=== PATIENT | female | born 1970 | race Caucasian/White ===

== ENCOUNTER 2018-11-08 14:04 | Outpatient (REF) | payer BC, SELFPAY ==
[2018-11-08 21:18] LABS: COMMENT (LAB VIEW ONLY) 199.56 mg/dL; Microalb ug/mg Crea 3.1 ug/mg Cr
== END 2018-11-08 14:24 ==
LOC: NCHCN 14:04
PROVIDERS: Visit Provider Registered Nurse
DX: I10 Essential (primary) hypertension (principal); E11.9 Type 2 diabetes mellitus without complications
CPT/HCPCS: 82043; 82570

== ENCOUNTER 2018-12-26 09:41 | Outpatient (REF) | payer BC, SELFPAY ==
[2018-12-26 20:49] LABS: Anion Gap 7.2 mmol/L (3-11); BUN 13 mg/dL (7-18); CO2 29.8 mmol/L (21.0-32.0); CREATININE 0.85 mg/dL (0.55-1.02); Calcium 9.8 mg/dL (8.5-10.1); Chloride 103 mmol/L (98-107); Glucose 137 mg/dL (70-100); Potassium 4.9 mmol/L (3.5-5.1); Sodium 140 mmol/L (136-145)
== END 2018-12-26 10:01 ==
LOC: NCHCN 09:41
PROVIDERS: PCP Registered Nurse; Visit Provider Registered Nurse
DX: E11.9 Type 2 diabetes mellitus without complications (principal); I10 Essential (primary) hypertension; E66.9 Obesity, unspecified
CPT/HCPCS: 80048

== ENCOUNTER 2019-04-28 16:27 | Outpatient (REF) | payer BC, SELFPAY ==
[2019-04-28 23:07] LABS: ALT 45 U/L (12-78); AST 24 U/L (15-37); Albumin 3.7 g/dL (3.4-5.0); Alkaline Phosphatase 81 U/L (46-116); Anion Gap 13.2 mmol/L (3-11); BUN 14 mg/dL (7-18); Bilirubin, Total 0.2 mg/dL (0.2-1.0); CO2 24.8 mmol/L (21.0-32.0); CREATININE 0.96 mg/dL (0.55-1.02); Calcium 8.8 mg/dL (8.5-10.1); Chloride 104 mmol/L (98-107); Glucose 162 mg/dL (70-100); Potassium 4.1 mmol/L (3.5-5.1); Sodium 142 mmol/L (136-145)
== END 2019-04-28 16:47 ==
LOC: NCHCN 16:27
PROVIDERS: PCP Registered Nurse; Visit Provider Family Medicine
DX: R60.0 Localized edema (principal); E66.9 Obesity, unspecified
CPT/HCPCS: 80053; 84443

== ENCOUNTER 2020-06-21 08:24 | Outpatient (REF) | payer BC, SELFPAY ==
[2020-06-21 21:13] LABS: Anion Gap 9.5 mmol/L (3-11); BUN 16 mg/dL (7-18); CO2 24.5 mmol/L (21.0-32.0); CREATININE 0.81 mg/dL (0.55-1.02); Chloride 106 mmol/L (98-107); Glucose 106 mg/dL (74-106); Potassium 4.3 mmol/L (3.5-5.1); Sodium 140 mmol/L (136-145)
[2020-06-21 21:22] LABS: COMMENT (LAB VIEW ONLY) 135.88 mg/dL
== END 2020-06-21 08:44 ==
LOC: NCHCN 08:24
PROVIDERS: PCP Registered Nurse; Visit Provider Registered Nurse
DX: E11.9 Type 2 diabetes mellitus without complications (principal); Z79.899 Other long term (current) drug therapy
CPT/HCPCS: 80048; 82043; 82570

== ENCOUNTER 2021-10-09 21:20 | Outpatient (REF) | payer BC, SELFPAY ==
[2021-10-09 21:11] LABS: HCT 34.2 % (36.0-46.0); HGB 10.7 g/dL (11.2-15.7); MCHC 31.3 % (32.0-36.0); MCV 95.8 fL (80-95); Platelet Count 421 10^3/uL (130-400); RBC 3.57 10^6/uL (3.93-5.22); RDW 12.6 % (11.7-14.6); RDW-SD 43.9 fL
[2021-10-09 21:32] LABS: TSH 2.05 uIU/mL (0.36-3.74)
== END 2021-10-09 21:21 | disposition home or self-care (01) ==
LOC: NCHCN 21:20
PROVIDERS: PCP Registered Nurse; Visit Provider Family Medicine
DX: N93.9 Abnormal uterine and vaginal bleeding, unspecified (principal)
CPT/HCPCS: 85027; 84443

== ENCOUNTER 2021-10-29 15:32 | Outpatient (REF) | payer BC, SELFPAY ==
[2021-10-29 21:39] LABS: HCT 32.9 % (36.0-46.0); HGB 10.2 g/dL (11.2-15.7)
== END 2021-10-29 15:33 | disposition home or self-care (01) ==
LOC: NCHCN 15:32
PROVIDERS: PCP Registered Nurse; Visit Provider Registered Nurse
DX: D64.9 Anemia, unspecified (principal); N92.1 Excessive and frequent menstruation with irregular cycle
CPT/HCPCS: 85014; 85018

== ENCOUNTER 2021-12-31 09:48 | Outpatient (REF) | payer BC, SELFPAY ==
[2021-12-31 17:10] LABS: COMMENT (LAB VIEW ONLY) 155.62 mg/dL; Microalb ug/mg Crea 5.9 ug/mg Cr
== END 2021-12-31 09:49 | disposition home or self-care (01) ==
LOC: NCHCN 09:48
PROVIDERS: PCP Registered Nurse; Visit Provider Registered Nurse
DX: E11.9 Type 2 diabetes mellitus without complications (principal)
CPT/HCPCS: 82043; 82570

== ENCOUNTER 2022-01-02 22:49 | Outpatient (REF) | payer BC, SELFPAY ==
[2022-01-02 20:59] LABS: HCT 38.1 % (36.0-46.0); HGB 11.5 g/dL (11.2-15.7); MCH 26.4 pg (27.0-33.0); MCHC 30.2 % (32.0-36.0); MCV 87.4 fL (80-95); MPV 10.8 fL (8.0-11.0); Platelet Count 417 10^3/uL (130-400); RBC 4.36 10^6/uL (3.93-5.22); RDW 13.7 % (11.7-14.6); RDW-SD 43.7 fL; WBC 6.33 10^3/uL (4.4-10.8)
[2022-01-05 12:44] LABS: IgA 128 mg/dL (85-499); Interpretation (See Note); Tissue Transglutaminase IgA 1.2 U/mL (<4.0)
== END 2022-01-02 22:50 | disposition home or self-care (01) ==
LOC: NCHCN 22:49
PROVIDERS: PCP Registered Nurse; Visit Provider Registered Nurse
DX: D64.9 Anemia, unspecified (principal); R19.7 Diarrhea, unspecified
CPT/HCPCS: 82784; 83516; 85027

== ENCOUNTER 2022-04-01 16:15 | Outpatient (REF) | payer BC, SELFPAY ==
[2022-04-01 14:35] LABS: Abs Immature Grans 0.01 10^3/uL (0.0-0.06); Absolute Basophil Count 0.06 10^3/uL (0.0-0.2); Absolute Eosinophil Count 0.25 10^3/uL (0.0-0.7); Absolute Lymphocyte Count 1.41 10^3/uL (1.2-3.4); Absolute Monocyte Count 0.58 10^3/uL (0.1-0.8); Absolute Neutrophil Count 3.26 10^3/uL (1.2-6.7); Basophils % 1.1; Eosinophils % 4.5; HGB 12.8 g/dL (11.2-15.7); Immature Grans % 0.2; Lymphocytes % 25.3; MCH 27.8 pg (27.0-33.0); MCV 87 fL (80-95); MPV 10.2 fL (8.0-11.0); Monocytes % 10.4; Neutrophils % 58.5; Platelet Count 360 10^3/uL (130-400); RDW 14.6 % (11.7-14.6); RDW-SD 46.3 fL; WBC 5.57 10^3/uL (4.4-10.8)
[2022-04-01 14:51] LABS: TSH (W/Ref FT4) 2.52 uIU/mL (0.36-3.74)
== END 2022-04-01 16:16 | disposition home or self-care (01) ==
LOC: NCHCN 16:15
PROVIDERS: PCP Registered Nurse; Visit Provider Registered Nurse
DX: R53.83 Other fatigue (principal)
CPT/HCPCS: 84443; 85025

== ENCOUNTER 2022-08-21 13:16 | Outpatient (REF) | payer BC, SELFPAY ==
[2022-08-21 15:37] LABS: HCT 42.1 % (36.0-46.0); HGB 14.2 g/dL (11.2-15.7); MCH 30.7 pg (27.0-33.0); MCHC 33.7 % (32.0-36.0); MCV 91 fL (80-95); MPV 10.5 fL (8.0-11.0); Platelet Count 365 10^3/uL (130-400); RBC 4.63 10^6/uL (3.93-5.22); RDW 12.7 % (11.7-14.6); RDW-SD 41.3 fL
[2022-08-21 16:23] LABS: ALT 25 U/L (14-59); AST 18 U/L (15-37); Albumin 3.4 g/dL (3.4-5.0); Alkaline Phosphatase 125 U/L (46-116); BUN 15 mg/dL (7-18); Bilirubin, Total 0.2 mg/dL (0.2-1.0); CREATININE 0.8 mg/dL (0.55-1.02); Calcium 9.3 mg/dL (8.5-10.1); Chloride 101 mmol/L (98-107); Estimated GFR 89.71 (mL/min/1.73m2); Glucose 100 mg/dL (74-106); Lipase 80 U/L (73-393); Sodium 133 mmol/L (136-145)
== END 2022-08-21 13:17 | disposition home or self-care (01) ==
LOC: NCHCN 13:16
PROVIDERS: PCP Registered Nurse; Visit Provider Family Medicine
DX: R10.13 Epigastric pain (principal)
CPT/HCPCS: 80053; 83690; 85027

== ENCOUNTER 2022-11-20 09:03 | Outpatient (REF) | payer BC, SELFPAY ==
--- NOTE | 2022-11-20 07:55 | PAPFT_PTH ---
PATIENT: Mei Valenzuela LOC: [facility]#:[id number] AGE/SX: 52/F ROOM: RE11/20/[address]: Roro Mallory : 1970 BED: DIS: 11/20/2022 SPEC #: [id number] RECD: 11/20/22 18:43 STATUS: GE REKelton #: [id number] MONAE: 11/20/22 07:[address]: Roro Mallory DEPT: [facility] Cytology RECD BY: Maribell Munoz Tissues: 1 - CX/ENDOCX FOR PAP SMEARS Procedures: PAP THIN PREP/UVM Screening HPV DNA PROBE Comments: [id number]
== END 2022-11-20 09:04 | disposition home or self-care (01) ==
LOC: NCHCN 09:03
PROVIDERS: PCP Registered Nurse; Visit Provider Registered Nurse
DX: Z12.4 Encounter for screening for malignant neoplasm of cervix (principal); Z00.00 Encounter for general adult medical examination without abnormal findings; Z11.51 Encounter for screening for human papillomavirus (HPV)
CPT/HCPCS: 88142; 87624

== ENCOUNTER 2023-05-27 11:32 | Outpatient (REF) | payer BC, SELFPAY ==
[2023-05-27 15:11] LABS: COMMENT (LAB VIEW ONLY) 102.76 mg/dL; Microalb ug/mg Crea 5.7 ug/mg Cr
== END 2023-05-27 11:33 | disposition home or self-care (01) ==
LOC: NCHCN 11:32
PROVIDERS: PCP Registered Nurse; Visit Provider Family Medicine
DX: E11.9 Type 2 diabetes mellitus without complications (principal); I10 Essential (primary) hypertension
CPT/HCPCS: 82043; 82570

== ENCOUNTER 2023-11-23 18:24 | Outpatient (REF) | payer BC, SELFPAY ==
[2023-11-23 14:29] LABS: HGB 12.6 g/dL (11.2-15.7); MCH 28.8 pg (27.0-33.0); MCHC 32.3 % (32.0-36.0); MCV 89 fL (80-95); MPV 9.8 fL (8.0-11.0); Platelet Count 339 10^3/uL (130-400); RBC 4.38 10^6/uL (3.93-5.22); RDW 13.3 % (11.7-14.6); RDW-SD 43.6 fL; WBC 4.83 10^3/uL (4.4-10.8)
[2023-11-23 15:08] LABS: ALT 42 U/L (14-59); AST 33 U/L (15-37); Albumin 3.6 g/dL (3.4-5.0); Alkaline Phosphatase 78 U/L (46-116); Anion Gap 8.3 mmol/L (3-11); BUN 9 mg/dL (7-18); Bilirubin, Total 0.3 mg/dL (0.2-1.0); CO2 27.7 mmol/L (21.0-32.0); CREATININE 0.8 mg/dL (0.55-1.02); Calcium 9.5 mg/dL (8.5-10.1); Chloride 105 mmol/L (98-107); Estimated GFR 89.15 (mL/min/1.73m2); Ferritin 11 ng/mL (8-252); Glucose 113 mg/dL (74-106); Potassium 4.8 mmol/L (3.5-5.1); Sodium 141 mmol/L (136-145); Total Protein 7.4 g/dL (6.4-8.2)
[2023-11-23 15:12] LABS: Iron 50 ug/dL (50-170); Total Iron Binding Capacity 374 ug/dL (250-450); Transferrin Sat 13 % (15-50)
[2023-11-23 15:45] LABS: Hemoglobin A1C 6.6 % (<5.7)
== END 2023-11-23 18:25 | disposition home or self-care (01) ==
LOC: NCHCN 18:24
PROVIDERS: PCP Registered Nurse; Referring Provider Family Medicine; Visit Provider Family Medicine
DX: D64.9 Anemia, unspecified (principal); E11.9 Type 2 diabetes mellitus without complications; I10 Essential (primary) hypertension
CPT/HCPCS: 80053; 85027; 82728; 83036; 83540; 83550

== ENCOUNTER 2024-05-26 18:08 | Outpatient (REF) | payer BC, SELFPAY ==
[2024-05-26 15:21] LABS: COMMENT (LAB VIEW ONLY) 146.18 mg/dL; Microalb ug/mg Crea 7.5 ug/mg Cr
--- OUTSIDE RECORDS SUMMARY | 2024-05-26 18:11 | XMS_ITS ---
Author Organization Unknown Address [address] [place] [address] [phone] Phone Care Team Providers Care Curtain Worker Name Role Phone JOSÉ LUIS Marquez Attending Unavailable CHASE Sal Primary Unavailable Results US PELVIC TRANSVAGINAL* - Co mpleted: 10/21/2021 14:59 LOINC: PELVIC ULTRASOUND:Transabdom inal and transvaginal exams were performed. The uterus measures 8.7 by 4.8 by 5.6 cm. No fibroids are visible. The endometrial stripe measures 3 mm in thickness. There is a 1.8 cm follicle. The left ovary is not well seen. There is no evidence of free fluid or hydronephrosis. IMPRESSION:Suboptimal visualization of the left ovary. Unremarkable uterus and endometrium. Dictated by: CEO YONI AZEVEDO MD Transcribed by: REGINALDO 10/22/2108:20 D Thursday, October 21, 2021 3:41:30 PM [id number] Electronically Reviewed and Signed By: YONI AZEVEDO MD 11/10/21 08:12 Copy for: [facility] HEALTH INFORMATION MGMT Social History Type Status Start Date End Date Code Code Syst em Smoking History Never smoker (Never Smoked) 519002686 SNOMED CT Sex Female Hospital Discharge Instructions Should you have any questions prior to discharge, please contact a member of your healthcare team. If you have left the hospital and have any questions, please contact your primary care physician. Reason For Referral No Data Found Allergies and Adverse Reactions Allergy Substance Reaction Severity Start Date Concern Status Co de Code System RANITIDINE Rash (SNOMED-CT: 761531210) Severe Active 9143 RxNorm PRILOSEC Rash (SNOMED-CT: 631527636) Severe Active 813971 RxNorm Plan of Treatment MM SCREEN BILAT 05/19/2023 US PELVIC / TV 06/16/2023 US PELVIC / TV 03/17/2023 PRE-OP COVID-19 TESTING 01/23/2022 US PELVIC / TV 10/21/2021 US GUIDED NEEDLE BIOPSY 08/27/2021 Encounters Encounter Diagnosis Start Date Code Code Sys tem Abnormal uterine and vaginal bleeding, unspecified 09/2021 SNOMED-CT Personal Care Team Section Performer Name Performer Role Active Date Inactive Da te
--- OUTSIDE RECORDS SUMMARY | 2024-05-26 18:11 | XMS_ITS ---
Author Organization Unknown Address [address] [place] [address] [phone] Phone Care Team Providers Care Property Condition Assessor Name Role Phone LENORA Barraza Attending Unavailable CHASE Sal Primary Unavailable Social History Type Status Start Date End Date Code Code Syst em Smoking History Never smoker (Never Smoked) 870038841 SNOMED CT Sex Female Hospital Discharge Instructions [...] Co de Code System RANITIDINE Rash (SNOMED-CT: 284325125) Severe Active 9143 RxNorm PRILOSEC Rash (SNOMED-CT: 431368287) Severe Active 20321223 RxNorm Plan of Treatment MM SCREEN BILAT 05/19/2023 US PELVIC / TV 06/16/2023 US PELVIC / TV 03/17/2023 PRE-OP COVID-19 TESTING 01/23/2022 US PELVIC / TV 10/21/2021 US GUIDED NEEDLE BIOPSY 08/27/2021 Encounters Encounter Diagnosis Start Date Code Code Sys tem Excessive and frequent menstruation with irregular cyc le 11/10/2021 SNOMED-CT Personal Care Team Section Performer Name Performer Role Active Date Inactive Da te
--- OUTSIDE RECORDS SUMMARY | 2024-05-26 18:11 | XMS_ITS ---
Author Organization Unknown Address [address] [place] [address] [phone] Phone Care Team Providers Care Fountain Supervisor Name Role Phone CONNER Stevenson Attending Unavailable CHASE Sal Primary Unavailable Social History Type Status Start Date End Date Code Code Syst em Smoking History Never smoker (Never Smoked) 081142456 SNOMED CT Sex Female Hospital Discharge Instructions [...] Co de Code System RANITIDINE Rash (SNOMED-CT: 757786272) Severe Active 9143 RxNorm PRILOSEC Rash (SNOMED-CT: 398378908) Severe Active 20321223 RxNorm Plan of Treatment MM SCREEN BILAT 05/19/2023 US PELVIC / TV 06/16/2023 US PELVIC / TV 03/17/2023 PRE-OP COVID-19 TESTING 01/23/2022 US PELVIC / TV 10/21/2021 US GUIDED NEEDLE BIOPSY 08/27/2021 Encounters Encounter Diagnosis Start Date Code Code Sys tem Biceps tendinitis 10/09/2021518112180 SNOMED-CT Personal Care Team Section Performer Name Performer Role Active Date Inactive Da te
--- OUTSIDE RECORDS SUMMARY | 2024-05-26 18:11 | XMS_ITS ---
Author Organization Unknown Address [address] [place] [address] [phone] Phone Care Team Providers Care Director Of Market Analysis Name Role Phone ROLANDO Chew Attending Unavailable CHASE Sal Primary Unavailable Results [facility] - Emily ect Date/Time: 01/23/2022 10:03 [facility] ID: [id number] [address] [place] [address], [phone] LOINC: 55233-2 Test Value Unit Reference Range Code Code System Flag Tier- PRE-OP 10802-8 LOINC SARS COV2 RNA: NEGATIVE REFERENCE RANGE: NEGAT 72130-6 L OINC Social History Type Status Start Date End Date Code Code Syst em Smoking History Never smoker (Never Smoked) 690328441 SNOMED CT Sex Female Hospital Discharge Instructions [...] Co de Code System RANITIDINE Rash (SNOMED-CT: 926919085) Severe Active 9143 RxNorm PRILOSEC Rash (SNOMED-CT: 762146929) Severe Active 244866 RxNorm Plan of Treatment MM SCREEN BILAT 05/19/2023 US PELVIC / TV 06/16/2023 US PELVIC / TV 03/17/2023 PRE-OP COVID-19 TESTING 01/23/2022 US PELVIC / TV 10/21/2021 US GUIDED NEEDLE BIOPSY 08/27/2021 Encounters Encounter Diagnosis Start Date Code Code Sys tem Pre-surgery testing 01/23/2022 855354087 SNOMED-C T Personal Care Team Section Performer Name Performer Role Active Date Inactive Da te
--- OUTSIDE RECORDS SUMMARY | 2024-05-26 18:11 | XMS_ITS ---
Author Organization Unknown Address [address] [place] [address] [phone] Phone Care Team Providers Care Distributor Publications Name Role Phone SELINA LUCAS Attending Unavailable CHASE Sal Primary Unavailable Results US GUIDANCE FOR NEEDLE PLACE MENT - Completed: 08/27/2021 15:52 LOINC: Ultrasound guidance was prov ided for right biceps injection. Radiologist was not present for this procedure. Dictated by: ALMITA GAONA MD Transcribed by: REGINALDO 08/28/2108:23 D Friday, August 27, 2021 12:33:50 PM [id number] Electronically Reviewed and Signed By: DAVID GAONA MD 08/29/21 09:04 Copy for: [facility] HEALTH INFORMATION MGMT Social History Type Status Start Date End Date Code Code Syst em Smoking History Never smoker (Never Smoked) 480217651 SNOMED CT Sex Female Hospital Discharge Instructions Should you have any questions prior to discharge, please contact a member of your healthcare team. If you have left the hospital and have any questions, please contact your primary care physician. Reason For Referral No Data Found Procedures Procedure Name Date Status Code Code Syste m Arthrocentesis Aspir&/Inj Major Jt/Bursa w/US 08/27/2021 c ompleted CPT Allergies and Adverse Reactions Allergy Substance Reaction Severity Start Date Concern Status Co de Code System RANITIDINE Rash (SNOMED-CT: 240653382) Severe Active 43 RxNorm PRILOSEC Rash (SNOMED-CT: 843984316) Severe Active 20321223 RxNorm Plan of Treatment MM SCREEN BILAT 05/19/2023 US PELVIC / TV 06/16/2023 US PELVIC / TV 03/17/2023 PRE-OP COVID-19 TESTING 01/23/2022 US PELVIC / TV 10/21/2021 US GUIDED NEEDLE BIOPSY 08/27/2021 Encounters Encounter Diagnosis Start Date Code Code Sys tem Pain in right shoulder 08/27/2021 SNOME D-CT Personal Care Team Section Performer Name Performer Role Active Date Inactive Da te
--- OUTSIDE RECORDS SUMMARY | 2024-05-26 18:12 | XMS_ITS ---
Author Organization Unknown Address [address] [place] [address] [phone] Phone Care Team Providers Care Retail Merchandising Specialist Name Role Phone PITA Rivers Attending Unavailable CHASE Sal Primary Unavailable Social History Type Status Start Date End Date Code Code Syst em Smoking History Never smoker (Never Smoked) 435852025 SNOMED CT Sex Female Hospital Discharge Instructions [...] Co de Code System RANITIDINE Rash (SNOMED-CT: 556358942) Severe Active 9143 RxNorm PRILOSEC Rash (SNOMED-CT: 827254834) Severe Active 20321223 RxNorm Plan of Treatment MM SCREEN BILAT 05/19/2023 US PELVIC / TV 06/16/2023 US PELVIC / TV 03/17/2023 PRE-OP COVID-19 TESTING 01/23/2022 US PELVIC / TV 10/21/2021 US GUIDED NEEDLE BIOPSY 08/27/2021 Encounters Encounter Diagnosis Start Date Code Code Sys tem Other fatigue 04/09/2022 SNOMED-CT Personal Care Team Section Performer Name Performer Role Active Date Inactive Da te
--- OUTSIDE RECORDS SUMMARY | 2024-05-26 18:12 | XMS_ITS ---
Author Organization Unknown Address [address] [place] [address] [phone] Phone Care Team Providers Care Sorter Upholstery Parts Name Role Phone CHASE Sal Attending Unavailable Social History Type Status Start Date End Date Code Code Syst em Smoking History Never smoker (Never Smoked) 007286688 SNOMED CT Sex Female Hospital Discharge Instructions [...] Co de Code System RANITIDINE Rash (SNOMED-CT: 004370756) Severe Active 9143 RxNorm PRILOSEC Rash (SNOMED-CT: 825991998) Severe Active 584123 RxNorm Plan of Treatment MM SCREEN BILAT 05/19/2023 US PELVIC / TV 06/16/2023 US PELVIC / TV 03/17/2023 PRE-OP COVID-19 TESTING 01/23/2022 US PELVIC / TV 10/21/2021 US GUIDED NEEDLE BIOPSY 08/27/2021 Encounters Encounter Diagnosis Start Date Code Code Sys tem Obstructive sleep apnea (adult) (pediatric) 05/20/2022 SNOMED-CT Personal Care Team Section Performer Name Performer Role Active Date Inactive Da te
--- OUTSIDE RECORDS SUMMARY | 2024-05-26 18:12 | XMS_ITS ---
Author Organization Unknown Address [address] [place] [address] [phone] Phone Care Team Providers Care Functional Director Name Role Phone LUIS WOODS Attending Unavail able CHASE BRITTNEY M Primary Unavailable Social History Type Status Start Date End Date Code Code Syst em Smoking History Never smoker (Never Smoked) 392361564 SNOMED CT Sex Female Hospital Discharge Instructions [...] Co de Code System RANITIDINE Rash (SNOMED-CT: 420244219) Severe Active 9143 RxNorm PRILOSEC Rash (SNOMED-CT: 556721555) Severe Active 20321223 RxNorm Plan of Treatment MM SCREEN BILAT 05/19/2023 US PELVIC / TV 06/16/2023 US PELVIC / TV 03/17/2023 PRE-OP COVID-19 TESTING 01/23/2022 US PELVIC / TV 10/21/2021 US GUIDED NEEDLE BIOPSY 08/27/2021 Encounters Encounter Diagnosis Start Date Code Code Sys tem Obstructive sleep apnea (adult) (pediatric) 04/24/2022 SNOMED-CT Personal Care Team Section Performer Name Performer Role Active Date Inactive Da te
--- OUTSIDE RECORDS SUMMARY | 2024-05-26 18:12 | XMS_ITS ---
Author Organization Unknown Address [address] [place] [address] [phone] Phone Care Team Providers Care Av Specialist Name Role Phone ROLANDO Chew Attending Unavailable CHASE Sal Primary Unavailable Results TEST (URINE) QUALI TATIVE - Collect Date/Time: 01/26/2022 09:05 [facility] ID: [id number] [address] [place] [address], 56 LOINC: 2106-3 Test Value Unit Reference Range Code Code System Flag TEST NEGATIVE 6-3 LOINC Social History Type Status Start Date End Date Code Code Syst em Smoking History Never smoker (Never Smoked) 175590806 SNOMED CT Sex Female Vital Signs Vital Sign Value Unit [place] Value [place] Unit Date/Time Recent/Initial? Code Code System Systolic Blood Pressure 119 mm[Hg] 01/26/2022 10:35 Initial 8480-6 LOINC Diastolic Blood Pressure 77 mm[Hg] 01/26/2022 10:35 Initial 8462-4 LOINC O2 Saturation 100 % 2021 10:35 Initial 52561- 5 LOINC Pulse 80.0 /min 01/26/2022 10:35 Initial 8867-4 LOINC Respiration 16 /min 01/27/20 10:35 Initial 9279-1 LOINC Temperature 36.5 Elen 97.7 F 01/27/20 10:35 Initial 8310-5 LOINC Hospital Discharge Instructions Should you have any questions prior to discharge, please contact a member of your healthcare team. If you have left the hospital and have any questions, please contact your primary care physician. Reason For Referral No Data Found Procedures Procedure Name Date Status Code Code Syste m Colsc Flx w/Rmvl Of Tumor Po lyp Lesion Snare Tq 01/26/2022 completed 08451 CPT Allergies and Adverse Reactions Allergy Substance Reaction Severity Start Date Concern Status Co de Code System RANITIDINE Rash (SNOMED-CT: 594607207) Severe Active 9142 RxNorm PRILOSEC Rash (SNOMED-CT: 170058052) Severe Active 20321223 RxNorm Plan of Treatment MM SCREEN BILAT 05/19/2023 US PELVIC / TV 06/16/2023 US PELVIC / TV 03/17/2023 PRE-OP COVID-19 TESTING 01/23/2022 US PELVIC / TV 10/21/2021 US GUIDED NEEDLE BIOPSY 08/27/2021 Encounters Encounter Diagnosis Start Date Code Code Sys tem Encounter for screening for malignant neoplasm of colo n 01/26/2022 SNOMED-CT Personal Care Team Section Performer Name Performer Role Active Date Inactive Da te
--- OUTSIDE RECORDS SUMMARY | 2024-05-26 18:13 | XMS_ITS ---
Author Organization Unknown Address [address] [place] [address] [phone] Phone Care Team Providers Care Csr Technician Name Role Phone JOSELITO Lafleur Attending Unavailable ROSEMARY Sahu [employer] PSYCHOLOGIST Unavailable CHASE Sal Primary Unavailable Results GLUCOSE FINGER/HEEL CAPILLAR Y - Collect Date/Time: 01/15/2023 09:12 [facility] ID: [id number] [address] [place] [address], [phone] LOINC: 51084-9 Test Value Unit Reference Range Code Code System Flag GLUCOSE CAP 85 mg/dL L=70 H=116 Social History Type Status Start Date End Date Code Code Syst em Smoking History Never smoker (Never Smoked) 422149993 SNOMED CT Sex Female Vital Signs Vital Sign Value Unit [place] Value [place] Unit Date/Time Recent/Initial? Code Code System Body Mass Index 32.89 kg/m2 01/11/2023 11:12 Initial 76282 -5 LOINC Systolic Blood Pressure 117 mm[Hg] 01/15/2023 12:35 Initial 8480- 6 LOINC Diastolic Blood Pressure 70 mm[Hg] 01/15/2023 12:35 Initial 8462- 4 LOINC Body Surface Area 2.12 m2 01/11/2023 11:12 Initial 3140- 1 LOINC Height 170.180 0 cm 67.00 in 01/11/2023 11:12 Initial 8302- 2 LOINC O2 Saturation 100 % 2022 12:35 Initial 19854 -5 LOINC Pulse 65.0 /min 01/15/2023 12:35 Initial 8867- 4 LOINC Respiration 18 /min 01/16/20 12:35 Initial 9279- 1 LOINC Temperature 36.1 Elen 97.0 F 01/16/20 12:35 Initial 8310- 5 [facility] Weight 95.25 kg 210.00 lbs 01/11/2023 11:12 Initial 28426 -7 [facility] Hospital Discharge Instructions Should you have any questions prior to discharge, please contact a member of your healthcare team. If you have left the hospital and have any questions, please contact your primary care physician. Reason For Referral No Data Found Procedures Procedure Name Date Status Code Code Syste m Hemorrhoidectomy, Internal, By Ligation Other Than Rubber Band; 2 Or More Hemorrhoid Columns/Groups 01/15/2023 completed 36063 CPT Anesthesia, Anorectal Proc 01/15/2023 completed 83842 CPT Allergies and Adverse Reactions Allergy Substance Reaction Severity Start Date Concern Status Co de Code System RANITIDINE Rash (SNOMED-CT: 033185352) Severe Active 9143 RxNorm PRILOSEC Rash (SNOMED-CT: 635563553) Severe Active 20321223 RxNorm Plan of Treatment MM SCREEN BILAT 05/19/2023 US PELVIC / TV 06/16/2023 US PELVIC / TV 03/17/2023 PRE-OP COVID-19 TESTING 01/23/2022 US PELVIC / TV 10/21/2021 US GUIDED NEEDLE BIOPSY 08/27/2021 Encounters Encounter Diagnosis Start Date Code Code Sys tem Fourth degree hemorrhoids 01/15/2023 SN OMED-CT Personal Care Team Section Performer Name Performer Role Active Date Inactive Da te
--- OUTSIDE RECORDS SUMMARY | 2024-05-26 18:13 | XMS_ITS ---
Author Organization Unknown Address [address] [place] [address] [phone] Phone Care Team Providers Care Laborer High Density Press Name Role Phone JOSELITO HYUN Lafleur Attending Unavailable CHASE Sal Primary Unavailable Results BASIC METABOLIC PANEL (BMP) - Collect Date/Time: 01/11/2023 09:30 [facility] ID: [id number] [address] [place] [address], [address] LOINC: 04307-7 Test Value Unit Reference Range Code Code System Flag GLUCOSE 99 mg/dL L=70 H=116 2345-7 LOINC BUN 12 mg/dL L=6 H=25 3094-0 LOINC CREATININE 0.76 mg/dL L=0.51 H=0.95 2160-0 LOINC SODIUM SERUM 141 mmol/L L=136 H=145 2951-2 LOINC POTASSIUM SERUM 4.7 mmol/L L=3.4 H=5.2 2823-3 LOINC CHLORIDE SERUM 103 mmol/L L=96 H=110 2075-0 LOINC CARBON DIOXIDE (CO2) 28 mmol/L L=22 H=34 2028-9 LOINC ANION GAP 10.4 mmol/L 81553-8 LOINC CALCIUM SERUM 9.6 mg/dL L=8.2 H=10.2 51236-0 LOINC AGE 52 years eGFR (non-Afr.Amer.) 81 mL/min 00963-1 LOINC eGFR (Afr-Cymro) 97 mL/min 56938-1 [facility] W/ [facility]FFERENTIAL* - Colle ct Date/Time: 01/11/2023 09:30 [facility] ID: [id number] [address] [place], [place], [address] LOINC: 55593-6 Test Value Unit Reference Range Code Code System Flag WBC 6.76 th/cmm L=5.00 H=10.00 6690-2 LOINC NEUT % 68.6 % L=40.0 H=80.0 LYMPH % 20.1 % L=10.0 H=50.0 MONO % 7.8 % L=2.0 H=12.0 46462-3 LOINC EOS % 2.5 % L=0.0 H=8.0 BASO % 0.7 % L=0.0 H=3.0 IG % 0.3 % L=0.0 H=1.1 2514-8 LOINC NRBC % 0.0 % L=0.0 H=0.0 00757-4 LOINC NEUT abs count 4.6 th/cmm L=1.6 H=8.4 751-8 LOINC LYMPH abs count 1.4 th/cmm L=1.5 H=4.0 731-0 LOINC L MONO abs count 0.5 th/cmm L=0.2 H=1.0 742-7 LOINC EOS abs count 0.2 th/cmm L=0.0 H=0.5 711-2 LOINC BASO abs count 0.1 th/cmm L=0.0 H=0.2 704-7 LOINC IG abs count 0.0 th/cmm L=0.0 H=0.1 07831-9 LOINC NRBC abs count 0.0 mil/cmm L=0.0 H=0.0 56976-4 LOINC RBC 4.65 mil/cmm L=3.90 H=5.40 789-8 LOINC HEMOGLOBIN 14.3 gm/dL L=12.0 H=16.0 718-7 LOINC HEMATOCRIT 44 % L=37 H=47 4544-3 LOINC MCV 94 fL L=82 H=92 787-2 LOINC H MCH 30.8 pg L=27.0 H=31.0 785-6 LOINC MCHC 32.9 % L=32.0 H=36.0 786-4 LOINC RDW-SD 41.8 fL L=39.0 H=49.0 788-0 LOINC PLATELET COUNT 331 th/cmm L=150 H=450 777-3 LOINC Social History Type Status Start Date End Date Code Code Syst em Smoking History Never smoker (Never Smoked) 366746425 SNOMED CT Sex Female Hospital Discharge Instructions [...] Co de Code System RANITIDINE Rash (SNOMED-CT: 944589140) Severe Active 43 RxNorm PRILOSEC Rash (SNOMED-CT: 350245788) Severe Active 20321223 RxNorm Plan of Treatment MM SCREEN BILAT 05/19/2023 US PELVIC / TV 06/16/2023 US PELVIC / TV 03/17/2023 PRE-OP COVID-19 TESTING 01/23/2022 US PELVIC / TV 10/21/2021 US GUIDED NEEDLE BIOPSY 08/27/2021 Encounters Encounter Diagnosis Start Date Code Code Sys tem Encounter for other preprocedural examination 01/12/20 23 SNOMED-CT Personal Care Team Section Performer Name Performer Role Active Date Inactive Da te
--- OUTSIDE RECORDS SUMMARY | 2024-05-26 18:13 | XMS_ITS ---
Author Organization Unknown Address [address] [place] [address] [phone] Phone Care Team Providers Care Clean Out Driller Helper Name Role Phone JOSELITO Lafleur Attending Unavailable STONE BRITTNEY Sal Primary Unavailable Social History Type Status Start Date End Date Code Code Syst em Smoking History Never smoker (Never Smoked) 749174624 SNOMED CT Sex Female Hospital Discharge Instructions [...] Co de Code System RANITIDINE Rash (SNOMED-CT: 929702343) Severe Active 9143 RxNorm PRILOSEC Rash (SNOMED-CT: 294732981) Severe Active 20321223 RxNorm Plan of Treatment MM SCREEN BILAT 05/19/2023 US PELVIC / TV 06/16/2023 US PELVIC / TV 03/17/2023 PRE-OP COVID-19 TESTING 01/23/2022 US PELVIC / TV 10/21/2021 US GUIDED NEEDLE BIOPSY 08/27/2021 Encounters Encounter Diagnosis Start Date Code Code Sys tem Residual hemorrhoidal skin tags 12/14/2022 82197816 SNOMED-CT Personal Care Team Section Performer Name Performer Role Active Date Inactive Da te
--- OUTSIDE RECORDS SUMMARY | 2024-05-26 18:13 | XMS_ITS ---
Author Organization Unknown Address [address] [place] [address] [phone] Phone Care Team Providers Care High School Coordinator Name Role Phone PITA Rivers Attending Unavailable CHASE Sal Primary Unavailable Social History Type Status Start Date End Date Code Code Syst em Smoking History Never smoker (Never Smoked) 637215129 SNOMED CT Sex Female Hospital Discharge Instructions [...] Co de Code System RANITIDINE Rash (SNOMED-CT: 784433559) Severe Active 9143 RxNorm PRILOSEC Rash (SNOMED-CT: 351598677) Severe Active 20321223 RxNorm Plan of Treatment MM SCREEN BILAT 05/19/2023 US PELVIC / TV 06/16/2023 US PELVIC / TV 03/17/2023 PRE-OP COVID-19 TESTING 01/23/2022 US PELVIC / TV 10/21/2021 US GUIDED NEEDLE BIOPSY 08/27/2021 Encounters Encounter Diagnosis Start Date Code Code Sys tem Person consulting for explan ation of examination or test findings 05/13/2022 SNOMED-CT Personal Care Team Section Performer Name Performer Role Active Date Inactive Da te
--- OUTSIDE RECORDS SUMMARY | 2024-05-26 18:14 | XMS_ITS ---
Author Organization Unknown Address [address] [place] [address] [phone] Phone Care Team Providers Care Optical Laboratory Mechanic Name Role Phone JOSELITO Lafleur Attending Unavailable CHASE Sal Primary Unavailable Social History Type Status Start Date End Date Code Code Syst em Smoking History Never smoker (Never Smoked) 595689529 SNOMED CT Sex Female Hospital Discharge Instructions [...] Co de Code System RANITIDINE Rash (SNOMED-CT: 753943863) Severe Active 9143 RxNorm PRILOSEC Rash (SNOMED-CT: 348093492) Severe Active 20321223 RxNorm Plan of Treatment MM SCREEN BILAT 05/19/2023 US PELVIC / TV 06/16/2023 US PELVIC / TV 03/17/2023 PRE-OP COVID-19 TESTING 01/23/2022 US PELVIC / TV 10/21/2021 US GUIDED NEEDLE BIOPSY 08/27/2021 Encounters Encounter Diagnosis Start Date Code Code Sys tem Follow-up visit 02/08/2023 067003466 SNOMED-CT Personal Care Team Section Performer Name Performer Role Active Date Inactive Da te
--- OUTSIDE RECORDS SUMMARY | 2024-05-26 18:14 | XMS_ITS ---
Author Organization Unknown Address [address] [place] [address] [phone] Phone Care Team Providers Care Fruit Farmworker Name Role Phone PROVOST LEVINE Attending Unavailable CHASE Sal Primary Unavailable Results US PELVIC TRANSVAGINAL* - Co mpleted: 03/17/2023 14:05 LOINC: [facility] [place], [place] [address] PACS CIVIL PROJECT ENGINEER REPORT Patient Name: MAURICIO CASTRO MRN: Sex: : Age: [id number] F 1970 52 Account: Accession: Admit: StayType: [id number] 03/17/2023 O/P Ordered: Order ID: Submitted: Ordering Provider: 03/17/2023 13:28 [id number] KT JULIANNA XIE Completed: Technologist: Resulted: 03/17/2023 14:05 GVS 03/17/2023 15:09 Study Description: US PELVIC TRANSVAGINAL* Study Reason: Menorrhagia TECNIQUE: Transabdominal and transvaginal exams performed. COMPARISON: 22 October 2021 FINDINGS: UTERUS: Anteverted. 9.6 x 4.5 x 5.5 cm Endometrium: 17 mm. No focal abnormality visible. Myometrium: Unremarkable. Cervix: Small nabothian cyst. OVARIES: Right: Cyst or mass: 4.7 x 3.7 x 5.0 cm simple cyst Left: Not seen DOPPLER: Blood flow demonstrated to right ovary. CUL-DE-SAC: Free fluid: None. IMPRESSION: 1. [Mildly thickened endometrium without focal abnormality. 2. 5 cm simple cyst right ovary. Left ovary not visualized. Report Digitally Signed by Roxann Marie on 03/17/2023 03:09 PM EDT Social History Type Status Start Date End Date Code Code Syst em Smoking History Never smoker (Never Smoked) 215821519 SpotRightOMED CT Sex Female Hospital Discharge Instructions Should you have any questions prior to discharge, please contact a member of your healthcare team. If you have left the hospital and have any questions, please contact your primary care physician. Reason For Referral No Data Found Allergies and Adverse Reactions Allergy Substance Reaction Severity Start Date Concern Status Co de Code System RANITIDINE Rash (SNOMED-CT: 247906076) Severe Active 9143 RxNorm PRILOSEC Rash (SNOMED-CT: 382399174) Severe Active 20321223 RxNorm Plan of Treatment MM SCREEN BILAT 05/19/2023 US PELVIC / TV 06/16/2023 US PELVIC / TV 03/17/2023 PRE-OP COVID-19 TESTING 01/23/2022 US PELVIC / TV 10/21/2021 US GUIDED NEEDLE BIOPSY 08/27/2021 Encounters Encounter Diagnosis Start Date Code Code Sys tem Abnormal findings on diagnos tic imaging of other specified body structures 03/17/2023 [employer] Automation-CT Personal Care Team Section Performer Name Performer Role Active Date Inactive Da te
--- OUTSIDE RECORDS SUMMARY | 2024-05-26 18:14 | XMS_ITS ---
Author Organization Unknown Address [address] [place] [phone] Phone Care Team Providers Care Business Team Leader Name Role Phone JOSELITODESTINY Lafleur Attending Unavailable STONEFIELD MICHELMARLEN Sal Primary Unavailable Social History Type Status Start Date End Date Code Code Syst em Smoking History Never smoker (Never Smoked) 879411083 SNOMED CT Sex Female Hospital Discharge Instructions [...] Co de Code System RANITIDINE Rash (SNOMED-CT: 483594265) Severe Active 9143 RxNorm PRILOSEC Rash (SNOMED-CT: 283287102) Severe Active 20321223 RxNorm Plan of Treatment MM SCREEN BILAT 05/19/2023 US PELVIC / TV 06/16/2023 US PELVIC / TV 03/17/2023 PRE-OP COVID-19 TESTING 01/23/2022 US PELVIC / TV 10/21/2021 US GUIDED NEEDLE BIOPSY 08/27/2021 Encounters Encounter Diagnosis Start Date Code Code Sys tem Internal hemorrhoids grade IV 01/15/2023 385013053 SNOMED-CT Personal Care Team Section Performer Name Performer Role Active Date Inactive Da te
--- OUTSIDE RECORDS SUMMARY | 2024-05-26 18:14 | XMS_ITS ---
Author Organization Unknown Address [address] [place] [address] [phone] Phone Care Team Providers Care Supervisor Inspection Department Name Role Phone JOSELITO Lafleur Attending Unavailable CHASE Sal Primary Unavailable Social History Type Status Start Date End Date Code Code Syst em Smoking History Never smoker (Never Smoked) 535430772 SNOMED CT Sex Female Hospital Discharge Instructions [...] Co de Code System RANITIDINE Rash (SNOMED-CT: 153498413) Severe Active 9143 RxNorm PRILOSEC Rash (SNOMED-CT: 461315240) Severe Active 20321223 RxNorm Plan of Treatment MM SCREEN BILAT 05/19/2023 US PELVIC / TV 06/16/2023 US PELVIC / TV 03/17/2023 PRE-OP COVID-19 TESTING 01/23/2022 US PELVIC / TV 10/21/2021 US GUIDED NEEDLE BIOPSY 08/27/2021 Encounters Encounter Diagnosis Start Date Code Code Sys tem Follow-up visit 03/22/2023 071049907 SNOMED-CT Personal Care Team Section Performer Name Performer Role Active Date Inactive Da te
--- OUTSIDE RECORDS SUMMARY | 2024-05-26 18:15 | XMS_ITS ---
Author Organization Unknown Address [address] [place] [address] [phone] Phone Care Team Providers Care Automotive Electrical Helper Name Role Phone December Attending Unavailable CHASE Sal Primary Unavailable Results VAGINAL SMEAR EVALUATION* - Collect Date/Time: 04/06/2023 13:47 [facility] ID: [id number] [address] [place] [address], [id number] LOINC: 04861-6 Test Value Unit Reference Range Code Code System Flag WBC s few Yeast. Moderate Hyphae Present Clue cells Not present TOTAL AUGUSTINE SCORE 2 CULT URINE CULTURE* - Collec t Date/Time: 04/06/2023 13:45 [facility] ID: [id number] [address] [place] [address], [id number] LOINC: 630-4 Test Value Unit Reference Range Code Code System Flag COLLECTION MODE: NOT STATED 91770-4 LOINC Social History Type Status Start Date End Date Code Code Syst em Smoking History Never smoker (Never Smoked) 014957728 SNOMED CT Sex Female Hospital Discharge Instructions [...] Co de Code System RANITIDINE Rash (SNOMED-CT: 073241008) Severe Active 9143 RxNorm PRILOSEC Rash (SNOMED-CT: 970328440) Severe Active 947396 RxNorm Plan of Treatment MM SCREEN BILAT 05/19/2023 US PELVIC / TV 06/16/2023 US PELVIC / TV 03/17/2023 PRE-OP COVID-19 TESTING 01/23/2022 US PELVIC / TV 10/21/2021 US GUIDED NEEDLE BIOPSY 08/27/2021 Encounters Encounter Diagnosis Start Date Code Code Sys tem Noninflammatory disorder of the vagina 04/06/2023 22 499247 SNOMED-CT Personal Care Team Section Performer Name Performer Role Active Date Inactive Da te
--- OUTSIDE RECORDS SUMMARY | 2024-05-26 18:15 | XMS_ITS ---
Author Organization Unknown Address [address] [place] [address] [phone] Phone Care Team Providers Care Retail Marketing Specialist Name Role Phone KELLY Lafleur Attending Unavailable STONE BRITTNEY Sal Primary Unavailable Social History Type Status Start Date End Date Code Code Syst em Smoking History Never smoker (Never Smoked) 108167543 SNOMED CT Sex Female Hospital Discharge Instructions [...] Co de Code System RANITIDINE Rash (SNOMED-CT: 084147338) Severe Active 9143 RxNorm PRILOSEC Rash (SNOMED-CT: 511158382) Severe Active 20321223 RxNorm Plan of Treatment MM SCREEN BILAT 05/19/2023 US PELVIC / TV 06/16/2023 US PELVIC / TV 03/17/2023 PRE-OP COVID-19 TESTING 01/23/2022 US PELVIC / TV 10/21/2021 US GUIDED NEEDLE BIOPSY 08/27/2021 Encounters Encounter Diagnosis Start Date Code Code Sys tem 04/12/2023 [id number] SNOMED-CT Personal Care Team Section Performer Name Performer Role Active Date Inactive Da te
--- OUTSIDE RECORDS SUMMARY | 2024-05-26 18:16 | XMS_ITS | Encounter Summary ---
Author Organization [facility] Address [address] [place] [address] Care Team Providers Care Compensation Associate Name Role Phone Roro Mallory Jonelle GONZALEZ Primary Care Provider + Reason for Visit * Reason Onset Date Comments Medications Refill 08/17/2022 Encounter Details Date Type Department Care Team (Late st Contact Info) Description 08/17/2022 Refill [facility] Endocrinology [address] [address] Clifford Atkinson MD Medications Refill Social History Tobacco Use Types Packs/Day Years Used Date Smoking Tobacco: Never Smokeless Tobacco: Never Alcohol Use Standard Drinks/Week Comments Yes 0 (1 standard drink = 0.6 oz pur e alcohol) rare Interpersonal Safety Answer Date Record ed Physically Hurt Never 04/21/2020 Verbally Threaten Not on file 04/21/2020 Sex and Gender Information Value Date Recorded Sex Assigned at Not on file Gender Identity Female 11/22/2019 12:18 EST Sexual Orientation Not on file documented as of this encounter Functional Status Functional Status Response Date of Assess ment Because of a physical, menta l, or emotional condition, does this person have difficulty doing errands alone such as visiting a doctor's office or shopping? No 05/28/2017 Cognitive Status Response Date of Assessm ent Because of a physical, menta l, or emotional condition, does this person have serious difficulty concentrating, remembering, or making decisions? No 05/28/2017 documented as of this encounter Ordered Prescriptions Prescription Sig Dispensed Refills Start Date End Da te SITagliptin phosphate (JANUVIA) 100 mg tablet Take 1 Tablet by mouth daily. 100 Tablet 08/22/2022 documented in this encounter Miscellaneous Notes * Telephone Encounter - Reyna Worley - 09/02/2022 1044 EST Patient being seen elsewhere, please refuse refills * Telephone Encounter - Ayah Maki MA - 08/17/2022 1044 EST Images from the original note were not included. We received a fax from [facility] requesting a refill for JANUVIA 100MG TABLETS. Please review appropriately thank You. documented in this encounter Plan of Treatment Not on file documented as of this encounter Visit Diagnoses Not on filedocumented in this encounter Discontinued Medications Medication Sig Discontinue Reason Start Date End Da te SITagliptin (JANUVIA) 100 mg tablet Take 1 Tablet by mouth daily. Reorder 2021 08/17/2022 documented as of this encounter Care Teams Compensation Associate Relationship Specialty Start Date End Date Roro Mallory APRN [address] [place] [id number] PCP - General 12/06/18 documented as of this encounter
--- OUTSIDE RECORDS SUMMARY | 2024-05-26 18:16 | XMS_ITS | Encounter Summary ---
Author Organization [facility] Address [address] [place] [address] Care Team Providers Care Steno Pool Supervisor Name Role Phone Roro Mallory Jonelle GONZALEZ Primary Care Provider + Encounter Details Date Type Department Care Team (Latest Contact Info) Description 09/26/2021 13:00 EST Phlebotomy Only [facility] Laboratory Services - [facility] [address] [place], [place] [id number] Type 2 diabetes mellitus with hyperglycemia, without long-term current use of insulin ([facility]) ([facility]); Pure hypercholesterolemia ; Essential hypertension, benign Social History Tobacco Use Types Packs/Day Years [...] No 05/28/2017 documented as of this encounter Miscellaneous Notes * Result Encounter Note - Stalin Naylor MD - 09/26/2021 1300 EST Hemoglobin A1c is at target Lipids at target There is a slight amount of proteinuria documented in this encounter Plan of Treatment Not on file documented as of this encounter Procedures Procedure Name Priority Date/Time Associated Diagnosis Comments PROTEIN/CREATININE RATIO, URINE Routine 09/26/2021 13:03 EST Type 2 diabetes mellitus with hyperglycemia, without long-term current use of insulin ([facility]) ([facility]) Essential hypertension, benign HEMOGLOBIN A1C Routine 09/26/2021 13:02 EST Type 2 diabetes mellitus with hyperglycemia, without long-term current use of insulin ([facility]) ([facility]) LIPID PROFILE (INCLUDES CHOLESTEROL, TRIGLYCERIDES, HDL, LDL) Routine 09/26/2021 13:02 EST Type 2 diabetes mellitus with hyperglycemia, without long-term current use of insulin ([facility]) ([facility]) Pure hypercholesterolemia COMPREHENSIVE METABOLIC PANEL (CMP) Routine 09/26/2021 13:02 EST Type 2 diabetes mellitus with hyperglycemia, without long-term current use of insulin ([facility]) ([facility]) documented in this encounter Results * (ABNORMAL) PROTEIN/CREATININE RATIO, URINE (09/26/2021 13:03 EST) Total Protein, Urine 66 See Note mg/dL 09/26/2021 14:23 [facility] Comment:Reference range not established. Creatinine, Urine 144.4 See Note mg/dL 09/26/2021 14:23 [facility] Comment:Reference range not established. UPRO mg/mg Cr, Ur 0.46(H) <0.18 mg/mg Creatinine 09/26/2021 14:23 [facility] Urine URINE SPECIMEN COLLECTION, CLEAN CATCH / Unknown Urine Collect / Unknown 09/26/2021 13:03 EST 09/26/2021 13:03 EST Stalin Naylor MD URINALYSIS ORDERAB LES [facility] [address] [place] [address] * (ABNORMAL) COMPREHENSIVE METABOLIC PANEL (CMP) (09/26/2021 13:02 EST) Sodium 138 136 - 145 mmol/L 09/26/2021 14:42 [facility] Potassium 4.5 3.5 - 5.0 mmol/L 09/26/2021 14:42 [facility] Chloride 102 96 - 110 mmol/L 09/26/2021 14:42 [facility] CO2 Total 27 22 - 32 mmol/L 09/26/2021 14:42 [facility] Glucose 112(H) 70 - 100 mg/dL 09/26/2021 14:42 [facility] BUN 12 10 - 26 mg/dL 09/26/2021 14:42 [facility] Creatinine 0.65 0.52 - 1.04 mg/dL 09/26/2021 14:42 [facility] eGFR 105 >60 mL/min/1.7 3m2 09/26/2021 14:42 [facility] Total Protein 7.5 6.3 - 8.2 g/dL 09/26/2021 14:42 [facility] Albumin 4.3 3.4 - 4.9 g/dL 09/26/2021 14:42 [facility] Alkaline Phosphatase 84 38 - 126 U/L 09/26/2021 14:42 [facility] AST 30 15 - 46 U/L 09/26/2021 14:42 [facility] ALT 30 <35 U/L 09/26/2021 14:42 [facility] Bilirubin, Total <0.5 <1.4 mg/dL 09/26/19 14:42 [facility] Calcium 9.4 8.5 - 10.5 mg/dL 09/26/2021 14:42 [facility] Albumin/Globulin Ratio 1.3 1.0 - 2.5 09/26/2021 14:42 [facility] Anion Gap 9 8 - 16 09/26/2021 14:42 [facility] Blood VENOUS BLOOD / Unknown Venipuncture / Unknown 09/26/2021 13:02 EST 09/26/2021 13:03 EST Stalin Naylor MD CHEMISTRY & BLOOD GAS ORDERABLES [facility] [address] [place] [address] * LIPID PROFILE (INCLUDES CHOLESTEROL, TRIGLYCERIDES, HDL, LDL) (09/26/2021 13:02 EST) Cholesterol 176 See Note mg/dL 09/26/2021 14:42 [facility] Comment: Acceptable: ?<200 mg/dL Borderline High: 200-239 mg/dL High: ?> or = 240 mg/dL HDL 60 See Note mg/dL 09/26/2021 14:42 [facility] Comment: Low: ? <40 mg/dL Normal: ??40-60 mg/dL High: ?>60 mg/dL LDL, Calculated 92 See Note mg/dL 09/26/2021 14:42 [facility] Comment: Optimal: ? <100 mg/dL Near Optimal: ?100-129 mg/dL Borderline High: 130-159 mg/dL High: ?160-189 mg/dL Very High: ? > or = 190 mg/dL Triglyceride 118 See Note mg/dL 09/26/2021 14:42 [facility] Comment: Normal: ? <150 mg/dL Borderline High: ??150 - 199 mg/dL High: ? 200 - 499 mg/dL Very High: ?> or = 500 mg/dL Chol/HDL Ratio 2.9 See Note 09/26/2021 14:42 EST [facility] Comment:No reference range h as been established for CHOL/HDL ratio. Non HDL Cholesterol 116 See Note mg/dL 09/26/2021 14:42 [facility] Comment: Desirable: ?<130 mg/dL Borderline High: ??130-159 mg/dL High: ? 160-189 mg/dL Very High: ?> or = 190 mg/dL Blood VENOUS BLOOD / Unknown Venipuncture / Unknown 09/26/2021 13:02 EST 09/26/2021 13:03 EST Stalin Naylor MD CHEMISTRY & BLOOD GAS ORDERABLES Performing Organization Address [facility] de Phone Number [facility] [address] [place] [address] * (ABNORMAL) HEMOGLOBIN A1C (09/26/2021 13:02 EST) Hemoglobin A1c 6.2(H) <5.7 % 09/26/2021 16:13 EST [facility] Comment: Glycemic Status References: Normal: ??<5.7% Pre-Diabetes: ??5.7% - 6.4% Diagnostic of Diabetes: ??> or = 6.5% (if confirmed) Est Avg Glucose 131 mg/dL 16:13 [facility] Comment:The eAG represents t he A1c result expressed as average glucose in mg/dL. Blood VENOUS BLOOD / Unknown Venipuncture / Unknown 09/26/2021 13:02 EST 09/26/2021 13:03 EST Stalin Naylor MD CHEMISTRY & BLOOD GAS ORDERABLES Performing Organization Address [facility] de Phone Number [facility] [address] [place] [address] documented in this encounter Visit Diagnoses Diagnosis Type 2 diabetes mellitus with hyperglycemia, without long-term current use of insulin ([facility]) Pure hypercholesterolemia Essential hypertension, benign documented in this encounter Care Teams Steno Pool Supervisor Relationship Specialty Start Date End Date Roro Mallory, MANAGER PERSONAL [address] [place] [phone] PCP - General 12/06/18 documented as of this encounter
--- OUTSIDE RECORDS SUMMARY | 2024-05-26 18:16 | XMS_ITS ---
Author Organization Unknown Address [address] [place] [address] [phone] Phone Care Team Providers Care Heel Nail Rasper Name Role Phone ANNE-MARIE JULIANNA Attending Unavailable CHASE Sal Primary Unavailable Results MM SCREENING BILAT MAMMO W T AME W CAD - Completed: 05/19/2023 08:11 LOINC: [facility] [place], [place] [address] PACS POST ACUTE CARE NURSE PRACTITIONER REPORT Patient Name: MAURICIO CASTRO MRN: Sex: : Age: [id number] F 1970 52 Account: Accession: Admit: StayType: [id number] O/P Ordered: Order ID: Submitted: Ordering Provider: 05/19/2023 07:41 [id number] [facility] JULIANNA XIE Completed: Technologist: Resulted: 05/19/2023 08:11 MLL 05/19/2023 08:35 Study Description: MM SCREENING BILAT MAMMO W DEMARIO W CAD Study Reason: SCREENING Comparisons: Comparison is made with prior examinations. FINDINGS: Mammography/Tomosynthesis: Masses/Architectural Distortion: None seen. Microcalcifictions: No suspicious pleomorphic-type are seen. Skin Thickening/Nipple Retraction: None. IMPRESSION: 1. No evidence of malignancy is noted. 2. Unless there is more urgent need, follow-up screening mammography is recommended, as per [place] guidelines. BI-RADS Category 1: Negative BI_RADS Density Category B: Scattered areas of fibroglandular density Breast density Category C or D implies that the patient has dense breast tissue. Dense breast tissue can make it harder to find cancer on a mammogram. Dense breast tissue is also associated with an increased risk of breast cancer. This information about the result of the mammogram report was provided to the patient to raise their awareness. Use this report when you speak with the patient about their risks for breast cancer, which includes their family history. At that time, you may recommend additional screening tests (Ultrasound or MRI) as these tests may add significant information. A negative radiographic report should not delay biopsy if a dominant or clinically suspicious mass is present. Up to ten percent of cancers are not identified on mammography. A negative report may reinforce clinical impression. Adenosis and dense breasts may obscure an underlying neoplasm. False positive reports average 6 to 10%. Patient will receive a letter notifying them of these results. Report Digitally Signed by Frederick Corley on 05/19/2023 08:35 AM EDT 05/19/[email or web address] STONE via fax Social History Type Status Start Date End Date Code Code Syst em Smoking History Never smoker (Never Smoked) 275934766 SNOMED CT Sex Female Hospital Discharge Instructions [...] Co de Code System RANITIDINE Rash (SNOMED-CT: 586040271) Severe Active 9143 RxNorm PRILOSEC Rash (SNOMED-CT: 746341950) Severe Active 290440 RxNorm Plan of Treatment MM SCREEN BILAT 05/19/2023 US PELVIC / TV 06/16/2023 US PELVIC / TV 03/17/2023 PRE-OP COVID-19 TESTING 01/23/2022 US PELVIC / TV 10/21/2021 US GUIDED NEEDLE BIOPSY 08/27/2021 Encounters Encounter Diagnosis Start Date Code Code Sys tem Encounter for screening mamm ogram for malignant neoplasm of breast 05/19/2023 SNOMED-CT Personal Care Team Section Performer Name Performer Role Active Date Inactive Da te
--- OUTSIDE RECORDS SUMMARY | 2024-05-26 18:16 | XMS_ITS ---
Author Organization Unknown Address [address] [place] [phone] Phone Care Team Providers Care Hand Paster Name Role Phone DEYSI Monge Attending Unavailable ANNE-MARIE JULIANNA Primary Unavailable Results XR ELBOW RT 2V* - Completed: 09/23/2023 08:58 LOINC: [facility] [place], [place] [address] PACS WORK COUNSELOR REPORT Patient Name: MAURICIO CASTRO MRN: Sex: : Age: [id number] F 1970 53 Account: Accession: Admit: StayType: [id number] 09/23/2023 O/P Ordered: Order ID: Submitted: Ordering Provider: 09/23/2023 08:47 [id number] KT ABIMAEL JO Completed: Technologist: Resulted: 09/23/2023 08:58 SCP 09/23/2023 10:31 Study Description: XR ELBOW RT 2V Study Reason: RT ELBOW PAIN 3 Views TECHNIQUE: 2D digital imaging was performed. COMPARISON: Study Description: XR ELBOW RT 2V Study Reason: RT ELBOW PAIN Image count: 3 Views COMPARISON: None FINDINGS: BONES: No acute fracture is present. No bony destructive lesion is seen. JOINTS: No dislocation present. The joint spaces are maintained. SOFT TISSUE: Normal. IMPRESSION: No acute abnormality. Report Digitally Signed by Roxann Marie on 09/23/2023 10:31 AM EST Social History Type Status Start Date End Date Code Code Syst em Smoking History Never smoker (Never Smoked) 242518266 SNOMED CT Sex Female Hospital Discharge Instructions [...] Co de Code System RANITIDINE Rash (SNOMED-CT: 350351881) Severe Active 9143 RxNorm PRILOSEC Rash (SNOMED-CT: 889387240) Severe Active 20321223 RxNorm Plan of Treatment MM SCREEN BILAT 05/19/2023 US PELVIC / TV 06/16/2023 US PELVIC / TV 03/17/2023 PRE-OP COVID-19 TESTING 01/23/2022 US PELVIC / TV 10/21/2021 US GUIDED NEEDLE BIOPSY 08/27/2021 Encounters Encounter Diagnosis Start Date Code Code Sys tem Pain in right elbow 09/23/2023 SNOMED-C T Personal Care Team Section Performer Name Performer Role Active Date Inactive Da te
--- OUTSIDE RECORDS SUMMARY | 2024-05-26 18:16 | XMS_ITS | Encounter Summary ---
Author Organization [facility] Address [address] [place] [address] Care Team Providers Care Director Of Officiating Name Role Phone Roro Mallory APRN Primary Care Provider + Encounter Details Date Type Department Care Team (Latest Contact Info) Description 10/17/2020 Travel Social History Tobacco Use Types Packs/Day Years [...] 12:18 EST Sexual Orientation Not on file COVID-19 Exposure Response Date Recorded In the last month, have you been in contact with someone who was confirmed or suspected to have Coronavirus / COVID-19? No / Unsure 10/17/2020 6:52 EST documented as of this encounter Functional Status [...] No 05/28/2017 documented as of this encounter Plan of Treatment Not on file documented as of this encounter Visit Diagnoses Not on filedocumented in this encounter Care Teams Director Of Officiating Relationship Specialty Start Date End Date Roro Mallory, ENTERPRISE SERVICES MANAGER [address] [place] [phone] PCP - General 12/06/18 documented as of this encounter
--- OUTSIDE RECORDS SUMMARY | 2024-05-26 18:16 | XMS_ITS ---
Author Organization Unknown Address [address] [place] [phone] Phone Care Team Providers Care Cutlery Grinder Name Role Phone KELLY Lafleur Attending Unavailable CHASE Sal Primary Unavailable Results US PELVIC TRANSVAGINAL* - Co mpleted: 06/16/2023 08:26 LOINC: [facility] [place], [place] [address] PACS TRUCK SUPERVISOR REPORT Patient Name: MAURICIO CASTRO MRN: Sex: : Age: [id number] F 1970 52 Account: Accession: Admit: StayType: [id number] 06/16/2023 O/P Ordered: Order ID: Submitted: Ordering Provider: 06/16/2023 07:45 [id number] MATY CHAPARRO Completed: Technologist: Resulted: 06/16/2023 08:26 GVS 06/16/2023 10:18 Study Description: US PELVIC TRANSVAGINAL Study Reason: RT OVARIAN CYST TECHNIQUE: Ultrasound of the pelvis was performed both transabdominal and transvaginal. COMPARISON: Prior ultrasound examination of 03/17/2023 FINDINGS: UTERUS: Anteverted measuring 8 cm length by 4.3 cm AP by 5 cm wide. No obvious uterine fibroids. Endometrial thickness measures 6-7 mm and appears homogeneous. There is no fluid in the endometrial canal. CERVIX: Small nabothian cysts RIGHT OVARY: Measures 3.8 x 2.7 x 2.7 cm. Contains a simple cyst measuring 0.6 x 1.9 x 2.2 cm. This has decreased in size from prior measurement of 5 cm. LEFT OVARY: Measures 2.0 x 1.3 x 1.8 cm No significant cysts nor masses evident in the left ovary. CUL-DE-SAC: No free fluid evident. IMPRESSION: 1. Normal appearing uterus and age-appropriate endometrium. 2. The previously described 5 cm cyst in the right ovary has decreased in size with maximum measurement on today's study of 2.2 cm. Appearance remains that of a simple follicular cyst. 3. No free fluid evident in the adnexal regions and cul-de-sac. Report Digitally Signed by David Baez on 06/16/2023 10:18 AM EDT 06/16/[email or web address] BOISE via fax Social History Type Status Start Date End Date Code Code Syst em Smoking History Never smoker (Never Smoked) 527903072 Zubie Sex Female Hospital Discharge Instructions Should you have any questions prior to discharge, please contact a member of your healthcare team. If you have left the hospital and have any questions, please contact your primary care physician. Reason For Referral No Data Found Allergies and Adverse Reactions Allergy Substance Reaction Severity Start Date Concern Status Co de Code System RANITIDINE Rash (SNOMED-CT: 904661757) Severe Active 9155 RxNorm PRILOSEC Rash (SNOMED-CT: 745491095) Severe Active 332221 RxNorm Plan of Treatment MM SCREEN BILAT 05/19/2023 US PELVIC / TV 06/16/2023 US PELVIC / TV 03/17/2023 PRE-OP COVID-19 TESTING 01/23/2022 US PELVIC / TV 10/21/2021 US GUIDED NEEDLE BIOPSY 08/27/2021 Encounters Encounter Diagnosis Start Date Code Code Sys tem Abnormal findings on diagnos tic imaging of other specified body structures 06/16/2023 [employer] Personal Care Team Section Performer Name Performer Role Active Date Inactive Da te
--- OUTSIDE RECORDS SUMMARY | 2024-05-26 18:16 | XMS_ITS | Encounter Summary ---
Author Organization [facility] Address [address] [place] [address] Care Team Providers Care Pyrometallurgical Engineer Name Role Phone Roro Mallory Jonelle GONZALEZ Primary Care Provider + Reason for Visit * Reason Onset Date Comments Medications Refill 11/06/2021 Encounter Details Date Type Department Care Team (Late st Contact Info) Description 11/06/2021 Refill [facility] Endocrinology - [facility] [address] [place] [address] Stalin Naylor MD [address] [facility] [address] [place] [address] Medications Refill Social History Tobacco Use Types [...] as of this encounter Miscellaneous Notes * Telephone Encounter - Ana Christianson - 11/12/2021 0952 EST One year supply of medication sent to pharmacy on 2021. Will refuse medication request pended to this encounter. * Telephone Encounter - Jeanna Mack MA - 11/06/2021 0851 EST Images from the original note were not included. We received a fax from [facility] requesting a refill for METFORMIN ER 500MG 24HR TABS. Please review appropriately. documented in this encounter Plan of Treatment Not on file documented as of this encounter Visit Diagnoses Not on filedocumented in this encounter Care Teams Pyrometallurgical Engineer Relationship Specialty Start Date End Date Roro Mallory APRN [address] [place] [address] PCP - General 12/06/18 documented as of this encounter
--- OUTSIDE RECORDS SUMMARY | 2024-05-26 18:16 | XMS_ITS | Encounter Summary ---
Author Organization [facility] Address [address] [place] [address] Care Team Providers Care Infantry Operations Specialist Name Role Phone Roro Mallory VISOR INSTALLER Primary Care Provider + Encounter Details Date Type Department Care Team (Late st Contact Info) Description 11/23/2022 Lab Requisition [facility] Pathology & Laboratory Medicine - [facility] [address] [place] [address] Roro Mallory, VISOR INSTALLER [address] [place] [address] Encounter for general adult medical examination without abnormal findings Social History Tobacco Use Types Packs/Day Years [...] Procedure Name Priority Date/Time Associated Diagnosis Comments PAP TEST Today 11/20/2022 7:55 EST Encounter for general adult medical examination without abnormal findings HPV DNA DETECTION WITH GENOTYPING, PCR Today 11/20/2022 7:55 EST Encounter for general adult medical examination without abnormal findings documented in this encounter Results * HUMAN PAPILLOMAVIRUS (HPV) DETECTION-HIGH RISK TYPES (11/20/2022 7:55 EST) HPV other High Risk types, PCR Negative Negative 12/06/2022 15:43 EDT [facility] Comment:No E6 or E7 mRNA is detected from HPV types 16,18,31,33,35,39,45,51,52,56,58,59,66, and 68 by refrigeration brazer/solderer mediated amplification. Papanicolaou smear specimen (specimen) CERVIX UTERI STRUCTURE / Unknown 11/20/2022 7:55 EST 12/03/2022 13:34 EDT Roro Mallory VISOR INSTALLER MICROBIOLOGY - G ENERAL ORDERABLES Performing Organization Address City/State/[facility] Co de Phone Number [facility] [address] [place] [address] * PAP TEST (11/20/2022 7:55 EST) Specimens A. Cervix and/or Endocervix , ThinPrep Imaging System with Manual Evaluation 12/06/2022 15:43 EDT [facility] Specimen Adequacy Satisfactory for Evaluation - transformation zone component present 12/06/2022 15:43 EDT [facility] General Categorization Negative for intraepithelial lesion or malignancy 12/06/2022 15:43 EDT [facility] Descriptive Diagnosis Shift in dhruv present suggestive of bacterial vaginosis. 12/06/2022 15:43 EDT [facility] Attestation . 12/06/2022 15:43 EDT [facility] at 1543 Clinical History SEE BELOW 12/07/19 23 15:43 EDT [facility] HPV The result for the Human Papillomavirus (HPV) Detection-High Risk Types is Negative. No E6 or E7 mRNA is detected from HPV types 16,18,31,33,35,39 ,45,51,52,56,58,5 9,66, and 68 by refrigeration brazer/solderer mediated amplification.Rosana ting was performed on specimen [id number] and was resulted on 12/06/2022 1543 EDT by ABHISHEK, LAB INSTRUMENT RESULTS IN 12/06/2022 15:43 EDT [facility] Performing Lab [facility] 12/06/2022 15:43 EDT [facility] Scanned Images 12/06/2022 15:43 EDT [facility] Papanicolaou smear specimen (specimen) CERVIX UTERI STRUCTURE / Unknown 11/20/2022 7:55 EST 11/23/2022 13:47 EST Roro Mallory VISOR INSTALLER PATHOLOGY ORDERA EDINSON [facility] [address] [place] [address] documented in this encounter Visit Diagnoses Diagnosis Encounter for general adult medical examination without abnormal findings Unspecified general medical examination documented in this encounter Care Teams Infantry Operations Specialist Relationship Specialty Start Date End Date Roro Mallory APRN [address] [place] [address] PCP - General 12/06/18 documented as of this encounter
--- OUTSIDE RECORDS SUMMARY | 2024-05-26 18:16 | XMS_ITS ---
Author Organization Unknown Address [address] [place] [phone] Phone Care Team Providers Care Technical Expert Name Role Phone PROVOST LEVINE Attending Unavailable Results XR KNEE 4V RT* - Completed: 09/03/2023 08:16 LOINC: [facility] [place], [place] [address] PACS ARCHITECTURAL MODEL MAKER REPORT Patient Name: MAURICIO CASTRO MRN: Sex: : Age: [id number] F 1970 53 Account: Accession: Admit: StayType: [id number] 09/03/2023 O/P Ordered: Order ID: Submitted: Ordering Provider: 09/03/2023 08:01 [id number] JULIANNA JOY Completed: Technologist: Resulted: 09/03/2023 08:16 PW 09/03/2023 08:38 Study Description: XR KNEE 4V RT Study Reason: RT KNEE PAIN Technique: 2D digital imaging was performed. 4 images were obtained. COMPARISON: None. FINDINGS: Bones: No acute fractures present. No bony destructive lesion is seen. Joints: No dislocation is present. There are mild degenerative changes of the right knee characterized by osteophytes involving the medial femoral and patellofemoral joint. There is mild narrowing of the patellofemoral joint. No significant joint effusion Soft tissues: Unremarkable. IMPRESSION: Mild degenerative changes of the right knee. Report Digitally Signed by Frederick Corley on 09/03/2023 08:38 AM EST Social History Type Status Start Date End Date Code Code Syst em Smoking History Never smoker (Never Smoked) [id number] SNOMED CT Sex Female Hospital Discharge Instructions [...] Co de Code System RANITIDINE Rash (SNOMED-CT: 672141542) Severe Active 9143 RxNorm PRILOSEC Rash (SNOMED-CT: 845417544) Severe Active 20321223 RxNorm Plan of Treatment MM SCREEN BILAT 05/19/2023 US PELVIC / TV 06/16/2023 US PELVIC / TV 03/17/2023 PRE-OP COVID-19 TESTING 01/23/2022 US PELVIC / TV 10/21/2021 US GUIDED NEEDLE BIOPSY 08/27/2021 Encounters Encounter Diagnosis Start Date Code Code Sys tem 09/03/2023 [id number] [facility] ReviewsOMED-CT Personal Care Team Section Performer Name Performer Role Active Date Inactive Da te
--- OUTSIDE RECORDS SUMMARY | 2024-05-26 18:16 | XMS_ITS | Encounter Summary ---
Author Organization [facility] Address [address] [place] [address] Care Team Providers Care Weatherization Technician Name Role Phone Roro Mallory Jonelle GONZALEZ Primary Care Provider + Encounter Details Date Type Department Care Team (Latest Contact Info) Description 10/17/2020 7:00 EST Phlebotomy Only [facility] [address] [place] [address] [id number] Type 2 diabetes mellitus with hyperglycemia, without long-term current use of insulin ([facility]); Pure hypercholesterolemia ; Essential hypertension, benign Social [...] Associated Diagnosis Comments PROTEIN/CREATININE RATIO, URINE Routine 10/17/2020 6:59 EST Type 2 diabetes mellitus with hyperglycemia, without long-term current use of insulin ([facility]) Essential hypertension, benign HEMOGLOBIN A1C Routine 10/17/2020 6:58 EST Type 2 diabetes mellitus with hyperglycemia, without long-term current use of insulin ([facility]) LIPID PROFILE (INCLUDES CHOLESTEROL, TRIGLYCERIDES, HDL, LDL) Routine 10/17/2020 6:58 EST Type 2 diabetes mellitus with hyperglycemia, without long-term current use of insulin ([facility]) Pure hypercholesterolemia COMPREHENSIVE METABOLIC PANEL (CMP) Routine 10/17/2020 6:58 EST Type 2 diabetes mellitus with hyperglycemia, without long-term current use of insulin ([facility]) documented in this encounter Results * (ABNORMAL) PROTEIN/CREATININE RATIO, URINE (10/17/2020 6:59 EST) Total Protein, Urine 13 See Note mg/dL 10/17/2020 8:35 EST [facility] Comment:Reference range not established. Creatinine, Urine 34.1 See Note mg/dL 10/17/2020 8:35 EST [facility] Comment:Reference range not established. UPRO mg/mg Cr, Ur 0.38(H) <0.16 mg/mg Creatinine 10/17/2020 8:35 EST [facility] Urine URINE SPECIMEN COLLECTION, CLEAN CATCH / Unknown Urine Collect / Unknown 10/17/2020 6:59 EST 10/17/2020 7:03 EST Stalin Naylor MD URINALYSIS ORDERAB LES [facility] [address] [place] [address] * COMPREHENSIVE METABOLIC PANEL (CMP) (10/17/2020 6:58 EST) Sodium 142 136 - 145 mEq/L 10/17/2020 8:49 [facility] Potassium 4.6 3.5 - 5.0 mEq/L 10/17/2020 8:49 [facility] Chloride 102 96 - 110 mEq/L 10/17/2020 8:49 [facility] CO2 Total 25 22 - 32 mEq/L 10/17/2020 8:49 [facility] Glucose 94 70 - 100 mg/dL 10/17/2020 8:49 [facility] BUN 12 10 - 26 mg/dL 10/17/2020 8:49 [facility] Creatinine 0.59 0.52 - 1.04 mg/dL 10/17/2020 8:49 [facility] eGFR 109 >60 mL/min/1.7 3m2 10/17/2020 8:49 [facility] Comment:eGFR calculated carmelita dumont CKD-EPI equation for non- Americans. Multiply eGFR by 1.16 for patients. Total Protein 7.3 6.3 - 8.2 g/dL 10/17/2020 8:49 [facility] Albumin 4.3 3.4 - 4.9 g/dL 10/17/2020 8:49 [facility] Alkaline Phosphatase 66 38 - 126 U/L 10/17/2020 8:49 [facility] AST 28 15 - 46 U/L 10/17/2020 8:49 [facility] ALT 23 <35 U/L 10/17/2020 8:49 [facility] Bilirubin, Total <0.5 <1.4 mg/dL 10/17/19 8:49 [facility] Calcium 9.6 8.5 - 10.5 mg/dL 10/17/2020 8:49 [facility] Calculated Calcium 9.4 8.5 - 10.5 mg/dL 10/17/2020 8:49 [facility] Blood VENOUS BLOOD / Unknown Venipuncture / Unknown 10/17/2020 6:58 EST 10/17/2020 7:03 EST Stalin Naylor MD CHEMISTRY & BLOOD GAS ORDERABLES [facility] [address] [place] [address] * LIPID PROFILE (INCLUDES CHOLESTEROL, TRIGLYCERIDES, HDL, LDL) (10/17/2020 6:58 EST) Cholesterol 161 See Note mg/dL 10/17/2020 8:49 [facility] Comment: Acceptable: ?<200 mg/dL Borderline High: 200-239 mg/dL High: ?> or = 240 mg/dL HDL 56 See Note mg/dL 10/17/2020 8:49 [facility] Comment: Low: ? <40 mg/dL Normal: ??40-60 mg/dL High: ?>60 mg/dL LDL, Calculated 80 See Note mg/dL 10/17/2020 8:49 [facility] Comment: Optimal: ? <100 mg/dL Near Optimal: ?100-129 mg/dL Borderline High: 130-159 mg/dL High: ?160-189 mg/dL Very High: ? > or = 190 mg/dL Triglyceride 125 See Note mg/dL 10/17/2020 8:49 [facility] Comment: Normal: ? <150 mg/dL Borderline High: ??150 - 199 mg/dL High: ? 200 - 499 mg/dL Very High: ?> or = 500 mg/dL Chol/HDL Ratio 2.9 See Note 10/17/2020 8:49 [facility] Comment:No reference range h as been established for CHOL/HDL ratio. Non HDL Cholesterol 105 See Note mg/dL 10/17/2020 8:49 EST [facility] Comment: Desirable: ?<130 mg/dL Borderline High: ??130-159 mg/dL High: ? 160-189 mg/dL Very High: ?> or = 190 mg/dL Blood VENOUS BLOOD / Unknown Venipuncture / Unknown 10/17/2020 6:58 EST 10/17/2020 7:03 EST Stalin Naylor MD CHEMISTRY & BLOOD GAS ORDERABLES [facility] [address] [place] [address] * (ABNORMAL) HEMOGLOBIN A1C (10/17/2020 6:58 EST) Hemoglobin A1c 6.3(H) <5.7 % 10/17/2020 9:59 EST [facility] Comment: Glycemic Status References: Normal: ??<5.7% Pre-Diabetes: ??5.7% - 6.4% Diagnostic of Diabetes: ??> or = 6.5% (if confirmed) Goals for glycemic control in diabetics (ADA 2017): <7.0% target for non adults with diabetes. <7.5% target for children and adolescents with Type I Diabetes. More or less stringent targets may be appropriate for individual patients. Est Avg Glucose 134 mg/dL 9:59 EST [facility] Comment:The eAG represents t he A1c result expressed as average glucose in mg/dL. Blood VENOUS BLOOD / Unknown Venipuncture / Unknown 10/17/2020 6:58 EST 10/17/2020 7:03 EST Stalin Naylor MD CHEMISTRY & BLOOD GAS ORDERABLES [facility] [address] [place] [address] documented in this encounter Visit Diagnoses Diagnosis Type 2 diabetes mellitus with hyperglycemia, without long-term current use of insulin ([facility]) Pure hypercholesterolemia Essential hypertension, benign documented in this encounter Care Teams Weatherization Technician Relationship Specialty Start Date End Date Roro Mallory, DIGESTER OPERATOR [address] [facility] [place] [address] PCP - General 12/06/18 documented as of this encounter
--- OUTSIDE RECORDS SUMMARY | 2024-05-26 18:16 | XMS_ITS | Clinical Summary ---
Author Organization [facility] Address [address] [place] [address] Care Team Providers Care Corrective And Manual Arts Therapist Name Role Phone MalloryRoro brown Jonelle GONZALEZ Primary Care Provider + Allergies Active Allergy Reactions Criticality Noted Date Comments Pantoprazole Rash 11/23/2019 Ranitidine Hcl 12/14/2016 Medications Medication Sig Dispensed Refills Start Date End Date Status simvastatin (ZOCOR) 20 mg tablet Take 20 mg by mouth daily. Active ferrous sulfate (IRON) 325 mg (65 mg iron) tablet Take 325 mg by mouth. During menses only approx 1 wk monthly Active ascorbic acid (VITAMIN C) 500 mg tablet Take 500 mg by mouth daily. Active famotidine (PEPCID) 20 mg tablet Take 20 mg by mouth 2 times daily. Active calcium carbonate (CALCIUM 300 ORAL) Take 2 Capsules by mouth daily. Active aspirin chewable 81 mg tablet Take 81 mg by mouth daily. Active RABEprazole (ACIPHEX) 20 mg tablet Take 40 mg by mouth 2 times daily. 11/07/2019 Active Multivitamins with Minerals tablet tablet Take 1 Tab by mouth daily. Active mecobalamin, vitamin B12, (B12 ACTIVE) 1,000 mcg tablet,chewable Take 2 gum by mouth daily. Active lisinopriL (PRINIVIL) 5 mg tablet Take 1 Tab by mouth daily. 100 Tab 3 10/07/2020 Active metFORMIN (GLUCOPHAGE-XR) 500 mg ER tablet Take 2 Tablets by mouth 2 times daily. 400 Tablet 3 2021 Active SITagliptin phosphate (JANUVIA) 100 mg tablet Take 1 Tablet by mouth daily. 100 Tablet 08/22/2022 Active Active Problems No known active problems Medical History Medical History Date Comments Diabetes mellitus ([facility]) Family History Medical History Relation Comments Diabetes Maternal Grandmother Relation Status Comments Maternal Grandmother Social History Tobacco Use Types Packs/Day Years [...] 12:18 EST Sexual Orientation Not on file Obstetrics History Para Term AB IAB SAB Ectopic Multiple Livin g Live Births 1 1 Date Outcome GA Total Labor Labor/2nd/3rd Weight Sex Type Anes PTL Shonna A1 A5 Name Clin Para Last Filed Vital Signs Vital Sign Reading Time Taken Comments Blood Pressure 124/59 11/23/2019 0829 EST Pulse 77 11/23/2019 0829 EST Temperature 36.4 ??C (97.6 ??F) 03/03/2019 1326 EDT Respiratory Rate 16 03/03/2019 1326 EDT Oxygen Saturation 99% 03/03/2019 1326 EDT Inhaled Oxygen Concentration - - Weight 103.4 kg (228 lb) 11/23/2019 0829 EST Height 172.7 cm (5' 8) 05/29/2021 1535 EDT Body Mass Index 35.16 11/23/2019 0829 EST Plan of Treatment Health Maintenance Due Date Last Done Comments Hepatitis B Vaccine (1 of 3 - 19+ 3-dose series) 08/11 COVID-19 Vaccine (2022- season) 2023 Hepatitis C Screen Completed 09/07/2006 Procedures Procedure Name Priority Date/Time Associated Diagnosis Comments HEPATITIS C AB W REFLEX TO HCV RNA BY PCR Routine 09/07/2006 12:55 EST from Last 3 Months or Most Recently Relevant to Health Maintenance Results * HEPATITIS C ANTIBODY (09/07/2006 12:55 EST) Hepatitis C Ab Neg [facility] 09/07/2006 12:5 5 EST 09/07/2006 19:53 EST Sita Yanez MD CHEMISTRY & BLOOD GAS ORDERABLES [facility] [address] [place] [address] from Last 3 Months or Most Recently Relevant to Health Maintenance Care Teams Corrective And Manual Arts Therapist Relationship Specialty Start Date End Date Roro Mallory APRN [address] [place] [address] PCP - General 12/06/18
--- OUTSIDE RECORDS SUMMARY | 2024-05-26 18:16 | XMS_ITS | Encounter Summary ---
Author Organization [facility] Address [address] [place] [address] Care Team Providers Care Disbursing Agent Name Role Phone MohamudDonaldmatthew Sal APRN Primary Care Provider + Reason for Visit * Reason Onset Date Comments Discuss Surgery 05/29/2022 Encounter Details Date Type Department Care Team (Late st Contact Info) Description 05/29/2022 Telephone [facility] Vascular Surgery - [address] [address] Unknown, Provider, Discuss Surgery Social History Tobacco Use Types Packs/Day Years [...] encounter Miscellaneous Notes * Telephone Encounter - Ibeth Smith - 05/29/2022 1058 EDT Patient called to say that [facility] send her an approval for surgery with Dr. Muller. I spoke with [facility] they did indeed process the request on the wrong patient. Left message for patient. documented in this encounter Plan of Treatment Not on file documented as of this encounter Visit Diagnoses Not on filedocumented in this encounter Care Teams Disbursing Agent Relationship Specialty Start Date End Date Roro Mallory, NURSE LDR [address] [place] [phone] PCP - General 12/06/18 documented as of this encounter
--- OUTSIDE RECORDS SUMMARY | 2024-05-26 18:16 | XMS_ITS | Referral Summary ---
Author Organization [facility] Address [address] [place] [address] Care Team Providers Care Senior Landscape Architect Name Role Phone Roro Mallory Jonelle GONZALEZ Primary Care Provider + Allergies [...] Active Active Problems No known active problems Social History Tobacco Use Types Packs/Day Years [...] 12:18 EST Sexual Orientation Not on file Last Filed Vital Signs Vital Sign Reading [...] Body Mass Index 35.16 11/23/2019 0829 EST Functional Status Functional Status Response Date of [...] concentrating, remembering, or making decisions? No 05/28/2017 Plan of Treatment Not on file Procedures Procedure Name Priority Date/Time Associated Diagnosis Comments HEPATITIS C AB W REFLEX TO HCV RNA BY PCR Routine 09/07/2006 12:55 EST from Last 3 Months or Most Recently Relevant to Health Maintenance Results * HEPATITIS C ANTIBODY (09/07/2006 12:55 EST) Hepatitis C Ab Neg [facility] 09/07/2006 12:5 5 EST 09/07/2006 19:53 EST Sita Yanez MD CHEMISTRY & BLOOD GAS ORDERABLES [facility] [address] [place] [id number] from Last 3 Months or Most Recently Relevant to Health Maintenance Care Teams Senior Landscape Architect Relationship Specialty Start Date End Date Roro Mallory, COURT INTERPRETER [address] [place] [phone] PCP - General 12/06/18
--- OUTSIDE RECORDS SUMMARY | 2024-05-26 18:16 | XMS_ITS | Encounter Summary ---
Author Organization [facility] Address [address] [place] [address] Care Team Providers Care Consumer Relations Specialist Name Role Phone Roro Mallory APRN Primary Care Provider + Reason for Referral * Radiology Services (Routine/Next Available) - Closed Specialty Diagnoses / Procedures Referred By Brooke grant Referred To Contact Diagnoses Screening breast examination Procedures MA BREAST SCREENING DEMARIO BILATERAL MA BREAST SCREENING DEMARIO BILATERAL Roro Mallory APRN [address] [place] [address] Referral ID Status Reason Start Date Expiration Date Visits Re quested Visits Authorized [id number] Closed 01/09/2020 1 1 Reason for Visit * Radiology Services (Routine/Next Available) - Closed Specialty Diagnoses / Procedures Referred By Brooke grant Referred To Contact Diagnoses Screening breast examination Procedures MA BREAST SCREENING DEMARIO BILATERAL MA BREAST SCREENING DEMARIO BILATERAL Roro Mallory RIVET BUCKER [address] [place] [address] Referral ID Status Reason Start Date Expiration Date Visits Re quested Visits Authorized [id number] Closed 01/09/2020 1 1 Encounter Details Date Type Department Care Team (Latest Contact Info) Description 05/29/2021 15:25 EDT - 05/29/2021 23:59 EDT Hospital Encounter [facility] [address] [place] [address] Screening breast examination Discharge Disposition: Home or Self Care Social History Tobacco Use Types Packs/Day Years [...] on file documented as of this encounter Last Filed Vital Signs Vital Sign Reading Time Taken Comments Blood Pressure - - Pulse - - Temperature - - Respiratory Rate - - Oxygen Saturation - - Inhaled Oxygen Concentration - - Weight - - Height 172.7 cm (5' 8) 05/29/2021 1535 EDT Body Mass Index - - documented in this encounter Functional Status Functional Status Response [...] No 05/28/2017 documented as of this encounter Medications at Time of Discharge Medication Sig Dispensed Refills Start Date End Date ascorbic acid (VITAMIN C) 500 mg tablet Take 500 mg by mouth daily. aspirin chewable 81 mg tablet Take 81 mg by mouth daily. calcium carbonate (CALCIUM 300 ORAL) Take 2 Capsules by mouth daily. famotidine (PEPCID) 20 mg tablet Take 20 mg by mouth 2 times daily. ferrous sulfate (IRON) 325 mg (65 mg iron) tablet Take 325 mg by mouth. During menses only approx 1 wk monthly lisinopriL (PRINIVIL) 5 mg tablet Take 1 Tab by mouth daily. 100 Tab 3 10/07/2020 mecobalamin, vitamin B12, (B12 ACTIVE) 1,000 mcg tablet,chewable Take 2 gum by mouth daily. Multivitamins with Minerals tablet tablet Take 1 Tab by mouth daily. RABEprazole (ACIPHEX) 20 mg tablet Take 40 mg by mouth 2 times daily. 11/07/2019 simvastatin (ZOCOR) 20 mg tablet Take 20 mg by mouth daily. metFORMIN (GLUCOPHAGE-XR) 500 mg ER tablet Take 2 Tabs by mouth 2 times daily. 400 Tab 3 10/07/2020 2021 SITagliptin (JANUVIA) 100 mg tablet Take 1 Tab by mouth daily. 100 Tab 3 10/07/2020 2021 documented as of this encounter Discharge Disposition Disposition Code Departure Means Destination Home or Self Care documented in this encounter Plan of Treatment Not on file documented as of this encounter Procedures Procedure Name Priority Date/Time Associated Diagnosis Comments MA BREAST SCREENING DEMARIO BILATERAL Routine 05/29/2021 15:47 EDT Screening breast examination documented in this encounter Results * MA BREAST SCREENING DEMARIO BILATERAL (05/29/2021 15:47 EDT) Anatomical Region Laterality Modality Breast Bilateral Mammography 06/02/2021 10:4 1 EDT Impressions 06/02/2021 10:41 EDT Negative, no evidence of malignancy. RECOMMENDATION: Routine screening mammography is recommended. OVERALL ASSESSMENT: BI-RADS 1: Negative These results will be communicated to your patient via a lay letter from Radiology. If any additional imaging is needed we will contact your patient directly. Narrative 06/02/2021 10:41 EDT MA BREAST SCREENING DEMARIO BILATERAL ??05/29/2021 3:40 PM History: routine Comparison: ??Comparison has been made to previous images. Technique: Routine 3D tomosynthesis with synthesized 2D views with CAD Bilateral Breast Composition: There are scattered areas of fibroglandular density. Bilateral Breast Findings: ??No significant masses, calcifications or other abnormalities are seen. Procedure Note Amisha Iraheta MD MPH - 06/02/2021 MA BREAST SCREENING DEMARIO BILATERAL 05/29/2021 3:40 PM History: routine Comparison: Comparison has been made to previous images. Technique: Routine 3D tomosynthesis with synthesized 2D views with CAD Bilateral Breast Composition: There are scattered areas of fibroglandulardensity. Bilateral Breast Findings: No significant masses, calcifications or otherabnormalities are seen. IMPRESSION Negative, no evidence of malignancy. RECOMMENDATION: Routine screening mammography is recommended. OVERALL ASSESSMENT: BI-RADS 1: Negative These results will be communicated to your patient via a lay letter fromRadiology. If any additional imaging is needed we will contact yourpatient directly. Roro Mallory RIVET BUCKER IMG MAMMOGRAPHY ORDERABLES documented in this encounter Visit Diagnoses Diagnosis Screening breast examination Breast screening, unspecified documented in this encounter Care Teams Consumer Relations Specialist Relationship Specialty Start Date End Date Roro Mallory, RIVET BUCKER [address] [place] [id number] PCP - General 12/06/18 documented as of this encounter
--- OUTSIDE RECORDS SUMMARY | 2024-05-26 18:16 | XMS_ITS | Encounter Summary ---
Author Organization [facility] Address [address] [place] [address] Care Team Providers Care Job Hand Name Role Phone MalloryRoro brown Jonelle GONZALEZ Primary Care Provider + Reason for Visit * Reason Onset Date Comments Appointment Related 06/19/2021 Encounter Details Date Type Department Care Team (Late st Contact Info) Description 06/19/2021 Telephone [facility] Endocrinology - [facility] [address] [place] [address] Stalin Naylor MD [address] [facility] [address] [place] [address] Appointment Related Social History Tobacco Use Types Packs/Day Years [...] encounter Miscellaneous Notes * Telephone Encounter - Miugel Manzanares - 06/24/2021 1538 EDT Patient rescheduled * Telephone Encounter - Miguel Manzanares - 06/19/2021 1601 EDT LMOM for patient to call back office to JAMAAL reschedule 06/30/21 televideo follow-up appointment with Dr. Naylor due to a change in the provider's schedule. Please transfer patient to PSS/Miguel for rescheduling as time is being held for patient. PSS - please reschedule to time held in Jul/Aug with Cyndy or offer held time with Fide White documented in this encounter Plan of Treatment Not on file documented as of this encounter Visit Diagnoses Not on filedocumented in this encounter Care Teams Job Hand Relationship Specialty Start Date End Date Roro Mallory APRN [address] [place] [id number] PCP - General 12/06/18 documented as of this encounter
--- OUTSIDE RECORDS SUMMARY | 2024-05-26 18:16 | XMS_ITS | Encounter Summary ---
Author Organization [facility] Address [address] [place] [address] Care Team Providers Care Ceramic Design Engineer Name Role Phone Roro Mallory Jonelle GONZALEZ Primary Care Provider + Reason for Visit * Reason Comments Diabetes Encounter Details Date Type Department Care Team (Latest Contact Info) Description 2021 11:30 EST Telemedicine [facility] Endocrinology - [facility] [address] [place], [place] [id number] Stalin Naylor MD [address] [facility] [address] [place] [address] Type 2 diabetes mellitus with hyperglycemia, without long-term current use of insulin (HCC-CMS) (HCC) (Primary Dx); Pure hypercholesterolemia ; Essential hypertension, benign Social [...] No 05/28/2017 documented as of this encounter Patient Instructions * Patient Instructions* Stalin Naylor MD - 2021 11:30 EST Check Blood Sugar: Before breakfast and two hours after a meal. Road Januvia 100 mg a day Metformin ER 500 mg 2 twice daily repeat labs at [facility] documented in this encounter Ordered Prescriptions Prescription Sig Dispensed Refills Start Date End Da te metFORMIN (GLUCOPHAGE-XR) 500 mg ER tablet Take 2 Tablets by mouth 2 times daily. 400 Tablet 3 2021 SITagliptin (JANUVIA) 100 mg tablet Take 1 Tablet by mouth daily. 100 Tablet 3 2021 08/17/2022 documented in this encounter Progress Notes * Stalin Naylor MD - 2021 1130 EST Images from the original note were not included. [facility] Diabetes Follow up Evaluation Note The concept of ???Telemedicine?? has been described to the patient.? Patient has been informed of the anticipated benefits and possible risks.? Patient understands the information provided regardingtelemedicine, has had the opportunity to ask questions about this information, and all questions have been answered to patient???s satisfaction. Patient consents for the use of telemedicine in his/her medical care and authorizes the transmission of any relevant medical information to providers and their staff involved in patient???s medical or mental health care. TELEMEDICINE VIDEO VISIT Today's visit was provided through telemedicine video conferencing: This is a telemedicine visit done by video through the Zoom application Code [id number] The location of the patient : Home The location of the provider: Office The following staff and their role did participate in today's encounter visit: Stalin Naylor MD CHIEF COMPLAINT: Mei Valenzuela presents with 1. Type 2 diabetes mellitus with hyperglycemia, without long-term current use of insulin ([facility]) (HCC) 2. Pure hypercholesterolemia 3. Essential hypertension, benign HPI: Mei is a 51 y.o. woman who was first told about diabetes about 15 to 17 years ago. Since that time she has been on monotherapy with metformin and seemed to be doing very well she tolerates the drug. More recent Hb A1c s seen below As a consequence we added 100 mg of sitagliptin and since that time she is doing very well with an average blood sugar both of 30-day average and a 90-day average of about 140 mg/dL as can be seen below she remained symptom-free Metformin ER 500 2 BID [id number] The history is provided by the patient. Diabetes She presents for her follow-up diabetic visit. She has type 2 diabetes mellitus. Onset time: dx'ed 2002. Her disease course has been improving. There are no hypoglycemic associated symptoms. Pertinent negatives for diabetes include no blurred vision, no chest pain, no fatigue, no foot paresthesias,no foot ulcerations, no polydipsia, no polyphagia, no polyuria, no visual change, no weakness, no weight loss and no nocturia. Pertinent negatives for diabetic complications include no CVA, heart disease, nephropathy, peripheral neuropathy, PVD or retinopathy. Risk factors for coronary artery disease include family history. Current diabetic treatment includes oral agent (monotherapy). Her weight is fluctuating minimally. She is following a generally healthy diet. Meal planning includes avoidance of concentrated sweets. She has had a previous visit with a dietitian. She participates in exercise intermittently. She monitors blood glucose at home 1-2 x per day. Blood glucose monitoring compliance is good. An GOGO inhibitor/angiotensin II receptor ady is being taken. She does not see a engravings polisher.Eye exam is current. Glucose Range is Family history is reviewed and includes the following: diabetes[facility] [place] [place] Mei Valenzuela has a history of being in good glycemic control. Patient has a history of being compliant all of the time with medical therapy. Patient's home regimen consists of has a current medication list which includes the following prescription(s): ascorbic acid (vitamin c), aspirin chewable, calcium carbonate, famotidine, ferrous sulfate, lisinopril, mecobalamin (vitamin b12), metformin, multivitamins with minerals, rabeprazole, simvastatin, and sitagliptin. Prior treatment for diabetes: medications: metformin Now 1000 mg in the morning 500 mg at night. Patient's last HgbA1C was mid to low6% The patient has experienced the following acute complications: none. Social History Tobacco Use ??? Smoking status: Never Smoker ??? Smokeless tobacco: Never Used Substance Use Topics ??? Alcohol use: Yes Comment: rare Children 1 heaviest 6-12. Psychosocial, cultural, or economic factors that might influence management of diabetes include: none. REVIEW OF SYSTEMS: A ten point review of systems was performed. Pertinent positives are listed below, all others are negative: Unless otherwise mentioned in electronic medical record which I have reviewed today or in the history the present illness systemic review has been asked and is otherwise negative Eye: none. Neurologic: none. Kidney: none. PVD: none. Skin: none. Cardiac: none. PHYSICAL EXAMINATION: Because of the restrictions imposed by the COVID-19 pandemic vital signs and physical examination were deferred. What is seen below are the findings from the last [id number] encounter Vitals: BP 124/59 Pulse 77 Ht 171.5 cm (67.52) Wt (!) 103.4 kg (228 lb) BMI 35.16 kg/m?? BMI: Body mass index is 35.16 kg/m??. Physical Exam General appearance - alert, well appearing, and in no distress and oriented to person, place, and time Mental status - alert, oriented to person, place, and time, normal mood, behavior, speech, dress, motor activity, and thought processes Eyes - pupils equal and reactive, extraocular eye movements intact, sclera anicteric Neck - supple, no significant adenopathy, carotids upstroke normal bilaterally, no bruits, thyroid exam: thyroid is normal in size without nodules or tenderness Chest - clear to auscultation, no wheezes, rales or rhonchi, symmetric air entry Heart - normal rate, regular rhythm, normal S1, S2, no murmurs, rubs, clicks or gallops Abdomen - soft, nontender, nondistended, no masses or organomegaly Neurological - alert, oriented, normal speech, no focal findings or movement disorder noted, cranial nerves II through XII intact, DTR's normal and symmetric, motor and sensory grossly normal bilaterally Extremities - peripheral pulses normal, no pedal edema, no clubbing or cyanosis Skin - normal coloration and turgor, no rashes, no suspicious skin lesions noted Funduscopic: no microaneurysms, exudates, hemorrhages or allan-vascularizations Feet: Good hygiene of the nails with no hypertrophy or onychomycosis. There are no osseous deformities or open lesions. Vibratory sense is intact. No pedal edema. Dorsalis pedis pulses and tibial pulses are felt. LABS: Lab Results Component Value Date HGBA1C 6.3 (H) 10/17/2020 HGBA1C 7.4 (H) 11/23/2019 HGBA1C 5.6 12/20/2017 Aug PCP 6.5% Lab Results Component Value Date CHOL 161 10/17/2020 HDL 56 10/17/2020 LDLBASE 80 10/17/2020 TRIG 125 10/17/2020 CHOLHDL 2.9 10/17/2020 Lab Results Component Value Date BUN 12 10/17/2020 CREATININE 0.59 10/17/2020 NA 142 10/17/2020 K 4.6 10/17/2020 Lab Results Component Value Date ALT 23 10/17/2020 Lab Results Component Value Date LABALBU 4.3 10/17/2020 UCREA 69.9 05/11/2018 UABCR 15 11/23/2019 ASSESSMENT/PLAN: 1. Type 2 diabetes mellitus with hyperglycemia, without long-term current use of insulin ([facility] ([facility]) 2. Pure hypercholesterolemia 3. Essential hypertension, benign Mei is a 51 y.o. woman who was put on sitagliptin along with her metformin at the last visit since that time her blood sugars are averaging very well !! May consider transferring care to [facility] She is basically symptom-free. In November 2019 when we saw her last her lipids were at target she hadno proteinuria and her creatinine was normal Will repeat labs Mei had done quite well over the decade and a half since she was diagnosed with diabetes mellitus. However it about 15 years is a deterioration in beta cell function is first seen, so I was fearful that she may not be able to respond to incretin therapy. However by the looks of her blood sugar she is doing very well. I explained to her that if her hemoglobin A1c is not at target we will add [id number] She repeat a hemoglobin A1c in the next several days Attached please find my consult note with the full details of your patents' visit. Medications: Recommend aspirin daily. Insulin: Insulin stabilization is required: Check Blood Sugar: Before breakfast and two hours after a meal. Road ia 100 mg a day Metformin ER 500 mg 2 twice daily Januvia 100 mgm daily repeat labs at [facility] Non-insulin: diet. Recommended: Is on GOGO inhibition -a small dose, and a statin. Glucose monitoring BID. Referred to diabetic education program. Referred to population geneticist yes prn. Patient referred to eye foster care therapist for annual dilated eye exam. Lifestyle modifications: recommend losing weight, recommend exercise and recommend compliance with a diabetic diet Patient does demonstrate knowledge of diabetes and expectations. Patient does understand medication regimen. Barriers to adherence: No Barriers. Goals and plan to achieve these discussed. Systolic blood pressure less than 140. And diastolic blood pressure less than 80. Hemoglobin A1C less than 7%. LDL cholesterol: 70 to 99. HDL males >40 and females >50 mgm/dl Triglycerides fasting <150 mgm/dl *More or less stringent glycemic goals may be appropriate for individual patients. Goals should be individualized based on: ??? duration of diabetes ??? age/life expectancy ??? comorbid conditions ??? known CVD or advanced microvascular complications ??? hypoglycemia unawareness ??? individual patient considerations Based on patient characteristics and response to therapy, lower SBP targets may be appropriate. * In individuals with overt CVD, a lower LDL-C goal of <70 mg/dl (1.8 mmol/l), using a high dose of a statin, is an option. This a telemedicine visit done that video through the Zoom application code [id number] Stalin Naylor MD 2021 11:28 documented in this encounter Plan of Treatment Not on file documented as of this encounter Results * (ABNORMAL) PROTEIN/CREATININE RATIO, URINE (09/26/2021 13:03 EST) Total Protein, Urine 66 See Note mg/dL 09/26/2021 14:23 [facility] Comment:Reference range not established. Creatinine, Urine 144.4 See Note mg/dL 09/26/2021 14:23 [facility] Comment:Reference range not established. UPRO mg/mg Cr, Ur 0.46(H) <0.18 mg/mg Creatinine 09/26/2021 14:23 [facility] Urine URINE SPECIMEN COLLECTION, CLEAN CATCH / Unknown Urine Collect / Unknown 09/26/2021 13:03 EST 09/26/2021 13:03 EST Stalin Naylor MD URINALYSIS ORDERAB LES [facility] [address] [place] [address] * (ABNORMAL) COMPREHENSIVE METABOLIC PANEL (CMP) (09/26/2021 13:02 EST) Sodium 138 136 - 145 mmol/L 09/26/2021 14:42 [facility] Potassium 4.5 3.5 - 5.0 mmol/L 09/26/2021 14:42 [facility] Chloride 102 96 - 110 mmol/L 09/26/2021 14:42 [facility] CO2 Total 27 22 - 32 mmol/L 09/26/2021 14:42 [facility] Glucose 112(H) 70 - 100 mg/dL 09/26/2021 14:42 [facility] BUN 12 10 - 26 mg/dL 09/26/2021 14:42 [facility] Creatinine 0.65 0.52 - 1.04 mg/dL 09/26/2021 14:42 [facility] eGFR 105 >60 mL/min/1.7 3m2 09/26/2021 14:42 [facility] Total Protein 7.5 6.3 - 8.2 g/dL 09/26/2021 14:42 [facility] Albumin 4.3 3.4 - 4.9 g/dL 09/26/2021 14:42 [facility] Alkaline Phosphatase 84 38 - 126 U/L 09/26/2021 14:42 [facility] AST 30 15 - 46 U/L 09/26/2021 14:42 [facility] ALT 30 <35 U/L 09/26/2021 14:42 [facility] Bilirubin, Total <0.5 <1.4 mg/dL 09/26/19 14:42 [facility] Calcium 9.4 8.5 - 10.5 mg/dL 09/26/2021 14:42 [facility] Albumin/Globulin Ratio 1.3 1.0 - 2.5 09/26/2021 14:42 [facility] Anion Gap 9 8 - 16 09/26/2021 14:42 [facility] Blood VENOUS BLOOD / Unknown Venipuncture / Unknown 09/26/2021 13:02 EST 09/26/2021 13:03 EST Stalin Naylor MD CHEMISTRY & BLOOD GAS ORDERABLES Performing Organization Address City/State/[facility] Co de Phone Number [facility] [address] [place] [address] * LIPID PROFILE (INCLUDES CHOLESTEROL, TRIGLYCERIDES, HDL, LDL) (09/26/2021 13:02 EST) Cholesterol 176 See Note mg/dL 09/26/2021 14:42 [facility] Comment: Acceptable: ?<200 mg/dL Borderline High: 200-239 mg/dL High: ?> or = 240 mg/dL HDL 60 See Note mg/dL 09/26/2021 14:42 [facility] Comment: Low: ? <40 mg/dL Normal: ??40-60 mg/dL High: ?>60 mg/dL LDL, Calculated 92 See Note mg/dL 09/26/2021 14:42 [facility] Comment: Optimal: ? <100 mg/dL Near Optimal: ?100-129 mg/dL Borderline High: 130-159 mg/dL High: ?160-189 mg/dL Very High: ? > or = 190 mg/dL Triglyceride 118 See Note mg/dL 09/26/2021 14:42 [facility] Comment: Normal: ? <150 mg/dL Borderline High: ??150 - 199 mg/dL High: ? 200 - 499 mg/dL Very High: ?> or = 500 mg/dL Chol/HDL Ratio 2.9 See Note 09/26/2021 14:42 [facility] Comment:No reference range h as been established for CHOL/HDL ratio. Non HDL Cholesterol 116 See Note mg/dL 09/26/2021 14:42 [facility] Comment: Desirable: ?<130 mg/dL Borderline High: ??130-159 mg/dL High: ? 160-189 mg/dL Very High: ?> or = 190 mg/dL Blood VENOUS BLOOD / Unknown Venipuncture / Unknown 09/26/2021 13:02 EST 09/26/2021 13:03 EST Stalin Naylor MD CHEMISTRY & BLOOD GAS ORDERABLES [facility] [address] [place] [address] * (ABNORMAL) HEMOGLOBIN A1C (09/26/2021 13:02 EST) Hemoglobin A1c 6.2(H) <5.7 % 09/26/2021 16:13 [facility] Comment: Glycemic Status References: Normal: ??<5.7% Pre-Diabetes: ??5.7% - 6.4% Diagnostic of Diabetes: ??> or = 6.5% (if confirmed) Est Avg Glucose 131 mg/dL 16:13 [facility] Comment:The eAG represents t he A1c result expressed as average glucose in mg/dL. Blood VENOUS BLOOD / Unknown Venipuncture / Unknown 09/26/2021 13:02 EST 09/26/2021 13:03 EST Stalin Naylor MD CHEMISTRY & BLOOD GAS ORDERABLES [facility] [address] [place] [address] documented in this encounter Visit Diagnoses Diagnosis Type 2 diabetes mellitus with hyperglycemia, without long-term current use of insulin ([facility] Primary Pure hypercholesterolemia Essential hypertension, benign documented in this encounter Discontinued Medications Medication Sig Discontinue Reason Start Date End Da te metFORMIN (GLUCOPHAGE-XR) 500 mg ER tablet Take 2 Tabs by mouth 2 times daily. Reorder 10/07/2020 2021 SITagliptin (JANUVIA) 100 mg tablet Take 1 Tab by mouth daily. Reorder 10/07/2020 2021 documented as of this encounter Care Teams Ceramic Design Engineer Relationship Specialty Start Date End Date Roro Mallory APRN [address] [place] [address] PCP - General 12/06/18 documented as of this encounter
--- OUTSIDE RECORDS SUMMARY | 2024-05-26 18:16 | XMS_ITS | Encounter Summary ---
Author Organization [facility] Address [address] [place] [address] Care Team Providers Care Farm Crew Member Name Role Phone MalloryDonald brownmatthew Sal APRN Primary Care Provider + Encounter Details Date Type Department Care Team (Late st Contact Info) Description 01/03/2022 Lab Requisition [facility] Pathology & Laboratory Medicine - [facility] [address] [place] [address] Outr Resulting Lab, Provider Social History Tobacco Use Types Packs/Day Years [...] Procedure Name Priority Date/Time Associated Diagnosis Comments CELIAC DISEASE PANEL Routine 01/02/2022 8:45 EDT documented in this encounter Results * CELIAC DISEASE PANEL (01/02/2022 8:45 EDT) Tissue Transglutaminase Antibody IGA 1.2 <4.0 U/mL 01/05/2022 12:[address] [facility] Comment: A negative result may be due to IgA deficiency and does not rule out celiac disease. ? Negative: ??<4.0 U/mL ? Weak Positive: ??4.0 - 10.0 U/mL ? Positive: ??>10.0 U/mL Results were obtained with the EvitiA Lite R h-tTG IgA BERONICA assay on the [employer] DSX. IgA 128 85 - 499 mg/dL 01/05/2022 12:[address] [facility] Celiac Disease Interpretation Negative Serology. Celiac disease unlikely. Approximately 10% of patients with celiac disease are seronegative. Patients who are already adhering to a gluten-free diet may also be seronegative. If celiac disease is highly clinically suspected, referral to gastroenterology for additional evaluation is recommended. 01/05/2022 12:[address] [facility] Blood VENOUS BLOOD / Unknown 01/02/2022 8:45 EDT 01/03/2022 22:06 EDT Provider Outr Resulting Lab IMMUNOLOGY A ND SEROLOGY ORDERABLES Performing Organization Address City/State/[facility] Co de Phone Number [facility] [address] [place] [address] documented in this encounter Visit Diagnoses Not on filedocumented in this encounter Care Teams Farm Crew Member Relationship Specialty Start Date End Date Roro Mallory, DRESS MARKER [address] [facility] [place] [phone] PCP - General 12/06/18 documented as of this encounter
--- OUTSIDE RECORDS SUMMARY | 2024-05-26 18:17 | XMS_ITS | Encounter Summary ---
Author Organization [facility] Address [address] [place] [address] Care Team Providers Care User Support Analyst Name Role Phone Luis Snider Primary Care Provi kellen Encounter Details Date Type Department Care Team (Latest Contact Info) Description 12/20/2017 7:30 EDT - 12/20/2017 23:59 EDT Hospital Encounter [facility] [address] [place] [address] Luis Snider FNP [address] [facility] [address] [place], [place] [id number] Discharge Disposition: Home or Self Care Social History Tobacco Use Types Packs/Day Years Used Date Smoking Tobacco: Never Alcohol Use Standard Drinks/Week Comments Yes 0 (1 standard drink = 0.6 oz pur e alcohol) rare Sex and Gender Information Value Date Recorded [...] No 05/28/2017 documented as of this encounter Discharge Diagnoses Diagnosis Z00.00 Encounter for general adult medical examination without abnormal findings-Z00.00[ICD-10-CM] documented in this encounter Medications at Time of Discharge Medication Sig Dispensed Refills Start Date End Date ascorbic acid (VITAMIN C) 500 mg tablet Take 500 mg by mouth daily. famotidine (PEPCID) 20 mg tablet Take 20 mg by mouth 2 times daily. ferrous sulfate (IRON) 325 mg (65 mg iron) tablet Take 325 mg by mouth. During menses only approx 1 wk monthly simvastatin (ZOCOR) 20 mg tablet Take 20 mg by mouth daily. HYDROmorphone (DILAUDID) 2 mg tablet Take 1-2 Tabs by mouth every 3 hours as needed for Pain. 30 Tab 0 09/22/2011 03/03/2019 lisinopril (PRINIVIL, ZESTRIL) 5 mg tablet Take 5 mg by mouth daily 10/07/2020 metformin (GLUCOPHAGE) 1,000 mg tablet Take 1,000 mg by mouth 2 times daily with breakfast and dinner 11/23/2019 documented as of this encounter Discharge Disposition Disposition Code Departure Means Destination Home or Self [facility] documented in this encounter Plan of Treatment Not on file documented as of this encounter Procedures Procedure Name Priority Date/Time Associated Diagnosis Comments COMPLETE BLOOD COUNT Routine 12/20/2017 7:46 EDT HEMOGLOBIN A1C Routine 12/20/2017 7:46 EDT LIPID PROFILE (INCLUDES CHOLESTEROL, TRIGLYCERIDES, HDL, LDL) Routine 12/20/2017 7:46 EDT BASIC METABOLIC PANEL (BMP) Routine 12/20/2017 7:46 EDT documented in this encounter Results * HEMOGLOBIN A1C (12/20/2017 7:46 EDT) [facility] Hemoglobin A1C 5.6 % 12/20/2017 10:56 EDT [facility] Comment: Reference Range: <5.7% Normal 5.7-6.4% Prediabetes =>6.5% Diagnostic for diabetes (if confirmed) Goals for glycemic control in diabetes ADA 2017 For non adults with diabetes: ?? Target <7.5% For children and adolescents with type 1 diabetes: ?? Target <7.0% More or less stringent targets may be appropriate for individual patients. Est Avg Glucose 114 mg/dl 8 10:56 [facility] Comment: eAG represents the A1c result expressed as average glucose in mg/dl. BLOOD SPECIMEN / Unknown 12/20/2017 7:46 EDT 12/20/2017 8:48 EDT Luis ArauzMatthew [facility] CHEMISTRY & BLOOD GAS ORDERABLES [facility] [address] [place] [address] * LIPID PROFILE (INCLUDES CHOLESTEROL, TRIGLYCERIDES, HDL, LDL) (12/20/2017 7:46 EDT) Cholesterol 166 mg/dl 12/20/2017 9:21 [facility] Comment: Desirable:<200 Borderline High:200-239 High:>pl=135 Triglycerides 126 mg/dl 12/20/2017 9:21 [facility] Comment: Normal:<150 Borderline High:150-199 High:200-499 Very High:>nn=757 HDL 60 mg/dl 12/20/2017 9:21 [facility] Comment: Low:<40 Normal:40-60 Desirable: >60 LDL, Calculated 81 mg/dl 8 9:21 [facility] Comment: Optimal:<100 Near Optimal:100-129 Borderline High:130-159 High:160-189 Very High:>ee=602 Chol/HDL Ratio 2.8 12/20/2017 9:21 [facility] Fasting? YES 12/20/2017 7:34 [facility] Non HDL Cholesterol 106 mg/dl 12/20/2017 9:21 [facility] Comment: Desirable:<130 Borderline:130-159 High: 160-189 Very High: >if=962 BLOOD SPECIMEN / Unknown 12/20/2017 7:46 EDT 12/20/2017 8:48 EDT Luis GlassEla [facility] CHEMISTRY & BLOOD GAS ORDERABLES [facility] [address] [place] [address] * BASIC METABOLIC PANEL (BMP) (12/20/2017 7:46 EDT) Sodium 139 136 - 145 mEq/L 12/20/2017 9:21 [facility] Potassium 4.8 3.5 - 5.0 mEq/L 12/20/2017 9:21 [facility] Chloride 103 96 - 110 mEq/L 12/20/2017 9:21 [facility] CO2 28 22 - 32 mEq/L 12/20/2017 9:21 [facility] BUN 10 10 - 26 mg/dl 12/20/2017 9:21 [facility] Creatinine 0.71 0.52 - 1.04 mg/dl 12/20/2017 9:21 [facility] GFR, Calculated 103 >60 ml/min/1.7 3m2 12/20/2017 9:21 [facility] Comment: eGFR calculated using CKD-EPI equation for non Americans. Multiply eGFR by 1.16 for Americans. Calcium 9.8 8.5 - 10.5 mg/dl 12/20/2017 9:21 [facility] Calculated Calcium 9.9 8.5 - 10.5 mg/dl 12/20/2017 9:21 [facility] Glucose, Serum 99 70 - 100 mg/dl 12/20/2017 9:21 [facility] Fasting? YES 12/20/2017 7:34 [facility] BLOOD SPECIMEN / Unknown 12/20/2017 7:46 EDT 12/20/2017 8:48 EDT Luis Snider [facility] CHEMISTRY & BLOOD GAS ORDERABLES [facility] [address] [place] [address] * HEMAGRAM (12/20/2017 7:46 EDT) WBC 6.26 4.0 - 12.4 K/cmm 12/20/2017 9:00 EDT [facility] RBC 4.35 3.86 - 5.04 M/cmm 12/20/2017 9:00 T [facility] Hemoglobin 13.5 11.6 - 15.2 gm/dl 12/20/2017 9:00 T [facility] HCT 40.3 34.9 - 44.4 % 12/20/2017 9:00 EDT [facility] MCV 93 81 - 98 fl 12/20/2017 9:00 EDT [facility] MCH 31.0 26.7 - 33.3 pg 12/20/2017 9:00 T [facility] MCHC 33.5 32.1 - 35.9 gm/dl 12/20/2017 9:00 EDT [facility] RDW-CV 11.9 <14.7 % 12/20/2017 9:00 T [facility] RDW-SD 41.1 <50.4 fl 12/20/2017 9:00 T [facility] PLT 308 141 - 377 K/cmm 12/20/2017 9:00 T [facility] MPV 10.0 9.5 - 12.7 fl 12/20/2017 9:00 [facility] BLOOD SPECIMEN / Unknown 12/20/2017 7:46 EDT 12/20/2017 8:48 EDT Luis GARCIA HEMATOLOGY & PF4 ORDERABLES [facility] [address] [place] [address] documented in this encounter Visit Diagnoses Not on filedocumented in this encounter Care Teams User Support Analyst Relationship Specialty Start Date End Date Luis Snider FNP 8 [facility] [address] [place] [address] PCP - General 04/23/16 11/10/18 documented as of this encounter
--- OUTSIDE RECORDS SUMMARY | 2024-05-26 18:17 | XMS_ITS | Encounter Summary ---
Author Organization [facility] Address [address] [place] [address] Care Team Providers Care Director Furniture Name Role Phone Luis Snider Primary Care Provi kellen Encounter Details Date Type Department Care Team (Late st Contact Info) Description 12/20/2017 Phlebotomy Only [facility] [address] [place] [address] Hearing Aid Consultant, Outpatient Social History Tobacco Use Types Packs/Day Years [...] filedocumented in this encounter Care Teams Director Furniture Relationship Specialty Start Date End Date Luis Snider FNP [address] [facility] [address] [place], [place] [address] PCP - General 04/23/16 11/10/18 documented as of this encounter
--- OUTSIDE RECORDS SUMMARY | 2024-05-26 18:17 | XMS_ITS | Encounter Summary ---
Author Organization [facility] Address [address] [place] [address] Care Team Providers Care Rn Traveling Name Role Phone Luis Snider Primary Care Provi kellen Encounter Details Date Type Department Care Team (Late st Contact Info) Description 09/15/2016 Results Only Imaging [facility] [phone] Luis Snider FNP [address] [facility] [address] [place] [address] Social History Tobacco Use Types Packs/Day Years Used Date Smoking Tobacco: Never Alcohol Use Standard Drinks/Week Comments Not Asked 0 (1 standard drink = 0.6 oz pur e alcohol) Sex and Gender Information Value Date Recorded Sex Assigned at Not on file Gender Identity Female 11/22/2019 12:18 EST Sexual Orientation Not on file documented as of this encounter Plan of Treatment Not on file documented as of this encounter Procedures Procedure Name Priority Date/Time Associated Diagnosis Comments MA 2D/3D BILATERAL DEMARIO ROUTINE SCREENING MAMMO 09/15/2016 9:54 EST documented in this encounter Results * MA 2D/3D BILATERAL DEMARIO ROUTINE SCREENING MAMMO (09/15/2016 9:54 EST) Anatomical Region Laterality Modality Other 09/15/2016 9:54 EST 09/16/2016 15:15 EST Narrative 09/16/2016 15:15 EST Comparison has been made to previous images. Bilateral Breast Findings: (Routine 3D tomosynthesis with synthesized 2D views with CAD) There are scattered fibroglandular densities (25% - 50% fibroglandular). No significant masses, calcifications or other abnormalities are seen. IMPRESSION: BILATERAL BREASTS: Negative, no evidence of malignancy. Normal interval follow-up is recommended in 12 months. OVERALL ASSESSMENT - CATEGORY 1 - NEGATIVE END OF IMPRESSION These results will be communicated to your patient via a lay letter from Radiology. If any additional imaging is needed we will contact your patient directly. Procedure Note Jacque Langford MD - 09/16/2016 Comparison has been made to previous images. Bilateral Breast Findings: (Routine 3D tomosynthesis with synthesized 2D views with CAD) There are scattered fibroglandular densities (25% - 50% fibroglandular). No significant masses, calcifications or other abnormalities are seen. IMPRESSION: BILATERAL BREASTS: Negative, no evidence of malignancy. Normal interval follow-up is recommended in 12 months. OVERALL ASSESSMENT - CATEGORY 1 - NEGATIVE END OF IMPRESSION These results will be communicated to your patient via a lay letter from Radiology. If any additional imaging is needed we will contact your patient directly. Luis GARCIA IMG MAMMOGR APHY ORDERABLES documented in this encounter Visit Diagnoses Not on filedocumented in this encounter Care Teams Rn Traveling Relationship Specialty Start Date End Date Luis Snider FNP [address] [address] PCP - General 04/23/16 11/10/18 documented as of this encounter
--- OUTSIDE RECORDS SUMMARY | 2024-05-26 18:17 | XMS_ITS | Encounter Summary ---
Author Organization [facility] Address [address] [place] [address] Care Team Providers Care Director Global Name Role Phone Roro Mallory APRN Primary Care Provider + Encounter Details Date Type Department Care Team (Latest Contact Info) Description 03/03/2019 Travel Social History Tobacco Use Types Packs/Day [...] filedocumented in this encounter Care Teams Director Global Relationship Specialty Start Date End Date Roro Mallory APRN [address] [place] [address] PCP - General 12/06/18 documented as of this encounter
--- OUTSIDE RECORDS SUMMARY | 2024-05-26 18:17 | XMS_ITS | Encounter Summary ---
Author Organization [facility] Address [address] [place] [address] Care Team Providers Care Street Light Repairer Helper Name Role Phone MalloryDonald brownmatthew Sal APRN Primary Care Provider + Reason for Visit * Reason Onset Date Comments Referral Request 11/07/2019 Encounter Details Date Type Department Care Team (Late st Contact Info) Description 11/07/2019 Telephone [facility] Endocrinology - [address] CDE [address] [facility] [address] [place] [address] Referral Request Social History Tobacco Use Types Packs/Day Years [...] encounter Miscellaneous Notes * Telephone Encounter - Eduardo Snyder - 11/14/2019 1524 EST * Telephone Encounter - Nan Ace - 11/08/2019 1038 EST Contacted PCP office to send new referral, they will fax too [phone]. * Telephone Encounter - Obi Santana - 11/07/2019 1546 EST Patient has a recall appointment, will need a new referral to be seen this year. Please advise documented in this encounter Plan of Treatment Not on file documented as of this encounter Visit Diagnoses Not on filedocumented in this encounter Care Teams Street Light Repairer Helper Relationship Specialty Start Date End Date Roro Mallory APRN [address] [place] [phone] PCP - General 12/06/18 documented as of this encounter
--- OUTSIDE RECORDS SUMMARY | 2024-05-26 18:17 | XMS_ITS | Encounter Summary ---
Author Organization [facility] Address [address] [place] [address] Care Team Providers Care Bearing Maker Name Role Phone Luis Snider Primary Care Provi kellen Reason for Visit * Reason Onset Date Comments Appointment Related 12/28/2017 Update 12/28/2017 Encounter Details Date Type Department Care Team (Late st Contact Info) Description 12/28/2017 Telephone [facility] Endocrinology - [address] [address] Mery Menendez Appointment Related; Update Social History Tobacco Use Types Packs/Day Years [...] encounter Miscellaneous Notes * Telephone Encounter - WarrenTanisha - 12/28/2017 0952 EDT Entered referral and called pt to schedule appt. Pt is scheduled for 03/30/18 @ 8:30AM. * Telephone Encounter - Tanisha Harrell - 12/28/2017 0852 EDT Pt calling to schedule an appt with Juanis - stefanie referral received in the scans folder of [facility]. Please review and call pt to schedule an appt. documented in this encounter Plan of Treatment Not on file documented as of this encounter Visit Diagnoses Not on filedocumented in this encounter Care Teams Bearing Maker Relationship Specialty Start Date End Date Luis Snider FNP [address] [address] PCP - General 04/23/16 11/10/18 documented as of this encounter
--- OUTSIDE RECORDS SUMMARY | 2024-05-26 18:17 | XMS_ITS | Encounter Summary ---
Author Organization [facility] Address [address] [place] [address] Care Team Providers Care Civil Engineer Name Role Phone Luis Snider Primary Care Provi kellen Encounter Details Date Type Department Care Team (Latest Contact Info) Description 05/25/2017 7:39 EDT - 05/25/2017 23:59 EDT Hospital Encounter [facility] [address] [place] [address] Luis Snider FNP 8 [facility] [address] [place], [place] [address] Discharge Disposition: Home or Self Care Social [...] visiting a doctor's office or shopping? No 12/14/2016 Cognitive Status Response Date of Assessm ent Because of a physical, menta l, or emotional condition, does this person have serious difficulty concentrating, remembering, or making decisions? No 12/14/2016 documented as of this encounter Discharge Diagnoses Diagnosis E11.9 Type 2 diabetes mellitus without complications-E11.9[ICD-10-CM] documented in this encounter Medications at Time [...] Code Departure Means Destination Home or Self Long-Term documented in this encounter Plan of Treatment Not on file documented as of this encounter Procedures Procedure Name Priority Date/Time Associated Diagnosis Comments URINE OWVDUDN-AB-EEMADKROI E RATIO (ACR) Routine 05/25/2017 7:48 EDT COMPLETE BLOOD COUNT Routine 05/25/2017 7:48 EDT HEMOGLOBIN A1C Routine 05/25/2017 7:48 EDT LIPID PROFILE (INCLUDES CHOLESTEROL, TRIGLYCERIDES, HDL, LDL) Routine 05/25/2017 7:48 EDT BASIC METABOLIC PANEL (BMP) Routine 05/25/2017 7:48 EDT documented in this encounter Results * ALBUMIN, URINE (05/25/2017 7:48 EDT) Creatinine, Urn [place] 25.4 mg/dl 05/25/2017 12:39 EDT [facility] Ur Albumin mg/dl <0.2 mg/dl 05/25/2017 14:46 EDT [facility] Ur Alb ug/mg Crea Unable to calculate ug/mg Crea result. ug/mg Crea 05/25/2017 14:46 EDT [facility] Comment: Normal: <30 ug/mg creat High albuminuria: 30-300 ug/mg creat Very high albuminuria: >300 ug/mg creat URINE / Unknown 05/25/2017 7 :48 EDT 05/25/2017 8:43 EDT MelissaRobert Breck [facility]Program[facility] CHEMISTRY & BLOOD GAS ORDERABLES Performing Organization Address [facility] Co de Phone Number [facility] [address] [place] [address] * HEMOGLOBIN A1C (05/25/2017 7:48 EDT) Hemoglobin A1C 5.7 % 05/25/2017 11:14 EDT [facility] Comment: Reference Range: <5.7% Normal 5.7-6.4% Increased risk for diabetes =>6.5% Diagnostic for diabetes (if confirmed) The A1c goal for non adults in general is <7%. The A1c goal for selected patients may be significantly lower than 7% if this can be achieved without significant hypoglycemia or other adverse effects of treatment. Est Avg Glucose 117 mg/dl 7 11:14 EDT [facility] Comment: eAG represents the A1c result expressed as average glucose in mg/dl. BLOOD SPECIMEN / Unknown 05/25/2017 7:48 EDT 05/25/2017 8:46 EDT [employer] [facility] CHEMISTRY & BLOOD GAS ORDERABLES Performing Organization Address [facility] Co de Phone Number [facility] [address] [place] [address] * LIPID PROFILE (INCLUDES CHOLESTEROL, TRIGLYCERIDES, HDL, LDL) (05/25/2017 7:48 EDT) Cholesterol 156 mg/dl 05/25/2017 9:14 EDT [facility] Comment: Desirable:<200 Borderline High:200-239 High:>kf=872 Triglycerides 100 mg/dl 05/25/2017 9:14 [facility] Comment: Normal:<150 Borderline High:150-199 High:200-499 Very High:>rx=071 HDL 51 mg/dl 05/25/2017 9:14 [facility] Comment: Low:<40 Normal:40-60 Desirable: >60 LDL, Calculated 85 mg/dl 7 9:14 [facility] Comment: Optimal:<100 Near Optimal:100-129 Borderline High:130-159 High:160-189 Very High:>ab=298 Chol/HDL Ratio 3.1 05/25/2017 9:14 [facility] Fasting? YES 05/25/2017 7:42 [facility] Non HDL Cholesterol 105 mg/dl 05/25/2017 9:14 [facility] Comment: Desirable:<130 Borderline:130-159 High: 160-189 Very High: >xm=069 BLOOD SPECIMEN / Unknown 05/25/2017 7:48 EDT 05/25/2017 8:46 EDT Luis GARCIA CHEMISTRY & BLOOD GAS ORDERABLES [facility] [address] [place] [address] * BASIC METABOLIC PANEL (05/25/2017 7:48 EDT) Sodium 141 136 - 145 mEq/L 05/25/2017 9:14 [facility] Potassium 4.6 3.5 - 5.0 mEq/L 05/25/2017 9:14 [facility] Chloride 103 96 - 110 mEq/L 05/25/2017 9:14 [facility] CO2 29 22 - 32 mEq/L 05/25/2017 9:14 [facility] BUN 14 10 - 26 mg/dl 05/25/2017 9:14 [facility] Creatinine 0.75 0.52 - 1.04 mg/dl 05/25/2017 9:14 [facility] GFR, Calculated 97 >60 ml/min/1.7 3m2 05/25/2017 9:14 [facility] Comment: eGFR calculated using CKD-EPI equation for non Americans. Multiply eGFR by 1.16 for Americans. Calcium 9.7 8.5 - 10.5 mg/dl 05/25/2017 9:14 [facility] Calculated Calcium 9.5 8.5 - 10.5 mg/dl 05/25/2017 9:14 [facility] Glucose, Serum 87 70 - 100 mg/dl 05/25/2017 9:14 [facility] Fasting? YES 05/25/2017 7:42 [facility] BLOOD SPECIMEN / Unknown 05/25/2017 7:48 EDT 05/25/2017 8:46 EDT Luis GARCIA CHEMISTRY & BLOOD GAS ORDERABLES Performing Organization Address City/State/[facility] Co de Phone Number [facility] [address] [place] [address] * HEMAGRAM (05/25/2017 7:48 EDT) WBC 6.37 4.0 - 12.4 K/cmm 05/25/2017 9:02 [facility] RBC 4.54 3.86 - 5.04 M/cmm 05/25/2017 9:02 [facility] Hemoglobin 14.1 11.6 - 15.2 gm/dl 05/25/2017 9:02 [facility] HCT 42.1 34.9 - 44.4 % 05/25/2017 9:02 [facility] MCV 93 81 - 98 fl 05/25/2017 9:02 [facility] MCH 31.1 26.7 - 33.3 pg 05/25/2017 9:02 [facility] MCHC 33.5 32.1 - 35.9 gm/dl 05/25/2017 9:02 [facility] RDW-CV 12.1 <14.7 % 05/25/2017 9:02 [facility] RDW-SD 41.1 <50.4 fl 05/25/2017 9:02 EDT [facility] PLT 319 141 - 377 K/cmm 05/25/2017 9:02 EDT [facility] MPV 9.9 9.5 - 12.7 fl 05/25/2017 9:02 EDT [facility] BLOOD SPECIMEN / Unknown 05/25/2017 7:48 EDT 05/25/2017 8:46 EDT Luis GARCIA HEMATOLOGY & PF4 ORDERABLES [facility] [address] [place] [address] documented in this encounter Visit Diagnoses Not on filedocumented in this encounter Care Teams Civil Engineer Relationship Specialty Start Date End Date Luis Snider FNP 8 [facility] [address] [place] [address] PCP - General 04/23/16 11/10/18 documented as of this encounter
--- OUTSIDE RECORDS SUMMARY | 2024-05-26 18:17 | XMS_ITS | Encounter Summary ---
Author Organization [facility] Address [address] [place] [address] Care Team Providers Care Revenue Cycle Manager Name Role Phone Roro Mallory Jonelle GONZALEZ Primary Care Provider + Reason for Visit * Reason Onset Date Comments Coordination Of Care 12/12/2019 Encounter Details Date Type Department Care Team (Late st Contact Info) Description 12/12/2019 Telephone [facility] Endocrinology - [address] [address] Yarelis Kothari, RD [address] [place] [address] Coordination Of Care Social History Tobacco Use Types Packs/Day [...] encounter Miscellaneous Notes * Telephone Encounter - DesYarelis pa RD - 12/12/2019 1049 EDT Notified pt of change from in person visit to telemedicine visit via phone. documented in this encounter Plan of Treatment Not on file documented as of this encounter Visit Diagnoses Not on filedocumented in this encounter Care Teams Revenue Cycle Manager Relationship Specialty Start Date End Date Roro Mallory, LISA [address] [place] [phone] PCP - General 12/06/18 documented as of this encounter
--- OUTSIDE RECORDS SUMMARY | 2024-05-26 18:17 | XMS_ITS | Encounter Summary ---
Author Organization [facility] Address [address] [place] [address] Care Team Providers Care Biofuels Production Associate Name Role Phone Roro Mallory APRN Primary Care Provider + Reason for Visit * Reason Comments Diabetes * Consult (Routine) - Order Cancelled Specialty Diagnoses / Procedures Referred By [facility] t Referred To Contact Endocrinology Diagnoses Type 2 diabetes mellitus with hyperglycemia, without long-term current use of insulin ([facility]) Stalin Naylor MD [address] [facility] [address] [place] [phone] [facility] Endocrinology [address] [place] [id number] Referral ID Status Reason Start Date Expiration Date Visits Requested Visits Authorized [id number] Order Cancelled Specialty Services Required 11/23/2019 1 1 Encounter Details Date Type Department Care Team (Late st Contact Info) Description 12/19/2019 9:00 EDT Nutrition [facility] Endocrinology - [address] [address] Yarelis Kothari, RD [address] [place] [address] Type 2 diabetes mellitus without complication, without long-term current use of insulin ([facility]) (Primary Dx) Social History Tobacco Use Types Packs/Day Years [...] No 05/28/2017 documented as of this encounter Progress Notes * Yarelis Kothari, RD - 12/19/2019 0900 EDT Images from the original note were not included. ENDOCRINOLOGY & DIABETES DIABETES NUTRITION FOLLOW UP VISIT NOTE Name:Mei Valenzuela Today's Date: 12/19/2019 Date of visit: 12/19/2019 PATIENT ID: Mei Valenzuela is a 49 y.o. female initially referred for medical nutrition therapy by Dr. Naylor for Diabetes - Type 2. MNT referral date: 11/23/2019 SUBJECTIVE: Mei Valenzuela was last seen on 12/06/2018 and returns today for a follow-up medical nutrition therapy visit the [facility] Endocrinology & Diabetes out-patient clinic. Mei Valenzuela is accompanied by: alone Pt states that she recently had an higher than normal a1c and decided it would be a good idea to touch base with a dietitian. Pt states that she has worked with a CDE in the past and found it helpfulto get back on track with healthier eating and to get motivated. Pt states that she has had diabetes for 18 years and has overall done a good job managing it with diet and exercise. OBJECTIVE: Diabetes type: Type 2 Vitals: There were no vitals taken for this visit. BMI: There is no height or weight on file to calculate BMI. Lab Results Component Value Date HGBA1C 7.4 (H) 11/23/2019 HGBA1C 5.6 12/20/2017 HGBA1C 5.7 05/25/2017 Lab Results Component Value Date CHOL 168 11/23/2019 HDL 52 11/23/2019 LDLBASE 75 11/23/2019 TRIG 207 11/23/2019 CHOLHDL 3.2 11/23/2019 Current Diabetes Medications: Current AntiDiabetic Medications 11/23/2019 11/24/2019 SITagliptin (oral) 100 mg DAILY 100 mg DAILY metFORMIN (oral) 500 mg DAILY 1,000 mg BID PRESENT MEAL PATTERN: Comments: pt notes 3 meals/day and states that she is better about including vegetables in her dietin the spring and summer. Pt states that she enjoys a sweet in the evening but is mindful about theportion. Current eating habits:eats 3 meals plus snacks. Breakfast: wrap on a medium sized wrap with sausage, egg and cheese Lunch: Peanut butter wrap OR bag of popcorn OR leftovers Dinner:Pork chops OR chicken Snacks: 9am will have an apple and after dinner will have a small bowl of ice cream or a small chocolate bar with almonds Beverages: water and some juice in the morning Alcohol: none reported BLOOD GLUCOSE MONITORING: Comments: since last visit with endocrinology is now checking twice each day Glucose monitoring: BID. Barriers to monitoring: None Hypoglycemic episode: none reported Carbohydrate source on person? Yes Blood Glucose Readings: PHYSICAL ACTIVITY: Comments: Pt states that she has been less active since adjusting to new routine around covid 19. Pt states that she is adjusting to working from home and hasn't ironed out a regular routine for exercise. Pt does have a treadmill at home and plans to use it but needs to work on including it in routine ASSESSMENT: Mei was seen today for a telemedicine visit for medical nutrition therapy for type 2 diabetes. Pt has worked with dietitians in the past so this was a follow up encounter. Nutrition Diagnosis: altered nutrition related labs or vitals Etiology: type 2 diabetes, overweight/obesity Signs & Symptoms: elevated hemoglobins a1c (see labs), elevated home glucose readings (see logs)- note trending towards target glucose since making changes to medications. Pt notes tolerating januvia well reporting some headaches but unclear if this is related to the medication or changes to stress level given modifications to work schedule and flow related to covid 19 response. Dietary recall indicates inadequate meal balanced with limited intake of vegetables and fruits. Pt agreed and discussed ways to improve. Pt notes improved consumption during spring and summer but will work on improving during the winter months when there is less access to fresh [place] and [place] [facility]. Recall indicates limited activity at this time but pt is working to find ways to work it back into her schedule as she navigates new work flow from home. Intervention: MNT/Education: Engaged patient in conversation related to positive behavior change, self-management, goal setting and action planning using motivational interviewing and active listening. Reviewed dietary intake and physical activity. Reviewed blood glucose measurements, including HgA1C and FBG. Discussed MyPlate and balanced meals, snacks, and health benefits of maintaining balanced blood glucose levels throughout day. Reviewed relationship between meal composition (high carbohydrate vs balanced), blood glucose levels, nutrient metabolism and storage. Brainstormed meal modifications to improve nutrient balance per MyPlate education and recommendations, including reduced starchy, refined carbohydrate and added sugar, and increased lean protein, healthy fat, and dietary fiber (non-starchy vegetables and fruit). Discussed the health and wellness benefits of exercise and its role in weight management. Recommendation/Plan: 3 balanced, consistent meals per day w/ whole grains, lean protein, 5 servings non-starchy vegetables and 4 servings fruit; <10% total energy from saturated fat; <5% total energy from added sugar. <2000mg sodium/day Include a serving of vegetables with dinner every evening (1 cup raw or 1/2 cup cooked) Explore ways to include more vegetables with breakfast and lunch 30-60 minutes aerobic exercise 3-5 days per week. Monitoring & Evaluation: RD to monitor dietary intake and physical activity and glucose, understanding of nutrition education and recommendations, nutrition related labs and vitals Learning readiness: Verbalizes interest, Seeking additional information (pamphlets, classes, etc) and Active attentive participant Psychosocial, cultural, or economic barriers to care:none. Mei Valenzuela verbalized understanding of meal planning guidelines reviewed at this visit. The following patient education materials were provided at today's visit. None FOLLOW-UP: 4 week telemedicine visit Thank you for your kind referral of Mei Valenzuela for nutrition counseling. Time Spent With Patient: 30 minutes Diagnosis Code: E11.9 Yarelis Kothari, PARVEZ 12/19/2019 10:02 I spent a total of 30 minutes with Mei Valenzuela today and 30 minutes of that time was spent incounseling and coordination of care as described in the progress note. Endocrinology Tracking 12/06/2018 12/19/[address]/CDE RD/CDE Time with Patient(Mins) 60 30 Patient Contact Type MNT MNT documented in this encounter Plan of Treatment Not on file documented as of this encounter Visit Diagnoses Diagnosis Type 2 diabetes mellitus without complication, without long-term current use of insulin ([facility])- Primary documented in this encounter Care Teams Biofuels Production Associate Relationship Specialty Start Date End Date Roro Mallory, TELEVISION ENGINEER [address] [place] [phone] PCP - General 12/06/18 documented as of this encounter
--- OUTSIDE RECORDS SUMMARY | 2024-05-26 18:17 | XMS_ITS | Encounter Summary ---
Author Organization [facility] Address [address] [place] [address] Care Team Providers Care Record Retrieval Specialist Name Role Phone Luis Snider Primary Care Provi kellen Encounter Details Date Type Department Care Team (Latest Contact Info) Description 05/11/2018 9:38 EDT - 05/11/2018 9:39 EDT Hospital Encounter [facility] - [address] [address] Luis Snider FNP [address] [facility] [address] [place], [place] [phone] Discharge Disposition: Home or Self Care Social [...] tablet Take 500 mg by mouth daily. calcium carbonate (CALCIUM [...] on filedocumented in this encounter Care Teams Record Retrieval Specialist Relationship Specialty Start Date End Date Luis Snider FNP [address] [address] PCP - General 04/23/16 11/10/18 documented as of this encounter
--- OUTSIDE RECORDS SUMMARY | 2024-05-26 18:17 | XMS_ITS | Encounter Summary ---
Author Organization [facility] Address [address] [place] [address] Care Team Providers Care Diagnostic Imaging Manager Name Role Phone Luis Snider PNP Primary Care Provi kellen Reason for Visit * Reason Onset Date Comments Appointment Related 11/13/2016 CDE from Ext ernal/ Referral in [facility] Encounter Details Date Type Department Care Team (Late st Contact Info) Description 11/13/2016 Telephone [facility] Endocrinology - [address] [address] Mery Menendez Appointment Related (CDE from External/ Referral in [facility]) Social History Tobacco Use Types Packs/Day Years Used Date Smoking Tobacco: Never Alcohol Use Standard Drinks/Week Comments Not Asked 0 (1 standard drink = 0.6 oz pur e alcohol) Sex and Gender Information Value Date Recorded Sex Assigned at Not on file Gender Identity Female 11/22/2019 12:18 EST Sexual Orientation Not on file documented as of this encounter Miscellaneous Notes * Telephone Encounter - Camilla Loya - 11/16/2016 1133 EST LMOM. We have still not received referral. Please have faxed to [phone]. * Telephone Encounter - Judi Leon - 11/13/2016 1536 EST Referral sent over for Patient to set up CDE appt. Please call documented in this encounter Plan of Treatment Not on file documented as of this encounter Visit Diagnoses Not on filedocumented in this encounter Care Teams Diagnostic Imaging Manager Relationship Specialty Start Date End Date Luis Snider FNP [address] [address] PCP - General 04/23/16 11/10/18 documented as of this encounter
--- OUTSIDE RECORDS SUMMARY | 2024-05-26 18:17 | XMS_ITS | Encounter Summary ---
Author Organization [facility] Address [address] [place] [address] Care Team Providers Care Feltmaker And Weigher Name Role Phone Roro Mallory TAMPING MACHINE OPERATOR Primary Care Provider + Reason for Visit * Reason Comments Diabetes * Referral (Routine) - Closed Specialty Diagnoses / Procedures Referred By [facility] t Referred To Contact Endocrinology Diagnoses Obesity, unspecified Type 2 diabetes mellitus without complications ([facility]) Roro Mallory, TAMPING MACHINE OPERATOR [address] [place] [address] [facility] Endocrinology [address] [place] [address] Referral ID Status Reason Start Date Expiration Date Visits Re quested Visits Authorized [id number] Closed 1 1 Encounter Details Date Type Department Care Team (Latest Contact Info) Description 11/23/2019 8:[address] [facility] Endocrinology - [facility] [address] [place] [address] Stalin Naylor MD [address] [place] [address] [address] [place] [address] Type 2 diabetes mellitus with hyperglycemia, without long-term current use of insulin ([facility]) (Primary Dx); Pure hypercholesterolemia ; Essential hypertension, [...] Reading Time Taken Comments Blood Pressure 124/59 11/23/2019828 EST Pulse 77 11/23/2019 08 EST Temperature - - Respiratory Rate - - Oxygen Saturation - - Inhaled Oxygen Concentration - - Weight 103.4 kg (228 lb) 11/23/2019 08 EST Height 171.5 cm (5' 7.52) 11/23/2019 08 EST Body Mass Index 35.16 11/23/2019 08 EST documented in this encounter Functional Status Functional [...] * Patient Instructions* Stalin Naylor MD - 11/23/2019 8:30 EST Check Blood Sugar: Before breakfast and two hours after a meal. Change to METFORMIN ER 500 mgm tablets 2 twice daily Add Januvia 100 mgm daily documented in this encounter Ordered Prescriptions Prescription Sig Dispensed Refills Start Date End Da te SITagliptin (JANUVIA) 100 mg tablet Take 1 Tab by mouth daily. 100 Tab 3 11/23/2019 10/07/2020 metFORMIN (GLUCOPHAGE-XR) 500 mg ER tablet Take 1 Tab by mouth daily. 400 Tab 4 11/23/2019 11/24/2019 documented in this encounter Progress Notes * Stalin Naylor MD - 11/23/2019829 EST Images from the original note were not included. [facility] Diabetes Initial Evaluation Note CHIEF COMPLAINT: Mei Valenzuela presents with 1. Type 2 diabetes mellitus with hyperglycemia, without long-term current use of insulin ([facility]) 2. Pure hypercholesterolemia 3. Essential hypertension, benign HPI: Mei is a 49 y.o. woman who was first told about diabetes about 15 to 17 years ago. Since that time she has been on monotherapy with metformin and seems to be doing very well she tolerates the drug. Her hemoglobin A1c's have all been arranged however today she is slipped a little bit and she is up to 7.4% she is basically symptom-free The history is provided by the patient. Diabetes She presents for her initial diabetic visit. She has type 2 diabetes mellitus. Onset time: dx'ed 2002. Her disease course has been worsening. There are no hypoglycemic associated symptoms. Associatedsymptoms include nocturia. Pertinent negatives for diabetes include no blurred vision, no chest pain, no fatigue, no foot paresthesias, no foot ulcerations, no polydipsia, no polyphagia, no polyuria,no visual change, no weakness and no weight loss. Pertinent negatives for diabetic complications include no [...] blood glucose at home 1-2 x per week. Blood glucose monitoring compliance is inadequate. An GOGO inhibitor/angiotensin II receptor ady is beingtaken. She does not see a puppet maker.Eye exam is current. Glucose Range is is not testing a did not bring in her glucometer Family history is reviewed and includes the following: [place] [place] Mei Valenzuela has a history of being [...] none. Skin: none. Cardiac: none. PHYSICAL EXAMINATION: Vitals: BP 124/59 Pulse 77 Ht 171.5 [...] LABS: Lab Results Component Value Date HGBA1C 7.4 (H) 11/23/2019 HGBA1C 5.6 12/20/2017 HGBA1C 5.7 05/25/2017 Lab Results Component Value Date CHOL 166 12/20/2017 HDL 60 12/20/2017 LDLBASE 81 12/20/2017 TRIG 126 12/20/2017 CHOLHDL 2.8 12/20/2017 Lab Results Component Value Date BUN 10 12/20/2017 CREATININE 0.71 12/20/2017 NA 139 12/20/2017 K 4.8 12/20/2017 Lab Results Component Value Date ALT 33 04/23/2016 Lab Results Component Value Date LABALBU 4.0 04/23/2016 UCREA 69.9 05/11/2018 UABCR <8.6 05/11/2018 ASSESSMENT/PLAN: 1. Type 2 diabetes mellitus with hyperglycemia, without long-term current use of insulin ([facility]) 2. Pure hypercholesterolemia 3. Essential hypertension, benign Mei has done quite well over the decade and a half since she was diagnosed with diabetes mellitus. However it about 15 years is a deterioration in beta cell function is first seen. Her [id number]'s have been in the 6% range and now is up to 7.4% so it looks like a second agent has to be added. We discussed the use of insulin we discussed the use of a oral DPP 4 inhibitor we discussed the use of a GLP-1-RA as well as an SGLT2 the patient has needle phobia and is not a good candidate for GLP-1 at this point. I do not think insulin would be appropriate so the question was to give her an SGLT2 or DPP 4 inhibitor we opted today with no other history of coronary artery disease or stroke to go with a DPP 4 because of its simplicity. So I will start Januvia and have optimized her metformin dose to 2000 mg/day and switch her to metformin ER Attached please find my consult note with the full details of your patents' visit. Medications: Recommend aspirin daily. Insulin: Insulin stabilization is required: Check Blood Sugar: Before breakfast and two hours after a meal. Change to METFORMIN ER 500 mgm tablets 2 twice daily Add Januvia 100 mgm daily Non-insulin: diet. Recommended: Is on GOGO inhibition -a small dose, and a statin. Glucose monitoring BID. Referred to diabetic education program. Referred to door framer yes prn. Patient referred to eye zoo caretaker for annual dilated eye exam. Lifestyle modifications: [...] dose of a statin, is an option. Stalin Naylor MD 11/23/2019 9:22 documented in this encounter Plan of Treatment Pending Results Name Type Priority Associated Diagnoses Date /Time POCT HEMOGLOBIN A1C, INTERFACED ORDER Lab Routine Type 2 diabetes mellitus with hyperglycemia, without long-term current use of insulin ([facility]) 11/23/2019 8:36 EST POCT CSN BARCODE HEMOGLOBIN A1C INT Lab Routine Type 2 diabetes mellitus with hyperglycemia, without long-term current use of insulin ([facility]) 11/23/2019 8:37 EST documented as of this encounter Procedures Procedure Name Priority Date/Time Associated Diagnosis Comments POCT HEMOGLOBIN A1C, INTERFACED Routine 11/23/2019 8:36 EST Type 2 diabetes mellitus with hyperglycemia, without long-term current use of insulin ([facility]) documented in this encounter Results * (ABNORMAL) COMPREHENSIVE METABOLIC PANEL (CMP) (11/23/2019 9:45 EST) Sodium 136 136 - 145 mEq/L 11/23/2019 12:13 [facility] Potassium 4.3 3.5 - 5.0 mEq/L 11/23/2019 12:13 [facility] Chloride 102 96 - 110 mEq/L 11/23/2019 12:13 [facility] CO2 Total 26 22 - 32 mEq/L 11/23/2019 12:13 [facility] Glucose 173(H) 70 - 100 mg/dL 11/23/2019 12:13 [facility] BUN 12 10 - 26 mg/dL 11/23/2019 12:13 [facility] Creatinine 0.67 0.52 - 1.04 mg/dL 11/23/2019 12:13 [facility] eGFR 105 >60 mL/min/1.7 3m2 11/23/2019 12:13 [facility] Comment:eGFR calculated carmelita dumont CKD-EPI equation for non- Americans. Multiply eGFR by 1.16 for patients. Total Protein 6.9 6.3 - 8.2 g/dL 11/23/2019 12:13 [facility] Albumin 4.2 3.4 - 4.9 g/dL 11/23/2019 12:13 [facility] Alkaline Phosphatase 68 38 - 126 U/L 11/23/2019 12:13 [facility] AST 31 15 - 46 U/L 11/23/2019 12:13 [facility] ALT 34 <35 U/L 11/23/2019 12:13 [facility] Bilirubin, Total <0.5 <1.4 mg/dL 11/23/19 20 12:13 [facility] Calcium 9.0 8.5 - 10.5 mg/dL 11/23/2019 12:13 [facility] Calculated Calcium 8.8 8.5 - 10.5 mg/dL 11/23/2019 12:13 [facility] Blood VENOUS BLOOD / Unknown Venipuncture / Unknown 11/23/2019 9:45 EST 11/23/2019 9:45 [facility] - 11/23/2019 12:13 EST 2 Stalin Naylor MD CHEMISTRY & BLOOD GAS ORDERABLES Performing Organization Address [facility] Co de Phone Number [facility] [address] [place] [address] * ALBUMIN, URINE (11/23/2019 9:45 EST) Albumin, Urine 1.3 See Note mg/dL 2019 12:40 [facility] Comment: NOTE: Reference range not established Creatinine, Urine 86.0 See Note mg/dL 11/23/2019 12:40 [facility] Comment: NOTE: Reference range not established Lab Urine Albumin to Creatinine Ratio 15 <30 ug/mg Creatinine 11/23/2019 12:40 [facility] Comment: Urine Albumin/Creatinine Ratio: Normal: <30 ug/mg Creatinine Moderately increased albuminuria: 30-30 ug/mg Creatinine Severley increased albuminuria: >300 ug/mg Creatinine Urine URINE SPECIMEN OBTAINED BY CLEAN CATCH PROCEDURE / Unknown Urine Collect / Unknown 11/23/2019 9:45 EST 11/23/2019 9:45 EST Stalin Naylor MD CHEMISTRY & BLOOD GAS ORDERABLES Performing Organization Address [facility] de Phone Number [facility] [address] [place] [address] * LIPID PROFILE (INCLUDES CHOLESTEROL, TRIGLYCERIDES, HDL, LDL) (11/23/2019 9:45 EST) Cholesterol 168 See Note mg/dL 11/23/2019 12:13 [facility] Comment: Acceptable: ?<200 mg/dL Borderline High: 200-239 mg/dL High: ?> or = 240 mg/dL HDL 52 See Note mg/dL 11/23/2019 12:13 [facility] Comment: Low: ? <40 mg/dL Normal: ??40-60 mg/dL High: ?>60 mg/dL LDL, Calculated 75 See Note mg/dL 11/23/2019 12:13 [facility] Comment: Optimal: ? <100 mg/dL Near Optimal: ?100-129 mg/dL Borderline High: 130-159 mg/dL High: ?160-189 mg/dL Very High: ? > or = 190 mg/dL Triglyceride 207 See Note mg/dL 11/23/2019 12:13 [facility] Comment: Normal: ? <150 mg/dL Borderline High: ??150 - 199 mg/dL High: ? 200 - 499 mg/dL Very High: ?> or = 500 mg/dL Chol/HDL Ratio 3.2 See Note 11/23/2019 12:13 [facility] Comment: No reference range has been established for CHOL/HDL ratio. Non HDL Cholesterol 116 See Note mg/dL 11/23/2019 12:13 [facility] Comment: Desirable: ?<130 mg/dL Borderline High: ??130-159 mg/dL High: ? 160-189 mg/dL Very High: ?> or = 190 mg/dL Blood VENOUS BLOOD / Unknown Venipuncture / Unknown 11/23/2019 9:45 EST 11/23/2019 9:45 EST Narrative [facility] - 11/23/2019 12:13 EST 2 Stalin Naylor MD CHEMISTRY & BLOOD GAS ORDERABLES [facility] [address] [place] [address] * TSH (11/23/2019 9:45 EST) TSH 2.62 0.47 - 4.68 uIU/mL 11/23/2019 12:45 EST [facility] Blood VENOUS BLOOD / Unknown Venipuncture / Unknown 11/23/2019 9:45 EST 11/23/2019 9:45 EST Narrative [facility] - 11/23/2019 12:45 EST The results of this assay can be falsely lowered due to the consumption of Biotin. Stalin Naylor MD CHEMISTRY & BLOOD GAS ORDERABLES Performing Organization Address [facility] Co de Phone Number [facility] [address] [place] [address] * T4 FREE (11/23/2019 9:45 EST) T4, Free 1.1 0.8 - 2.2 ng/dL 11/23/2019 12:31 EST [facility] Blood VENOUS BLOOD / Unknown Venipuncture / Unknown 11/23/2019 9:45 EST 11/23/2019 9:45 EST Stalin Naylor MD CHEMISTRY & BLOOD GAS ORDERABLES Performing Organization Address [facility] de Phone Number [facility] [address] [place] [address] * (ABNORMAL) POCT HEMOGLOBIN A1C, INTERFACED (11/23/2019 8:36 EST) Hemoglobin A1c, POC 7.4(H) <5.7 % 11/23/2019 8:53 EST [facility] loose hand packer ID [id number] 11/23/2019 8:53 EST [facility] Blood VENOUS BLOOD / Unknown 11/23/2019 8:36 EST 11/23/2019 8:53 EST Narrative [facility] - 11/23/2019 8:53 EST For Hgb A1c values => 10%, a venous blood measurement in the main laboratory for confirmation is available. Reference Range: <5.7% Normal 5.7-6.4% Prediabetes =>6.5% Diagnostic for diabetes (if confirmed). Goals for glycemic control in diabetes ADA 2017. For non adults with diabetes: Target <7.0% For children and adolescents with type 1 diabetes: Target <7.5% More or less stringent targets may be appropriate for individual patients. Test performed at Endocrinology. Stalin Naylor MD POINT OF CARE TEST ORDERABLES [facility] [address] [place] [address] documented in this encounter Visit Diagnoses Diagnosis Type 2 diabetes mellitus with hyperglycemia, without long-term current use of insulin ([facility])- Primary Pure hypercholesterolemia Essential hypertension, benign documented in this encounter Discontinued Medications Medication Sig Discontinue Reason Start Date End Da te metformin (GLUCOPHAGE) 1,000 mg tablet Take 1,000 mg by mouth 2 times daily with breakfast and dinner 11/23/2019 documented as of this encounter Historical Medications * This list may reflect changes made after this encounter. Medication Sig Dispensed Refills Start Date End Date mecobalamin, vitamin B12, (B12 ACTIVE) 1,000 mcg tablet,chewable Take 2 gum by mouth daily. Multivitamins with Minerals tablet tablet Take 1 Tab by mouth daily. RABEprazole (ACIPHEX) 20 mg tablet Take 40 mg by mouth 2 times daily. 11/07/2019 added in this encounter Care Teams Feltmaker And Weigher Relationship Specialty Start Date End Date Roro Mallory, TAMPING MACHINE OPERATOR [address] [place] [id number] PCP - General 12/06/18 documented as of this encounter
--- OUTSIDE RECORDS SUMMARY | 2024-05-26 18:17 | XMS_ITS | Encounter Summary ---
Author Organization [facility] Address [address] [place] [address] Care Team Providers Care Electrical Engineer Mep Name Role Phone Roro Mallory Jonelle GONZALEZ Primary Care Provider + Reason for Visit * Reason Comments Diabetes Encounter Details Date Type Department Care Team (Latest Contact Info) Description 10/07/2020 11:00 EST Telemedicine [facility] Endocrinology - [facility] [address] [place] [address] Stalin Naylor MD [address] [facility] [address] [place] [address] Type 2 diabetes mellitus with hyperglycemia, without long-term current use of insulin ([facility]) (Primary Dx); Pure hypercholesterolemia ; Essential hypertension, [...] Dispensed Refills Start Date End Da te lisinopriL (PRINIVIL) 5 mg tablet Take 1 Tab by mouth daily. 100 Tab 3 10/07/2020 metFORMIN (GLUCOPHAGE-XR) 500 mg ER tablet Take 2 Tabs by mouth 2 times daily. 400 Tab 3 10/07/2020 2021 SITagliptin (JANUVIA) 100 mg tablet Take 1 Tab by mouth daily. 100 Tab 3 10/07/2020 2021 documented in this encounter Progress Notes * Stalin Naylor MD - 10/07/2020 1100 EST Images from the original note were not included. [facility] Diabetes Follow up Evaluation Note The [...] by video through the Zoom application Code [id number] The location of the patient : Home The location of the provider: Office The following staff and their role did participate in today's encounter visit: Stalin Naylor MD CHIEF COMPLAINT: Mauricio Castro presents with 1. Type 2 diabetes mellitus with hyperglycemia, without long-term current use of insulin ([facility]) 2. Pure hypercholesterolemia 3. Essential hypertension, benign HPI: Mauricio is a 50 y.o. woman who was first told about [...] remained symptom-free Metformin ER 500 2 BID [id number] The history is provided by the patient. [...] being taken. She does not see a farmworker bulbs.Eye exam is current. Glucose Range is Family history is reviewed and includes the following: [facility] Mauricio Castro has a history of being in good [...] below are the findings from the last isyo-qf-cvoz encounter Vitals: BP 124/59 Pulse 77 Ht [...] 11/23/2019 HGBA1C 5.6 12/20/2017 HGBA1C 5.7 05/25/2017 6.2 % at PCP 2019 Lab Results Component Value Date CHOL 168 11/23/2019 HDL 52 11/23/2019 LDLBASE 75 11/23/2019 TRIG 207 11/23/2019 CHOLHDL 3.2 11/23/2019 Lab Results Component Value Date BUN 12 11/23/2019 CREATININE 0.67 11/23/2019 NA 136 11/23/2019 K 4.3 11/23/2019 Lab Results Component Value Date ALT 34 11/23/2019 Lab Results Component Value Date LABALBU 1.3 11/23/2019 LABALBU 4.2 11/23/2019 UCREA 69.9 05/11/2018 UABCR 15 11/23/2019 ASSESSMENT/PLAN: 1. Type 2 diabetes mellitus with hyperglycemia, without long-term current use of insulin ([facility]) 2. Pure hypercholesterolemia 3. Essential hypertension, benign Mauricio is a 50 y.o. woman who was put on sitagliptin along with her metformin at the last visit since that time her blood sugars are averaging very well !! She is basically symptom-free. In November 2019 when we saw her last her lipids were at target she hadno proteinuria and her creatinine was normal Will repeat labs Mauricio had done quite well over the decade [...] breakfast and two hours after a meal. METFORMIN ER 500 mgm tablets 2 twice daily Januvia 100 mgm daily Non-insulin: diet. Recommended: Is on GOGO inhibition -a small dose, and a statin. Glucose monitoring BID. Referred to diabetic education program. Referred to billing services manager yes prn. Patient referred to eye patient care associate for annual dilated eye exam. Lifestyle modifications: [...] that video through the Zoom application code [id number] Stalin Naylor MD 10/07/2020 10:57 Addendum Excellent HbA1c The pt is euthyroid Lipids at target Has some proteinuria Results for MAURICIO CASTRO ( ) as of 10/17/2020 15:29 Ref. Range 10/17/2020 06:58 Cholesterol Latest Ref Range: See Note mg/dL 161 Triglycerides Latest Ref Range: See Note mg/dL 125 HDL Latest Ref Range: See Note mg/dL 56 LDL, Calculated Latest Ref Range: See Note mg/dL 80 Results for MAURICIO CASTRO ( ) as of 10/17/2020 15:29 Ref. Range 11/23/2019 09:45 10/17/2020 06:58 Hemoglobin A1C Latest Ref Range: <5.7 % 6.3 (H) Est Avg Glucose Latest Units: mg/dL 134 Ur Alb ug/mg Crea Latest Ref Range: <30 ug/mg Creatinine 15 T4, Free Latest Ref Range: 0.8 - 2.2 ng/dL 1.1 TSH Latest Ref Range: 0.47 - 4.68 uIU/mL 2.62 documented in this encounter Plan of Treatment Not on file documented as of this encounter Results * (ABNORMAL) PROTEIN/CREATININE RATIO, URINE (10/17/2020 6:59 EST) Total Protein, Urine 13 See Note mg/dL 10/17/2020 8:35 [facility] Comment:Reference range not established. Creatinine, Urine 34.1 See Note mg/dL 10/17/2020 8:35 [facility] Comment:Reference range not established. UPRO mg/mg Cr, Ur 0.38(H) <0.16 mg/mg Creatinine 10/17/2020 8:35 [facility] Urine URINE SPECIMEN COLLECTION, CLEAN CATCH / Unknown Urine Collect / Unknown 10/17/2020 6:59 EST 10/17/2020 7:03 EST Stalin Naylor MD URINALYSIS ORDERAB LES Performing Organization Address City/State/[facility] Co de Phone Number [facility] [address] [place] [address] * COMPREHENSIVE METABOLIC PANEL (CMP) (10/17/2020 6:58 EST) Sodium 142 136 - 145 mEq/L 10/17/2020 8:49 [facility] Potassium 4.6 3.5 - 5.0 mEq/L 10/17/2020 8:49 [facility] Chloride 102 96 - 110 mEq/L 10/17/2020 8:49 [facility] CO2 Total 25 22 - 32 mEq/L 10/17/2020 8:49 [facility] Glucose 94 70 - 100 mg/dL 10/17/2020 8:49 [facility] BUN 12 10 - 26 mg/dL 10/17/2020 8:49 [facility] Creatinine 0.59 0.52 - 1.04 mg/dL 10/17/2020 8:49 [facility] eGFR 109 >60 mL/min/1.7 3m2 10/17/2020 8:49 [facility] Comment:eGFR calculated carmelita dumont CKD-EPI equation for non- Americans. Multiply eGFR by 1.16 for patients. Total Protein 7.3 6.3 - 8.2 g/dL 10/17/2020 8:49 [facility] Albumin 4.3 3.4 - 4.9 g/dL 10/17/2020 8:49 [facility] Alkaline Phosphatase 66 38 - 126 U/L 10/17/2020 8:49 [facility] AST 28 15 - 46 U/L 10/17/2020 8:49 [facility] ALT 23 <35 U/L 10/17/2020 8:49 [facility] Bilirubin, Total <0.5 <1.4 mg/dL 10/17/19 8:49 [facility] Calcium 9.6 8.5 - 10.5 mg/dL 10/17/2020 8:49 [facility] Calculated Calcium 9.4 8.5 - 10.5 mg/dL 10/17/2020 8:49 [facility] Blood VENOUS BLOOD / Unknown Venipuncture / Unknown 10/17/2020 6:58 EST 10/17/2020 7:03 EST Stalin Naylor MD CHEMISTRY & BLOOD GAS ORDERABLES Performing Organization Address City/State/[facility] Co de Phone Number [facility] [address] [place] [phone] * LIPID PROFILE (INCLUDES CHOLESTEROL, TRIGLYCERIDES, HDL, LDL) (10/17/2020 6:58 EST) Cholesterol 161 See Note mg/dL 10/17/2020 8:49 [facility] Comment: Acceptable: ?<200 mg/dL Borderline High: 200-239 mg/dL High: ?> or = 240 mg/dL HDL 56 See Note mg/dL 10/17/2020 8:49 [facility] Comment: Low: ? <40 mg/dL Normal: ??40-60 mg/dL High: ?>60 mg/dL LDL, Calculated 80 See Note mg/dL 10/17/2020 8:49 [facility] Comment: Optimal: ? <100 mg/dL Near Optimal: ?100-129 mg/dL Borderline High: 130-159 mg/dL High: ?160-189 mg/dL Very High: ? > or = 190 mg/dL Triglyceride 125 See Note mg/dL 10/17/2020 8:49 [facility] Comment: Normal: ? <150 mg/dL Borderline High: ??150 - 199 mg/dL High: ? 200 - 499 mg/dL Very High: ?> or = 500 mg/dL Chol/HDL Ratio 2.9 See Note 10/17/2020 8:49 [facility] Comment:No reference range h as been established for CHOL/HDL ratio. Non HDL Cholesterol 105 See Note mg/dL 10/17/2020 8:49 [facility] Comment: Desirable: ?<130 mg/dL Borderline High: ??130-159 mg/dL High: ? 160-189 mg/dL Very High: ?> or = 190 mg/dL Blood VENOUS BLOOD / Unknown Venipuncture / Unknown 10/17/2020 6:58 EST 10/17/2020 7:03 EST Stalin Naylor MD CHEMISTRY & BLOOD GAS ORDERABLES [facility] [address] [place] [address] * (ABNORMAL) HEMOGLOBIN A1C (10/17/2020 6:58 EST) Hemoglobin A1c 6.3(H) <5.7 % 10/17/2020 9:59 EST [facility] Comment: Glycemic Status References: Normal: [...] Est Avg Glucose 134 mg/dL 9:59 EST [facility] Comment:The eAG represents t he A1c result expressed as average glucose in mg/dL. Blood VENOUS BLOOD / Unknown Venipuncture / Unknown 10/17/2020 6:58 EST 10/17/2020 7:03 EST Stalin Naylor MD CHEMISTRY & BLOOD GAS ORDERABLES [facility] [address] [place] [address] documented in this encounter Visit Diagnoses Diagnosis Type 2 diabetes mellitus with hyperglycemia, without long-term current use of insulin ([facility])- Primary Pure hypercholesterolemia Essential hypertension, benign documented in this encounter Discontinued Medications Medication Sig Discontinue Reason Start Date End Da te SITagliptin (JANUVIA) 100 mg tablet Take 1 Tab by mouth daily. Reorder 11/23/2019 10/07/2020 metFORMIN (GLUCOPHAGE-XR) 500 mg ER tablet Take 2 Tabs by mouth 2 times daily. Reorder 11/24/2019 10/07/2020 lisinopril (PRINIVIL, ZESTRIL) 5 mg tablet Take 5 mg by mouth daily Reorder 10/07/2020 documented as of this encounter Care Teams Electrical Engineer Mep Relationship Specialty Start Date End Date Roro Mallory APRN [address] [place] [id number] PCP - General 12/06/18 documented as of this encounter
--- OUTSIDE RECORDS SUMMARY | 2024-05-26 18:17 | XMS_ITS | Encounter Summary ---
Author Organization [facility] Address [address] [place] [address] Care Team Providers Care Forming Press Operator Name Role Phone MalloryDonald brownmatthew Sal APRN Primary Care Provider + Reason for Visit * Reason Comments Diabetes Encounter Details Date Type Department Care Team (Late st Contact Info) Description 04/16/2020 8:00 EDT Nutrition [facility] Endocrinology - [address] [address] Yarelis Kothari, RD [address] [place] [address] Type 2 diabetes mellitus without complication, without long-term current use of insulin ([facility]) (Primary Dx) Social History Tobacco Use Types [...] this encounter Progress Notes * Yarelis Kothari, PARVEZ - 04/16/2020 0800 EDT ENDOCRINOLOGY & DIABETES DIABETES NUTRITION FOLLOW UP VISIT NOTE The concept of ???Telemedicine?? has been described [...] visit was provided through telemedicine video conferencing: The location of the patient : Home The location of the provider: home The following staff and their role did participate in today's encounter visit: Yarelis Kothari RD Name:Mei Valenzuela Today's Date: 04/18/2020 Date of visit: 04/16/2020 PATIENT ID: Mei Valenzuela is a 49 y.o. female initially referred for medical nutrition therapy by Dr. Naylor for Diabetes - Type 2. 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 Pt notes that she is less active in the humid weather. Pt notes that she has been focusing on soft dues due to recent dental procedure but has been increasing variety of foods as it is healing. OBJECTIVE: Diabetes type: Type 2 Vitals: There [...] 1,000 mg BID PRESENT MEAL PATTERN: Comments: Pt states that she would like to be eating a diet that focuses primarily on meats, vegetables and fruits. Pt states that she is currently following a soft diet due to recent dental work. Current eating habits:eats 3 meals plus snacks. Breakfast: omelet with onion Lunch: soft foods Dinner:tuna wrap or hot dogs Snacks: fruit and vegetables Beverages: water Alcohol:none reported BLOOD GLUCOSE MONITORING: Comments: Pt notes average lucose reading is around 130. Was not able to review all readings at time of this visit. 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 Doesn't participate if too hot and muggy. ASSESSMENT: Mei was seen via video visit for follow up medical nutrition therapy for type 2 diabetes. Nutrition Diagnosis: altered nutrition related labs or vitals. Etiology: type 2 diabetes, overweight/obesity Signs & Symptoms: elevated hemoglobin a1c (see labs), elevated BMI (see vitals), dietary recallindicates high carbohydrate foods not consistent with regular meal pattern given recent dental procedure and will resume normal food choices as able. Pt notes increased activity since our last visit and will continue to do this as able. Intervention: MNT/Education: Engaged patient in conversation related to positive behavior change, self-management, goal setting and action planning using motivational interviewing and active listening. Reviewed dietary intake and physical activity. Reviewed dietary intake and physical activity. Reviewed blood glucose measurements, including HgA1C and FBG. Discussed MyPlate and balanced meals, snacks, and health benefits of maintaining balanced blood glucose levels throughout day. Brainstormed meal modifications to improve nutrient balance per MyPlate education and recommendations, including reduced starchy, refined carbohydrate and added sugar, and increased lean protein, healthy fat, and dietary fiber (non-starchy vegetables and fruit). Discussed the health and wellness benefits of exercise and its role in weight management. Recommendation/Plan: Continue with increased activity 3 balanced, consistent meals per day w/ whole grains, lean protein, 5 servings non-starchy vegetables and 4 servings fruit; <10% total energy from saturated fat; <5% total energy from added sugar. 30-60 minutes aerobic exercise 3-5 days per [...] were provided at today's visit. None FOLLOW-UP: 3 weeks Thank you for your kind referral of Mei Valenzuela for nutrition counseling. Time Spent With Patient: 45 minutes Diagnosis Code: E11.[address] 04/18/2020 16:04 Endocrinology Tracking 12/06/2018 12/19/2019 01/30/2020 04/18/[address]/CDE RD/CDE RD/CDE RD/CDE Time with Patient(Mins) 60 30 45 45 Patient Contact Type MNT MNT MNT MNT documented in this encounter Plan of Treatment Not on file documented as of this encounter Visit Diagnoses Diagnosis Type 2 diabetes mellitus without complication, without long-term current use of insulin ([facility])- Primary documented in this encounter Care Teams Forming Press Operator Relationship Specialty Start Date End Date Roro Mallory, ORGAN PIPE VOICER [address] [place] [phone] PCP - General 12/06/18 documented as of this encounter
--- OUTSIDE RECORDS SUMMARY | 2024-05-26 18:17 | XMS_ITS | Encounter Summary ---
Author Organization [facility] Address [address] [place] [address] Care Team Providers Care Physical Plant Employee Name Role Phone Luis Snider STAFFING RN Primary Care Provi kellen Reason for Visit * Reason Onset Date Comments Appointment Related 11/17/2016 Encounter Details Date Type Department Care Team (Late st Contact Info) Description 11/17/2016 Telephone [facility] Endocrinology - [address] [phone] Mery Menendez Appointment Related Social History Tobacco Use Types [...] encounter Miscellaneous Notes * Telephone Encounter - Jesus Bragg - 11/17/2016 0909 EST Reason for Call: Appointment Related Summary/Symptoms: Patient called in about getting appointment with Ms. Menendez, specifications writer read her message from 11/16 and she will call her Doctor. Also wanted me to let personnel scheduler know she did not receivea message at either of her numbers Jesus Bragg 11/17/2016 9:09 documented in this encounter Plan of Treatment Not on file documented as of this encounter Visit Diagnoses Not on filedocumented in this encounter Care Teams Physical Plant Employee Relationship Specialty Start Date End Date Luis Snider FNP [address] [address] PCP - General 04/23/16 11/10/18 documented as of this encounter
--- OUTSIDE RECORDS SUMMARY | 2024-05-26 18:17 | XMS_ITS | Encounter Summary ---
Author Organization [facility] Address [address] [place] [address] Care Team Providers Care Medical Device Name Role Phone Roro Mallory Jonelle GONZALEZ Primary Care Provider + Reason for Visit * Reason Onset Date Comments Medication Management 11/24/2019 Encounter Details Date Type Department Care Team (Late st Contact Info) Description 11/24/[address] [facility] Endocrinology - [facility] [address] [place] [address] Stalin Naylor MD [address] [facility] [address] [place] [address] Medication Management Social History Tobacco Use Types Packs/Day Years [...] mouth 2 times daily. 400 Tab 3 11/24/2019 10/07/2020 documented in this encounter Miscellaneous Notes * Telephone Encounter - Prerna Cooper RN - 11/24/2019 0942 EST Images from the original note were not included. Stalin Naylor MD Morgan, Kristin, RN ?? It is 500 mgm tablets of metformin ER ??2 tabs BID Sent new script with correct instructions. TC to patient, left message stating that corrected script was sent to pharmacy. * Telephone Encounter - Eduard Valero - 11/24/2019 0914 EST Patient was told at her appointment 3.5. that she was to take Metformin 2 x daily. The script wassent in for 1x daily. Please advise with patient documented in this encounter Plan of Treatment Not on file documented as of this encounter Visit Diagnoses Not on filedocumented in this encounter Discontinued Medications Medication Sig Discontinue Reason Start Date End Da te metFORMIN (GLUCOPHAGE-XR) 500 mg ER tablet Take 1 Tab by mouth daily. Reorder 11/23/2019 11/24/2019 documented as of this encounter Care Teams Medical Device Relationship Specialty Start Date End Date Roro Mallory APRN [address] [place] [phone] PCP - General 12/06/18 documented as of this encounter
--- OUTSIDE RECORDS SUMMARY | 2024-05-26 18:17 | XMS_ITS | Encounter Summary ---
Author Organization [facility] Address [address] [place] [address] Care Team Providers Care Station Usher Name Role Phone Luis Snider Primary Care Provi kellen Encounter Details Date Type Department Care Team (Late st Contact Info) Description 05/25/2017 Phlebotomy Only [facility] [address] [place] [address] Improvement Manager, Outpatient Social History Tobacco Use Types Packs/Day [...] No 12/14/2016 documented as of this encounter Plan of Treatment Not on file documented as of this encounter Visit Diagnoses Not on filedocumented in this encounter Care Teams Station Usher Relationship Specialty Start Date End Date Luis Snider FNP [address] [facility] [address] [place], [place] [phone] PCP - General 04/23/16 11/10/18 documented as of this encounter
--- OUTSIDE RECORDS SUMMARY | 2024-05-26 18:17 | XMS_ITS | Encounter Summary ---
Author Organization [facility] Address [address] [place] [address] Care Team Providers Care Sewing Machine Operator Name Role Phone Luis Snider Primary Care Provi kellen Reason for Visit * Reason Comments Diabetes Encounter Details Date Type Department Care Team (Late st Contact Info) Description 12/14/2016 9:00 EDT [facility] Endocrinology - [address] [address] Mery Menendez Type 2 diabetes mellitus without complication, without long-term current use of insulin ([facility]) (Primary Dx) Social History Tobacco Use Types [...] Sign Reading Time Taken Comments Blood Pressure 131/71 12/14/2016 0850 EDT Pulse 80 12/14/2016 0850 EDT Temperature - - Respiratory Rate - - Oxygen Saturation - - Inhaled Oxygen Concentration - - Weight 102.1 kg (225 lb) 12/14/2016 0850 EDT Height 172 cm (5' 7.72) 12/14/2016 0850 EDT Body Mass Index 34.5 12/14/2016 0850 EDT documented in this encounter Functional Status Functional [...] No 12/14/2016 documented as of this encounter Patient Instructions * Patient Instructions* ShonMery - 12/14/2016 9:00 EDT Food record Exercise record documented in this encounter Progress Notes * Mery Menendez - 12/14/2016 0900 EDT [facility] ENDOCRINOLOGY & DIABETES DIABETES NUTRITION VISIT NOTE Name:Mei Tang Date of visit: 12/14/2016 PATIENT ID: Mei Tang is a 46 y.o. female referred for medical nutrition therapy by Dr. Luis Snider for Diabetes - Type 2. SUBJECTIVE: Mei Tang was seen for a medical nutrition therapy visit, follow up, at the [facility] Endocrinology & Diabetes out-patient clinic on 12/14/2016 accompanied by: alone She was last sen in 2014 and was doing well until this past holiday season. Reports she just stopped everything for no particular reason. Stopped walking at her 9am break and resumed some past unhealthy eating habits. OBJECTIVE: Diabetes type: Type 2 Vitals: Visit Vitals ??? BP 131/71 ??? Pulse 80 ??? Ht 172 cm (67.72) ??? Wt (!) 102.1 kg (225 lb) ??? LMP Comment: irregular ??? BMI 34.5 kg/m2 BMI: Body mass index is 34.5 kg/(m^2). Diabetes Medications: Current AntiDiabetic Medications 09/09/2011 metFORMIN (oral) 1,000 MG BID (BREAKFAST/DINNER) (1,000 mg tab) Laboratory Results: Lab Results Component Value Date HGBA1C 6.8 04/23/2016 HGBA1C 8.1 01/29/2015 Lab Results Component Value Date CHOL 158 04/23/2016 HDL 48 04/23/2016 LDLBASE 91 04/23/2016 TRIG 97 04/23/2016 CHOLHDL 3.3 04/23/2016 PRESENT MEAL PATTERN: Current eating habits:eats 3 meals plus snacks and fast food a couple of nights per week. Breakfast: Presley Daniel breakfast bowls or frozen breakfast sandwich and 8oz juice Lunch: Caesar salads Dinner: fish, chicken, vegetables, Pat's, Polish take-out, Hoagies Snacks: pretzels with cheese, chips, some ice cream Beverages: water, juice PHYSICAL ACTIVITY: Comments: ADL BLOOD GLUCOSE MONITORING: Glucose monitoring: sporadic testing. Barriers to monitoring: None Hypoglycemic episode: none Carbohydrate source on person? No Home Blood Glucoses Running: few readings to look at: range 101-153 in the morning ASSESSMENT: Mei is a 46 yo female with type 2 diabetes in suboptimal glycemic control. Abruptly stopped herdietary and exercise interventions before the season and is ready to work on resuming them.She has a very high sodium intake and this will need to be monitored along with her calories, carbohydrates, and saturated fat intake. She spends about 4 hours commuting and her option for exercise now is her break at work and her weekends. Learning readiness: Verbalizes interest and Active attentive participant Psychosocial, cultural, or economic barriers to care:none. Mei Sal Kitty verbalized understanding of meal planning guidelines reviewed at this visit. NUTRITION PLAN: Patient education on Carbohydrate Based Diabetes Meal Planning Type of meal planning: Consistent Carbohydrate and calorie counting Calories 1800 kcal, 180 g CHO, 2000 mg Na, sat fat less than 15-20g daily. Food logs to reinforce meal plan and encourage portion control-pt to resume Encouraged regular physical activity for weight management and blood glucose control. Keep exercise record and don't go for more than 3 days without exercising. Follow-up 6 months Thank you for your kind referral of Mei Sal Kitty for nutrition counseling. Time Spent With Patient: [address] 12/16/2016 9:43 documented in this encounter Plan of Treatment Not on file documented as of this encounter Visit Diagnoses Diagnosis Type 2 diabetes mellitus without complication, without long-term current use of insulin ([facility])- Primary documented in this encounter Historical Medications * This list may reflect changes made after this encounter. Medication Sig Dispensed Refills Start Date End Date famotidine (PEPCID) 20 mg tablet Take 20 mg by mouth 2 times daily. added in this encounter Care Teams Sewing Machine Operator Relationship Specialty Start Date End Date Luis Snider FNP [address] [address] PCP - General 04/23/16 11/10/18 documented as of this encounter
--- OUTSIDE RECORDS SUMMARY | 2024-05-26 18:17 | XMS_ITS | Encounter Summary ---
Author Organization [facility] Address [address] [place] [address] Care Team Providers Care Social Work Associate Name Role Phone MalloryDonald brownmatthew Sal APRN Primary Care Provider + Reason for Visit * Reason Onset Date Comments Appointment Related 12/04/2019 3.19 Encounter Details Date Type Department Care Team (Late st Contact Info) Description 12/04/2019 Telephone [facility] Endocrinology - [address] [address] Yarelis Kothari, RD [address] [place] [address] Appointment Related (3.19) Social History Tobacco Use Types Packs/Day Years [...] encounter Miscellaneous Notes * Telephone Encounter - JyotiRoscoe vivarie - 12/04/2019 1023 EDT Per patient, called to cancel the 3.19 appointment because she will be out of town. Rescheduled to 3.31 as of right now. However, per patient, she would be available by phone 3.19 if the appointment can be done over the phone. Patient requesting a call back to see if that is an option. documented in this encounter Plan of Treatment Not on file documented as of this encounter Visit Diagnoses Not on filedocumented in this encounter Care Teams Social Work Associate Relationship Specialty Start Date End Date Roro Mallory, PLASTIC MACHINE OPERATOR [address] [place] [address] PCP - General 12/06/18 documented as of this encounter
--- OUTSIDE RECORDS SUMMARY | 2024-05-26 18:17 | XMS_ITS | Encounter Summary ---
Author Organization [facility] Address [address] [place] [address] Care Team Providers Care Metal Casting Trades Worker Name Role Phone Roro Mallory Jonelle GONZALEZ Primary Care Provider + Encounter Details Date Type Department Care Team (Latest Contact Info) Description 11/23/2019 9:15 EST Phlebotomy Only [facility] Endocrinology - [address] [id number] Phlebotomy, [facility] Endo Type 2 diabetes mellitus with hyperglycemia, without long-term current use of insulin ([facility]) (Primary Dx) Social History Tobacco Use Types [...] as of this encounter Progress Notes * Joellen Finney MA - 11/23/2019 0915 EST A venous blood collection was preformed today via venipuncture on this patient. Additional Non-blood specimens collected (Urines not charged for at time of collection at [facility]): Albumin urine I was supervised by Tita Rueda who was present and immediately available in the office suite. JOELLEN FINNEY MA 11/23/2019 9:40 documented in this encounter Miscellaneous Notes * Result Encounter Note - Stalin Naylor MD - 11/23/2019 0915 EST The pt is euthyroid Lipids at target No proteinuria documented in this encounter Plan of Treatment Not on file documented as of this encounter Procedures Procedure Name Priority Date/Time Associated Diagnosis Comments URINE [id number] RATIO (ACR) Routine 11/23/2019 9:45 EST Type 2 diabetes mellitus with hyperglycemia, without long-term current use of insulin ([facility]) TSH Routine 11/23/2019 9:45 EST Type 2 diabetes mellitus with hyperglycemia, without long-term current use of insulin ([facility]) T4 FREE Routine 11/23/2019 9:45 EST Type 2 diabetes mellitus with hyperglycemia, without long-term current use of insulin ([facility]) LIPID PROFILE (INCLUDES CHOLESTEROL, TRIGLYCERIDES, HDL, LDL) Routine 11/23/2019 9:45 EST Type 2 diabetes mellitus with hyperglycemia, without long-term current use of insulin ([facility]) COMPREHENSIVE METABOLIC PANEL (CMP) Routine 11/23/2019 9:45 EST Type 2 diabetes mellitus with hyperglycemia, without long-term current use of insulin ([facility]) documented in this encounter Results * (ABNORMAL) COMPREHENSIVE METABOLIC PANEL (CMP) (11/23/2019 9:45 EST) Sodium 136 136 - 145 mEq/L 11/23/2019 12:13 EST [facility] Potassium 4.3 3.5 - 5.0 mEq/L 11/23/2019 12:13 [facility] Chloride 102 96 - 110 mEq/L 11/23/2019 12:13 [facility] CO2 Total 26 22 - 32 mEq/L 11/23/2019 12:13 [facility] Glucose 173(H) 70 - 100 mg/dL 11/23/2019 12:13 [facility] BUN 12 10 - 26 mg/dL 11/23/2019 12:13 [facility] Creatinine 0.67 0.52 - 1.04 mg/dL 11/23/2019 12:13 [facility] eGFR 105 >60 mL/min/1.7 3m2 11/23/2019 12:13 [facility] Comment:eGFR calculated carmelita dumont CKD-EPI equation for non- Americans. Multiply eGFR by 1.16 for patients. Total Protein 6.9 6.3 - 8.2 g/dL 11/23/2019 12:13 [facility] Albumin 4.2 3.4 - 4.9 g/dL 11/23/2019 12:13 [facility] Alkaline Phosphatase 68 38 - 126 U/L 11/23/2019 12:13 [facility] AST 31 15 - 46 U/L 11/23/2019 12:13 [facility] ALT 34 <35 U/L 11/23/2019 12:13 [facility] Bilirubin, Total <0.5 <1.4 mg/dL 11/23/19 20 12:13 [facility] Calcium 9.0 8.5 - 10.5 mg/dL 11/23/2019 12:13 [facility] Calculated Calcium 8.8 8.5 - 10.5 mg/dL 11/23/2019 12:13 [facility] Blood VENOUS BLOOD / Unknown Venipuncture / Unknown 11/23/2019 9:45 EST 11/23/2019 9:45 [facility] - 11/23/2019 12:13 EST 2 Stalin Naylor MD CHEMISTRY & BLOOD GAS ORDERABLES [facility] [address] [place] [address] * ALBUMIN, URINE (11/23/2019 9:45 EST) Albumin, Urine 1.3 See Note mg/dL 2019 12:40 [facility] Comment: NOTE: Reference range not established Creatinine, Urine 86.0 See Note mg/dL 11/23/2019 12:40 [facility] Comment: NOTE: Reference range not established Lab Urine Albumin to Creatinine Ratio 15 <30 ug/mg Creatinine 11/23/2019 12:40 [facility] Comment: Urine Albumin/Creatinine Ratio: Normal: <30 ug/mg Creatinine Moderately increased albuminuria: 30-30 ug/mg Creatinine Severley increased albuminuria: >300 ug/mg Creatinine Urine URINE SPECIMEN OBTAINED BY CLEAN CATCH PROCEDURE / Unknown Urine Collect / Unknown 11/23/2019 9:45 EST 11/23/2019 9:45 EST Stalin Naylor MD CHEMISTRY & BLOOD GAS ORDERABLES Performing Organization Address [facility] Co de Phone Number [facility] [address] [place] [address] * LIPID PROFILE (INCLUDES CHOLESTEROL, TRIGLYCERIDES, HDL, LDL) (11/23/2019 9:45 EST) Cholesterol 168 See Note mg/dL 11/23/2019 12:13 [facility] Comment: Acceptable: ?<200 mg/dL Borderline High: 200-239 mg/dL High: ?> or = 240 mg/dL HDL 52 See Note mg/dL 11/23/2019 12:13 [facility] Comment: Low: ? <40 mg/dL Normal: ??40-60 mg/dL High: ?>60 mg/dL LDL, Calculated 75 See Note mg/dL 11/23/2019 12:13 [facility] Comment: Optimal: ? <100 mg/dL Near Optimal: ?100-129 mg/dL Borderline High: 130-159 mg/dL High: ?160-189 mg/dL Very High: ? > or = 190 mg/dL Triglyceride 207 See Note mg/dL 11/23/2019 12:13 [facility] Comment: Normal: ? <150 mg/dL Borderline High: ??150 - 199 mg/dL High: ? 200 - 499 mg/dL Very High: ?> or = 500 mg/dL Chol/HDL Ratio 3.2 See Note 11/23/2019 12:13 [facility] Comment: No reference range has been established for CHOL/HDL ratio. Non HDL Cholesterol 116 See Note mg/dL 11/23/2019 12:13 [facility] Comment: Desirable: ?<130 mg/dL Borderline High: ??130-159 mg/dL High: ? 160-189 mg/dL Very High: ?> or = 190 mg/dL Blood VENOUS BLOOD / Unknown Venipuncture / Unknown 11/23/2019 9:45 EST 11/23/2019 9:45 EST Narrative [facility] - 11/23/2019 12:13 EST 2 Stalin Naylor MD CHEMISTRY & BLOOD GAS ORDERABLES Performing Organization Address City/State/[facility] Co de Phone Number [facility] [address] [place] [address] * TSH (11/23/2019 9:45 EST) TSH 2.62 0.47 - 4.68 uIU/mL 11/23/2019 12:45 EST [facility] Blood VENOUS BLOOD / Unknown Venipuncture / Unknown 11/23/2019 9:45 EST 11/23/2019 9:45 EST Narrative [facility] - 11/23/2019 12:45 EST The results of this assay can be falsely lowered due to the consumption of Biotin. Stalin Naylor MD CHEMISTRY & BLOOD GAS ORDERABLES [facility] [address] [place] [address] * T4 FREE (11/23/2019 9:45 EST) T4, Free 1.1 0.8 - 2.2 ng/dL 11/23/2019 12:31 EST [facility] Blood VENOUS BLOOD / Unknown Venipuncture / Unknown 11/23/2019 9:45 EST 11/23/2019 9:45 EST Stalin Naylor MD CHEMISTRY & BLOOD GAS ORDERABLES Performing Organization Address City/[facility] Co de Phone Number [facility] [address] [place] [address] documented in this encounter Visit Diagnoses Diagnosis Type 2 diabetes mellitus with hyperglycemia, without long-term current use of insulin ([facility])- Primary documented in this encounter Care Teams Metal Casting Trades Worker Relationship Specialty Start Date End Date Roro Mallory, POWER WOOD SAWYER [address] [place] [phone] PCP - General 12/06/18 documented as of this encounter
--- OUTSIDE RECORDS SUMMARY | 2024-05-26 18:17 | XMS_ITS | Encounter Summary ---
Author Organization [facility] Address [address] [place] [address] Care Team Providers Care Intelligence Chief Name Role Phone Luis Snider Primary Care Provi kellen Encounter Details Date Type Department Care Team (Late st Contact Info) Description 04/23/2016 Phlebotomy Only [facility] [address] [place] [address] Dressing Machine Operator, Outpatient Social History Tobacco Use Types Packs/Day [...] on filedocumented in this encounter Care Teams Intelligence Chief Relationship Specialty Start Date End Date Luis Snider FNP [address] [address] PCP - General 04/23/16 11/10/18 documented as of this encounter
--- OUTSIDE RECORDS SUMMARY | 2024-05-26 18:17 | XMS_ITS | Encounter Summary ---
Author Organization [facility] Address [address] [place] [address] Care Team Providers Care Turpentine Distiller Name Role Phone Luis Snider [facility] Primary Care Provi kellen Reason for Referral * Radiology Services (Routine) - New Request Specialty Diagnoses / Procedures Referred By Contac t Referred To Contact Diagnoses Acute pain of left shoulder Procedures SHOULDER 2 OR MORE VIEWS Mariangel Miranda PA-C [address] [address] Referral ID Status Reason Start Date Expiration Date V isits Requested Visits Authorized [id number] New Request 05/31/2018 1 1 Encounter Details Date Type Department Care Team (Late st Contact Info) Description 05/20/2018 Orders Only [facility] Orthopedic Surgery - [address] [address] Mariangel Miranda PA-C [address] [facility] [address] [place] [address] Acute pain of left shoulder (Primary Dx) Social History Tobacco Use Types [...] Procedure Name Priority Date/Time Associated Diagnosis Comments SHOULDER 2 OR MORE VIEWS Routine 05/31/2018 14:29 EDT Acute pain of left shoulder documented in this encounter Results * SHOULDER 2 OR MORE VIEWS (05/31/2018 14:29 EDT) Anatomical Region Laterality Modality Other 05/31/2018 14:2 9 EDT 05/31/2018 17:00 EDT Narrative 05/31/2018 17:00 EDT HISTORY: ?? M25.512-Pain in left [id number]; LEFT SHOULDER PAIN AFTER INJURY COMPARISON: None. EXAM/TECHNIQUE: SHOULDER 2 OR MORE VIEW ??05/31/2018 2:29 PM 4 view left FINDINGS / IMPRESSION: 1. ??There is evidence of AC joint degenerative change with some lucency along the distal clavicle. Correlate for evidence of distal clavicular osteolysis. 2. ??No significant glenohumeral joint degenerative changes. Procedure Note Dilan Win MD - 05/31/2018 HISTORY: M25.512-Pain in left [id number]; LEFT SHOULDER PAIN AFTER INJURY COMPARISON: None. EXAM/TECHNIQUE: SHOULDER 2 OR MORE VIEW 05/31/2018 2:29 PM 4 view left FINDINGS / IMPRESSION: 1. There is evidence of AC joint degenerative change with some lucency along the distal clavicle. Correlate for evidence of distal clavicular osteolysis. 2. No significant glenohumeral joint degenerative changes. Mariangel Miranda PA-C IMG DIAGNOSTIC IMAGI NG ORDERABLES documented in this encounter Visit Diagnoses Diagnosis Acute pain of left shoulder- Primary documented in this encounter Care Teams Turpentine Distiller Relationship Specialty Start Date End Date Luis Snider FNP [address] [address] PCP - General 04/23/16 11/10/18 documented as of this encounter
--- OUTSIDE RECORDS SUMMARY | 2024-05-26 18:17 | XMS_ITS | Encounter Summary ---
Author Organization [facility] Address [address] [place] [address] Care Team Providers Care Recreation Activities Coordinator Name Role Phone Luis Snider Primary Care Provi kellen Encounter Details Date Type Department Care Team (Latest Contact Info) Description 09/15/2016 9:36 EST - 09/15/2016 23:59 EST Hospital Encounter [facility] [address] [place] [address] Luis Snider FNP [address] [facility] [address] [place] [address] Discharge Disposition: Auto Discharge Social History Tobacco Use Types Packs/Day Years Used Date Smoking Tobacco: Never Alcohol Use Standard Drinks/Week Comments Not Asked 0 (1 standard drink = 0.6 oz pur e alcohol) Sex and Gender Information Value Date Recorded Sex Assigned at Not on file Gender Identity Female 11/22/2019 12:18 EST Sexual Orientation Not on file documented as of this encounter Discharge Diagnoses Diagnosis Z12.31 Encounter for screening mammogram for malignant neoplasm of breast-Z12.31[ICD-10-CM] documented in this encounter Medications at Time of Discharge Medication Sig Dispensed Refills Start Date End Date ascorbic acid (VITAMIN C) 500 mg tablet Take 500 mg by mouth daily. ferrous sulfate (IRON) 325 mg (65 [...] Discharge Disposition Disposition Code Departure Means Destination Auto Discharge Home documented in this encounter Plan of Treatment Not on file documented as of this encounter Visit Diagnoses Not on filedocumented in this encounter Care Teams Recreation Activities Coordinator Relationship Specialty Start Date End Date Luis Snider FNP [address] [address] PCP - General 04/23/16 11/10/18 documented as of this encounter
--- OUTSIDE RECORDS SUMMARY | 2024-05-26 18:17 | XMS_ITS | Encounter Summary ---
Author Organization [facility] Address [address] [place] [address] Care Team Providers Care Dust Puller Name Role Phone Amisha Beth MD Primary Care Provider [phone] Encounter Details Date Type Department Care Team (Late st Contact Info) Description 12/03/2015 13:32 EDT - 12/03/2015 13:34 EDT Hospital Encounter [address] [address] Marita Modi, [facility] [address] [facility] [address] [place] [address] Discharge Disposition: Home or Self Care Social [...] as of this encounter Discharge Diagnoses Diagnosis Z11.3 Encounter for screening for infections with a predominantly sexual mode of transmission-Z11.3[ICD-10-CM] Z11.8 Encounter for screening for other infectious and parasitic diseases-Z11.8[ICD-10-CM] documented in this encounter Medications at Time [...] on filedocumented in this encounter Care Teams Dust Puller Relationship Specialty Start Date End Date Amisha Beth MD [address] [facility], [address] [place] [address] PCP - General 08/21/11 04/22/16 documented as of this encounter
--- OUTSIDE RECORDS SUMMARY | 2024-05-26 18:17 | XMS_ITS | Encounter Summary ---
Author Organization [facility] Address [address] [place] [address] Care Team Providers Care Miter Sawyer Name Role Phone Luis Snider Primary Care Provi kellen Reason for Visit * Reason Onset Date Comments Appointment Related 11/11/2016 schedule CDE visit Flory Encounter Details Date Type Department Care Team (Late st Contact Info) Description 11/11/2016 Telephone [facility] Endocrinology - [address] [address] Mery Menendez Appointment Related (schedule CDE visit Flory) Social History Tobacco Use Types Packs/Day Years [...] * Telephone Encounter - Camilla Loya - 11/11/2016 1406 EST Spoke with patient. She will call PCP and call back * Telephone Encounter - Ayesha Claire - 11/11/2016 1239 EST Pt requesting an appt Flory Menendez. documented in this encounter Plan of Treatment Not on file documented as of this encounter Visit Diagnoses Not on filedocumented in this encounter Care Teams Miter Sawyer Relationship Specialty Start Date End Date Luis Snider FNP [address] [address] PCP - General 04/23/16 11/10/18 documented as of this encounter
--- OUTSIDE RECORDS SUMMARY | 2024-05-26 18:17 | XMS_ITS | Encounter Summary ---
Author Organization [facility] Address [address] [place] [address] Care Team Providers Care Picture Booker Name Role Phone Luis Snider HOSPITAL SECRETARY Primary Care Provi kellen Encounter Details Date Type Department Care Team (Late st Contact Info) Description 06/13/2018 Results Only [facility] [phone] Norma Coombs MD [address] [place] [phone] Social History Tobacco Use Types Packs/Day Years [...] Name Priority Date/Time Associated Diagnosis Comments PAP TEST- RESULT ONLY Routine 06/13/2018 0:00 EDT documented in this encounter Results * PAP TEST- RESULT ONLY (06/13/2018 0:00 EDT) Pathology Report: CYTOPATHOLOGY REPORT Reports generated via electronic interface contain original data; however they are lacking the format of the original report. Caution should be taken when reading/interpreti ng unformatted reports. Name: ? GLORIA MAURICIO Jonelle ? Accession #: ? [id number] ? : ? 1970 (Age: 47) ??F ?Collect Date: ? 06/13/2018 ? Location: ? [facility] ? Receive Date: ? 06/15/2018 ? Provider: NORMA COOMBS MD Copy to: ? Final Report SPECIMEN ADEQUACY ? Satisfactory for Evaluation - transformation zone component present GENERAL CATEGORIZATION ? Negative for Intraepithelial Lesion or Malignancy INTERPRETATION ? Shift in dhruv present suggestive of bacterial vaginosis. Hormonal/Contracep tive status: Vasectomy Other: Additional clinical information: Z01.419 Z11.51 Specimen/Source: ??Pap Test, Endocervix, ThinPrep Imaging System with manual evaluation Document reviewed and electronically signed by: ? Marylin Jaramillo, JORGE(ASCP)(IAC) ? Report ??Date: 06/21/2018 11:01 HPV with Pap Test ? Date Ordered: ? 06/21/2018 ? Status: ?? Signed Out ?Date Complete: ? 06/22/2018 ? By: ??System Interface ? Date Reported: ? 06/22/2018 ? Interpretation RESULT: Negative for HPV. No E6 or E7 mRNA is detected from HPV types 16,18,31,33,35, 39,45,51,52,56,58, 59,66, and 68 by physical therapist center manager mediated amplification. Comments Document reviewed and electronically signed by: ? System Interface ? Report date: 06/22/2018 By the signature above, the attending physician certifies that he/she has personally conducted a gross and/or microscopic examination of the described specimens and rendered or confirmed the above diagnosis. End of Report [facility] 06/13/2018 06/15/2018 Norma Coombs MD PATHOLOGY ORDERABLE S [facility] [address] [place] [address] documented in this encounter Visit Diagnoses Not on filedocumented in this encounter Care Teams Picture Booker Relationship Specialty Start Date End Date Luis Snider FNP [address] [facility] [address] [place] [address] PCP - General 04/23/16 11/10/18 documented as of this encounter
--- OUTSIDE RECORDS SUMMARY | 2024-05-26 18:17 | XMS_ITS | Encounter Summary ---
Author Organization [facility] Address [address] [place] [address] Care Team Providers Care Senior Internet Sales Consultant Name Role Phone Luis Snider GAME ADVISOR Primary Care Provi kellen Reason for Referral * Referral (Routine) - Specialty Report Received Specialty Diagnoses / Procedures Referred By Brooke grant Referred To Contact Diagnoses Adhesive capsulitis of left shoulder Mariangel Miranda PA-C [address] [phone] Ivan Baires MD [address] [place] [address] [address] [place] [address] Referral ID Status Reason Start Date Expiration Date Visits Requested Visits Authorized [id number] Specialty Report Received Specialty Services Required 05/31/2018 1 1 Question Answer Reason for Request: LT IA cortisone injection for frozen shoulder Has the patient had 6 weeks of conservative treatment such as physicial therapy or NSAIDS? No What procedure would you like performed? Please specify laterality and levels. Lt shoulder IA cortisoner injection with fluro guidance Please indicate if this is to be considered diagnostic. yes * PT/OT/ST (Routine/Next Available) - New Request Specialty Diagnoses / Procedures Referred By Brooke grant Referred To Contact Diagnoses Adhesive capsulitis of left shoulder Mariangel Miranda PA-C [address] [phone] Referral ID Status Reason Start Date Expiration Date Visits Requested Visits Authorized [id number] New Request Specialty Services Required 05/31/2018 1 1 Question Answer Reason for Request: frozen shoulder Left Practice Site (External Referral Only): [facility] Comments Evaluate and treat Aquatherapy Stretch and strengthen Home exercise program instruction Capsular stretching, A, AAROM; gentle PROM, Joint Mobs; daily HEP program with emphasis on stretching; MFR and trigger point therapy Reason for Visit * Reason Comments Shoulder Pain Left shoulder pain * Consult (Routine) - Closed Specialty Diagnoses / Procedures Referred By Brooke grant Referred To Contact Orthopedic Surgery Diagnoses Pain in left upper arm Luis Snider FNP [address] [facility] [address] [place] [address] [facility] [address] [address] Referral ID Status Reason Start Date Expiration Date Visits Re quested Visits Authorized [id number] Closed 1 1 Encounter Details Date Type Department Care Team (Late st Contact Info) Description 05/31/2018 14:15 EDT Office Visit [facility] [address] [address] Mariangel Miranda PA-C [address] [phone] Adhesive capsulitis of left shoulder (Primary Dx) Discharge Disposition: Auto Discharge Social History Tobacco [...] - Inhaled Oxygen Concentration - - Weight 95.7 kg (211 lb) 05/31/2018 1412 EDT Height 172 cm (5' 7.72) 05/31/2018 1412 EDT Body Mass Index 32.35 05/31/2018 1412 EDT documented in this encounter Functional Status [...] as of this encounter Discharge Diagnoses Diagnosis M25.512 Pain in left shoulder-M25.512[ICD-10-CM] documented in this encounter Discharge Disposition Disposition Code Departure Means Destination Auto Discharge documented in this encounter Progress Notes * Becky Patel - 05/31/2018 1415 EDT REVIEW OF SYSTEMS: Yes No Yes No Fever/Chills x Joint pain x Fatigue x Muscle pain x Night sweats x Morning stiffness x Weight change x If yes, duration Gain or loss? Numbness/tingling x Headaches x If yes, where? Dizziness x Muscle weakness x Chest pain x Excessive thirst x Shortness of breath x Change in mood x Cough x Nervous or anxious x Nausea/vomiting x Sad or depressed x Abdomnial pains/cramps x Excessive bruising x Heartburn/Reflux x Urinary Changes x Rash x Balance Issues x * Mariangel Miranda PA - 05/31/2018 1415 EDT CC: left shoulder pain. SUBJECTIVE: Mei Valenzuela is a 47 y.o. RT hand dominant female who presents to the office today for evaluation of Lt shoulder pain at the request of her primary care provider. The patient denies any previous injury or trama to the above stated area. The patient denies any previous surgery to the above stated area. The patient reports any previous treatment of this problem prior to this evaluation. Seen by PCP inMay and was then referred to PT for 2 months. She went to [facility] in [place] for 2 months. She reports no improvement with PT The patient presents to discuss her sharp pain with movement and refers down the arm, up the neck, back into the shoulder blade. Today's pain level: 6/10; Throbbing; She reports 0/10 pain at rest The pain is worse at night time; when sleepin marcus that side. The symptoms began gradual 4 months ago and are associated with loss of motion.; especially reaching behind her. Exacerbating factors include: movement, reaching and some ADL's inc getting dressed This limits the patient's function or enjoyment of daily living Alleviating factors include: rest and activity modification The patient has been taking the following medications. 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 Diabetes mellitus ([facility]) No past surgical history on file. Outpatient Encounter Prescriptions as of 05/31/2018 Medication Sig Dispense Refill ??? ascorbic acid (VITAMIN C) 500 mg tablet Take 500 mg by mouth daily. ??? calcium carbonate (CALCIUM 300 ORAL) Take 2 Capsules by mouth daily. ??? famotidine (PEPCID) 20 mg tablet Take 20 mg by mouth 2 times daily. ??? ferrous sulfate (IRON) 325 mg (65 mg iron) tablet Take 325 mg by mouth. During menses only approx 1 wk monthly ??? HYDROmorphone (DILAUDID) 2 mg tablet Take 1-2 Tabs by mouth every 3 hours as needed for Pain. (Patient not taking: Reported on 12/14/2016) 30 Tab 0 ??? lisinopril (PRINIVIL, ZESTRIL) 5 mg tablet Take 5 mg by mouth daily ??? metformin (GLUCOPHAGE) 1,000 mg tablet Take 1,000 mg by mouth 2 times daily with breakfast and dinner ??? simvastatin (ZOCOR) 20 mg tablet Take 20 mg by mouth daily. No facility-administered encounter medications on file as of 05/31/2018. Review of Systems: A 10-point review of systems was completed today and is significant for the above-mentioned symptoms. In addition, the patient reports having no additional symptoms. The remaining systems were reviewed and are negative unless specified in the HPI. OBJECTIVE: Ht 172 cm (67.72) Wt 95.7 kg (211 lb) BMI 32.35 kg/m2 On physical exam, the patient is found to be a very friendly and cooperative female. Psych: She is alert and oriented x 3 with normal affect. Constitutional: She is well-developed and in no significant distress. Eyes: Sclerae clear. Resp: Breathing is regular and nonlabored without audible wheezing. Skin: On examination of the Lt shoulder; the skin is intact. Hem: There no ecchymosis. Msk: Examination of Right-sided shoulder: Inspection: (-) ecchymosis, (-) erythema, (-) deformity, (-) atrophy, (-) scars noted. Palpation: (-) tenderness over the glenohumeral joint, (-) tenderness in bicipital groove, (-) tenderness over the supraspinatus insertion, (-) tenderness over AC joint, (-) tenderness over coracoid process. (-) trigger points over the periscapular area. Range of motion: (180) degrees forward elevation. (180) degrees abduction. (80) degrees ER at 0 degrees abduction, IR to (T8). There no scapular winging. Strength testing: (5/5) motor in empty can/scaption, (5/5) motor in resisted external rotation. (5/5) motor in resistive internal rotationt. (5/5) motor in Forward flexion Impingement testing: (-) Ferreira, (-) Neers, (-) Impingement sign, (-) Speeds test, (-) Cross body adduction (-) O'santo's test, (-) Drop-arm test, (-) Bear Hug, (-) Lift off test InstabilitySpecial tests: (-) anterior and (-) posterior translation on load shift testing. (-) sulcus sign. (-) apprehension sign with (-) relocation maneuver. (-) active compression test with pain localizing to (-). Distal neurovascular exam intact to hand and fingers. Examination of Left-sided shoulder: Inspection: (-) ecchymosis, (-) erythema, (-) deformity, (-) atrophy, (-) scars noted. Palpation: (-) tenderness over the glenohumeral joint, (-) tenderness in bicipital groove, (-) tenderness over the supraspinatus insertion, (-) tenderness over AC joint, (-) tenderness over coracoid process. (-) trigger points rhomboids and merle-scapular area. Range of motion: (180) degrees forward elevation. (160*) degrees abduction. (40) degrees ER at 0 degrees abduction, IR to (L5). There is no scapular winging. Strength testing: (5/5) Forward flexion, (5/5) Abduction, (5/5) motor in empty can/scaption, (5/5) motor in resisted external rotation, (5/5) motor on resistive Internal rotation Impingement testing: Not tested due to patient's level of discomfort and decreased range of motion (-) Bear Hug, (-) Lift off test Distal neurovascular exam intact to hand and fingers. * notes with pain Xray findings: Left-sided Shoulder AP, Grashey, SOV and axillary lateral views were obtained today and independently reviewed. Demonstrating: Otherwise, no acute fracture, bony abnormality, or soft tissue mass. Gait and Station Gait: ambulates with without support Assessment: ICD-10-CM ICD-9-CM 1. Adhesive capsulitis of left shoulder M75.02 726.0 AMB CONS/FOLLOW UP PHYSICAL THERAPY AMB PAIN PROCEDURE PLAN: I would like to refer the patient to /Sarahi @[facility] for left shoulder - IA cortisone injection to be performed under fluoroscopic guidance. I would like to see her back in 3-4 weeks, after the injection to monitor progress. The patient was made aware that the injections will not significantly improve the shoulder range of motion, but should help with pain control. This is a diagnostic as well as a therapeutic injection. If she gets great relief from the intra-articular injection we knowthat most of her pain is being generated from the shoulder joint. The symptoms are refractory to may need to consider further workup including an MRI of the shoulder for further diagnostics. We along discussion regarding recovery from frozen shoulder. We also discussed that he could take 1-2 years to fully recover from a frozen shoulder. We discussed use of nonsteroidal anti-inflammatories, glenohumeral joint I a cortisone injections as well as a subacromial steroid injections. We discussed use of physical therapy to learn a daily home stretching program. The focus now is not on strengthening but stretching and slowly gaining back her shoulder range of motion while trying to avoid painful exacerbation of the pain by doing too much too fast. We also discussed the 3 phases of a frozen shoulder. The patient was advised to continue with activities as tolerated, using pain as their guide. Continue with NSAIDs (if not medically contraindicated) as needed for pain and inflammation. They may supplement with Tylenol thousand milligrams every 6 hours as needed. Patient was encouraged to call the office with any questions or concerns. Dr. Benjamin was the attending physician available in the clinic today if needed. A consultation wasnot required. This note was prepared using voice recognition software and the EMR. There may be inadvertent errors and omissions. MAGGIE Gibbs 05/31/2018 15:56 documented in this encounter Plan of Treatment Scheduled Referrals Name Type Priority Associated Diagnoses Orde r Schedule AMB CONS/FOLLOW UP PHYSICAL THERAPY Outpatient Referral Routine Adhesive capsulitis of left shoulder Ordered: 05/31/2018 AMB PAIN PROCEDURE Outpatient Referral Routine Adhesive capsulitis of left shoulder Ordered: 05/31/2018 documented as of this encounter Visit Diagnoses Diagnosis Adhesive capsulitis of left shoulder- Primary Adhesive capsulitis of shoulder documented in this encounter Care Teams Senior Internet Sales Consultant Relationship Specialty Start Date End Date Luis Snider FNP [address] [address] PCP - General 04/23/16 11/10/18 documented as of this encounter
--- OUTSIDE RECORDS SUMMARY | 2024-05-26 18:17 | XMS_ITS | Encounter Summary ---
Author Organization [facility] Address [address] [place] [address] Care Team Providers Care Gang Worker Name Role Phone Luis Snider Primary Care Provi kellen Encounter Details Date Type Department Care Team (Latest Contact Info) Description 11/24/2017 6:18 EST - 11/24/2017 23:59 EST Hospital Encounter [phone] [place] [address] Luis Snider FNP [address] [facility] [address] [place] [address] Discharge Disposition: Auto Discharge Social [...] on filedocumented in this encounter Care Teams Gang Worker Relationship Specialty Start Date End Date Luis Snider FNP [address] [address] PCP - General 04/23/16 11/10/18 documented as of this encounter
--- OUTSIDE RECORDS SUMMARY | 2024-05-26 18:17 | XMS_ITS | Encounter Summary ---
Author Organization [facility] Address [address] [place] [address] Care Team Providers Care Connection Worker Name Role Phone Luis Snider Primary Care Provi kellen Reason for Visit * Reason Comments Diabetes Encounter Details Date Type Department Care Team (Late st Contact Info) Description 05/28/2017 9:00 EDT Nutrition [facility] Endocrinology - [address] [address] Mery Menendez Type 2 diabetes mellitus without complication, without long-term current use of insulin ([facility]) (Primary Dx) Social History Tobacco Use [...] - Inhaled Oxygen Concentration - - Weight 85.3 kg (188 lb) 05/28/2017 0857 EDT Height 172 cm (5' 7.72) 05/28/2017 0857 EDT Body Mass Index 28.82 05/28/2017 0857 EDT documented in this encounter Functional Status [...] this encounter Patient Instructions * Patient Instructions* Mery Menendez - 05/28/2017 9:00 EDT FANTASTIC JOB!!!!! documented in this encounter Progress Notes * Mery Menendez - 05/28/2017 0900 EDT [facility] ENDOCRINOLOGY & DIABETES DIABETES NUTRITION VISIT NOTE Name:Mei Tang Date of visit: 05/28/2017 PATIENT ID: Mei Tang is a 46 y.o. female referred for medical nutrition therapy by Dr. Luis Snider for Diabetes - Type 2. SUBJECTIVE: Mei Tang was seen for a medical nutrition therapy visit, follow up, at the [facility] Endocrinology & Diabetes out-patient clinic on 05/28/2017 accompanied by: alone She returns today for a six month follow up. After our last conversation she reports going cold turkey and changing everything about her diet. She cut out processed and prepared foods, unhealthy snacks and salt. She is still working on consistent exercise plan. OBJECTIVE: Diabetes type: Type 2 Vitals: Ht 172 cm (67.72) Wt 85.3 kg (188 lb) LMP Comment: very irregular BMI 28.82 kg/m2 BMI: Body mass index is 28.82 kg/(m^2). Diabetes Medications: Current AntiDiabetic Medications 09/09/2011 metFORMIN (oral) 1,000 MG BID (BREAKFAST/DINNER) (1,000 mg tab) Laboratory Results: Lab Results Component Value Date HGBA1C 5.7 05/25/2017 HGBA1C 6.8 04/23/2016 Lab Results Component Value Date CHOL 156 05/25/2017 HDL 51 05/25/2017 LDLBASE 85 05/25/2017 TRIG 100 05/25/2017 CHOLHDL 3.1 05/25/2017 DIABETES MEAL PLANNING: Type of meal planning: calorie counting, consistent carbohydrate Carbohydrate targets: 1800kcal/180g CHO PRESENT MEAL PATTERN: Current eating habits:high protein, low carb and well balanced meals. 3 meals and occasional snack if hungry. Mostly chicken, pork chops, steak and some fish; a lot of vegetables; fruit; garden grown potatoes and corn. Snacks: nuts, popcorn, Wt Watchers treat PHYSICAL ACTIVITY: Comments: ADL BLOOD GLUCOSE MONITORING: Barriers to monitoring: None Hypoglycemic episode: none Carbohydrate source on person? No Home Blood Glucoses Running: fasting readings 79, 86 ASSESSMENT: Mei is a 46 yo female with Type 2 diabetes in excellent glycemic control with an A1c of 5.7%. She has done an incredible job of changing her eating habits that have resulted in a significant weight loss and much improved A1c. She is working very hard to maintain this as a lifestyle not temporary diet. Total wt loss to date has been 43#. She continues to keep food records and will use them as she feels necessary in the future. Can follow up with CDE as needed. Learning readiness: Verbalizes interest and Active attentive participant Psychosocial, cultural, or economic barriers to care:none. Mei Tang verbalized understanding of meal planning guidelines reviewed at this visit. NUTRITION PLAN: Patient education on Carbohydrate Based Diabetes Meal Planning Type of meal planning: Low sodium, Consistent Carbohydrate and lower carbohydrate and calorie controlled. Food logs to reinforce meal plan and encourage portion control Encouraged regular physical activity for weight management and blood glucose control. Follow-up in 1 year. Thank you for your kind referral of Mei Barrurdeau for nutrition counseling. Time Spent With Patient: [address] 05/28/2017 10:42 documented in this encounter Plan of Treatment Not on file documented as of this encounter Visit Diagnoses Diagnosis Type 2 diabetes mellitus without complication, without long-term current use of insulin ([facility] Primary documented in this encounter Care Teams Connection Worker Relationship Specialty Start Date End Date Luis Snider FNP [address] [address] PCP - General 04/23/16 11/10/18 documented as of this encounter
--- OUTSIDE RECORDS SUMMARY | 2024-05-26 18:17 | XMS_ITS | Encounter Summary ---
Author Organization [facility] Address [address] [place] [address] Care Team Providers Care Geologist Name Role Phone MalloryRoro brown Jonelle GONZALEZ Primary Care Provider + Reason for Visit * Reason Comments Diabetes Encounter Details Date Type Department Care Team (Latest Contact Info) Description 03/28/2020 8:30 EDT Telemedicine [facility] Endocrinology - [facility] [address] [place], [place] [id number] Stalin Naylor MD [address] [facility] [address] [place] [address] Type 2 diabetes mellitus with hyperglycemia, without long-term current use of insulin ([facility]) (Primary Dx); Pure hypercholesterolemia ; Essential hypertension, [...] * Patient Instructions* Stalin Naylor MD - 03/28/2020 8:30 EDT Check Blood Sugar: Before breakfast and two hours after a meal. Metformin ER 500 mgm 2 twice daily Januvia 100 mgm daily documented in this encounter Progress Notes * Stalin Naylor MD - 03/28/2020 0830 EDT Images from the original note were not included. [facility] Diabetes Follow up Evaluation Note The [...] by video through the Zoom application Code [id number] The location of the patient : Home The location of the provider: Office The following staff and their role did participate in today's encounter visit: Stalin Naylor MD CHIEF COMPLAINT: Mei Valenzuela presents with 1. Type 2 diabetes mellitus with hyperglycemia, without long-term current use of insulin ([facility]) 2. Pure hypercholesterolemia 3. Essential hypertension, benign HPI: Mei is a 49 y.o. woman who was first told about diabetes about 15 to 17 years ago. Since that time she has been on monotherapy with metformin and seemed to be doing very well she tolerates the drug. However, her hemoglobin A1c rosa from 5.6 to 6.5% As a consequence we added 100 mg of sitagliptin and since that time she is doing very well with an average blood sugar both of 30-day average and a 90-day average of about 140 mg/dL as can be seen below she remained symptom-free Metformin ER 500 2 BID [id number] The history is provided by the patient. Diabetes She presents for her follow-up diabetic visit. She has type 2 diabetes mellitus. Onset time: dx'ed 2002. Her disease course has been improving. There are no hypoglycemic associated symptoms. Associated symptoms include nocturia. Pertinent negatives for diabetes include no blurred vision, no chest pain, no fatigue, no foot paresthesias, no foot ulcerations, no polydipsia, no polyphagia, no polyuria, no visual change, no weakness and no weight [...] being taken. She does not see a director advanced.Eye exam is current. Glucose Range is Family history is reviewed and includes the following: diabetes[facility] Mei Valenzuela has a history of being [...] below are the findings from the last [id number] encounter Vitals: BP 124/59 Pulse 77 Ht [...] hyperglycemia, without long-term current use of insulin ([facility]) 2. Pure hypercholesterolemia 3. Essential hypertension, benign Mei is a 49 y.o. woman who was put on sitagliptin along with her metformin at the last visit since that time her blood sugars are average about 140 mg/dL as can be seen above She is basically symptom-free. In November 2019 when we saw her last her lipids were at target she hadno proteinuria and her creatinine was normal Mei had done quite well over the [...] Referred to diabetic education program. Referred to plumbing manager yes prn. Patient referred to eye rental boats caretaker for annual dilated eye exam. Lifestyle [...] that video through the Zoom application code [id number] Stalin Naylor MD 03/28/2020 8:50 documented in this encounter Plan of Treatment Not on file documented as of this encounter Visit Diagnoses Diagnosis Type 2 diabetes mellitus with hyperglycemia, without long-term current use of insulin ([facility])- Primary Pure hypercholesterolemia Essential hypertension, benign documented in this encounter Care Teams Geologist Relationship Specialty Start Date End Date Roro Mallory, VISUAL EDUCATION TEACHER [address] [place] [address] PCP - General 12/06/18 documented as of this encounter
--- OUTSIDE RECORDS SUMMARY | 2024-05-26 18:17 | XMS_ITS | Encounter Summary ---
Author Organization [facility] Address [address] [place] [address] Care Team Providers Care Penciller Name Role Phone MalloryDonald brownmatthew Sal APRN Primary Care Provider + Reason for Visit * Reason Comments Diabetes Encounter Details Date Type Department Care Team (Late st Contact Info) Description 01/19/2020 9:00 EDT Nutrition [facility] Endocrinology - [address] [address] Yarelis Kothari, RD [address] [place] [address] Type 2 diabetes mellitus with hyperglycemia, with long-term current use of insulin ([facility]) (Primary Dx) Social History Tobacco Use [...] Progress Notes * Yarelis Kothari, RD - 01/19/2020 0900 EDT Endocrinology and Diabetes DIABETES NUTRITION INITIAL VISIT NOTE The concept of ???Telemedicine?? has [...] in patient???s medical or mental health care. Name:Mei Valenzuela Today's Date: 01/30/2020 Date of visit: 01/19/2020 PATIENT ID: Mei Valenzuela is a 49 y.o. female referred for medical nutrition therapy by Dr. Naylor for Diabetes - Type 2. MNT referral date: 11/23/2019 SUBJECTIVE: Mei Valenzuela was seen for an initial medical nutrition therapy visit at the Endocrinology & Diabetes out-patient clinic on 01/19/2020. Mei Valenzuela was accompanied by: alone Pt notes started on metformin 17 years ago and managed things for a long time in November A1c was higher and they switched medications. Pt is tolerating. Pt notes that she is checking blood glucose 2 times daily. Is trying to make changes to diet and activity. OBJECTIVE: Diabetes type: Type 2 Vitals: There were no vitals taken for this visit. BMI: There is no height or weight on file to calculate BMI. Diabetes Medications: Current AntiDiabetic Medications 11/23/2019 11/24/2019 SITagliptin (oral) 100 mg DAILY 100 mg DAILY metFORMIN (oral) 500 mg DAILY 1,000 mg BID Laboratory Results: Lab Results Component Value Date HGBA1C 7.4 (H) 11/23/2019 HGBA1C 5.6 12/20/2017 HGBA1C 5.7 05/25/2017 Lab Results Component Value Date CHOL 168 11/23/2019 HDL 52 11/23/2019 LDLBASE 75 11/23/2019 TRIG 207 11/23/2019 CHOLHDL 3.2 11/23/2019 PRESENT MEAL PATTERN: Comments: Pt has been eating differently since home but continues to try to make healthy food choices. Current eating habits:skips meals. Breakfast: omelet with cheese or a sausage wrap Lunch: Sometimes skips Or will have leftovers or a tuna wrap Dinner: Pizza or Chilli Snacks: popcorn or pretzels with peanut butter Beverages: water Alcohol: none reported PHYSICAL ACTIVITY: Comments: Pt states that exercise is hit or miss. Has been walking less since being home but is trying hard to increase activity. BLOOD GLUCOSE MONITORING: Comments: Monitoring twice daily once in the morning and once 2 hours after another meal during theday. Glucose monitoring: BID. With meter: Onetouch Barriers to monitoring: None Hypoglycemic episode: None reported Carbohydrate source on person? Yes Blood Glucose Readings: AM <130 2 hours after any meal <180 ASSESSMENT: Mei was seen today for initial medical nutrition therapy for type 2 diabetes. Nutrition Diagnosis: altered nutrition related labs or vitals Etiology: Type 2 diabetes Signs & Symptoms: elevated hemoglobin a1c (see labs) Intervention: MNT/Education: Engaged patient in conversation related to positive behavior change, self-management, goal setting and action planning using motivational interviewing and active listening. Reviewed dietary intake and physical activity. Reviewed blood glucose measurements, including HgA1C and FBG. Provided MNT for diabetes including overview of types and sources of carbohydrates, how carbohydrates impact blood sugar, the importance of balanced meals and carbohydrate portion control. Discussed components of a balanced meal and the role that healthy fats, fiber and protein play in helping to better control blood sugar. Discussed taking medication as prescribed along with recommendation for consistent meal timing to prevent significant fluctuations in blood glucose, including lows. Discussed MyPlate and balanced meals, snacks, and health benefits of maintaining balanced blood glucose levels throughout day. Brainstormed meal modifications to improve nutrient balance per MyPlate education and recommendations, including reduced starchy, refined carbohydrate and added sugar, and increased lean protein, healthy fat, and dietary fiber (non-starchy vegetables and fruit). Reviewed relationship between meal composition (high carbohydrate vs balanced), blood glucose levels, nutrient metabolism and storage. Discussed the health and wellness benefits of exercise and its role in weight management. Recommendation/Plan: 3 balanced, consistent meals per day w/ whole grains, lean protein, 5 servings non-starchy vegetables and 4 servings fruit; <10% total energy from saturated fat; <5% total energy from added sugar. <2000mg sodium/day 30-60 minutes aerobic exercise 3-5 days per [...] were provided at today's visit. None FOLLOW-UP: 04/11/2020 Thank you for your kind referral of Mei Valenzuela for nutrition counseling. Time Spent With Patient: 45 minutes Diagnosis Code: E11.[address] 01/30/2020 9:49 This visit was conducted by telephone. I spent a total of 45 minutes in discussion with the patientas described in the progress note. Endocrinology Tracking 12/06/2018 12/19/[address]/CDE RD/CDE Time with Patient(Mins) 60 30 Patient Contact Type MNT MNT documented in this encounter Plan of Treatment Not on file documented as of this encounter Visit Diagnoses Diagnosis Type 2 diabetes mellitus with hyperglycemia, with long-term current use of insulin ([facility])- Primary documented in this encounter Care Teams Penciller Relationship Specialty Start Date End Date Roro Mallory APRN [address] [place] [phone] PCP - General 12/06/18 documented as of this encounter
--- OUTSIDE RECORDS SUMMARY | 2024-05-26 18:17 | XMS_ITS | Encounter Summary ---
Author Organization [facility] Address [address] [place] [address] Care Team Providers Care Rehab Manager Name Role Phone MalloryRoro brown Jonelle GONZALEZ Primary Care Provider + Reason for Visit * Reason Onset Date Comments Results 04/10/2020 Pratibha A1C Encounter Details Date Type Department Care Team (Late st Contact Info) Description 04/10/2020 Telephone [facility] Endocrinology - [facility] [address] [place] [address] Stalin Naylor MD [address] [facility] [address] [place] [address] Results (Pratibha A1C) Social History Tobacco Use Types Packs/Day Years [...] encounter Miscellaneous Notes * Telephone Encounter - Bharat Corley RN - 04/10/2020 0946 EDT Called and requested lab results from [facility] lab. Received verbal result of hgb A1C: 7.2 % Lab to fax paper result to office. Called and left message for pt relaying result of 7.2% for her Hgb A1C that was drawn at [facility]. Instructed pt to call back with any questions. * Telephone Encounter - Elham Guerrero - 04/10/2020 0901 EDT Patient calling for her April 04 [facility] A1C results. Please call documented in this encounter Plan of Treatment Not on file documented as of this encounter Visit Diagnoses Not on filedocumented in this encounter Care Teams Rehab Manager Relationship Specialty Start Date End Date Roro Mallory, SAS BI DEVELOPER [address] [place] [address] PCP - General 12/06/18 documented as of this encounter
--- OUTSIDE RECORDS SUMMARY | 2024-05-26 18:17 | XMS_ITS | Encounter Summary ---
Author Organization [facility] Address [address] [place] [address] Care Team Providers Care Dumpster Driver Name Role Phone Roro Mallory Jonelle GONZALEZ Primary Care Provider + Reason for Visit * Reason Onset Date Comments Medications Refill 11/24/2019 Encounter Details Date Type Department Care Team (Late st Contact Info) Description 11/24/[address] [facility] Endocrinology - [address] [address] Tammie Hauser RN Medications Refill Social History Tobacco Use Types [...] encounter Miscellaneous Notes * Telephone Encounter - Tammie Hauser RN - 11/24/2019 0164 EST Pt called and this chief underwriter verified that her medication was Metformin 50mg ER, 2 tablets twice daily, and that the script was sent to [facility] in [place]. Patient verbalized understanding. No barriers to learning noted. Tammie Hauser weatherization director documented in this encounter Plan of Treatment Not on file documented as of this encounter Visit Diagnoses Not on filedocumented in this encounter Care Teams Dumpster Driver Relationship Specialty Start Date End Date Roro Mallory, LEGISLATIVE DIRECTOR [address] [place] [phone] PCP - General 12/06/18 documented as of this encounter
--- OUTSIDE RECORDS SUMMARY | 2024-05-26 18:17 | XMS_ITS | Encounter Summary ---
Author Organization [facility] Address [address] [place] [address] Care Team Providers Care Gravure Press Set Up Operator Name Role Phone Luis Snider Primary Care Provi kellen Reason for Visit * Reason Comments Shoulder Pain left shoulder follow up /Sarahi @[email or web address] for left shoulder Encounter Details Date Type Department Care Team (Late st Contact Info) Description 08/04/2018 10:45 EST Office Visit [facility] [address] [place] [address] Mariangel Miranda [place] [address] [phone] Adhesive capsulitis of left shoulder (Primary Dx) Social History [...] - - Weight 95.7 kg (211 lb) 08/04/2018 1056 EST Height 172 cm (5' 7.72) 08/04/2018 1056 EST Body Mass Index 32.35 08/04/2018 1056 EST documented in this encounter Functional Status [...] this encounter Patient Instructions * Patient Instructions* Mariangel Miranda PA - 08/04/2018 10:45 EST Frozen Shoulder Workbook : Trigger Point Therapy for Overcoming Pain & Regain... documented in this encounter Progress Notes * Antonina Wise - 08/04/2018 1045 EST REVIEW OF SYSTEMS: Yes No Yes No [...] Issues x * Mariangel Miranda PA - 08/04/2018 1045 EST CC: follow up visit: LT shoulder pain and frozen shoulder SUBJECTIVE: Mei Valenzuela is a 47 y.o. RT hand dominant female who is here today for follow up regarding her left shoulder pain. She reports that she has had some improvement of her pain or discomfort in her left shoulder. She has increased pain with any stretching activities and movement at end range. She has difficulty sleeping on that side as she likes to sleep with her left arm over her head. She continues to attend physical therapy once a week. Since her last visit, she underwent a IA cortisone injection with Dr. Crocker on 08/06/18 where she states that she had some relief of her painand discomfort in her shoulder continues to have restrictions of her range of motion and some pain with use. Today's pain level: 4/10; Aching The patient has been taking the following medications. 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 Review of Systems: A 10-point review of systems was completed today and is significant for the above-mentioned symptoms. In addition, the patient reports having no additional symptoms. The remaining systems were reviewed and are negative unless specified in the HPI. OBJECTIVE: Ht 172 cm (67.72) Wt 95.7 kg (211 lb) BMI 32.35 kg/m?? On physical exam, the patient is found to be a friendly and cooperative female. Psych: She is alert and oriented x 3 with normal affect. Constitutional: She is well-developed and in no significant distress. Eyes: Sclerae clear. Resp: Breathing is regular and nonlabored without audible wheezing. Hem: There no ecchymosis. Skin: On examination of the LT shoulder, the skin is intact. Msk: Examination of Left-sided shoulder: Inspection: (-) ecchymosis, (-) erythema, (-) deformity, (-) atrophy, (-) scars noted. Palpation: (-) tenderness over the glenohumeral joint, (-) tenderness in bicipital groove, (-) tenderness over the supraspinatus insertion, (-) tenderness over AC joint, (-) tenderness over coracoid process. (+) trigger points over periscapular area. Range of motion: (120) degrees forward elevation. (120) degrees abduction. (20) degrees ER at 0 degrees abduction, (30) degrees ER at 90 degrees abduction Strength testing: (5/5) Forward flexion, (5/5) Abduction, (5/5) motor in empty can/scaption, (5/5) motor in resisted external rotation, (5/5) motor on resistive Internal rotation Impingement testing: Not tested due to decreased ROM and pain Distal neurovascular exam intact to hand and fingers. * notes with pain Xray findings: none taken Assessment: Mei was seen today for shoulder pain. Diagnoses and all orders for this visit: Adhesive capsulitis of left shoulder PLAN: Patient Instructions Frozen Shoulder Workbook : Trigger Point Therapy for Overcoming Pain & Regain... We along discussion regarding recovery from frozen [...] the 3 phases of a frozen shoulder. She can have repeat GH-I a cortisone injections as needed. She will call Dr. Crocker's office and schedule directly with him as needed. The patient was made aware that the injections will not significantly improve the shoulder range of motion, but is to use to help with pain control. The patient was advised to continue with activities as tolerated, using pain as their guide. Continue with NSAIDs (if not medically contraindicated) as needed for pain and inflammation. They may supplement with Tylenol thousand milligrams every 6 hours as needed. Patient was encouraged to call the office with any questions or concerns. Follow up: Return in about 3 months (around 11/04/2018) for post injection, PT update, follow up. Dr. Tom was the attending physician available in the clinic today if needed. A consultation was not required. This note was prepared using voice recognition software and the EMR. There may be inadvertent errors and omissions. MAGGIE Gibbs 08/04/2018 11:45 documented in this encounter Plan of Treatment Not on file documented as of this encounter Visit Diagnoses Diagnosis Adhesive capsulitis of left shoulder- Primary Adhesive capsulitis of shoulder documented in this encounter Care Teams Gravure Press Set Up Operator Relationship Specialty Start Date End Date Luis Snider FNP [address] [address] PCP - General 04/23/16 11/10/18 documented as of this encounter
--- OUTSIDE RECORDS SUMMARY | 2024-05-26 18:17 | XMS_ITS | Encounter Summary ---
Author Organization [facility] Address [address] [place] [address] Care Team Providers Care Prep Person Name Role Phone Luis Snider Primary Care Provi kellen Encounter Details Date Type Department Care Team (Late st Contact Info) Description 05/11/2018 Results Only [facility] [phone] Luis Snider FNP [address] [facility] [address] [place] [address] Social History Tobacco Use Types Packs/Day Years [...] Name Priority Date/Time Associated Diagnosis Comments URINE [id number] NE RATIO (ACR) Routine 05/11/2018 9:37 EDT documented in this encounter Results * ALBUMIN, URINE (05/11/2018 9:37 EDT) Creatinine, Urn Plover 69.9 mg/dl 05/11/2018 16:27 EDT [facility] Ur Albumin mg/dl <0.6 mg/dL 05/11/20 18 16:33 EDT [facility] Comment:New Vitros 5600 Meth odology in use 01/19/2018 Urine Albumin to Creatinine Ratio <8.6 ug/mg Crea 05/11/2018 16:33 EDT [facility] Comment: Normal: <30 ug/mg creatinine Moderately increased albuminuria: 30-300 ug/mg creatinine Severly increased albuminuria: >300 ug/mg creatinine New Vitros 5600 Methodology in use 01/19/2018 URINE / Unknown 05/11/2018 9 :37 EDT 05/11/2018 15:24 EDT Luis GARCIA CHEMISTRY & BLOOD GAS ORDERABLES [facility] [address] [place] [address] documented in this encounter Visit Diagnoses Not on filedocumented in this encounter Care Teams Prep Person Relationship Specialty Start Date End Date Luis Snider FNP [address] [address] PCP - General 04/23/16 11/10/18 documented as of this encounter
--- OUTSIDE RECORDS SUMMARY | 2024-05-26 18:17 | XMS_ITS | Encounter Summary ---
Author Organization [facility] Address [address] [place] [address] Care Team Providers Care Coil Cleaner Name Role Phone Luis Snider Primary Care Provi kellen Encounter Details Date Type Department Care Team (Latest Contact Info) Description 04/23/2016 7:16 EDT - 04/23/2016 23:59 EDT Hospital Encounter [facility] [address] [place] [address] Luis Snider FNP 8 [facility] [address] [place], [place] [address] Discharge Disposition: Home or Self Care Social [...] as of this encounter Discharge Diagnoses Diagnosis I10 Essential (primary) hypertension-I10[ICD-10-CM] E11.9 Type 2 diabetes mellitus without complications-E11.9[ICD-10-CM] [...] Code Departure Means Destination Home or Self [facility] documented in this encounter Plan of Treatment Not on file documented as of this encounter Procedures Procedure Name Priority Date/Time Associated Diagnosis Comments COMPLETE BLOOD COUNT Routine 04/23/2016 7:39 EDT HEMOGLOBIN A1C Routine 04/23/2016 7:39 EDT HEPATIC FUNCTION PANEL (ALB,ALK PHOS,ALT,AST,DBIL,TO T CHRISTINA,TOT PROT) Routine 04/23/2016 7:39 EDT LIPID PROFILE (INCLUDES CHOLESTEROL, TRIGLYCERIDES, HDL, LDL) Routine 04/23/2016 7:39 EDT BASIC METABOLIC PANEL (BMP) Routine 04/23/2016 7:39 EDT documented in this encounter Results * LIPID PROFILE (INCLUDES CHOLESTEROL, TRIGLYCERIDES, HDL, LDL) (04/23/2016 7:39 EDT) Cholesterol 158 mg/dl 04/23/2016 9:21 EDT [facility] Comment: Desirable:<200 Borderline High:200-239 High:>bm=936 Triglycerides 97 mg/dl 04/23/2016 9:21 T [facility] Comment: Normal:<150 Borderline High:150-199 High:200-499 Very High:>oo=199 HDL 48 mg/dl 04/23/2016 9:21 [facility] Comment: Low:<40 Normal:40-60 Desirable: >60 LDL, Calculated 91 mg/dl 6 9:21 [facility] Comment: Optimal:<100 Near Optimal:100-129 Borderline High:130-159 High:160-189 Very High:>us=698 Chol/HDL Ratio 3.3 04/23/2016 9:21 [facility] Fasting? YES 04/23/2016 7:27 [facility] Non HDL Cholesterol 110 mg/dl 04/23/2016 9:21 [facility] Comment: Desirable:<130 Borderline:130-159 High: 160-189 Very High: >ib=381 BLOOD SPECIMEN / Unknown 04/23/2016 7:39 EDT 04/23/2016 8:43 EDT Luis GARCIA CHEMISTRY & BLOOD GAS ORDERABLES [facility] [address] [place] [address] * HEPATIC FUNCTION PANEL (ALB,ALK PHOS,ALT,AST,DBIL,TOT CHRISTINA,TOT PROT) (04/23/2016 7:39 EDT) Albumin 4.0 3.4 - 4.9 g/dl 04/23/2016 9:21 [facility] Total Protein 6.9 6.3 - 8.2 g/dl 04/23/2016 9:21 [facility] Total Alkaline Phosphatase 76 38 - 126 U/L 04/23/2016 9:21 [facility] ALT 33 <53 U/L 04/23/2016 9:21 [facility] AST 24 15 - 46 U/L 04/23/2016 9:21 [facility] Unconjugated Bilirubin 0.0 0.0 - 1.1 mg/dl 04/23/2016 9:21 [facility] Conjugated Bilirubin 0.0 0.0 - 0.3 mg/dl 04/23/2016 9:21 [facility] Bilirubin, Total <0.5 <1.4 mg/dl 04/23/20 16 9:21 [facility] BLOOD SPECIMEN / Unknown 04/23/2016 7:39 EDT 04/23/2016 8:43 EDT Luis Snider [facility] CHEMISTRY & BLOOD GAS ORDERABLES Performing Organization Address [facility] Co de Phone Number [facility] [address] [place] [address] * HEMOGLOBIN A1C (04/23/2016 7:39 EDT) Hemoglobin A1C 6.8 % 04/23/2016 10:44 EDT [facility] Comment: Reference Range: <5.7% Normal 5.7-6.4% Increased risk for diabetes =>6.5% Diagnostic for diabetes (if confirmed) The A1c goal for non adults in general is <7%. The A1c goal for selected patients may be significantly lower than 7% if this can be achieved without significant hypoglycemia or other adverse effects of treatment. Est Avg Glucose 148 mg/dl 6 10:44 EDT [facility] Comment: eAG represents the A1c result expressed as average glucose in mg/dl. BLOOD SPECIMEN / Unknown 04/23/2016 7:39 EDT 04/23/2016 8:43 EDT Luis Snider [facility] CHEMISTRY & BLOOD GAS ORDERABLES Performing Organization Address [facility] de Phone Number [facility] [address] [place] [address] * HEMAGRAM (04/23/2016 7:39 EDT) WBC 6.15 4.0 - 12.4 K/cmm 04/23/2016 9:11 T [facility] RBC 4.26 3.86 - 5.04 M/cmm 04/23/2016 9:11 [facility] Hemoglobin 13.3 11.6 - 15.2 gm/dl 04/23/2016 9:11 [facility] HCT 38.3 34.9 - 44.4 % 04/23/2016 9:11 [facility] MCV 90 81 - 98 fl 04/23/2016 9:11 [facility] MCH 31.2 26.7 - 33.3 pg 04/23/2016 9:11 [facility] MCHC 34.7 32.1 - 35.9 gm/dl 04/23/2016 9:11 [facility] RDW-CV 11.9 11.7 - 14.6 % 04/23/2016 9:11 [facility] RDW-SD 38.6 37.6 - 50.3 fl 04/23/2016 9:11 [facility] PLT 270 141 - 377 K/cmm 04/23/2016 9:11 [facility] MPV 10.1 9.5 - 12.7 fl 04/23/2016 9:11 [facility] BLOOD SPECIMEN / Unknown 04/23/2016 7:39 EDT 04/23/2016 8:43 EDT Luis PETERSONP HEMATOLOGY & PF4 ORDERABLES [facility] [address] [place] [address] * (ABNORMAL) BASIC METABOLIC PANEL (04/23/2016 7:39 EDT) Sodium 141 136 - 145 mEq/L 04/23/2016 9:21 [facility] Potassium 4.6 3.5 - 5.0 mEq/L 04/23/2016 9:21 [facility] Chloride 100 96 - 110 mEq/L 04/23/2016 9:21 [facility] CO2 26 24 - 32 mEq/L 04/23/2016 9:21 [facility] BUN 9(L) 10 - 26 mg/dl 04/23/2016 9:21 [facility] Creatinine 0.62 0.52 - 1.04 mg/dl 04/23/2016 9:21 [facility] GFR, Calculated 111 >60 ml/min/1.7 3m2 04/23/2016 9:21 [facility] Comment: eGFR calculated using CKD-EPI equation for non Americans. Multiply eGFR by 1.16 for Americans. Calcium 9.6 8.5 - 10.5 mg/dl 04/23/2016 9:21 EDT [facility] Calculated Calcium 10.0 8.5 - 10.5 mg/dl 04/23/2016 9:21 EDT [facility] Glucose, Serum 127(H) 70 - 100 mg/dl 04/23/2016 9:21 EDT [facility] Fasting? YES 04/23/2016 7:27 EDT [facility] BLOOD SPECIMEN / Unknown 04/23/2016 7:39 EDT 04/23/2016 8:43 EDT Luis GARCIA CHEMISTRY & BLOOD GAS ORDERABLES [facility] [address] [place] [address] documented in this encounter Visit Diagnoses Not on filedocumented in this encounter Care Teams Coil Cleaner Relationship Specialty Start Date End Date Luis Snider FNP 8 [facility] [address] [place] [address] PCP - General 04/23/16 11/10/18 documented as of this encounter
--- OUTSIDE RECORDS SUMMARY | 2024-05-26 18:17 | XMS_ITS | Encounter Summary ---
Author Organization [facility] Address [address] [place] [address] Care Team Providers Care Oracle Hrms Developer Name Role Phone MalloryDonald brownmatthew Sal APRN Primary Care Provider + Reason for Visit * Reason Onset Date Comments Other 11/23/2019 Encounter Details Date Type Department Care Team (Late st Contact Info) Description 11/23/2019 Telephone [facility] Interventional Pain [address] [place], [place] [phone] Test, [address] [place], [place] [phone] Other Social History Tobacco Use Types Packs/Day Years [...] encounter Miscellaneous Notes * Telephone Encounter - Jeanna Nails - 06/04/2021 3004 EDT Error documented in this encounter Plan of Treatment Not on file documented as of this encounter Visit Diagnoses Not on filedocumented in this encounter Care Teams Oracle Hrms Developer Relationship Specialty Start Date End Date Roro Mallory APRN [address] [place] [id number] PCP - General 12/06/18 documented as of this encounter
--- OUTSIDE RECORDS SUMMARY | 2024-05-26 18:17 | XMS_ITS | Encounter Summary ---
Author Organization [facility] Address [address] [place] [address] Care Team Providers Care Automobile Technician Name Role Phone Luis Snider Primary Care Provi kellen Encounter Details Date Type Department Care Team (Late st Contact Info) Description 11/24/2017 Results Only Imaging [facility] [phone] Luis Snider FNP 8 [facility] [address] [place] [address] Social History Tobacco Use Types Packs/Day Years [...] MA 2D/3D BILATERAL DEMARIO ROUTINE SCREENING MAMMO 11/24/2017 11:19 EST documented in this encounter Results * MA 2D/3D BILATERAL DEMARIO ROUTINE SCREENING MAMMO (11/24/2017 11:19 EST) Anatomical Region Laterality Modality Other 11/24/2017 11:1 9 EST 11/26/2017 9:46 EST Narrative 11/26/2017 9:46 EST Comparison has been made to previous [...] will contact your patient directly. Procedure Note Amisha Iraheta MD - 11/26/2017 Comparison has been made to previous images. [...] on filedocumented in this encounter Care Teams Automobile Technician Relationship Specialty Start Date End Date Luis Snider FNP [address] [address] PCP - General 04/23/16 11/10/18 documented as of this encounter
--- OUTSIDE RECORDS SUMMARY | 2024-05-26 18:17 | XMS_ITS | Encounter Summary ---
Author Organization [facility] Address [address] [place] [address] Care Team Providers Care Insights Manager Name Role Phone Roro Mallory Jonelle GONZALEZ Primary Care Provider + Reason for Visit * Reason Comments Foot Swelling Encounter Details Date Type Department Care Team (Late st Contact Info) Description 03/03/2019 13:11 EDT - 03/03/2019 15:55 EDT Hospital Encounter [facility] - [address] [address] Tequila Marx MD [address] [place] [phone] Unknown, ProviderMD Swelling of lower leg (Primary Dx) Discharge Disposition: Home or Self Care Social [...] Sign Reading Time Taken Comments Blood Pressure 131/75 03/03/2019 1326 EDT Pulse 80 03/03/2019 1326 EDT Temperature 36.4 ??C (97.6 ??F) 03/03/2019 1326 EDT Respiratory Rate 16 03/03/2019 1326 EDT Oxygen Saturation 99% 03/03/2019 1326 EDT Inhaled Oxygen Concentration - - Weight 102.1 kg (225 lb) 03/03/2019 1326 EDT Height 171.5 cm (5' 7.5) 03/03/2019 1326 EDT Body Mass Index 34.72 03/03/2019 1326 EDT documented in this encounter Functional Status [...] as of this encounter Discharge Diagnoses Diagnosis M79.89 Other specified soft tissue disorders-M79.89[ICD-10-CM] documented in this encounter Discharge Instructions * Discharge Instructions* Tequila Marx MD - 03/03/2019 15:57 EDT Elevate the leg as much as possible You should expect that the swelling will resolve over the next few days. If the swelling worsens, you develop pain, you develop redness, or a rash, then you need to be seenagain. documented in this encounter Medications at Time [...] tablet Take 20 mg by mouth daily. lisinopril (PRINIVIL, ZESTRIL) 5 mg tablet Take 5 mg by mouth daily 10/07/2020 metformin (GLUCOPHAGE) 1,000 mg tablet Take 1,000 mg by mouth 2 times daily with breakfast and dinner 11/23/2019 documented as of this encounter Discharge Disposition Disposition Code Departure Means Destination Comment s Home or Self Care d/c by Dr. Marx documented in this encounter ED Notes * Tequila Marx MD - 03/03/2019 1505 EDT DOS: 03/03/2019 Chief Complaint Patient presents with ??? Foot Swelling The patient is a 48 y.o. female who presents today with Foot Swelling The history is provided by the patient. 3 days of LLE swelling Seems to be getting more swollen States that she was Rx'd with progesterone for vaginal bleeding. 200 mg qd for 10 days. Denies trauma, immobility, travel Improves with elevation and is better in the AM Denies SOB, CP, wheezing No hx of DVT Hx of HTN, DM type 2 No hx of tick bite. Review of Systems Constitutional: Negative for fever. Respiratory: Negative for cough and shortness of breath. Cardiovascular: Negative for chest pain. Gastrointestinal: Negative for abdominal pain, nausea and vomiting. Genitourinary: Positive for vaginal bleeding. Hematological: Negative for adenopathy. No current facility-administered medications for this encounter. Current Outpatient Medications Medication Sig Dispense Refill ??? ascorbic acid (VITAMIN C) 500 mg tablet Take 500 mg by mouth daily. ??? aspirin chewable 81 mg tablet Take 81 mg by mouth daily. ??? calcium carbonate (CALCIUM 300 ORAL) Take 2 Capsules by mouth daily. ??? famotidine (PEPCID) 20 mg tablet Take 20 mg by mouth 2 times daily. ??? ferrous sulfate (IRON) 325 mg (65 mg iron) tablet Take 325 mg by mouth. During menses only approx 1 wk monthly ??? lisinopril (PRINIVIL, ZESTRIL) 5 mg tablet Take 5 mg by mouth daily ??? metformin (GLUCOPHAGE) 1,000 mg tablet Take 1,000 mg by mouth 2 times daily with breakfast and dinner ??? simvastatin (ZOCOR) 20 mg tablet Take 20 mg by mouth daily. Allergies Allergen Reactions ??? Zantac [Ranitidine Hcl] There are no active problems to display for this patient. Past Medical History: Diagnosis Date ??? Diabetes mellitus ([facility]) Social History Tobacco Use ??? Smoking status: Never Smoker ??? Smokeless tobacco: Never Used Substance Use Topics ??? Alcohol use: Yes Comment: rare ??? Drug use: No Family History Problem Relation Age of Onset ??? Diabetes Maternal Grandmother BP 131/75 Pulse 80 Temp 97.6 ??F (36.4 ??C) (Tympanic) Resp 16 Ht 171.5 cm (67.5) Wt (!)102.1 kg (225 lb) SpO2 99% BMI 34.72 kg/m?? Physical Exam Constitutional: She is oriented to person, place, and time. She appears well- developed and well-nourished. Cardiovascular: Normal rate, regular rhythm and intact distal pulses. Pulmonary/Chest: Effort normal and breath sounds normal. Abdominal: She exhibits no mass. Musculoskeletal: Left lower leg: She exhibits tenderness and swelling. Bony tenderness: feels tight. Left lower leg edema: mild. Lymphadenopathy: Right: No inguinal adenopathy present. Left: No inguinal adenopathy present. Neurological: She is alert and oriented to person, place, and time. Skin: Skin is dry. No rash noted. No erythema. Psychiatric: She has a normal mood and affect. Nursing note and vitals reviewed. Measurement of the R calf 44.9cm Measurement of the L calf 55.4 cm Consult orders: None PCP: Roro Mallory No results found for this visit on 03/03/19. Radiology orders: RAD US DOPPLER LOWER EXTREMITY VENOUS UNILATERAL Imaging Results RAD US DOPPLER LOWER EXTREMITY VENOUS UNILATERAL (Final result) Result time 03/03/19 15:27:00 Final result Narrative: RAD US DOPPLER LOWER EXTREMITY VENOUS UNILATERAL 03/03/2019 3:14 PM Signs and Symptoms: 3 days of LLE swelling, started taking progesterone Comparison: None. Technique: Static and cine images, including color Doppler and spectral tracings of the deep venous system of left leg were obtained. Findings: There is complete compressibility, normal respiratory phasicity and normal color Doppler flow in the deep veins of the left leg including the common femoral, profunda femoris, proximal great saphenous, femoral, and popliteal and peroneal veins. Edema in the left calf is noted. Impression: No sonographic evidence of DVT in the left lower extremity. Preliminary result Narrative: PRELIMINARY REPORT RAD US DOPPLER LOWER EXTREMITY VENOUS UNILATERAL 03/03/2019 3:14 PM Signs and Symptoms: 3 days of LLE swelling, started taking progesterone Comparison: None. Technique: Static and cine images, including color Doppler and spectral tracings of the deep venous system of left leg were obtained. Findings: There is complete compressibility, normal respiratory phasicity and normal color Doppler flow in the deep veins of the left leg including the common femoral, profunda femoris, proximal great saphenous, femoral, and popliteal and peroneal veins. Edema in the left calf is noted. Impression: No sonographic evidence of DVT in the left lower extremity. No orders to display Procedures URGENT CARE COURSE A medical screening exam was performed. Ms. Valenzuela is a 48 yo woman with a history of type 2 diabetes and recent history of menorrhagia for which she is being treated with progesterone 200 mg daily x10 days. 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 She is complaining of 3 days of left calf swelling. -Intact distal pulses - 0.5 mm difference in size between left and right - No erythema, no cord palpated - Doppler lower extremities negative for DVT, Workman's cyst - Etiology of the day swelling is unclear but with no evidence of DVT or phlebitis or cellulitis feel that it is reasonable to discharge patient home with instructions to elevate and rest. If there is no resolution within the next 3 days or she develops new symptoms then follow-up would be indicated. ASSESSMENT AND PLAN Final diagnoses: Swelling of lower leg No supervision required. DISPOSITION: No disposition on file The patient's pain was managed to an adequate level weighing risk vs. benefit of further medications. Upon departure from [facility], the patient's pain was 0 on a zero to ten scale. Any further pain treatment will be at the discretion of the provider following up with the patient based on their clinical assessment . Condition at departure from the [facility] : Stable MDM 03/03/2019 15:55 * Avelina Arreola RN - 03/03/2019 1328 EDT Pt presents with c/o atraumatic swelling of left foot. Edema noted to distal aspect of lower left leg. Denies pain but does endorse a tingly sensation. Denies recent travel or hx of DVT> Is able to ambulate without difficulty. documented in this encounter Plan of Treatment Not on file documented as of this encounter Procedures Procedure Name Priority Date/Time Associated Diagnosis Comments RAD US DOPPLER LOWER EXTREMITY VENOUS UNILATERAL STAT 03/03/2019 15:14 EDT documented in this encounter Results * RAD US DOPPLER LOWER EXTREMITY VENOUS UNILATERAL (03/03/2019 15:14 EDT) Anatomical Region Laterality Modality Other 03/03/2019 15:1 4 EDT 03/03/2019 15:26 EDT Narrative 03/03/2019 15:26 EDT RAD US DOPPLER LOWER EXTREMITY VENOUS UNILATERAL 03/03/2019 3:14 PM Signs and Symptoms: ?? 3 days of LLE swelling, started taking progesterone Comparison: None. Technique: Static and cine images, including color Doppler and spectral tracings of the deep venous system of left leg were obtained. Findings: There is complete compressibility, normal respiratory phasicity and normal color Doppler flow in the deep veins of the left leg including the common femoral, profunda femoris, proximal great saphenous, femoral, and popliteal and peroneal veins. Edema in the left calf is noted. Impression: No sonographic evidence of DVT in the left lower extremity. Procedure Note Sheryl Clements, Mitul Alfred MD - 03/03/2019 RAD US DOPPLER LOWER EXTREMITY VENOUS UNILATERAL 03/03/2019 3:14 PM Signs and Symptoms: 3 days of LLE swelling, started taking progesterone Comparison: None. Technique: Static and cine images, including color Doppler and spectral tracings of the deep venous system of left leg were obtained. Findings: There is complete compressibility, normal respiratory phasicity and normal color Doppler flow in the deep veins of the left leg including the common femoral, profunda femoris, proximal great saphenous, femoral, and popliteal and peroneal veins. Edema in the left calf is noted. Impression: No sonographic evidence of DVT in the left lower extremity. Tequila Marx MD IMG US ORDERABLE S documented in this encounter Visit Diagnoses Diagnosis Swelling of lower leg- Primary documented in this encounter Discontinued Medications Medication Sig Discontinue Reason Start Date End Da te HYDROmorphone (DILAUDID) 2 mg tablet Take 1-2 Tabs by mouth every 3 hours as needed for Pain. Therapy completed 09/22/2011 03/03/2019 documented as of this encounter Care Teams Insights Manager Relationship Specialty Start Date End Date Roro Mallory APRN [address] [place] [address] PCP - General 12/06/18 documented as of this encounter
--- OUTSIDE RECORDS SUMMARY | 2024-05-26 18:17 | XMS_ITS | Encounter Summary ---
Author Organization [facility] Address [address] [place] [address] Care Team Providers Care Medical Office Coordinator Name Role Phone MalloryDonald brownmatthew Sal APRN Primary Care Provider + Reason for Visit * Reason Onset Date Comments Appointment Related 03/21/2019 Encounter Details Date Type Department Care Team (Late st Contact Info) Description 03/21/2019 Telephone [facility] - [address] CDE [address] [facility] [address] [place] [address] Appointment Related Social History Tobacco [...] encounter Miscellaneous Notes * Telephone Encounter - Mehnaz Hutson - 03/21/2019 1527 EDT lmom x1 to reschedule 03/29/19 appointment with Chloe Santoyo documented in this encounter Plan of Treatment Not on file documented as of this encounter Visit Diagnoses Not on filedocumented in this encounter Care Teams Medical Office Coordinator Relationship Specialty Start Date End Date Roro Mallory, NEUROPHYSIOLOGICAL TECHNICIAN [address] [place] [address] PCP - General 12/06/18 documented as of this encounter
--- OUTSIDE RECORDS SUMMARY | 2024-05-26 18:17 | XMS_ITS | Encounter Summary ---
Author Organization [facility] Address [address] [place] [address] Care Team Providers Care Land Acquisition Analyst Name Role Phone Unknown, Provider Primary Care Provider [phone] Reason for Visit * Reason Comments Shoulder Pain left shoulder post i njection Encounter Details Date Type Department Care Team (Late st Contact Info) Description 11/14/2018 14:00 EST Office Visit [facility] Orthopedic Surgery - [facility] [address] [place] [address] Mariangel Miranda PA-C [address] [phone] Adhesive capsulitis of left shoulder (Primary Dx) [...] - - Weight 95.7 kg (211 lb) 11/14/2018 1350 EST Height 172 cm (5' 7.72) 11/14/2018 1350 EST Body Mass Index 32.35 11/14/2018 1350 EST documented in this encounter Functional Status [...] as of this encounter Progress Notes * Felipa Elizabeth - 11/14/2018 1400 EST REVIEW OF SYSTEMS: Yes No Yes [...] Issues x * Mariangel Miranda PA - 11/14/2018 1400 EST CC: follow up visit: LT shoulder pain SUBJECTIVE: Mei Valenzuela is a 48 y.o. rt hand dominant female who is here today for follow up regarding her left shoulder pain and decreased ROM. She underwent a second IA cortisone injection withDr. Crocker on 08/22/18 which helped significantly with her motion. She continues to attend physicaltherapy once a week. Today's pain level: 0/10; The patient has been taking the following medications. 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 (-) trigger points. Range of motion: (180) degrees forward elevation. (180) degrees abduction. (80) degrees ER at 0 degrees abduction, (50) degrees ER at 90 degrees abduction,. There is no scapular winging. Strength testing: (5/5) Forward flexion, (5/5) Abduction, (5/5) motor in empty can/scaption, (5/5) motor in resisted external rotation, (5/5) motor on resistive Internal rotation Distal neurovascular exam intact to hand and fingers. * notes with pain Xray findings:none taken Assessment: Mei was seen today for shoulder pain. Diagnoses and all orders for this visit: Adhesive capsulitis of left shoulder Comments: improving Other orders - aspirin chewable 81 mg tablet; Take 81 mg by mouth daily. PLAN: She is at was encouraged to continue with her regular stretching program. She is made great gains since her last visit, especially after her second I a cortisone injection. I would like to see her back on an as-needed basis. The patient was advised to continue with activities as tolerated, using pain as their guide. Continue with NSAIDs (if not medically contraindicated) as needed for pain and inflammation. They may supplement with Tylenol thousand milligrams every 6 hours as needed. Patient was encouraged to call the office with any questions or concerns. Follow up: Return for patient will call for follow up appointment, prn. Dr. Garcia was the attending physician available in the clinic today if needed. A consultation was not required. This note was prepared using voice recognition software and the EMR. There may be inadvertent errors and omissions. MAGGIE Gibbs 11/14/2018 14:17 documented in this encounter Plan of Treatment Not on file documented as of this encounter Visit Diagnoses Diagnosis Adhesive capsulitis of left shoulder- Primary Adhesive capsulitis of shoulder documented in this encounter Historical Medications * This list may reflect changes made after this encounter. Medication Sig Dispensed Refills Start Date End Date aspirin chewable 81 mg tablet Take 81 mg by mouth daily. added in this encounter Care Teams Land Acquisition Analyst Relationship Specialty Start Date End Date Unknown, Provider, PCP - General 11/11/18 12/05/18 documented as of this encounter
--- OUTSIDE RECORDS SUMMARY | 2024-05-26 18:17 | XMS_ITS | Encounter Summary ---
Author Organization [facility] Address [address] [place] [address] Care Team Providers Care Bargeman Name Role Phone Roro Mallory APRN Primary Care Provider + Encounter Details Date Type Department Care Team (Latest Contact Info) Description 11/23/2019 Travel Social History Tobacco Use Types Packs/Day [...] on filedocumented in this encounter Care Teams Bargeman Relationship Specialty Start Date End Date Roro Mallory APRN [address] [place] [address] PCP - General 12/06/18 documented as of this encounter
--- OUTSIDE RECORDS SUMMARY | 2024-05-26 18:17 | XMS_ITS | Encounter Summary ---
Author Organization [facility] Address [address] [place] [address] Care Team Providers Care Neuropsychiatric Aide Name Role Phone Luis Snider Primary Care Provi kellen Reason for Visit * Reason Comments Nutrition Counseling * Consult (Routine) - Closed Specialty Diagnoses / Procedures Referred By Brooke grant Referred To Contact Endocrinology Diagnoses Nutritional counseling Luis Snider FNP [address] [facility] [address] [place] [address] [facility] Endocrinology [address] [place] [address] Referral ID Status Reason Start Date Expiration Date Visits Re quested Visits Authorized [id number] Closed 1 1 Encounter Details Date Type Department Care Team (Late st Contact Info) Description 03/30/2018 8:30 EDT Nutrition [facility] Endocrinology - [address] [address] Mery Menendez Type 2 diabetes mellitus without complication, without long-term current use of insulin ([facility]) (Primary Dx) Discharge Disposition: Auto Discharge Social [...] - Inhaled Oxygen Concentration - - Weight 97.1 kg (214 lb) 03/30/2018 08 EDT Height 172 cm (5' 7.72) 03/30/2018 08 EDT Body Mass Index 32.81 03/30/2018 0821 EDT documented in this encounter Functional Status [...] 05/28/2017 documented as of this encounter Discharge Disposition Disposition Code Departure Means Destination Auto Discharge documented in this encounter Progress Notes * Mery Menendez - 03/30/2018 0830 EDT [facility] ENDOCRINOLOGY & DIABETES DIABETES NUTRITION VISIT NOTE Name:Mei Valenzuela Date of visit: 03/30/2018 PATIENT ID: Mei Valenzuela is a 47 y.o. female referred for medical nutrition therapy by Dr. Luis Snider for Diabetes - Type 2. SUBJECTIVE: Mei Valenzuela was seen for a medical nutrition therapy visit, follow-up, at the [facility] Endocrinology & Diabetes out-patient clinic on 03/30/2018 accompanied by: alone She was recently on January 22 to her long-term boyfriend who is supportive of her health needs.Since our last appointment in May 2017, she has regained 26 pounds. She stopped keeping a food journal about 2-3 months after she started and about the same time stopped her consistent exercising which was a daily walk on her morning break at work. She reports that she was starting to just eat what she wanted and was incorporating more chips, chocolate, processed foods, mostly sweets, into her diet. OBJECTIVE: Diabetes type: Type 2 Vitals: Ht 172 cm (67.72) Wt 97.1 kg (214 lb) LMP 12/25/2017 (Exact Date) BMI 32.81 kg/m2 BMI: Body mass index is 32.81 kg/(m^2). Diabetes Medications: Current AntiDiabetic Medications 09/09/2011 metFORMIN (oral) 1,000 MG BID (BREAKFAST/DINNER) (1,000 mg tab) Laboratory Results: Lab Results Component Value Date HGBA1C 5.6 12/20/2017 HGBA1C 5.7 05/25/2017 Lab Results Component Value Date CHOL 166 12/20/2017 HDL 60 12/20/2017 LDLBASE 81 12/20/2017 TRIG 126 12/20/2017 CHOLHDL 2.8 12/20/2017 DIABETES MEAL PLANNING: Type of meal planning: Calorie counting and consistent carbohydrate Follows meal plan: 25% to 50% of the time PRESENT MEAL PATTERN: Current eating habits:eats 3 meals plus snacks. More sweets in her diet. Breakfast: 2 scrambled eggs Lunch: Leftovers or a salad with cheese and occasionally a half peanut butter sandwich Dinner: Hamburger/hotdogs/cheddarwurst/chicken/steak and vegetables Snacks: Apple at morning snack afternoon snack trail mix/grapes/notes evening snack chocolate bar or trail mix or ice cream or chips Beverages: Water PHYSICAL ACTIVITY: Comments: Restarted her 9 AM morning walk at work Contemplating how to fit in a nightly walk most days of the week BLOOD GLUCOSE MONITORING: Glucose monitoring: Minimal testing. Barriers to monitoring: None Hypoglycemic episode: None Carbohydrate source on person? No Home Blood Glucoses Runnin recent readings available: 116, 110, 86 ASSESSMENT: Mei is a 47-year-old female with type 2 diabetes excellent glycemic control; her last A1c in December was 5.6%. She has had much success in the past with her weight loss and has come to realize thatshe needs to keep a consistent food journal to keep her on track. This has been a very helpful toolfor her and is going to help her get back on track with her healthier eating habits. She will take a little bit more modified approach and will focus on balancing her calorie intake and increasing her physical activity. Learning readiness: Verbalizes interest and Active attentive participant Psychosocial, cultural, or economic barriers to care:none. Mei Valenzuela verbalized understanding of meal planning guidelines reviewed at this visit. NUTRITION PLAN: Patient education on Carbohydrate Based Diabetes Meal Planning Type of meal planning: Calorie counting and consistent carbohydrate Carbohydrate meal plan target: Calories 1800 carbohydrate 180 Create a standard safe 1 day menu to use if getting off track Food logs to reinforce meal plan and encourage portion control Encouraged regular physical activity for weight management and blood glucose control- work on consistent plan. Follow-up 1 year or sooner if desired Thank you for your kind referral of Mei Valenzuela for nutrition counseling. Time Spent With Patient: 1 hour E 11.[address] 03/31/2018 9:04 documented in this encounter Plan of Treatment Not on file documented as of this encounter Visit Diagnoses Diagnosis Type 2 diabetes mellitus without complication, without long-term current use of insulin ([facility])- Primary documented in this encounter Historical Medications * This list may reflect changes made after this encounter. Medication Sig Dispensed Refills Start Date End Date calcium carbonate (CALCIUM 300 ORAL) Take 2 Capsules by mouth daily. added in this encounter Care Teams Neuropsychiatric Aide Relationship Specialty Start Date End Date Luis Snider FNP [address] [address] PCP - General 04/23/16 11/10/18 documented as of this encounter
--- OUTSIDE RECORDS SUMMARY | 2024-05-26 18:17 | XMS_ITS | Encounter Summary ---
Author Organization [facility] Address [address] [place] [address] Care Team Providers Care Meter Repairer Name Role Phone Luis Snider Primary Care Provi kellen Encounter Details Date Type Department Care Team (Late st Contact Info) Description 06/13/2018 8:29 EDT - 06/13/2018 23:59 EDT Hospital Encounter [address] [address] Norma Coombs MD [facility] [address] [place] [address] Discharge Disposition: Home or Self Care Social [...] as of this encounter Discharge Diagnoses Diagnosis Z01.419 Encounter for gynecological examination (general) (routine) without abnormal findings-Z01.419[ICD-10-CM] Z11.51 Encounter for screening for human papillomavirus (HPV)-Z11.51[ICD-10-CM] documented in this encounter Medications at Time [...] on filedocumented in this encounter Care Teams Meter Repairer Relationship Specialty Start Date End Date Luis Snider FNP [address] [address] PCP - General 04/23/16 11/10/18 documented as of this encounter
--- OUTSIDE RECORDS SUMMARY | 2024-05-26 18:17 | XMS_ITS | Encounter Summary ---
Author Organization [facility] Address [address] [place] [address] Care Team Providers Care Factory Maintenance Manager Name Role Phone MalloryDonald brownmatthew Sal APRN Primary Care Provider + Reason for Visit * Reason Comments Diabetes Encounter Details Date Type Department Care Team (Late st Contact Info) Description 04/26/2020 16:00 EDT Nutrition [facility] Endocrinology - [address] [address] Yarelis Kothari, RD [address] [place] [address] Type 2 diabetes mellitus without complication, without long-term current use of insulin ([facility]) (Primary Dx) Social History Tobacco Use [...] of this encounter Progress Notes * Yarelis Kothari RD - 04/26/2020 1600 EDT ENDOCRINOLOGY & DIABETES DIABETES NUTRITION FOLLOW [...] : Home The location of the provider: remote The following staff and their role did participate in today's encounter visit: Yarelis Kothari RD Name:Mei Valenzuela Today's Date: 05/31/2020 Date of visit: 04/26/2020 PATIENT ID: Mei Valenzuela is a 49 y.o. female initially referred for medical nutrition therapy by Dr. Naylor for Diabetes - Type 2. MNT referral date: 11/23/2019 SUBJECTIVE: Mei Valenzuela was last seen on 04/16/2020 and returns today for a follow-up medical nutrition therapy visit the [facility] Endocrinology & Diabetes out-patient clinic. Mei Valenzuela is accompanied by: alone Pt states that foods are more tolerable given recovery from dental procedure. Is eating more vegetables. Pt states that she was not able to keep food logs but has been more mindful. OBJECTIVE: Diabetes type: Type 2 Vitals: There [...] MEAL PATTERN: Comments: Pt states that she has been eating more salads. Notes that she has been having sweets. BLOOD GLUCOSE MONITORING: Comments: unable to review at todays visit Pt states that her AM fasting glucose has been within target range. Does not that it was high this morning. If high pt is able to reflect back and note poor food choices. 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 ASSESSMENT: Mei was seen today for medical nutrition therapy for type 2 diabetes. Nutrition Diagnosis: altered nutrition related labs or vitals Etiology: type 2 diabetes Signs & Symptoms: elevated hemoglobin a1c. Dietary recall indicates pt making efforts to improve overall quality of diet. Since last visit has incorporated a more vegetables with need to add protein to meals to make a more balanced meal and to improve on hunger between meals. Pt expresses need to cut back on sweets. Intervention: MNT/Education: Engaged patient in conversation related [...] dietary fiber (non-starchy vegetables and fruit). Discussed mindful eating and intuitive eating practices, including hunger and satiety cues. Recommendation/Plan: 3 balanced, consistent meals per day [...] were provided at today's visit. None FOLLOW-UP: PRN Thank you for your kind referral of Mei Valenzuela for nutrition counseling. Time Spent With Patient: 30 minutes Diagnosis Code: E11.[address] 05/31/2020 10:31 Endocrinology Tracking 12/06/2018 12/19/2019 01/30/2020 04/18/2020 05/31/[address]/CDE RD/CDE RD/CDE RD/CDE RD/CDE Time with Patient(Mins) 60 30 45 45 30 Patient Contact Type MNT MNT MNT MNT MNT documented in this encounter Plan of Treatment Not on file documented as of this encounter Visit Diagnoses Diagnosis Type 2 diabetes mellitus without complication, without long-term current use of insulin ([facility])- Primary documented in this encounter Care Teams Factory Maintenance Manager Relationship Specialty Start Date End Date Roro Mallory, MEDICAL IMAGING DIRECTOR [address] [place] [phone] PCP - General 12/06/18 documented as of this encounter
--- OUTSIDE RECORDS SUMMARY | 2024-05-26 18:17 | XMS_ITS | Encounter Summary ---
Author Organization [facility] Address [address] [place] [address] Care Team Providers Care Lamp Decorator Name Role Phone Roro Mallory PRINTING GREY CLOTH TENDER Primary Care Provider + Reason for Visit * Reason Comments Diabetes * Referral (Routine) - Closed Specialty Diagnoses / Procedures [facility]erred To Contact Endocrinology Diagnoses Type 2 diabetes mellitus without complications ([facility]) Roro Mallory, PRINTING GREY CLOTH TENDER [address] [place] [address] [facility] Endocrinology [address] [place] [phone] Referral ID Status Reason Start Date Expiration Date Visits Re quested Visits Authorized [id number] Closed 1 1 Encounter Details Date Type Department Care Team (Late st Contact Info) Description 12/06/2018 9:00 EDT Nutrition [facility] Endocrinology - [address] [address] [address] CDE [address] [place] [address] [address] [place] [address] Type 2 diabetes mellitus without complication, without long-term current use of insulin ([facility]) (Primary Dx) Social History Tobacco Use Types [...] - Inhaled Oxygen Concentration - - Weight 101.4 kg (223 lb 8 oz) 12/06/2018 0900 ED T Height 172 cm (5' 7.72) 12/06/2018 0900 EDT Body Mass Index 34.27 12/06/2018 09 EDT documented in this encounter Functional Status [...] as of this encounter Progress Notes * Holden Lorenzo Cde, Chloe - 12/06/2018 0900 EDT ENDOCRINOLOGY & DIABETES DIABETES NUTRITION FOLLOW UP VISIT NOTE Name:Mei Valenzuela Today's Date: 12/06/2018 Date of visit: 12/06/2018 PATIENT ID: Mei Valenzuela is a 48 y.o. female initially referred for medical nutrition therapy by Dr. Luis Snider for or Pre-Diabetes. SUBJECTIVE: Mei Valenzuela has been followed for the past 17 years by my former colleague Juanis Menendez RD,CDE after her initial diagnosis of type 2 diabetes. Mei was last seen in March 2018 and returns today for a follow-up medical nutrition therapy visit the Endocrinology & Diabetes out-patient clinic accompanied by: alone Mei reports she has not participated in regular physical activity and has been eating more highcarbohydrate foods over the winter months. She has gained approximately 10 lbs over the last year and her most recent A1c increased to 6.5% from 5.6%. Mei would like to get back on track with meal planning and diabetes self- care. Does well when she monitors food portions, keeps a daily food diary, tracks calorie and carbohydrate intake and eatsless processed and more whole foods. Also finds checking blood sugar helpful. OBJECTIVE: Diabetes type: Type 2 Vitals: Ht 172 cm (67.72) Wt (!) 101.4 kg (223 lb 8 oz) BMI 34.27 kg/m?? BMI: Body mass index is 34.27 kg/m??. A1c at primary care provider office: 6.5% in October 2018 Lab Results Component Value Date HGBA1C 5.6 12/20/2017 HGBA1C 5.7 05/25/2017 HGBA1C 6.8 04/23/2016 Lab Results Component Value Date CHOL 166 12/20/2017 HDL 60 12/20/2017 LDLBASE 81 12/20/2017 TRIG 126 12/20/2017 CHOLHDL 2.8 12/20/2017 Current Diabetes Medications: Current AntiDiabetic Medications 09/09/2011 metFORMIN (oral) 1,000 mg BID (BREAKFAST/DINNER) (1,000 mg tab) MEAL PLANNING: Type of meal planning: Consistent Carbohydrate and calorie counting PRESENT MEAL PATTERN:. Breakfast: Breakfast sandwich, sausage, egg and cheese on an American muffin Lunch: Peanut butter on a wrap with an apple Dinner:Pork chops with potato and broccoil Snacks: Has been snacking more on cookies, ice cream and chips Beverages: Usually water however has been drinking regular Snapple iced tea and an occasional regulra soda Alcohol:None reported UCOSE MONITORING: Comments: Not currently checking PHYSICAL ACTIVITY: Comments: No regular exercise or physical activity during the winter Likes to walk on her morning break at work and plans to resume when the weather improves ASSESSMENT: Mei Valenzuela is a very pleasant 48 y.o. female with a BMI of 34 and type 2 diabetes with a recent A1c of 6.5%. Mei is currently motivated to make diet and lifestyle changes to promote weightloss and improve blood glucose control. Following a calorie controlled consistent carbohydrate mealplan with carbohydrate targets at meals and snacks will help to optimize blood glucose control and assist with weight management goals. A regular schedule of blood glucose monitoring will provide useful feedback regarding the impact of diet and lifestyle modifications on diabetes control. NUTRITION EDUCATION: Reinforced consistent carbohydrate meal planning guidelines Discussed food portions Discussed the benefit of keeping daily a daily food diary Discussed the benefit of checking blood sugar to determine impact of food choices and physical activity on diabetes control Discussed the benefit of regular physical activity on diabetes control and in weight management Learning readiness: Active attentive participant Psychosocial, cultural, or economic barriers to care:none. Mei Valenzuela verbalized understanding of meal planning guidelines reviewed at this visit. NUTRITION PLAN: Resume consistent carbohydrate meal plan Continue food diary to reinforce meal plan and encourage portion control Participate in regular physical activity for weight management and blood glucose control. Check blood sugar 3-4 times per week at alternating times FOLLOW-UP: 1 year per patient request Thank you for your kind referral of Mei Valenzuela for nutrition counseling. Time Spent With Patient: 1 hour Diagnosis Code: E11.9 PARVEZ Jaquez 12/06/2018 17:16 Endocrinology Tracking 12/06/2018 Educator PARVEZ/ARACEIL Time with Patient(Mins) 60 Patient Contact Type MNT documented in this encounter Plan of Treatment Not on file documented as of this encounter Visit Diagnoses Diagnosis Type 2 diabetes mellitus without complication, without long-term current use of insulin ([facility])- Primary documented in this encounter Care Teams Lamp Decorator Relationship Specialty Start Date End Date Roro Mallory, PRINTING GREY CLOTH TENDER [address] [place] [phone] PCP - General 12/06/18 documented as of this encounter
--- OUTSIDE RECORDS SUMMARY | 2024-05-26 18:18 | XMS_ITS | Encounter Summary ---
Author Organization [facility] Address [address] [place] [address] Care Team Providers Care Digital Media Sales Consultant Name Role Phone Sita Salamanca MD Primary Care Provider +1- [phone] Encounter Details Date Type Department Care Team (Late st Contact Info) Description 05/19/2007 Results Only [facility] [address] [place] [address] Sita Salamanca MD [address] [place] [id number] Social History Tobacco Use Types Packs/Day Years Used Date Smoking Tobacco: Never Assessed Sex and Gender Information Value Date Recorded Sex Assigned at Not on file Gender Identity Female 11/22/2019 12:18 EST Sexual Orientation Not on file documented as of this encounter Plan of Treatment Not on file documented as of this encounter Procedures Procedure Name Priority Date/Time Associated Diagnosis Comments URINE [id number]-AN-ZWIGTWCVOL RATIO (ACR) Routine 05/19/2007 10:44 EDT HPV DETECTION, HIGH RISK TYPES Routine 05/19/2007 10:05 EDT CYTOPATHOLOGY Routine 05/19/2007 0:00 EDT documented in this encounter Results * MICROALBUMIN (05/19/2007 10:44 EDT) Creatinine, Urn [place] 62.8 mg/dl [facility] Ur Albumin mg/dl <0.2 <1.9 mg/dl [facility] Ur Alb ug/mg Crea Unable to calculate ug/mg Crea result. Normal: ??<30 ug/mg Creat Microalbuminu naye: ??30-300 ug/mg Creat Clinical albuminuria: ??>300 ug/mg Creat ug/mg Crea [facility] 05/19/2007 10:4 4 EDT 05/19/2007 20:11 EDT Sita Salamanca MD CHEMISTRY & BLOOD GAS ORDERABLES Performing Organization Address [facility] de Phone Number [facility] [address] [place] [address] * HUMAN PAPILLOMA VIRUS DNA TEST (05/19/2007 10:05 EDT) Specimen Description Cervix, ThinPrep vial [facility] Result Negative for HPV types 16, 18, 31, 33, 35, 39, 45, 51, 52, 56, 58, 59, and 68. [facility] Report Status Final [id number] [facility] 05/19/2007 10:0 5 EDT 05/26/2007 10:05 EDT Sita Salamanca MD MICROBIOLOGY - GEN ERAL ORDERABLES Performing Organization Address [facility] de Phone Number [facility] [address] [place] [address] * CYTOPATHOLOGY (05/19/2007 0:00 EDT) Pathology Report: CYTOPATHOLOGY REPORT Reports generated via electronic interface contain original data; however they are lacking the format of the original report. Caution should be taken when reading/interpreti ng unformatted reports. Name: ? MAURICIO BRITO ? Accession #: ? [id number] : ? 1970 (Age: 36) ??F ?Collect Date: ? 05/19/2007 Location: ? [facility] ? Receive Date: ? 05/20/2007 Provider: ?SITA SALAMANCA MD Copy to: ? Specimen/Source: ?ThinPrep Pap Test, Cervix/Endocervix, processed on Pulse 8 ThinPrep Imaging System, with manual evaluation Last Menstrual Period: ? 04/28/07 Other: ? HPVDX - HPV testing requested regardless of diagnosis on current ThinPrep Pap test. ? SPECIMEN ADEQUACY ? Satisfactory for Evaluation - transformation zone component present GENERAL CATEGORIZATION ? Negative for Intraepithelial Lesion or Malignancy INTERPRETATION ? Shift in dhruv present suggestive of bacterial vaginosis. ? Document reviewed and electronically signed by: ? JORGE Nazario(ASCP) ? Report Date: ??05/25/2007 15:56 End of Report [facility] 05/19/2007 05/20/2007 Sita Salamanca MD PATHOLOGY ORDERABL ES Performing Organization Address City/State/[facility] Co de Phone Number [facility] [address] [place] [address] documented in this encounter Visit Diagnoses Not on filedocumented in this encounter Care Teams Digital Media Sales Consultant Relationship Specialty Start Date End Date Sita Salamanca MD [address] [place] [address] PCP - General 01/23/09 08/20/11 documented as of this encounter
--- OUTSIDE RECORDS SUMMARY | 2024-05-26 18:18 | XMS_ITS | Encounter Summary ---
Author Organization [facility] Address [address] [place] [address] Care Team Providers Care Asphalt Paver Operator Name Role Phone Amisha Beth MD Primary Care Provider +1- [phone] Encounter Details Date Type Department Care Team (Late st Contact Info) Description 08/21/2011 Results Only [facility] - [facility] ([facility] [place] [place]) [address] [place], [place] [address] Amisha Beth MD [address] [facility], [address] [place], [place] [id number] Social History Tobacco Use Types Packs/Day Years Used Date Smoking Tobacco: Never Assessed Sex and Gender Information Value Date Recorded Sex Assigned at Not on file Gender Identity Female 11/22/2019 12:18 EST Sexual Orientation Not on file documented as of this encounter Plan of Treatment Not on file documented as of this encounter Procedures Procedure Name Priority Date/Time Associated Diagnosis Comments URINE [id number]-WW-[id number] E RATIO (ACR) Routine 08/21/2011 8:04 EST ALT Routine 08/21/2011 8:04 EST AST Routine 08/21/2011 8:04 EST HEMOGLOBIN A1C Routine 08/21/2011 8:04 EST LIPID PROFILE (INCLUDES CHOLESTEROL, TRIGLYCERIDES, HDL, LDL) Routine 08/21/2011 8:04 EST BASIC METABOLIC PANEL (BMP) Routine 08/21/2011 8:04 EST documented in this encounter Results * ALBUMIN, URINE (08/21/2011 8:04 EST) Creatinine, Urn [place] 19.0 mg/dl [facility] Ur Albumin mg/dl <0.2 <1.9 mg/dl [facility] Ur Alb ug/mg Crea Unable to calculate ug/mg Crea result. ug/mg Crea [facility] Comment: Normal: <30 ug/mg creat High: 30-300 ug/mg creat Very high and nephrotic: >300 ug/mg creat 08/21/2011 8:04 EST 08/21/2011 8:41 EST Amisha Beth MD CHEMISTRY & BLOOD GAS ORDERABLES Performing Organization Address [facility] de Phone Number [facility] [address] [place] [address] * LIPID PROFILE (INCLUDES CHOLESTEROL, TRIGLYCERIDES, HDL, LDL) (08/21/2011 8:04 EST) Cholesterol 171 mg/dl [facility] Comment: Desirable:<200 Borderline High:200-239 High:>bi=034 Triglycerides 66 35 - 160 mg/dl [facility] HDL 69 mg/dl [facility] Comment: Low:<40 High(Desirable):>or=60 LDL, Calculated 89 mg/dl [facility] Comment: Optimal:<100 Above optimal:100-129 Borderline High:130-159 High:160-189 Very High:>cb=393 Chol/HDL Ratio 2.5 [facility] Fasting? Yes [facility] 08/21/2011 8:04 EST 08/21/2011 8:44 EST Amisha Beth MD CHEMISTRY & BLOOD GAS ORDERABLES Performing Organization Address [facility] de Phone Number [facility] [address] [place] [address] * AST (08/21/2011 8:04 EST) AST 32 15 - 46 U/L [facility] 08/21/2011 8:04 EST 08/21/2011 8:44 EST Amisha Beth MD CHEMISTRY & BLOOD GAS ORDERABLES Performing Organization Address [facility] Co de Phone Number [facility] [address] [place] [address] * ALT (08/21/2011 8:04 EST) ALT 48 9 - 52 U/L [facility] 08/21/2011 8:04 EST 08/21/2011 8:44 EST Amisha Beth MD CHEMISTRY & BLOOD GAS ORDERABLES Performing Organization Address [facility] de Phone Number [facility] [address] [place] [address] * BASIC METABOLIC PANEL (08/21/2011 8:04 EST) Sodium 139 136 - 145 mEq/L [facility] Potassium 4.3 3.5 - 5.0 mEq/L [facility] Chloride 102 96 - 110 mEq/L [facility] CO2 27 24 - 32 mEq/L [facility] BUN 11 10 - 26 mg/dl [facility] Creatinine 0.71 0.7 - 1.5 mg/dl [facility] GFR, Calculated >60 >60 ml/min/1.7 3m2 [facility] Calcium 9.1 8.5 - 10.5 mg/dl [facility] Calculated Calcium 9.4 8.5 - 10.5 mg/dl [facility] Glucose, Serum 93 70 - 100 mg/dl [facility] Fasting? Yes [facility] [place] [facility] 08/21/2011 8:04 EST 08/21/2011 8:44 EST Amisha Beth MD CHEMISTRY & BLOOD GAS ORDERABLES Performing Organization Address [facility] Co de Phone Number [facility] [address] [place] [address] * HEMOGLOBIN A1C (08/21/2011 8:04 EST) Hemoglobin A1C 6.1 % [facility] Comment: Reference Range: <5.7% Normal 5.7-6.4% Increased risk for diabetes =>6.5% Diagnostic for diabetes (if confirmed) The A1c goal for non adults in general is <7%. The A1c goal for selected patients may be significantly lower than 7% if this can be achieved without significant hypoglycemia or other adverse effects of treatment. Est Avg Glucose 128 mg/dl [facility] Comment: eAG represents the A1c result expressed as average glucose in mg/dl. 08/21/2011 8:04 EST 08/21/2011 8:44 EST Amisha Beth MD CHEMISTRY & BLOOD GAS ORDERABLES Performing Organization Address City/State/[facility] Co de Phone Number [facility] [address] [place] [address] documented in this encounter Visit Diagnoses Not on filedocumented in this encounter Care Teams Asphalt Paver Operator Relationship Specialty Start Date End Date Amisha Beth MD [address] [facility], [address] [place], [place] [address] PCP - General 08/21/11 04/22/16 documented as of this encounter
--- OUTSIDE RECORDS SUMMARY | 2024-05-26 18:18 | XMS_ITS | Encounter Summary ---
Author Organization [facility] Address [address] [place] [address] Care Team Providers Care Drop Wire Operator Name Role Phone Amisha Mark MD Primary Care Provider +1- [phone] Encounter Details Date Type Department Care Team (Late st Contact Info) Description 08/31/2012 Results Only [facility] - [facility] ([facility] [place]) [address] [place], [place] [address] Amisha Mark MD [address] [facility], [address] [place], [place] [id number] Social History Tobacco Use Types Packs/Day Years [...] Diagnosis Comments PAP TEST- RESULT ONLY Routine 08/31/2012 0:00 EST documented in this encounter Results * PAP TEST- RESULT ONLY (08/31/2012 0:00 EST) Pathology Report: CYTOPATHOLOGY REPORT Reports generated via electronic interface contain original data; however they are lacking the format of the original report. Caution should be taken when reading/interpreti ng unformatted reports. Name: ? MAURICIO BRITO ? Accession #: ? [id number] : ? 1970 (Age: 42) ??F ?Collect Date: ? 08/31/2012 Location: ? [facility] ? Receive Date: ? 08/31/2012 Provider: ?AMISHA MARK MD Copy to: ? Specimen/Source: ?Pap Test, Cervix, ThinPrep Imaging System with manual evaluation Last Menstrual Period: ? 3 weeks ? SPECIMEN ADEQUACY ? Satisfactory for Evaluation - transformation zone component present GENERAL CATEGORIZATION ? Negative for Intraepithelial Lesion or Malignancy ? Document reviewed and electronically signed by: ? Renetta Abreu, JORGE(ASCP) ? Report Date: ??09/06/2012 14:58 HPV with Pap Test ? Date Ordered: ? 09/06/2012 ? Status: ?? Signed Out ?Date Complete: ? 09/08/2012 ? By: ??System Interface ? Date Reported: ? 09/08/2012 ? Interpretation RESULT: Negative for HPV. No E6 or E7 mRNA is detected from HPV types 16,18,31,33,35, 39,45,51,52,56,58, 59,66, and 68 by carpet installation specialist mediated amplification. Comments Document reviewed and electronically signed by: ? System Interface ? Report date: 09/08/2012 By the signature above, the attending physician certifies that he/she has personally conducted a gross and/or microscopic examination of the described specimens and rendered or confirmed the above diagnosis. End of Report [facility] 08/31/2012 08/31/2012 Amisha Mark MD PATHOLOGY ORDERABL ES [facility] [address] [place] [address] documented in this encounter Visit Diagnoses Not on filedocumented in this encounter Care Teams Drop Wire Operator Relationship Specialty Start Date End Date Amisha Mark MD [address] [facility], [address] [place] [address] PCP - General 08/21/11 04/22/16 documented as of this encounter
--- OUTSIDE RECORDS SUMMARY | 2024-05-26 18:18 | XMS_ITS | Encounter Summary ---
Author Organization [facility] Address [address] [place] [address] Care Team Providers Care Hand Edge Bander Name Role Phone Amisha Beth MD Primary Care Provider +1- [phone] Encounter Details Date Type Department Care Team (Late st Contact Info) Description 08/22/2012 Phlebotomy Only [facility] [address] [place] [address] Mate Chief, Outpatient Social History Tobacco Use Types Packs/Day [...] on filedocumented in this encounter Care Teams Hand Edge Bander Relationship Specialty Start Date End Date Amisha Beth MD [address] [place] [address], [address] [place], [place] [address] PCP - General 08/21/11 04/22/16 documented as of this encounter
--- OUTSIDE RECORDS SUMMARY | 2024-05-26 18:18 | XMS_ITS | Encounter Summary ---
Author Organization [facility] Address [address] [place] [address] Care Team Providers Care Horticulture/Floriculture Teacher Name Role Phone Amisha Beth MD Primary Care Provider +1- [phone] Encounter Details Date Type Department Care Team (Late st Contact Info) Description 08/21/2014 13:37 EST - 08/21/2014 13:38 [facility] Hospital Encounter [address] [address] Amisha Beth MD [address] [facility], [address] [place], [place] [phone] Discharge Disposition: Home or Self Care Social [...] as of this encounter Discharge Diagnoses Diagnosis 250.00 DIABETES UNCOMPL ADULT-TYPE II[ICD-9-CM] documented in this encounter Medications at Time [...] for Pain. 30 Tab 0 09/22/2011 03/03/2019 metformin (GLUCOPHAGE) 1,000 mg tablet Take 1,000 mg by mouth 2 times daily with breakfast and dinner 11/23/2019 documented as of this encounter Discharge Disposition Disposition Code Departure Means Destination Home or Self Care documented in this encounter Plan of Treatment Not on file documented as of this encounter Visit Diagnoses Not on filedocumented in this encounter Care Teams Horticulture/Floriculture Teacher Relationship Specialty Start Date End Date Amisha Beth MD [address] [facility], [address] [place] [address] PCP - General 08/21/11 04/22/16 documented as of this encounter
--- OUTSIDE RECORDS SUMMARY | 2024-05-26 18:18 | XMS_ITS | Encounter Summary ---
Author Organization [facility] Address [address] [place] [address] Care Team Providers Care Atomic Welder Name Role Phone Unavailable Primary Care Provider Unavailabl e Encounter Details Date Type Department Care Team (Late st Contact Info) Description 01/21/2007 9:51 EDT Hospital Encounter [facility] - Maple conversion [address] [place] [address] Mery Menendez Social History Tobacco Use Types Packs/Day Years [...] 6:52 EST documented as of this encounter Plan of Treatment Not on file documented as of this encounter Visit Diagnoses Not on filedocumented in this encounter
--- OUTSIDE RECORDS SUMMARY | 2024-05-26 18:18 | XMS_ITS | Encounter Summary ---
Author Organization [facility] Address [address] [place] [address] Care Team Providers Care Rubber Turner Name Role Phone Amisha Beth MD Primary Care Provider +1- [phone] Encounter Details Date Type Department Care Team (Late st Contact Info) Description 11/02/2012 Phlebotomy Only [facility] [address] [place] [address] Back Tacker, Outpatient Social History Tobacco Use Types Packs/Day [...] on filedocumented in this encounter Care Teams Rubber Turner Relationship Specialty Start Date End Date Amisha Beth MD [address] [place] [address], [address] [place], [place] [address] PCP - General 08/21/11 04/22/16 documented as of this encounter
--- OUTSIDE RECORDS SUMMARY | 2024-05-26 18:18 | XMS_ITS | Encounter Summary ---
Author Organization [facility] Address [address] [place] [address] Care Team Providers Care Personal Care Home Administrator Name Role Phone Amisha Beth MD Primary Care Provider +1- [phone] Encounter Details Date Type Department Care Team (Late st Contact Info) Description 03/01/2014 6:40 EDT - 03/01/2014 23:59 EDT Hospital Encounter [facility] [address] [place] [address] Amisha Beth MD [address] [place] [address], [address] [place] [address] Discharge Disposition: Home or Self Care Social [...] as of this encounter Discharge Diagnoses Diagnosis 285.9 ANEMIA NOS[ICD-9-CM] 250.00 DIABETES UNCOMPL ADULT-TYPE II[ICD-9-CM] 272.4 HYPERLIPIDEMIA NEC/NOS[ICD-9-CM] documented in this encounter Medications at Time [...] Code Departure Means Destination Home or Self Correction documented in this encounter Plan of Treatment Not on file documented as of this encounter Procedures Procedure Name Priority Date/Time Associated Diagnosis Comments COMPLETE BLOOD COUNT Routine 03/01/2014 6:46 EDT ALT Routine 03/01/2014 6:46 EDT AST Routine 03/01/2014 6:46 EDT HEMOGLOBIN A1C Routine 03/01/2014 6:46 EDT FERRITIN Routine 03/01/2014 6:46 EDT LIPID PROFILE (INCLUDES CHOLESTEROL, TRIGLYCERIDES, HDL, LDL) Routine 03/01/2014 6:46 EDT BASIC METABOLIC PANEL (BMP) Routine 03/01/2014 6:46 EDT documented in this encounter Results * LIPID PROFILE (INCLUDES CHOLESTEROL, TRIGLYCERIDES, HDL, LDL) (03/01/2014 6:46 EDT) Cholesterol 163 mg/dl [facility] Comment: Desirable:<200 Borderline High:200-239 High:>bl=804 Triglycerides 113 mg/dl [facility] Comment: Normal:<150 Borderline High:150-199 High:200-499 Very High:>kq=748 HDL 49 mg/dl [facility] Comment: Low:<40 Normal:40-60 Desirable: >60 LDL, Calculated 91 mg/dl [facility] Comment: Optimal:<100 Near Optimal:100-129 Borderline High:130-159 High:160-189 Very High:>br=187 Chol/HDL Ratio 3.3 [facility] Fasting? YES [facility] Non HDL Cholesterol 114 mg/dl [facility] Comment: Desirable:<130 Borderline:130-159 High: 160-189 Very High: >fi=058 03/01/2014 6:46 EDT 03/01/2014 7:52 EDT Amisha Beth MD CHEMISTRY & BLOOD GAS ORDERABLES Performing Organization Address [facility] Phone Number [facility] [address] [place] [address] * HEMOGLOBIN A1C (03/01/2014 6:46 EDT) Hemoglobin A1C 7.0 % [facility] Comment: Reference Range: <5.7% Normal 5.7-6.4% Increased risk for diabetes =>6.5% Diagnostic for diabetes (if confirmed) The A1c goal for non adults in general is <7%. The A1c goal for selected patients may be significantly lower than 7% if this can be achieved without significant hypoglycemia or other adverse effects of treatment. Est Avg Glucose 154 mg/dl [facility] Comment: eAG represents the A1c result expressed as average glucose in mg/dl. 03/01/2014 6:46 EDT 03/01/2014 7:52 EDT Amisha Beth MD CHEMISTRY & BLOOD GAS ORDERABLES Performing Organization Address [facility] Phone Number [facility] [address] [place] [address] * FERRITIN (03/01/2014 6:46 EDT) Ferritin 17 10 - 291 ng/mL [facility] 03/01/2014 6:46 EDT 03/01/2014 7:52 EDT Amisha Beth MD CHEMISTRY & BLOOD GAS ORDERABLES Performing Organization Address [facility] de Phone Number [facility] [address] [place] [address] * HEMAGRAM (03/01/2014 6:46 EDT) WBC 5.88 4.0 - 12.4 K/cmm [facility] RBC 3.98 3.86 - 5.04 M/cmm [facility] Hemoglobin 13.1 11.6 - 15.2 gm/dl [facility] HCT 36.4 34.9 - 44.4 % [facility] MCV 92 81 - 98 fl [facility] MCH 32.9 26.7 - 33.3 pg [facility] MCHC 35.9 32.1 - 35.9 gm/dl [facility] PLT 280 141 - 320 K/cmm [facility] RDW-CV 12.4 11.7 - 14.6 % [facility] 03/01/2014 6:46 EDT 03/01/2014 7:52 EDT Amisha Beth MD HEMATOLOGY & PF4 O RDERABLES Performing Organization Address City/State/[facility] Co de Phone Number [facility] [address] [place] [address] * (ABNORMAL) BASIC METABOLIC PANEL (03/01/2014 6:46 EDT) Pathologist [facility] Sodium 140 136 - 145 mEq/L [facility] Potassium 4.0 3.5 - 5.0 mEq/L [facility] Chloride 104 96 - 110 mEq/L [facility] CO2 25 24 - 32 mEq/L [facility] BUN 11 10 - 26 mg/dl [facility] Creatinine 0.50(L) 0.52 - 1.04 mg/dl [facility] GFR, Calculated >60 >60 ml/min/1.7 3m2 [facility] Calcium 9.1 8.5 - 10.5 mg/dl [facility] Calculated Calcium 9.5 8.5 - 10.5 mg/dl [facility] Glucose, Serum 144(H) 70 - 100 mg/dl [facility] Fasting? YES [facility] 03/01/2014 6:46 EDT 03/01/2014 7:52 EDT Amisha Beth MD CHEMISTRY & BLOOD GAS ORDERABLES Performing Organization Address City/[facility]/ZIP Co de Phone Number [facility] [address] [place] [address] * AST (03/01/2014 6:46 EDT) AST 25 15 - 46 U/L [facility] 03/01/2014 6:46 EDT 03/01/2014 7:52 EDT Amisha Beth MD CHEMISTRY & BLOOD GAS ORDERABLES Performing Organization Address City/[facility] Co de Phone Number [facility] [address] [place] [address] * ALT (03/01/2014 6:46 EDT) ALT 28 9 - 52 U/L [facility] 03/01/2014 6:46 EDT 03/01/2014 7:52 EDT Amisha Beth MD CHEMISTRY & BLOOD GAS ORDERABLES Performing Organization Address City/[facility] Co de Phone Number [facility] [address] [place] [address] documented in this encounter Visit Diagnoses Not on filedocumented in this encounter Care Teams Personal Care Home Administrator Relationship Specialty Start Date End Date Amisha Beth MD [address] [facility], [address] [place] [address] PCP - General 08/21/11 04/22/16 documented as of this encounter
--- OUTSIDE RECORDS SUMMARY | 2024-05-26 18:18 | XMS_ITS | Encounter Summary ---
Author Organization [facility] Address [address] [place] [address] Care Team Providers Care Reservation Sales Agent Name Role Phone Amisha Beth MD Primary Care Provider +1- [phone] Encounter Details Date Type Department Care Team (Latest Contact Info) Description 04/29/2015 14:14 EDT - 04/29/2015 14:15 EDT Hospital Encounter [address] [address] Luis Snider FNP [address] [facility] [address] [place] [address] Discharge Disposition: Home or Self Care Social [...] Diagnoses Diagnosis 250.00 DIABETES UNCOMPL ADULT-TYPE II[ICD-9-CM] 401.9 HYPERTENSION NOS[ICD-9-CM] documented in this encounter Medications at Time [...] on filedocumented in this encounter Care Teams Reservation Sales Agent Relationship Specialty Start Date End Date Amisha Beth MD [address] [facility], [address] [place] [address] PCP - General 08/21/11 04/22/16 documented as of this encounter
--- OUTSIDE RECORDS SUMMARY | 2024-05-26 18:18 | XMS_ITS | Encounter Summary ---
Author Organization [facility] Address [address] [place] [address] Care Team Providers Care Nutrition Coordinator Name Role Phone Sita Yanez MD Primary Care Provider +1- [phone] Encounter Details Date Type Department Care Team (Late st Contact Info) Description 06/02/2010 Results Only [facility] Laboratory Services - [facility] [place] [place] [address], [place] [id number] Sita Yanez MD [address] [place] [address] Social History Tobacco Use Types Packs/Day Years Used Date Smoking Tobacco: Never Assessed Sex and Gender Information Value Date Recorded Sex Assigned at Not on file Gender Identity Female 11/22/2019 12:18 EST Sexual Orientation Not on file documented as of this encounter Plan of Treatment Not on file documented as of this encounter Procedures Procedure Name Priority Date/Time Associated Diagnosis Comments URINE [id number] NE RATIO (ACR) Routine 06/02/2010 14:17 EDT documented in this encounter Results * MICROALBUMIN (06/02/2010 14:17 EDT) Creatinine, Urn [place] 91.2 mg/dl [facility] Ur Albumin mg/dl 0.5 <1.9 mg/dl [facility] Ur Alb ug/mg Crea 5.5 ug/mg Crea [facility] Comment: Normal: ??<30 ug/mg Creat Microalbuminuria: ??30-300 ug/mg Creat Clinical albuminuria: ??>300 ug/mg Creat 06/02/2010 14:1 7 EDT 06/02/2010 14:17 EDT Sita Yanez MD CHEMISTRY & BLOOD GAS ORDERABLES Performing Organization Address City/State/[facility] Co de Phone Number [facility] [address] [place] [address] documented in this encounter Visit Diagnoses Not on filedocumented in this encounter Care Teams Nutrition Coordinator Relationship Specialty Start Date End Date Sita Yanez MD [address] [place] [id number] PCP - General 01/23/09 08/20/11 documented as of this encounter
--- OUTSIDE RECORDS SUMMARY | 2024-05-26 18:18 | XMS_ITS | Encounter Summary ---
Author Organization Health system Address [address] [place] [address] Care Team Providers Care Organ Tuner Electronic Name Role Phone Amisha Beth MD Primary Care Provider +1- [phone] Encounter Details Date Type Department Care Team (Latest Contact Info) Description 09/22/2011 7:57 EST - 09/22/2011 12:45 EST Hospital Encounter [facility] Perioperative Services - [facility] [address] [place] [id number] Cory Ortiz MD [address] [place] [address] Discharge Disposition: Home or Self Care Social History Tobacco Use Types Packs/Day Years Used Date Smoking Tobacco: Never Assessed Sex and Gender Information Value Date Recorded Sex Assigned at Not on file Gender Identity Female 11/22/2019 12:18 EST Sexual Orientation Not on file documented as of this encounter Last Filed Vital Signs Vital Sign Reading Time Taken Comments Blood Pressure 111/55 09/22/2011 1215 EST Pulse - - Temperature 36.3 ??C (97.3 ??F) 09/22/2011 1215 EST Respiratory Rate 15 09/22/2011 1215 EST Oxygen Saturation 100% 09/22/2011 1215 EST Inhaled Oxygen Concentration - - Weight 93 kg (205 lb) 09/09/2011 1103 EST Height 172.7 cm (5' 8) 09/09/2011 1103 EST Body Mass Index 31.17 09/09/2011 1103 EST documented in this encounter Discharge Instructions * Discharge Instructions* Cory Ortiz MD - 09/22/2011 10:18 EST Images from the original note were not included. [facility] Post Operative Instructions For Outpatient Foot and Ankle Surgery AFTER FOOT I ANKLE SURGERY Weight Bearing: Put weight on heel only. ELEVATION: CORRECT: - To reduce pain and swelling caused by the effects of gravity, the foot needs to be elevated several inches above heart level four or five pillows placed under the foot may do the trick. An ice packmay be recommended for the first 24 hours to further reduce swelling. Pain medications may be prescribed, if necessary. INCORRECT: - Letting the foot dangle over a chair or edge of the bed increases the pain and swelling due to the effect of gravity. Healing is delayed by the presence of excessive fluid that accumulated in the tissues. Only the elevation above the level of the heart works; resting the ankle on a footstool is not enough! DRESSING: - Your dressing is to remain on and dry until your post-operative visit. When showering cover your dressing with a plastic bag and use tape to secure it. If your dressing has a plaster splint, it will take 24 hours to fully dry. Keep it uncovered, and rest your arn on a soft surface. DISCOLORATION: - It is normal to have discoloration, tingling and temperature changes in your hand. The discoloration may not begin for several days. If the tingling is not improving after 48 hours, please contact my office. Compare to your unoperated extremity. MEDICATIONS: -If medication has been prescribed to control your pain or antibiotics to prevent infection, use asdirected. - The first two days after surgery are the most painful. If your pain is not decreasing after 48 hours of medication and elevation, you should contact my office. - Remember that the use of pain medication may decrease your reaction time, and alter coordination.NO DRIVING AND NO ALCOHOL for 24 hours while you are taking pain medication. DIET: - Drink more fluids than usual today. - If you have had spinal anesthesia, drink at least 2 quarts of fluid daily for the next two days. NOTIFY YOUR DOCTOR IF YOU HAVE ANY OF THE FOLLOWING SYMPTOMS: - Excessive bleeding - Fever greater than 101?? F (38.5 ?? C) - Pain unrelieved by pain medication - Impaired circulation (skin of extremity cool, pale, or blue) - Calf tenderness - If your cast gets wet CALL IF YOU HAVE ANY OUESTIONS OR PROBLEMS documented in this encounter Medications at Time of Discharge Medication Sig Dispensed Refills Start Date End Date simvastatin (ZOCOR) 20 mg tablet Take 20 mg by mouth daily. aspirin 325 mg tablet For ten days 10 Tab 0 09/22/2011 03/13/2013 HYDROmorphone (DILAUDID) 2 mg tablet Take 1-2 Tabs by mouth every 3 hours as needed for Pain. 30 Tab 0 09/22/2011 03/03/2019 metformin (GLUCOPHAGE) 1,000 mg tablet Take 1,000 mg by mouth 2 times daily with breakfast and dinner 11/23/2019 documented as of this encounter Ordered Prescriptions Prescription Sig Dispensed Refills Start Date End Da te HYDROmorphone (DILAUDID) 2 mg tablet Take 1-2 Tabs by mouth every 3 hours as needed for Pain. 30 Tab 0 09/22/2011 03/03/2019 aspirin 325 mg tablet For ten days 10 Tab 0 09/22/2011 03/13/2013 documented in this encounter Discharge Disposition Disposition Code Departure Means Destination Home or Self Care documented in this encounter Progress Notes * Vice President Regulatory, Vicenta - 09/25/20112107 EST * Mehnaz Johns RN - 09/09/2011 1118 EST Mei Tang has been instructed as follows regarding medication administration for the day of the scheduled procedure. Date of Surgery: 09-22-11 Instructions for Taking Medications Day of Surgery Medication Last Dose Hold DOS Take DOS metformin (GLUCOPHAGE) 1,000 mg tablet yes simvastatin (ZOCOR) 20 mg tablet Yes - documented in this encounter H&P Notes * Vice President Regulatory, Vicenta - 09/25/20112107 EST * Cory Ortiz MD - 09/22/2011 0735 EST The preoperative history and physical which was performed within 30 days of this procedure has been reviewed and the clinically appropriate elements of the physical examination have been repeated. There are no changes to the documented history and physical or if so such changes are documented below CORY ORTIZ MD 09/22/2011 7:35 documented in this encounter Procedure Notes * Vice President Regulatory, Scan - 09/25/2011 2108 ESTAssociated Order(s): ECG REPORT - SCANNED documented in this encounter OR Notes * Anesthesia Preprocedure Evaluation - Vice President Regulatory, Scan - 09/28/2011 0955 EST * OR PreOp - Vice President Regulatory, Scan - 09/25/2011 2107 EST * OR Surgeon - Cory Ortiz MD - 09/22/2011 4706 EST OPERATIVE REPORT SERVICE DATE: 09/22/2011 PREOPERATIVE DIAGNOSIS: Left foot foreign body with draining sinus plantar aspect in patient with history of diabetes. POSTOPERATIVE DIAGNOSIS: Left foot foreign body with draining sinus plantar aspect in patient with history of diabetes. PROCEDURE: Debridement and removal of foreign body debris, removal of sinus tract and ellipsed skinand secondary complex closure plantar wound. SURGEON: Cory Ortiz MD COMPLICATIONS: None. COUNTS: Correct. DRAINS: None. INDICATIONS: Ongoing draining tract from the plantar surface of the base of the 2nd toe at the metatarsus in a diabetic patient, after a likely foreign body impaling 6 months ago with failure of response to conservative care antibiotic course and mechanical shoe measures. ANESTHESIA: General LMA. IV ANTIBIOTICS: 2 g of Kefzol were given prophylactically. Time-out performed for patient, site and procedure at the appropriate time. NARRATIVE: The patient was brought to the operating room after being carefully identified in the holding area and LMA anesthesia was obtained. The left foot was prepped and draped in the usual sterile fashion for this procedure. A time- out performed for patient, site and procedure. After adequate circulation time for prophylactic antibiotics, the foot and ankle were gently exsanguinated by elevation and an Esmarch wrap was placed about the ankle for approximately 20 minutes. She had a draining sinus at the metatarsus just below the base of the 2nd toe. This area about 0.5 cm was ellipsed and tried to follow the sinus tract down to the subcu tissue. There was no deep sinus below this, but some scarified tissue. Dissecting through this tissue I found small blacks flecks less than 1 mm by 1 mm, multiple karan in the tissues. This was debrided with a soft tissue rongeur. Because of the patient's diabetes and failure to respond thus far, it was sent for culture, even though there was no gross purulence or pus present, other than the superficial aspect of the sinus tract. Deep tissue downto the fascia was explored. There was again no pockets of fluctuance or purulence. Fatty tissue wasdebrided. Thorough and multiple irrigation cycles were performed and then complex closure was done using nylon removable sutures in a mattress configuration in order to close the space and reapproximate the ellipsed tissue to try to get a nice scar on the plantar surface of the foot. A sterile compression dressing was placed. Tourniquet was released. All digits pinked up well x5 with good capillary refill on the left foot. The patient was awoken from anesthesia and taken to recovery room in stable condition. ESTIMATED BLOOD LOSS: Minimal. Unless otherwise noted, there were no complications, no blood loss, no cultures obtained, no specimens removed, and no drains retained. Cory Ortiz MD 12 29 PM / Cory Ortiz MD css Confirmation: [id number] Dictation ID: [id number] * Anesthesia Procedure Notes - Vice President Regulatory, Scan - 09/22/2011 1108 EST * OR PreOp - Vice President Regulatory, Scan - 09/22/2011 1058 EST documented in this encounter Miscellaneous Notes * Scanned Note-Null - Vice President Regulatory, Scan - 09/25/2011 2108 EST * Anesthesia Post-Eval - Ramon Yang - 09/22/2011 1239 EST Post Anesthesia Evaluation Note Date of Service: 09/22/2011 Mei Tang, a 41 y.o. year old female has received General Anesthesia today. She has been evaluated, assessed and discharged from anesthesia care with stable cardiorespiratory function and alert mental status. The last set of recorded vital signs and pain rating were reviewed: Temp: 35.6 ??C (96.1 ??F) (09/22/11 1102), Heart Rate: 67 BPM (09/22/11 1215), BP: 111/55 mmHg (09/22/11 1215), Resp: 15 (09/22/11 1215), SpO2: 100 % (09/22/11 1215),Numeric Pain Level (Scale 1-10): 0 Mei Tang participated in this evaluation unless otherwise noted. Her pain, nausea and vomiting have been managed and her body temperature and fluid balance have been restored. Additional monitoring and assessment needs have been addressed. If present, any postoperative events are documented below. RAMON YANG 09/22/2011 12:40 * Brief Op Note - Cory Ortiz MD - 09/22/2011 1016 EST Brief Post-Op Note Date of Surgery: 09/22/2011 Surgeon: Jonelle Corbett Pre-Op Diagnosis: foreign body foot and sinus tract, Post-Op Diagnosis: same Procedure(s):excidion and closure of plantar wound Anesthesia Type: LMA Estimated Blood Loss: Minimal Unless otherwise noted Specimens/Cultures: None } Disposition and Condition: Mei Tang was sent to PACU in Good condition. CORY ORTIZ MD 09/22/2011 10:16 documented in this encounter Plan of Treatment Pending Results Name Type Priority Associated Diagnoses Date /Time GLUCOSE, GLUCOMETER Lab Routine 09/22 8:36 EST Scheduled Orders Name Type Priority Associated Diagnoses Orde r Schedule GLUCOSE, GLUCOMETER Lab Routine For m edications that can be administered at any time during the hospitalization for visit such as immunizations. for 1 Occurrences starting 09/22/2011 documented as of this encounter Procedures Procedure Name Priority Date/Time Associated Diagnosis Comments ECG REPORT - SCANNED 09/25/2011 21:08 EST ANAEROBE CULTURE/SMEAR(INC. AEROBES), TISSUE Routine 09/22/2011 10:25 EST GLUCOSE, GLUCOMETER Routine 09/22/2011 8 :36 EST documented in this encounter Results * ECG REPORT - SCANNED (09/25/2011 21:08 EST) 09/25/2011 21:0 8 EST Narrative Transcriptions Vice President Regulatory, Scan - 09/25/2011 21:08 EST Scan Vice President Regulatory PROCEDURE/MINOR SURG ICAL ORDERABLES * ANAEROBE CULTURE/SMEAR(INC. AEROBES), TISSUE (09/22/2011 10:25 EST) Specimen Description Tissue Foot [facility] Gram Smear Result No polys seen [facility] Gram Smear Result Few Gram positive cocci [facility] Result Few ACINETOBACTER CALCOACETICUS BAUMANNII COMPLEX [facility] Result Few STAPHYLOCOCCUS COAGULASE NEGATIVE, NOT LUGDUNENSIS [facility] Result Few STAPHYLOCOCCUS COAGULASE NEGATIVE, NOT LUGDUNENSIS Second strain [facility] Report Status 09/27/2011 Final [facility] ORGANISM ACINETOBACTER CALCOACETICUS BAUMANNII COMPLEX [facility] ORGANISM STAPHYLOCOCCUS COAGULASE NEGATIVE, NOT LUGDUNENSIS [facility] ORGANISM STAPHYLOCOCCUS COAGULASE NEGATIVE, NOT LUGDUNENSIS [facility] ORGANISM STAPHYLOCOCCUS COAGULASE NEGATIVE, NOT LUGDUNENSIS Second strain [facility] Tissue specimen (specimen) 09/22/2011 10:25 EST 09/22/2011 10:58 EST Narrative Organism Antibiotic Method Susceptibility Acinetobacter calcoaceticus baumannii complex Gentamicin SUSCEPTIBILITY (SEAN) <=1: Susceptible Acinetobacter calcoaceticus baumannii complex Tobramycin SUSCEPTIBILITY (SEAN) <=1: Susceptible Acinetobacter calcoaceticus baumannii complex Ceftriaxone SUSCEPTIBILITY (SEAN) 16: Intermediate Acinetobacter calcoaceticus baumannii complex Trimethoprim-Sulfamet hoxazole SUSCEPTIBILITY (SEAN) <=20: Susceptible Acinetobacter calcoaceticus baumannii complex Ciprofloxacin SUSCEPTIBILITY (SEAN) <=0.25: Susceptible Acinetobacter calcoaceticus baumannii complex Ceftazidime SUSCEPTIBILITY (SEAN) 4: Susceptible Acinetobacter calcoaceticus baumannii complex Ampicillin Sulbactam SUSCEPTIBILITY (SEAN) <=2: Susceptible Acinetobacter calcoaceticus baumannii complex Cefepime SUSCEPTIBILITY (SEAN) 4: Susceptible Comment:Few ACINETOBACTER CA LCOACETICUS BAUMANNII COMPLEX Staphylococcus coagulase negative, not lugdunensis Vancomycin SEAN IN-HOUSE METHOD 1: Susceptible Staphylococcus coagulase negative, not lugdunensis Oxacillin SEAN IN-HOUSE METHOD <=0.25: Susceptible Staphylococcus coagulase negative, not lugdunensis Erythromycin SEAN IN-HOUSE METHOD <=0.25: Susceptible Staphylococcus coagulase negative, not lugdunensis Clindamycin SEAN IN-HOUSE METHOD <=0.5: Susceptible Staphylococcus coagulase negative, not lugdunensis Trimethoprim-Sulfamet hoxazole SEAN IN-HOUSE METHOD <=0.5: Susceptible Comment:Few STAPHYLOCOCCUS C OAGULASE NEGATIVE, NOT LUGDUNENSIS Staphylococcus coagulase negative, not lugdunensis second strain Vancomycin SUSCEPTIBILITY (SEAN) 1: Susceptible Staphylococcus coagulase negative, not lugdunensis second strain Oxacillin SUSCEPTIBILITY (SEAN) >=4: Resistant Staphylococcus coagulase negative, not lugdunensis second strain Cefazolin SUSCEPTIBILITY (SEAN) Resistant Staphylococcus coagulase negative, not lugdunensis second strain Erythromycin SUSCEPTIBILITY (SEAN) <=0.25: Susceptible Staphylococcus coagulase negative, not lugdunensis second strain Clindamycin SUSCEPTIBILITY (SEAN) <=0.25: Susceptible Staphylococcus coagulase negative, not lugdunensis second strain Trimethoprim-Sulfamet hoxazole SUSCEPTIBILITY (SEAN) <=10: Susceptible Comment:Few STAPHYLOCOCCUS C OAGULASE NEGATIVE, NOT LUGDUNENSIS Second strain Cory Ortiz MD MICROBIOLOGY - GE NERAL ORDERABLES Performing Organization Address [facility] Co de Phone Number [facility] [address] [place] [address] * (ABNORMAL) GLUCOSE, GLUCOMETER (09/22/2011 8:36 EST) [facility] Signature Glucose, Fingerstick 126(H) 70 - 100 mg/dl [facility] Hand Mounter ID [id number] [facility] Comment:Test Performed by [facility] 09/22/2011 8:36 EST 09/22/2011 8:37 EST Cory Ortiz MD CHEMISTRY & BLOOD GAS ORDERABLES Performing Organization Address [facility] de Phone Number [facility] [address] [place] [address] documented in this encounter Visit Diagnoses Not on filedocumented in this encounter Administered Medications Inactive Administered Medications - up to 3 most recent administrations Medication Order MAR Action Action Date Dose Rate Site ceFAZolin (ANCEF) syringe 2 g 2 g, intravenous, Administer over 10 Minutes, PRE-OP ONCE, 1 dose, On Wed09/22/11 at 1045, Routine Given by Other 09/22/2011 10:20 EST 2 g lactated ringers (LR) infusion at 25 mL/hr, intravenous, CONTINUOUS, Starting on Wed09/22/11 at 0845, Until Wed09/22/11 at 1453, Routine, Pre-Op DOS Rx Approved New Bag 09/22/2011 8:38 EST 25 mL/hr documented in this encounter Historical Medications * This list may reflect changes made after this encounter. Medication Sig Dispensed Refills Start Date End Date simvastatin (ZOCOR) 20 mg tablet Take 20 mg by mouth daily. metformin (GLUCOPHAGE) 1,000 mg tablet Take 1,000 mg by mouth 2 times daily with breakfast and dinner 11/23/2019 added in this encounter Active and Recently Administered Medications Times are shown in EST. Scheduled Medication Order 09/20/2011 09/21/2011 09/22/2011 ceFAZolin (ANCEF) syringe 2 g (COMPLETED) 2 g, intravenous, Administer over 10 Minutes, PRE-OP ONCE, 1 dose, On 09/22/11 at 1045, Routine 1020 (Given by Other - Provider: Chloe Sinha RN - Comment: Lorrie Serrano CRNA) Continuous Medication Order 09/20/2011 09/21/2011 09/22/2011 lactated ringers (LR) infusion (CANCELED) at 25 mL/hr, intravenous, CONTINUOUS, Starting on Wed09/22/11 at 0845, Until Tu09/22/11 at 1453, Routine, Pre-Op DOS Rx Approved 0838 (New Bag - Prov ider: Elham Corley) documented in this encounter Orders Medications Ordered That Earl ht Not Have Been Administered Count Last Ordered Date First Ordered Date atropine 0.1 mg/mL 10 mL syringe 0.5 mg 1 0 09/22/2011 diphenhydrAMINE (BENADRYL) i njection 6.25 mg 1 09/22/2011 fentanyl citrate (PF) 50 mcg /mL injection 25-100 mcg 1 09/22/2011 lactated ringers (LR) infusion 1 09/22/2011 naloxone (NARCAN) injection 0.2 mg 1 2011 ondansetron (PF) (ZOFRAN) injection 2 mg 1 09/22/2011 oxycodone-acetaminophen (PER COCET) 5-325 mg per tablet 1-2 Tab 1 09/22/2011 ceFAZolin (ANCEF) syringe 2 g 1 09/18/2011 Lab Orders Without Results Count Last Ordered D ate First Ordered Date POCT GLUCOSE 1 09/22/2011 Nursing Count Last Ordered Date First Orde red Date INSERT PERIPHERAL IV 1 09/22/2011 Admission Count Last Ordered Date First Orde red Date NOTIFY PPS PACU PATIENT DISCHARGE 1 012 Discharge Count Last Ordered Date First Orde red Date DISCHARGE PATIENT 1 09/22/2011 documented in this encounter Care Teams Organ Tuner Electronic Relationship Specialty Start Date End Date Amisha Beth MD [address] [facility], [address] [place] [address] PCP - General 08/21/11 04/22/16 documented as of this encounter
--- OUTSIDE RECORDS SUMMARY | 2024-05-26 18:18 | XMS_ITS | Encounter Summary ---
Author Organization [facility] Address [address] [place] [address] Care Team Providers Care Fire Tender Name Role Phone Unavailable Primary Care Provider Unavailabl e Encounter Details Date Type Department Care Team (Latest Contact Info) Description 05/19/2007 10:12 EDT - 05/19/2007 11:59 EDT Hospital Encounter [facility] - Other [address] [place] [address] Sita Yanez MD [address] [place] [address] Discharge Disposition: Home or Self Care Social History Tobacco Use Types Packs/Day Years Used Date Smoking Tobacco: Never Assessed Sex and Gender Information Value Date Recorded Sex Assigned at Not on file Gender Identity Female 11/22/2019 12:18 EST Sexual Orientation Not on file documented as of this encounter Discharge Disposition Disposition Code Departure Means Destination Home or Self Care documented in this encounter Plan of Treatment Not on file documented as of this encounter Visit Diagnoses Not on filedocumented in this encounter
--- OUTSIDE RECORDS SUMMARY | 2024-05-26 18:18 | XMS_ITS | Encounter Summary ---
Author Organization [facility] Address [address] [place] [address] Care Team Providers Care Packing Machine Operator Name Role Phone Amisha Beth MD Primary Care Provider +1- [phone] Encounter Details Date Type Department Care Team (Late st Contact Info) Description 12/03/2015 Results Only [facility] [phone] Marita Modi, STITCH BONDING MACHINE OPERATOR CN [address] [facility], [facility] [address] [place] [address] Social History Tobacco Use Types Packs/Day Years [...] Procedure Name Priority Date/Time Associated Diagnosis Comments CHLAMYDIA/N. GONORRHOEAE AMPLIFIED NUCLEIC ACID Routine 12/03/2015 10:20 EDT documented in this encounter Results * CHLAMYDIA/GC AMPLIFIED (12/03/2015 10:20 EDT) Chlamydia Result No Chlamydia trachomatis DNA detected by automation and controls manager mediated amplification. 12/04/2015 13:47 EDT [facility] GC Result No Neisseria gonorrhoeae DNA detected by automation and controls manager mediated amplification. 12/04/2015 13:47 EDT [facility] SPECIMEN FROM UTERINE CERVIX / Unknown 12/03/2015 10:20 EDT 12/03/2015 20:29 EDT Marita Modi STITCH BONDING MACHINE OPERATOR [facility] MICROBIOLOGY - GENE RAL ORDERABLES [facility] [address] [place] [address] documented in this encounter Visit Diagnoses Not on filedocumented in this encounter Care Teams Packing Machine Operator Relationship Specialty Start Date End Date Amisha Beth MD [address] [facility], [address] [place] [address] PCP - General 08/21/11 04/22/16 documented as of this encounter
--- OUTSIDE RECORDS SUMMARY | 2024-05-26 18:18 | XMS_ITS | Encounter Summary ---
Author Organization [facility] Address [address] [place] [address] Care Team Providers Care Escalator Mechanic Name Role Phone Amisha Beth MD Primary Care Provider +1- [phone] Encounter Details Date Type Department Care Team (Late st Contact Info) Description 03/10/2013 Results Only Imaging [facility] [phone] Amisha Beth MD [address], [address] [place], [place] [address] Social History Tobacco Use Types Packs/Day Years [...] Name Priority Date/Time Associated Diagnosis Comments MA MAMMO SCREENING DIGITAL 03/24/2013 14:48 EDT documented in this encounter Results * MA MAMMO SCREENING DIGITAL (03/24/2013 14:48 EDT) Anatomical Region Laterality Modality Other 03/24/2013 14:4 8 EDT 03/28/2013 8:50 EDT Narrative 03/28/2013 8:50 EDT This is the patient's baseline exam. Bilateral Breast Findings: (Routine digital views with CAD) The breasts are heterogeneously dense (51% - 75% fibroglandular). This may lower the sensitivity of mammography. No significant masses, calcifications or other abnormalities are seen. IMPRESSION: BILATERAL BREASTS: Negative, no evidence of malignancy. Normal interval follow-up is recommended in 12 months. OVERALL ASSESSMENT - CATEGORY 1 - NEGATIVE END OF IMPRESSION These results will be communicated to your patient via a lay letter from Radiology. If any additional imaging is needed we will contact your patient directly. Procedure Note 03/28/2013 This is the patient's baseline exam. Bilateral Breast Findings: (Routine digital views with CAD) The breasts are heterogeneously dense (51% - 75% fibroglandular). This may lower the sensitivity of mammography. No significant masses, calcifications or other abnormalities are seen. IMPRESSION: BILATERAL BREASTS: Negative, no evidence of malignancy. Normal interval follow-up is recommended in 12 months. OVERALL ASSESSMENT - CATEGORY 1 - NEGATIVE END OF IMPRESSION These results will be communicated to your patient via a lay letter from Radiology. If any additional imaging is needed we will contact your patient directly. Amisha Beth MD IMG MAMMOGRAPHY OR DERABLES documented in this encounter Visit Diagnoses Not on filedocumented in this encounter Care Teams Escalator Mechanic Relationship Specialty Start Date End Date Amisha Beth MD [address], [address] [place] [address] PCP - General 08/21/11 04/22/16 documented as of this encounter
--- OUTSIDE RECORDS SUMMARY | 2024-05-26 18:18 | XMS_ITS | Encounter Summary ---
Author Organization [facility] Address [address] [place] [address] Care Team Providers Care Computed Tomography Technologist Name Role Phone Unavailable Primary Care Provider Unavailabl e Encounter Details Date Type Department Care Team (Latest Contact Info) Description 05/28/2008 18:29 EDT Hospital Encounter [facility] - Other [address] [place] [address] Sita Yanez MD [address] [place] [address] Discharge Disposition: Home or Self Care Social [...] Procedure Name Priority Date/Time Associated Diagnosis Comments TSH Routine 07/25/2008 8:05 EST documented in this encounter Results * TSH (07/25/2008 8:05 EST) TSH 1.89 0.35 - 5.00 uIU/ml [facility] 07/25/2008 8:05 EST 07/25/2008 19:32 EST Sita Yanez MD CHEMISTRY & BLOOD GAS ORDERABLES Performing Organization Address City/State/[facility] Co de Phone Number [facility] [address] [place] [address] documented in this encounter Visit Diagnoses Not on filedocumented in this encounter
--- OUTSIDE RECORDS SUMMARY | 2024-05-26 18:18 | XMS_ITS | Encounter Summary ---
Author Organization [facility] Address [address] [place] [address] Care Team Providers Care Strapping Machine Tender Name Role Phone Unavailable Primary Care Provider Unavailabl e Encounter Details Date Type Department Care Team (Late st Contact Info) Description 05/22/2008 13:50 EDT Hospital Encounter [facility] - [place] conversion [address] [place] [address] Mery Menendez Social History Tobacco Use Types [...] Name Priority Date/Time Associated Diagnosis Comments URINE [id number] NE RATIO (ACR) Routine 05/28/2008 10:30 EDT documented in this encounter Results * MICROALBUMIN (05/28/2008 10:30 EDT) Creatinine, Urn [place] 50.7 mg/dl [facility] Ur Albumin mg/dl 0.2 <1.9 mg/dl [facility] Ur Alb ug/mg Crea 3.9 ug/mg Crea [facility] Comment: Normal: ??<30 ug/mg Creat Microalbuminuria: ??30-300 ug/mg Creat Clinical albuminuria: ??>300 ug/mg Creat 05/28/2008 10:3 0 EDT 05/28/2008 20:16 EDT Sita Yanez MD CHEMISTRY & BLOOD GAS ORDERABLES [facility] [address] [place] [address] documented in this encounter Visit Diagnoses Not on filedocumented in this encounter
--- OUTSIDE RECORDS SUMMARY | 2024-05-26 18:18 | XMS_ITS | Encounter Summary ---
Author Organization [facility] Address [address] [place] [address] Care Team Providers Care Lead Rider Name Role Phone Amisha Beth MD Primary Care Provider +1- [phone] Encounter Details Date Type Department Care Team (Late st Contact Info) Description 08/21/2011 Phlebotomy Only [facility] [address] [place] [address] Patient Relations Manager, Outpatient Social History Tobacco Use Types [...] on filedocumented in this encounter Care Teams Lead Rider Relationship Specialty Start Date End Date Amisha Beth MD [address] [place] [address], [address] [place], [place] [address] PCP - General 08/21/11 04/22/16 documented as of this encounter
--- OUTSIDE RECORDS SUMMARY | 2024-05-26 18:18 | XMS_ITS | Encounter Summary ---
Author Organization [facility] Address [address] [place] [address] Care Team Providers Care Workers' Compensation Claims Examiner Name Role Phone Unavailable Primary Care Provider Unavailabl e Encounter Details Date Type Department Care Team (Latest Contact Info) Description 04/15/2007 10:21 EDT - 04/15/2007 11:59 EDT Hospital Encounter [facility] - Map conversion [address] [place] [address] Mery Menendez Discharge Disposition: Auto Discharge Social History Tobacco Use Types Packs/Day Years Used Date Smoking Tobacco: Never Assessed Sex and Gender Information Value Date Recorded Sex Assigned at Not on file Gender Identity Female 11/22/2019 12:18 EST Sexual Orientation Not on file documented as of this encounter Discharge Disposition Disposition Code Departure Means Destination Auto Discharge documented in this encounter Plan of Treatment Not on file documented as of this encounter Visit Diagnoses Not on filedocumented in this encounter
--- OUTSIDE RECORDS SUMMARY | 2024-05-26 18:18 | XMS_ITS | Encounter Summary ---
Author Organization [facility] Address [address] [place] [address] Care Team Providers Care Operator And Truck Driver Name Role Phone Amisha Beth MD Primary Care Provider +1- [phone] Encounter Details Date Type Department Care Team (Late st Contact Info) Description 04/29/2015 Results Only [facility]- PRISM [phone] Luis Snider FNP [address] [place] [address] Social History Tobacco Use Types Packs/Day Years [...] Associated Diagnosis Comments COMPLETE BLOOD COUNT Routine 04/29/2015 10:28 EDT HEPATIC FUNCTION PANEL (ALB,ALK PHOS,ALT,AST,DBIL,T OT CHRISTINA,TOT PROT) Routine 04/29/2015 10:28 EDT LIPID PROFILE (INCLUDES CHOLESTEROL, TRIGLYCERIDES, HDL, LDL) Routine 04/29/2015 10:28 EDT BASIC METABOLIC PANEL (BMP) Routine 04/29/2015 10:28 EDT URINE [id number] NE RATIO (ACR) Routine 04/29/2015 10:26 EDT documented in this encounter Results * LIPID PROFILE (INCLUDES CHOLESTEROL, TRIGLYCERIDES, HDL, LDL) (04/29/2015 10:28 EDT) Cholesterol 148 mg/dl 04/29/2015 16:36 T [facility] Comment: Desirable:<200 Borderline High:200-239 High:>xj=516 Triglycerides 104 mg/dl 04/29/2015 16:36 [facility] Comment: Normal:<150 Borderline High:150-199 High:200-499 Very High:>rg=852 HDL 44 mg/dl 04/29/2015 16:36 [facility] Comment: Low:<40 Normal:40-60 Desirable: >60 LDL, Calculated 83 mg/dl 5 16:36 [facility] Comment: Optimal:<100 Near Optimal:100-129 Borderline High:130-159 High:160-189 Very High:>an=426 Chol/HDL Ratio 3.4 04/29/2015 16:36 [facility] Fasting? YES 04/29/2015 15:05 [facility] Non HDL Cholesterol 104 mg/dl 04/29/2015 16:36 [facility] Comment: Desirable:<130 Borderline:130-159 High: 160-189 Very High: >ic=183 BLOOD SPECIMEN / Unknown 04/29/2015 10:28 EDT 04/29/2015 15:04 EDT Luis GARCIA CHEMISTRY & BLOOD GAS ORDERABLES [facility] [address] [place] [address] * HEPATIC FUNCTION PANEL (ALB,ALK PHOS,ALT,AST,DBIL,TOT CHRISTINA,TOT PROT) (04/29/2015 10:28 EDT) Albumin 4.1 3.4 - 4.9 g/dl 04/29/2015 16:36 [facility] Total Protein 7.0 6.5 - 8.3 g/dl 04/29/2015 16:36 [facility] Total Alkaline Phosphatase 72 38 - 126 U/L 04/29/2015 16:36 [facility] ALT 29 <53 U/L 04/29/2015 16:36 [facility] AST 20 15 - 46 U/L 04/29/2015 16:36 [facility] Unconjugated Bilirubin 0.1 0.0 - 1.1 mg/dl 04/29/2015 16:36 [facility] Conjugated Bilirubin 0.0 0.0 - 0.3 mg/dl 04/29/2015 16:36 [facility] Bilirubin, Total 0.5 <1.4 mg/dl 04/29/20 15 16:36 [facility] BLOOD SPECIMEN / Unknown 04/29/2015 10:28 EDT 04/29/2015 15:04 EDT Luis GARCIA CHEMISTRY & BLOOD GAS ORDERABLES Performing Organization Address City/State/[facility] Co de Phone Number [facility] [address] [place] [address] * HEMAGRAM (04/29/2015 10:28 EDT) WBC 6.96 4.0 - 12.4 K/cmm 04/29/2015 15:40 [facility] RBC 4.44 3.86 - 5.04 M/cmm 04/29/2015 15:40 [facility] Hemoglobin 13.8 11.6 - 15.2 gm/dl 04/29/2015 15:40 [facility] HCT 40.8 34.9 - 44.4 % 04/29/2015 15:40 [facility] MCV 92 81 - 98 fl 04/29/2015 15:40 [facility] MCH 31.2 26.7 - 33.3 pg 04/29/2015 15:40 [facility] MCHC 33.9 32.1 - 35.9 gm/dl 04/29/2015 15:40 [facility] RDW-CV 12.1 11.7 - 14.6 % 04/29/2015 15:40 [facility] RDW-SD 38.9 37.6 - 50.3 fl 04/29/2015 15:40 [facility] PLT 317 141 - 320 K/cmm 04/29/2015 15:40 [facility] MPV 8.7 7.5 - 11.2 fl 04/29/2015 15:40 [facility] BLOOD SPECIMEN / Unknown 04/29/2015 10:28 EDT 04/29/2015 15:04 EDT Luis GARCIA HEMATOLOGY & PF4 ORDERABLES Performing Organization Address City/State/[facility] Co de Phone Number [facility] [address] [place] [address] * (ABNORMAL) BASIC METABOLIC PANEL (04/29/2015 10:28 EDT) Sodium 142 136 - 145 mEq/L 04/29/2015 16:36 [facility] Potassium 4.4 3.5 - 5.0 mEq/L 04/29/2015 16:36 [facility] Chloride 104 96 - 110 mEq/L 04/29/2015 16:36 [facility] CO2 26 24 - 32 mEq/L 04/29/2015 16:36 [facility] BUN 7(L) 10 - 26 mg/dl 04/29/2015 16:36 [facility] Creatinine 0.66 0.52 - 1.04 mg/dl 04/29/2015 16:36 [facility] GFR, Calculated 109 >60 ml/min/1.7 3m2 04/29/2015 16:36 [facility] Comment: eGFR calculated using CKD-EPI equation for non Americans. Multiply eGFR by 1.16 for Americans. Calcium 9.7 8.5 - 10.5 mg/dl 04/29/2015 16:36 EDT [facility] Calculated Calcium 10.0 8.5 - 10.5 mg/dl 04/29/2015 16:36 EDT [facility] Glucose, Serum 102(H) 70 - 100 mg/dl 04/29/2015 16:36 EDT [facility] Fasting? YES 04/29/2015 10:30 EDT [facility] BLOOD SPECIMEN / Unknown 04/29/2015 10:28 EDT 04/29/2015 15:04 EDT Luis Snider [facility] CHEMISTRY & BLOOD GAS ORDERABLES Performing Organization Address City/[facility] Co de Phone Number [facility] [address] [place] [address] * ALBUMIN, URINE (04/29/2015 10:26 EDT) Creatinine, Urn [place] 61.3 mg/dl 04/30/2015 9:15 EDT [facility] Ur Albumin mg/dl <0.2 mg/dl 04/30/2015 13:57 EDT [facility] Ur Alb ug/mg Crea Unable to calculate ug/mg Crea result. ug/mg Crea 04/30/2015 13:57 EDT [facility] Comment: Normal: <30 ug/mg creat High albuminuria: 30-300 ug/mg creat Very high albuminuria: >300 ug/mg creat URINE / Unknown 04/29/2015 1 0:26 EDT 04/29/2015 15:04 EDT Luis Snider [facility] CHEMISTRY & BLOOD GAS ORDERABLES Performing Organization Address City/[facility]/ZIP Co de Phone Number [facility] [address] [place] [address] documented in this encounter Visit Diagnoses Not on filedocumented in this encounter Care Teams Operator And Truck Driver Relationship Specialty Start Date End Date Amisha Beth MD [address] [place] [address], [address] [place] [address] PCP - General 08/21/11 04/22/16 documented as of this encounter
--- OUTSIDE RECORDS SUMMARY | 2024-05-26 18:18 | XMS_ITS | Encounter Summary ---
Author Organization [facility] Address [address] [place] [address] Care Team Providers Care Help Desk Associate Name Role Phone Unavailable Primary Care Provider Unavailabl e Encounter Details Date Type Department Care Team (Latest Contact Info) Description 01/21/2009 22:07 EDT - 01/21/2009 22:08 EDT Hospital Encounter [facility] - Other [address] [place] [address] Sita Salamanca MD [address] [place] [phone] Discharge Disposition: Home or Self Care Social [...] Name Priority Date/Time Associated Diagnosis Comments URINE [id number] RATIO (ACR) Routine 05/29/2009 12:00 EDT HPV DETECTION, HIGH RISK TYPES Routine 05/29/2009 7:41 EDT CYTOPATHOLOGY Routine 05/29/2009 0:00 EDT documented in this encounter Results * (ABNORMAL) MICROALBUMIN (05/29/2009 12:00 EDT) Creatinine, Urn [place] 275.7 mg/dl [facility] Ur Albumin mg/dl 2.7(H) <1.9 mg/dl [facility] Ur Alb ug/mg Crea 9.8 ug/mg Crea [facility] Comment: Normal: ??<30 ug/mg Creat Microalbuminuria: ??30-300 ug/mg Creat Clinical albuminuria: ??>300 ug/mg Creat 05/29/2009 12:0 0 EDT 05/29/2009 20:16 EDT Sita Salamanca MD CHEMISTRY & BLOOD GAS ORDERABLES Performing Organization Address [facility] Co de Phone Number [facility] [address] [place] [address] * HUMAN PAPILLOMA VIRUS DNA TEST (05/29/2009 7:41 EDT) Pathologist [facility] Specimen Description Cervix, ThinPrep vial [facility] Result Negative for HPV types 16, 18, 31, 33, 35, 39, 45, 51, 52, 56, 58, 59, and 68. [facility] Report Status Final 06/12/2009 [facility] 05/29/2009 7:41 EDT 06/06/2009 7:41 EDT Sita Salamanca MD MICROBIOLOGY - GEN ERAL ORDERABLES Performing Organization Address [facility] Co de Phone Number [facility] [address] [place] [address] * CYTOPATHOLOGY (05/29/2009 0:00 EDT) Pathologist [facility] Pathology Report: CYTOPATHOLOGY REPORT ? Reports generated via electronic interface contain original data; ? however they are lacking the format of the original report. ? Caution should be taken when reading/interpreti ng unformatted reports. ? Name: ? MAURICIO BRITO ? Accession #: ? [id number] ? : ? 1970 (Age: 38) ??F ?Collect Date: ? 05/29/2009 ? Location: ? [facility] ? Receive Date: ? 05/30/2009 ? Provider: ?SITA SALAMANCA MD ? Copy to: ? Specimen/Source: ?Pap Test, Cervix/Endocervix, ThinPrep Imaging System ? with manual evaluation ? Last Menstrual Period: ? 09/07/09 ? Other: ? HPVDX - HPV testing requested regardless of diagnosis on current ThinPrep Pap ?? test. ? SPECIMEN ADEQUACY ? Satisfactory for Evaluation ? - transformation zone component present ? - scant squamous epithelial component secondary to excessive blood ? GENERAL CATEGORIZATION ? Negative for Intraepithelial Lesion or Malignancy ? Document reviewed and electronically signed by: ? Renetta Lois, CT(ASCP) ? Report Date: ??06/05/2009 09:54 ? End of Report ? [facility] 05/29/2009 05/30/2009 Sita Salamanca MD PATHOLOGY ORDERABL ES [facility] [address] [place] [address] documented in this encounter Visit Diagnoses Not on filedocumented in this encounter
--- OUTSIDE RECORDS SUMMARY | 2024-05-26 18:18 | XMS_ITS | Encounter Summary ---
Author Organization [facility] Address [address] [place] [address] Care Team Providers Care Ceramic Coater Machine Name Role Phone Amisha Beth MD Primary Care Provider +1- [phone] Encounter Details Date Type Department Care Team (Late st Contact Info) Description 08/21/2014 Results Only [facility] - [facility] [address] [place], [place] [id number] Amisha Beth MD [address], [address] [place], [place] [id number] Social History Tobacco Use Types Packs/Day Years [...] Name Priority Date/Time Associated Diagnosis Comments URINE [id number] NE RATIO (ACR) Routine 08/21/2014 10:28 EST documented in this encounter Results * ALBUMIN, URINE (08/21/2014 10:28 EST) Creatinine, Urn [place] 102.4 mg/dl 08/22/2014 9:50 EST [facility] Ur Albumin mg/dl 0.5 mg/dl 08/22/2014 13:31 EST [facility] Ur Alb ug/mg Crea 4.9 ug/mg Crea 08/22/2014 13:31 EST [facility] Comment: Normal: <30 ug/mg creat High albuminuria: 30-300 ug/mg creat Very high albuminuria: >300 ug/mg creat URINE / Unknown 08/21/2014 1 0:28 EST 08/21/2014 16:15 EST Amisha Beth MD CHEMISTRY & BLOOD GAS ORDERABLES [facility] [address] [place] [address] documented in this encounter Visit Diagnoses Not on filedocumented in this encounter Care Teams Ceramic Coater Machine Relationship Specialty Start Date End Date Amisha Beth MD [address], [address] [place] [address] PCP - General 08/21/11 04/22/16 documented as of this encounter
--- OUTSIDE RECORDS SUMMARY | 2024-05-26 18:18 | XMS_ITS | Encounter Summary ---
Author Organization [facility] Address [address] [place] [address] Care Team Providers Care Cyber Intel Planner Name Role Phone Amisha Beth MD Primary Care Provider +1- [phone] Encounter Details Date Type Department Care Team (Latest Contact Info) Description 01/29/2015 7:10 EDT - 01/29/2015 23:59 EDT Hospital Encounter [facility] [address] [place] [address] Criselda Kovacs MD [address] [facility] [address] [place] [address] Discharge Disposition: Home or Self Care Social [...] DIABETES UNCOMPL ADULT-TYPE II[ICD-9-CM] 401.9 HYPERTENSION NOS[ICD-9-CM] 272.4 HYPERLIPIDEMIA NEC/NOS[ICD-9-CM] documented in this encounter [...] Code Departure Means Destination Home or Self Mcfp documented in this encounter Plan of Treatment Not on file documented as of this encounter Procedures Procedure Name Priority Date/Time Associated Diagnosis Comments COMPLETE BLOOD COUNT Routine 01/29/2015 7:18 EDT ALT Routine 01/29/2015 7:18 EDT AST Routine 01/29/2015 7:18 EDT HEMOGLOBIN A1C Routine 01/29/2015 7:18 EDT LIPID PROFILE (INCLUDES CHOLESTEROL, TRIGLYCERIDES, HDL, LDL) Routine 01/29/2015 7:18 EDT BASIC METABOLIC PANEL (BMP) Routine 01/29/2015 7:18 EDT documented in this encounter Results * LIPID PROFILE (INCLUDES CHOLESTEROL, TRIGLYCERIDES, HDL, LDL) (01/29/2015 7:18 EDT) Cholesterol 168 mg/dl 01/29/2015 9:05 [facility] Comment: Desirable:<200 Borderline High:200-239 High:>yt=528 Triglycerides 91 mg/dl 01/29/2015 9:05 [facility] Comment: Normal:<150 Borderline High:150-199 High:200-499 Very High:>tu=151 HDL 49 mg/dl 01/29/2015 9:05 [facility] Comment: Low:<40 Normal:40-60 Desirable: >60 LDL, Calculated 101 mg/dl 5 9:05 [facility] Comment: Optimal:<100 Near Optimal:100-129 Borderline High:130-159 High:160-189 Very High:>yj=367 Chol/HDL Ratio 3.4 01/29/2015 9:05 EDT [facility] Fasting? YES 01/29/2015 7:16 EDT [facility] Non HDL Cholesterol 119 mg/dl 01/29/2015 9:05 EDT [facility] Comment: Desirable:<130 Borderline:130-159 High: 160-189 Very High: >iu=077 BLOOD SPECIMEN / Unknown 01/29/2015 7:18 EDT 01/29/2015 8:32 EDT Criselda Kovacs MD CHEMISTRY & BLOOD GA S ORDERABLES Performing Organization Address [facility] Co de Phone Number [facility] [address] [place] [address] * HEMOGLOBIN A1C (01/29/2015 7:18 EDT) Hemoglobin A1C 8.1 % 01/29/2015 11:06 EDT [facility] Comment: Reference Range: <5.7% Normal 5.7-6.4% Increased risk for diabetes =>6.5% Diagnostic for diabetes (if confirmed) The A1c goal for non adults in general is <7%. The A1c goal for selected patients may be significantly lower than 7% if this can be achieved without significant hypoglycemia or other adverse effects of treatment. Est Avg Glucose 186 mg/dl 5 11:06 EDT [facility] Comment: eAG represents the A1c result expressed as average glucose in mg/dl. BLOOD SPECIMEN / Unknown 01/29/2015 7:18 EDT 01/29/2015 8:32 EDT Criselda Kovacs MD CHEMISTRY & BLOOD GA S ORDERABLES Performing Organization Address [facility] Co de Phone Number [facility] [address] [place] [address] * HEMAGRAM (01/29/2015 7:18 EDT) WBC 6.36 4.0 - 12.4 K/cmm 01/29/2015 8:50 EDT [facility] RBC 4.52 3.86 - 5.04 M/cmm 01/29/2015 8:50 T [facility] Hemoglobin 14.3 11.6 - 15.2 gm/dl 01/29/2015 8:50 [facility] HCT 40.8 34.9 - 44.4 % 01/29/2015 8:50 [facility] MCV 90 81 - 98 fl 01/29/2015 8:50 [facility] MCH 31.6 26.7 - 33.3 pg 01/29/2015 8:50 [facility] MCHC 35.0 32.1 - 35.9 gm/dl 01/29/2015 8:50 [facility] RDW-CV 12.1 11.7 - 14.6 % 01/29/2015 8:50 [facility] RDW-SD 38.1 37.6 - 50.3 fl 01/29/2015 8:50 [facility] PLT 320 141 - 320 K/cmm 01/29/2015 8:50 [facility] MPV 8.5 7.5 - 11.2 fl 01/29/2015 8:50 [facility] BLOOD SPECIMEN / Unknown 01/29/2015 7:18 EDT 01/29/2015 8:32 EDT Criselda Kovacs MD HEMATOLOGY & PF4 ORD ERABLES [facility] [address] [place] [address] * (ABNORMAL) BASIC METABOLIC PANEL (01/29/2015 7:18 EDT) Sodium 139 136 - 145 mEq/L 01/29/2015 9:05 [facility] Potassium 4.4 3.5 - 5.0 mEq/L 01/29/2015 9:05 [facility] Chloride 102 96 - 110 mEq/L 01/29/2015 9:05 [facility] CO2 25 24 - 32 mEq/L 01/29/2015 9:05 [facility] BUN 11 10 - 26 mg/dl 01/29/2015 9:05 [facility] Creatinine 0.56 0.52 - 1.04 mg/dl 01/29/2015 9:05 [facility] GFR, Calculated >60 >60 ml/min/1.7 3m2 01/29/2015 9:05 [facility] Calcium 9.5 8.5 - 10.5 mg/dl 01/29/2015 9:05 [facility] Calculated Calcium 9.5 8.5 - 10.5 mg/dl 01/29/2015 9:05 [facility] Glucose, Serum 169(H) 70 - 100 mg/dl 01/29/2015 9:05 [facility] Fasting? YES 01/29/2015 7:16 [facility] BLOOD SPECIMEN / Unknown 01/29/2015 7:18 EDT 01/29/2015 8:32 EDT Criselda Kovacs MD CHEMISTRY & BLOOD GA S ORDERABLES Performing Organization Address City/[facility]/ZIP Co de Phone Number [facility] [address] [place] [address] * AST (01/29/2015 7:18 EDT) AST 44 15 - 46 U/L 01/29/2015 9:05 T [facility] BLOOD SPECIMEN / Unknown 01/29/2015 7:18 EDT 01/29/2015 8:32 EDT Criselda Kovacs MD CHEMISTRY & BLOOD GA S ORDERABLES [facility] [address] [place] [address] * (ABNORMAL) ALT (01/29/2015 7:18 EDT) ALT 63(H) <53 U/L 01/29/2015 9:05 EDT [facility] BLOOD SPECIMEN / Unknown 01/29/2015 7:18 EDT 01/29/2015 8:32 EDT Criselda Kovacs MD CHEMISTRY & BLOOD GA S ORDERABLES [facility] [address] [place] [address] documented in this encounter Visit Diagnoses Not on filedocumented in this encounter Care Teams Cyber Intel Planner Relationship Specialty Start Date End Date Amisha Beth MD [address] [place] [address], [address] [place] [address] PCP - General 08/21/11 04/22/16 documented as of this encounter
--- OUTSIDE RECORDS SUMMARY | 2024-05-26 18:18 | XMS_ITS | Encounter Summary ---
Author Organization [facility] Address [address] [place] [address] Care Team Providers Care Band Bias Machine Operator Name Role Phone Unavailable Primary Care Provider Unavailabl e Encounter Details Date Type Department Care Team (Latest Contact Info) Description 07/25/2008 18:33 EST Hospital Encounter [facility] - Other [address] [place] [address] Sita Yanez MD [address] [place] [phone] Discharge Disposition: Home or Self Care [...] Name Priority Date/Time Associated Diagnosis Comments URINE [id number] NE RATIO (ACR) Routine 01/21/2009 8:25 EDT documented in this encounter Results * MICROALBUMIN (01/21/2009 8:25 EDT) Creatinine, Urn [place] 20.9 mg/dl [facility] Ur Albumin mg/dl <0.2 <1.9 mg/dl [facility] Ur Alb ug/mg Crea Unable to calculate ug/mg Crea result. Normal: ??<30 ug/mg Creat Microalbuminu naye: ??30-300 ug/mg Creat Clinical albuminuria: ??>300 ug/mg Creat ug/mg Crea [facility] 01/21/2009 8:25 EDT 01/21/2009 13:45 EDT Sita Yanez MD CHEMISTRY & BLOOD GAS ORDERABLES [facility] [address] [place] [address] documented in this encounter Visit Diagnoses Not on filedocumented in this encounter
--- OUTSIDE RECORDS SUMMARY | 2024-05-26 18:18 | XMS_ITS | Encounter Summary ---
Author Organization [facility] Address [address] [place] [address] Care Team Providers Care Analyst Microbiology Lab Name Role Phone Amisha Beth MD Primary Care Provider +1- [phone] Encounter Details Date Type Department Care Team (Late st Contact Info) Description 08/31/2012 12:48 EST - 08/31/2012 12:49 [facility] Hospital Encounter [facility] - [address] [address] Amisha Beth MD [address] [facility], [address] [place], [place] [address] Discharge Disposition: Home or Self Care Social History Tobacco Use Types Packs/Day Years Used Date Smoking Tobacco: Never Assessed Sex and Gender Information Value Date Recorded Sex Assigned at Not on file Gender Identity Female 11/22/2019 12:18 EST Sexual Orientation Not on file documented as of this encounter Medications at [...] on filedocumented in this encounter Care Teams Analyst Microbiology Lab Relationship Specialty Start Date End Date Amisha Beth MD [address] [facility], [address] [place] [address] PCP - General 08/21/11 04/22/16 documented as of this encounter
--- OUTSIDE RECORDS SUMMARY | 2024-05-26 18:18 | XMS_ITS | Encounter Summary ---
Author Organization [facility] Address [address] [place] [address] Care Team Providers Care Technical Producer Name Role Phone Sita Yanez MD Primary Care Provider +1- [phone] Encounter Details Date Type Department Care Team (Latest Contact Info) Description 05/29/2009 14:03 EDT - 05/29/2009 14:04 EDT Hospital Encounter [facility] - Other [address] [place] [address] Sita Yanez MD [address] [place] [address] Discharge Disposition: Home-Health Care Svc Social History Tobacco Use Types Packs/Day Years Used Date Smoking Tobacco: Never Assessed Sex and Gender Information Value Date Recorded Sex Assigned at Not on file Gender Identity Female 11/22/2019 12:18 EST Sexual Orientation Not on file documented as of this encounter Discharge Disposition Disposition Code Departure Means Destination Home-Health Care Svc documented in this encounter Plan of Treatment Not on file documented as of this encounter Visit Diagnoses Not on filedocumented in this encounter Care Teams Technical Producer Relationship Specialty Start Date End Date Sita Yanez MD [address] [place] [phone] PCP - General 01/23/09 08/20/11 documented as of this encounter
--- OUTSIDE RECORDS SUMMARY | 2024-05-26 18:18 | XMS_ITS | Encounter Summary ---
Author Organization [facility] Address [address] [place] [address] Care Team Providers Care Arc Welder Name Role Phone Amisha Beth MD Primary Care Provider +1- [phone] Encounter Details Date Type Department Care Team (Late st Contact Info) Description 03/24/2013 14:29 EDT - 03/24/2013 23:59 EDT Hospital Encounter [facility] [address] [place] [address] Amisha Beth MD [address] [place] [address], [address] [place] [address] Discharge Disposition: Home or Self [...] Code Departure Means Destination Home or Self [place] documented in this encounter Plan of Treatment Not on file documented as of this encounter Visit Diagnoses Not on filedocumented in this encounter Care Teams Arc Welder Relationship Specialty Start Date End Date Amisha Beth MD [address] [facility], [address] [place] [address] PCP - General 08/21/11 04/22/16 documented as of this encounter
--- OUTSIDE RECORDS SUMMARY | 2024-05-26 18:18 | XMS_ITS | Encounter Summary ---
Author Organization [facility] Address [address] [place] [address] Care Team Providers Care Towel Distributor Name Role Phone Unavailable Primary Care Provider Unavailabl e Encounter Details Date Type Department Care Team (Latest Contact Info) Description 07/03/2007 10:15 EDT - 07/03/2007 11:59 EDT Hospital Encounter [facility] - Other [address] [place] [address] Sita Yanez MD [address] [place] [address] Discharge Disposition: Home or Self Care Social [...]
--- OUTSIDE RECORDS SUMMARY | 2024-05-26 18:18 | XMS_ITS | Encounter Summary ---
Author Organization [facility] Address [address] [place] [address] Care Team Providers Care Siphon Operator Name Role Phone Amisha Beth MD Primary Care Provider +1- [phone] Reason for Visit * Reason Comments Diabetes f/u Encounter Details Date Type Department Care Team (Late st Contact Info) Description 03/13/2013 8:30 EDT Nutrition [facility] Endocrinology - [address] [address] Mery Menendez Type II or unspecified type diabetes mellitus without mention of complication, not stated as uncontrolled (Primary Dx) Social History Tobacco Use Types [...] - Inhaled Oxygen Concentration - - Weight 97.7 kg (215 lb 6.4 oz) 03/13/2013 0823 E DT Height 172.7 cm (5' 8) 03/13/2013 0823 EDT Body Mass Index 32.75 03/13/2013 0823 EDT documented in this encounter Patient Instructions * Patient Instructions* Mery Menendez - 03/13/2013 9:23 EDT More vegetables! Resume calorie tracking. Exercise 2 times a week. documented in this encounter Progress Notes * Mery Menendez - 03/13/2013 1222 EDT [facility] DIABETES DIABETES NUTRITION FOLLOW UP VISIT NOTE Mei Tang [id number] 03/13/2013 PATIENT ID: Mei Tang is a 42 y.o. female referred for medical nutrition therapy by Dr. Beth for Diabetes - Type 2. SUBJECTIVE: Mei Tang was seen for a medical nutrition therapy visit on 03/13/2013 accompanied by: alone. She reports that after our last appt she started tracking her foods on [employer] and did very well for 1 month; she was watching food intake closely, eating more fruit and having Eng muffin withpb for breakfast almost every morning. She found that the calorie range of 6878-0384 kcal daily wasenough to satisfy hunger. Then she stopped. OBJECTIVE: Diabetes type: Type 2 Vitals: Ht 172.7 cm (68) Wt 97.705 kg (215 lb 6.4 oz) BMI 32.75 kg/m2 LMP 03/04/2013 BMI: Body mass index is 32.75 kg/(m^2). Wt down 5#. Current Outpatient Prescriptions Medication Sig Dispense Refill ??? ferrous sulfate (IRON) 325 mg (65 mg iron) tablet Take 325 mg by mouth. During menses only approx 1 wk monthly ??? ascorbic acid (VITAMIN C) 500 mg tablet Take 500 mg by mouth daily. ??? HYDROmorphone (DILAUDID) 2 mg tablet Take 1-2 Tabs by mouth every 3 hours as needed for Pain. 30 Tab 0 ??? metformin (GLUCOPHAGE) 1,000 mg tablet Take 1,000 mg by mouth daily. ??? simvastatin (ZOCOR) 20 mg tablet Take 20 mg by mouth daily. Lab Results Component Value Date HGBA1C 6.4 08/22/2012 Lab Results Component Value Date CHOL 153 08/22/2012 HDL 60 08/22/2012 LDLBASE 77 08/22/2012 TRIG 81 08/22/2012 CHOLHDL 2.6 08/22/2012 PREVIOUS NUTRITION EDUCATION: Type of meal planning: calorie counting Follows meal plan: intermittently PRESENT MEAL PATTERN: Current eating habits:eats 3 meals plus snacks. Comments: Meals are lacking in vegetables PHYSICAL ACTIVITY: Type of exercise: walking and biking Frequency per week: Goal is to go bike riding 2 days per week BLOOD GLUCOSE MONITORING: Glucose monitoring: not testing. A1c dropped from 6.4% in August to 5.6% in February Barriers to monitoring: None Hypoglycemic episode: none ASSESSMENT: Mei is an incredibly nice 42 yo female with type 2 diabetes in excellent glycemic control. She does well and has the best of intentions with her meal plan of calorie counting but often stops after a short period of time. We discussed a plan for her to track 6/7 days a week so that this may allow her to continue for the duration. She thinks this may work better knowing she can take at least one day off from tracking but not necessarily monitoring her food choices. Encouraged her to start herexercise on a more regular basis as this will augment her meal plan and help with weight loss. Excellent improvement in A1c. Learning readiness: Verbalizes interest and Active attentive participant Psychosocial, cultural, or economic barriers to care:none. Mei Sal Kitty verbalized understanding of meal planning guidelines reviewed at this visit. NUTRITION PLAN: Patient education on Carbohydrate Based Diabetes Meal Planning Type of meal planning: Calorie Counting 1500-1700kcal Food logs to reinforce meal plan and encourage portion control-resume tracking for weight loss Encouraged regular physical activity for weight management and blood glucose control-2 days per week minimum. Follow-up 5 months Thank you for your kind referral of Mei Sal Kitty for nutrition counseling. Time Spent With Patient: 45 minutes 250.00 DM W/O COMPLICATIONS TYPE II Mery Menendez RD 03/13/2013 12:22 documented in this encounter Plan of Treatment Not on file documented as of this encounter Visit Diagnoses Diagnosis Type II or unspecified type diabetes mellitus without mention of complication, not stated as uncontrolled- Primary documented in this encounter Discontinued Medications Medication Sig Discontinue Reason Start Date End Da te aspirin 325 mg tablet For ten days Therapy completed 09/22/2011 03/13/20 13 documented as of this encounter Care Teams Siphon Operator Relationship Specialty Start Date End Date Amisha Beth MD [address] [facility], [address] [place] [address] PCP - General 08/21/11 04/22/16 documented as of this encounter
--- OUTSIDE RECORDS SUMMARY | 2024-05-26 18:18 | XMS_ITS | Encounter Summary ---
Author Organization [facility] Address [address] [place] [address] Care Team Providers Care Compressor Station Chief Engineer Name Role Phone Sita Yanez MD Primary Care Provider +1- [phone] Encounter Details Date Type Department Care Team (Latest Contact Info) Description 09/08/2010 1:04 EST - 09/08/2010 23:59 EST Hospital Encounter [facility] - Other [address] [place] [address] Sita Yanez MD [address] [place] [address] Discharge Disposition: Home or Self [...] on filedocumented in this encounter Care Teams Compressor Station Chief Engineer Relationship Specialty Start Date End Date Sita Yanez MD [address] [place] [address] PCP - General 01/23/09 08/20/11 documented as of this encounter
--- OUTSIDE RECORDS SUMMARY | 2024-05-26 18:18 | XMS_ITS | Encounter Summary ---
Author Organization [facility] Address [address] [place] [address] Care Team Providers Care Trigonometry Tutor Name Role Phone Amisha Beth MD Primary Care Provider +1- [phone] Encounter Details Date Type Department Care Team (Late st Contact Info) Description 11/02/2012 7:11 EST - 11/02/2012 23:59 EST Hospital Encounter [facility] [address] [place] [address] Amisha Beth MD [address] [place] [address], [address] [place], [place] [address] Discharge Disposition: Home or Self Care Social [...] Code Departure Means Destination Home or Self Jail documented in this encounter Plan of Treatment Not on file documented as of this encounter Procedures Procedure Name Priority Date/Time Associated Diagnosis Comments HEPATITIS B SURFACE ANTIBODY Routine 11/02/2012 7:22 EST COMPLETE BLOOD COUNT Routine 11/02/2012 7:22 EST FERRITIN Routine 11/02/2012 7:22 EST documented in this encounter Results * FERRITIN (11/02/2012 7:22 EST) Ferritin 13 10 - 291 ng/mL [facility] 11/02/2012 7:22 EST 11/02/2012 8:02 EST Amisha Beth MD CHEMISTRY & BLOOD GAS ORDERABLES Performing Organization Address [facility] de Phone Number [facility] [address] [place] [address] * (ABNORMAL) HEMAGRAM (11/02/2012 7:22 EST) WBC 8.03 4.0 - 12.4 K/cmm [facility] RBC 4.57 3.86 - 5.04 M/cmm [facility] Hemoglobin 13.5 11.6 - 15.2 gm/dl [facility] HCT 40.3 34.9 - 44.4 % [facility] MCV 88 81 - 98 fl [facility] MCH 29.5 26.7 - 33.3 pg [facility] MCHC 33.5 32.1 - 35.9 gm/dl [facility] PLT 298 141 - 320 K/cmm [facility] RDW-CV 18.8(H) 11.7 - 14.6 % [facility] 11/02/2012 7:22 EST 11/02/2012 8:02 EST Amisha Beth MD HEMATOLOGY & PF4 O RDERABLES Performing Organization Address [facility] Co de Phone Number [facility] [address] [place] [address] * HEPATITIS B SURFACE ANTIBODY (11/02/2012 7:22 EST) Hepatitis B Surface Ab Negative [facility] Comment: Reference Range: Unvaccinated: ??Negative Vaccinated: ??Positive HBs Antibody, Quant <5.0 mIU/mL [facility] Comment: Patient is presumed to not be immune to infection with HBV. Reference Range: Positive: >=12.0 mIU/mL Indeterminate: >=5.0 to <12.0 mIU/mL Negative: <5.0 mIU/mL 11/02/2012 7:22 EST 11/02/2012 8:02 EST Amisha Beth MD CHEMISTRY & BLOOD GAS ORDERABLES Performing Organization Address City/State/[facility] Co de Phone Number [facility] [address] [place] [address] documented in this encounter Visit Diagnoses Not on filedocumented in this encounter Care Teams Trigonometry Tutor Relationship Specialty Start Date End Date Amisha Beth MD [address] [place] [address], [address] [place] [address] PCP - General 08/21/11 04/22/16 documented as of this encounter
--- OUTSIDE RECORDS SUMMARY | 2024-05-26 18:18 | XMS_ITS | Encounter Summary ---
Author Organization [facility] Address [address] [place] [address] Care Team Providers Care Gas Utility Worker Name Role Phone Unavailable Primary Care Provider Unavailabl e Encounter Details Date Type Department Care Team (Latest Contact Info) Description 12/16/2007 15:38 EDT Hospital Encounter [facility] - Other [address] [place] [address] David Toscano MD [address] [place] [phone] Discharge Disposition: Home or Self Care Social [...]
--- OUTSIDE RECORDS SUMMARY | 2024-05-26 18:18 | XMS_ITS | Encounter Summary ---
Author Organization [facility] Address [address] [place] [address] Care Team Providers Care Start Up Specialist Name Role Phone Amisha Beth MD Primary Care Provider +1- [phone] Encounter Details Date Type Department Care Team (Late st Contact Info) Description 03/01/2014 Phlebotomy Only [facility] [address] [place] [address] Senior Application Security Consultant, Outpatient Social History Tobacco Use Types [...] on filedocumented in this encounter Care Teams Start Up Specialist Relationship Specialty Start Date End Date Amisha Beth MD [address] [place] [address], [address] [place] [address] PCP - General 08/21/11 04/22/16 documented as of this encounter
--- OUTSIDE RECORDS SUMMARY | 2024-05-26 18:18 | XMS_ITS | Encounter Summary ---
Author Organization [facility] Address [address] [place] [address] Care Team Providers Care Lead Assistant Manager Name Role Phone Sita Yaenz MD Primary Care Provider +1- [phone] Encounter Details Date Type Department Care Team (Latest Contact Info) Description 06/02/2010 6:24 EDT - 06/02/2010 6:25 EDT Hospital Encounter [facility] - Other [address] [place] [address] Sita Yanez MD [address] [place] [phone] Discharge Disposition: Home or Self [...] filedocumented in this encounter Care Teams Lead Assistant Manager Relationship Specialty Start Date End Date Sita Yanez MD [address] [place] [address] PCP - General 01/23/09 08/20/11 documented as of this encounter
--- OUTSIDE RECORDS SUMMARY | 2024-05-26 18:18 | XMS_ITS | Encounter Summary ---
Author Organization [facility] Address [address] [place] [address] Care Team Providers Care Petal Cutter Name Role Phone Amisha Beth MD Primary Care Provider +1- [phone] Encounter Details Date Type Department Care Team (Late st Contact Info) Description 08/22/2012 7:25 EST - 08/22/2012 23:59 EST Hospital Encounter [facility] [address] [place] [address] Amisha Beth MD [address] [place] [address], [address] [place], [place] [address] Discharge Disposition: Home or Self Care Social [...] Code Departure Means Destination Home or Self Fci documented in this encounter Plan of Treatment Not on file documented as of this encounter Procedures Procedure Name Priority Date/Time Associated Diagnosis Comments TESTS ADDED BY PHONE Routine 08/22/2012 7:48 EST TESTS ADDED BY PHONE Routine 08/22/2012 7:48 EST IBC Routine 08/22/2012 7:48 EST URINE [id number] E RATIO (ACR) Routine 08/22/2012 7:48 EST COMPLETE BLOOD COUNT Routine 08/22/2012 7:48 EST HGB Routine 08/22/2012 7:48 EST ALT Routine 08/22/2012 7:48 EST AST Routine 08/22/2012 7:48 EST IRON Routine 08/22/2012 7:48 EST HEMOGLOBIN A1C Routine 08/22/2012 7:48 EST FOLATE Routine 08/22/2012 7:48 EST FERRITIN Routine 08/22/2012 7:48 EST VITAMIN B12 Routine 08/22/2012 7:48 EST CK Routine 08/22/2012 7:48 EST LIPID PROFILE (INCLUDES CHOLESTEROL, TRIGLYCERIDES, HDL, LDL) Routine 08/22/2012 7:48 EST BASIC METABOLIC PANEL (BMP) Routine 08/22/2012 7:48 EST documented in this encounter Results * (ABNORMAL) IRON (08/22/2012 7:48 EST) Iron <12(L) 60 - 180 ug/dl [facility] 08/22/2012 7:48 EST 08/22/2012 8:27 EST Amisha Beth MD CHEMISTRY & BLOOD GAS ORDERABLES Performing Organization Address [facility] Co de Phone Number [facility] [address] [place] [address] * IBC (08/22/2012 7:48 EST) Pathologist [facility] TIBC 422 265 - 497 ug/dl [facility] 08/22/2012 7:48 EST 08/22/2012 8:27 EST Amisha Beth MD CHEMISTRY & BLOOD GAS ORDERABLES Performing Organization Address [facility] de Phone Number [facility] [address] [place] [address] * FOLATE (08/22/2012 7:48 EST) Pathologist [facility] Folate 11.1 ng/mL [facility] Comment: Deficient: ??Less than 3.4 ng/mL Indeterminate: ??3.4-5.4 ng/mL Normal: ??Greater than 5.4 ng/mL 08/22/2012 7:48 EST 08/22/2012 8:27 EST Amisha Beth MD CHEMISTRY & BLOOD GAS ORDERABLES Performing Organization Address [facility] de Phone Number [facility] [address] [place] [address] * (ABNORMAL) FERRITIN (08/22/2012 7:48 EST) Pathologist [facility] Ferritin 4(L) 10 - 291 ng/mL [facility] 08/22/2012 7:48 EST 08/22/2012 8:27 EST Amisha Beth MD CHEMISTRY & BLOOD GAS ORDERABLES Performing Organization Address [facility] Co de Phone Number [facility] [address] [place] [address] * VITAMIN B12 (08/22/2012 7:48 EST) Pathologist [facility] Vitamin B-12 256 211 - 911 pg/ml [facility] 08/22/2012 7:48 EST 08/22/2012 8:27 EST Amisha Beth MD CHEMISTRY & BLOOD GAS ORDERABLES Performing Organization Address [facility] de Phone Number [facility] [address] [place] [address] * TESTS ADDED BY PHONE (08/22/2012 7:48 EST) Pathologist [facility] Tests to be added B12,FOL,ILLIANE ,IRON,IBC [facility] Diagnosis Code ANEMIA RAFI [facility] Who Called DR [facility]EE [facility] Location Code DABF [facility] Read Back/Confirmed ? Y [facility] 08/22/2012 7:48 EST 08/22/2012 8:27 EST Amisha Beth MD CHEMISTRY & BLOOD GAS ORDERABLES Performing Organization Address [facility] de Phone Number [facility] [address] [place] [address] * (ABNORMAL) HEMAGRAM (08/22/2012 7:48 EST) [facility] WBC 5.08 4.0 - 12.4 K/cmm [facility] RBC 4.06 3.86 - 5.04 M/cmm [facility] Hemoglobin 10.8(L) 11.6 - 15.2 gm/dl [facility] HCT 33.1(L) 34.9 - 44.4 % [facility] MCV 82 81 - 98 fl [facility] MCH 26.6(L) 26.7 - 33.3 pg [facility] MCHC 32.7 32.1 - 35.9 gm/dl [facility] PLT 324(H) 141 - 320 K/cmm [facility] RDW-CV 15.6(H) 11.7 - 14.6 % [facility] 08/22/2012 7:48 EST 08/22/2012 8:27 EST Amisha Beth MD HEMATOLOGY & PF4 O RDERABLES Performing Organization Address [facility] Co de Phone Number [facility] [address] [place] [address] * TESTS ADDED BY PHONE (08/22/2012 7:48 EST) Tests to be added cbc [facility] Diagnosis Code SAME [facility] Who Called DR [facility]ISHA [facility] Location Code DABF [facility] Read Back/Confirme d? YES [facility] 08/22/2012 7:48 EST 08/22/2012 8:27 EST Amisha Beth MD HEMATOLOGY & PF4 O RDERABLES Performing Organization Address [facility] Co de Phone Number [facility] [address] [place] [address] * LIPID PROFILE (INCLUDES CHOLESTEROL, TRIGLYCERIDES, HDL, LDL) (08/22/2012 7:48 EST) Cholesterol 153 mg/dl [facility] Comment: Desirable:<200 Borderline High:200-239 High:>yg=306 Triglycerides 81 mg/dl [facility] Comment: Normal:<150 Borderline High:150-199 High:200-499 Very High:>we=434 HDL 60 mg/dl [facility] Comment: Low:<40 Normal:40-60 Desirable: >60 LDL, Calculated 77 mg/dl [facility] Comment: Optimal:<100 Near Optimal:100-129 Borderline High:130-159 High:160-189 Very High:>fc=159 Chol/HDL Ratio 2.6 [facility] Fasting? Yes [facility] 08/22/2012 7:48 EST 08/22/2012 8:27 EST Amisha Beth MD CHEMISTRY & BLOOD GAS ORDERABLES Performing Organization Address [facility] Co de Phone Number [facility] [address] [place] [address] * (ABNORMAL) HGB (08/22/2012 7:48 EST) Pathologist [facility] Hemoglobin 10.8(L) 11.6 - 15.2 gm/dl [facility] 08/22/2012 7:48 EST 08/22/2012 8:27 EST Amisha Beth MD HEMATOLOGY & PF4 O RDERABLES Performing Organization Address [facility] de Phone Number [facility] [address] [place] [address] * HEMOGLOBIN A1C (08/22/2012 7:48 EST) Pathologist [facility] Hemoglobin A1C 6.4 % [facility] Comment: Reference Range: <5.7% Normal 5.7-6.4% Increased risk for diabetes =>6.5% Diagnostic for diabetes (if confirmed) The A1c goal for non adults in general is <7%. The A1c goal for selected patients may be significantly lower than 7% if this can be achieved without significant hypoglycemia or other adverse effects of treatment. Est Avg Glucose 137 mg/dl [facility] Comment: eAG represents the A1c result expressed as average glucose in mg/dl. 08/22/2012 7:48 EST 08/22/2012 8:27 EST Amisha Beth MD CHEMISTRY & BLOOD GAS ORDERABLES Performing Organization Address [facility] de Phone Number [facility] [address] [place] [address] * CK (08/22/2012 7:48 EST) Pathologist [facility] CK 64 30 - 135 U/L [facility] 08/22/2012 7:48 EST 08/22/2012 8:27 EST Amisha Beth MD CHEMISTRY & BLOOD GAS ORDERABLES Performing Organization Address [facility] Co de Phone Number [facility] [address] [place] [address] * (ABNORMAL) BASIC METABOLIC PANEL (08/22/2012 7:48 EST) Pathologist [facility] Sodium 136 136 - 145 mEq/L [facility] Potassium 4.7 3.5 - 5.0 mEq/L [facility] Chloride 104 96 - 110 mEq/L [facility] CO2 25 24 - 32 mEq/L [facility] BUN 6(L) 10 - 26 mg/dl [facility] Creatinine 0.63 0.52 - 1.04 mg/dl [facility] GFR, Calculated >60 >60 ml/min/1.7 3m2 [facility] Calcium 8.6 8.5 - 10.5 mg/dl [facility] Calculated Calcium 9.1 8.5 - 10.5 mg/dl [facility] Glucose, Serum 102(H) 70 - 100 mg/dl [facility] Fasting? Yes [facility] 08/22/2012 7:48 EST 08/22/2012 8:27 EST Amisha Beth MD CHEMISTRY & BLOOD GAS ORDERABLES Performing Organization Address [facility] de Phone Number [facility] [address] [place] [address] * AST (08/22/2012 7:48 EST) AST 19 15 - 46 U/L [facility] 08/22/2012 7:48 EST 08/22/2012 8:27 EST Amisha Beth MD CHEMISTRY & BLOOD GAS ORDERABLES Performing Organization Address [facility] de Phone Number [facility] [address] [place] [address] * ALT (08/22/2012 7:48 EST) ALT 30 9 - 52 U/L [facility] 08/22/2012 7:48 EST 08/22/2012 8:27 EST Amisha Beth MD CHEMISTRY & BLOOD GAS ORDERABLES Performing Organization Address [facility] Co de Phone Number [facility] [address] [place] [address] * ALBUMIN, URINE (08/22/2012 7:48 EST) Creatinine, Urn [place] 23.5 mg/dl [facility] Ur Albumin mg/dl <0.2 mg/dl [facility] Ur Alb ug/mg Crea Unable to calculate ug/mg Crea result. ug/mg Crea [facility] Comment: Normal: <30 ug/mg creat High: 30-300 ug/mg creat Very high and nephrotic: >300 ug/mg creat 08/22/2012 7:48 EST 08/22/2012 8:25 EST Amisha Beth MD CHEMISTRY & BLOOD GAS ORDERABLES [facility] [address] [place] [address] documented in this encounter Visit Diagnoses Not on filedocumented in this encounter Care Teams Petal Cutter Relationship Specialty Start Date End Date Amisha Beth MD [address] [place] [address], [address] [place] [address] PCP - General 08/21/11 04/22/16 documented as of this encounter
--- OUTSIDE RECORDS SUMMARY | 2024-05-26 18:18 | XMS_ITS | Encounter Summary ---
Author Organization [facility] Address [address] [place] [address] Care Team Providers Care Tile Edger Name Role Phone Unavailable Primary Care Provider Unavailabl e Encounter Details Date Type Department Care Team (Latest Contact Info) Description 11/09/2007 11:17 EST - 11/09/2007 11:59 EST Hospital Encounter [facility] conversion [address] [place] [address] Mery Menendez Discharge Disposition: Auto Discharge Social [...]
--- OUTSIDE RECORDS SUMMARY | 2024-05-26 18:18 | XMS_ITS | Encounter Summary ---
Author Organization [facility] Address [address] [place] [address] Care Team Providers Care Utilization Engineer Name Role Phone Amisha Beth MD Primary Care Provider +1- [phone] Encounter Details Date Type Department Care Team (Late st Contact Info) Description 08/21/2013 Phlebotomy Only [facility] [address] [place] [address] [employer]umber [employer] Tinner, Outpatient Social History Tobacco Use Types Packs/Day [...] on filedocumented in this encounter Care Teams Utilization Engineer Relationship Specialty Start Date End Date Amisha Beth MD [address] [place] [address], [address] [place] [address] PCP - General 08/21/11 04/22/16 documented as of this encounter
--- OUTSIDE RECORDS SUMMARY | 2024-05-26 18:18 | XMS_ITS | Encounter Summary ---
Author Organization [facility] Address [address] [place] [address] Care Team Providers Care Paper Cutting Machine Operator Name Role Phone Sita Yanez MD Primary Care Provider +1- [phone] Encounter Details Date Type Department Care Team (Late st Contact Info) Description 12/16/2007 Results Only [facility] [address] [place] [address] David Toscano MD [address] [place] [id number] Social History Tobacco Use Types Packs/Day Years Used Date Smoking Tobacco: Never Assessed Sex and Gender Information Value Date Recorded Sex Assigned at Not on file Gender Identity Female 11/22/2019 12:18 EST Sexual Orientation Not on file documented as of this encounter Plan of Treatment Not on file documented as of this encounter Procedures Procedure Name Priority Date/Time Associated Diagnosis Comments GROUP A STREP CULTURE Routine 12/16/2007 17:15 EDT documented in this encounter Results * PHARYNGITIS CULTURE (12/16/2007 17:15 EDT) Specimen Description Throat [facility] Result NO GROUP A BETA STREPTOCOCCI ISOLATED [facility] Report Status Final [id number] [facility] 12/16/2007 17:1 5 EDT 12/16/2007 19:29 EDT David Toscano MD MICROBIOLOGY - GEN ERAL ORDERABLES [facility] [address] [place] [address] documented in this encounter Visit Diagnoses Not on filedocumented in this encounter Care Teams Paper Cutting Machine Operator Relationship Specialty Start Date End Date Sita Yanez MD [address] [place] [phone] PCP - General 01/23/09 08/20/11 documented as of this encounter
--- OUTSIDE RECORDS SUMMARY | 2024-05-26 18:18 | XMS_ITS | Encounter Summary ---
Author Organization [facility] Address [address] [place] [address] Care Team Providers Care Map Editor Name Role Phone Amisha Beth MD Primary Care Provider +1- [phone] Reason for Visit * Reason Comments Diabetes Encounter Details Date Type Department Care Team (Late st Contact Info) Description 12/06/2012 13:00 EDT Nutrition [facility] Endocrinology - [address] [address] Mery Menendez Social History Tobacco Use Types [...] - Inhaled Oxygen Concentration - - Weight 100 kg (220 lb 6.4 oz) 12/06/2012 1252 ED T Height 172.7 cm (5' 8) 12/06/2012 1252 EDT Body Mass Index 33.51 12/06/2012 1252 EDT documented in this encounter Patient Instructions * Patient Instructions* Mery Menendez - 12/06/2012 13:43 EDT 1). Calorie Counting Meal Plan 2983-0993 calories (150-160 grams of carbohydrate) Mini Breakfast #1 250 calories Mini Breakfast #2 250 calories Lunch 400 calories Snack 150 calories, 15-20 grams Dinner 500 calories Snack 100 calories, 15-20 grams 2). Make sure you have breakfast 3). Vegetables: 2 servings minimum daily 4). Track calories 5). Track exercise documented in this encounter Progress Notes * Mery Menendez - 12/25/2012 2143 EDT [facility] ENDOCRINOLOGY & DIABETES DIABETES NUTRITION INITIAL VISIT NOTE Mei Tang [id number] 12/06/12 PATIENT ID: Mei Tang is a 42 y.o. female referred for medical nutrition therapy by Dr. Beth for Diabetes - Type 2. SUBJECTIVE: Mei Tang was seen for an initial medical nutrition therapy visit on 12/06/12 accompanied by: alone Mei returns after many years away from the clinic and a lot has changed in her life since that time. She is and is in a relationship of 2 years. She is taking on-line classes and she continues to work and raise her daughter. OBJECTIVE: Diabetes type: Type 2 Vitals: Ht 172.7 cm (68) Wt 99.973 kg (220 lb 6.4 oz) BMI 33.51 kg/m2 LMP 12/06/2012 BMI: Body mass index is 33.51 kg/(m^2). Wt hx: 2007: highest weight 242#; 2009: lowest weight 199# Current Outpatient Prescriptions Medication Sig Dispense Refill ??? ferrous sulfate (IRON) 325 mg (65 mg iron) tablet Take 325 mg by mouth daily. ??? ascorbic acid (VITAMIN C) 500 mg tablet Take 500 mg by mouth daily. ??? aspirin 325 mg tablet For ten days 10 Tab 0 ??? HYDROmorphone (DILAUDID) 2 mg tablet Take [...] PREVIOUS NUTRITION EDUCATION: Type of meal planning: Consistent Carbohydrate and calorie counting years ago PRESENT MEAL PATTERN: Current eating habits:skips breakfast. Breakfast:9am break rice cakes, Sami muffin Lunch:leftovers, chicken tenders from grocery store Dinner:chicken, vegetable sometimes Snacks:Grahamfuls Beverages:water, dt soda, iced tea PHYSICAL ACTIVITY: Type of exercise: 15 min walk at 9am at work Frequency per week: workdays BLOOD GLUCOSE MONITORING: Glucose monitoring: not testing. ASSESSMENT: Mei is a very pleasant 42 yo female with type 2 diabetes in very good glycemic control with an A1c of 6.4%. She is working on weight loss and would benefit from following a calorie controlled andconsistent carbohydrate meal plan with more structure than she is doing currently. She will need tofind a way to incorporate more physical activity into her days and she will try to make it something she can do with her daughter to engage her as well. Learning readiness: Verbalizes interest and Active attentive participant Psychosocial, cultural, or economic barriers to care:none. Mei Tang verbalized understanding of meal planning guidelines reviewed at this visit. NUTRITION PLAN: Patient education on Carbohydrate Based Diabetes Meal Planning Type of meal planning: Consistent Carbohydrate and calorie counts 1). Calorie Counting Meal Plan 2768-3759 calories (150-160 grams of carbohydrate) Mini Breakfast #1 250 calories Mini Breakfast #2 250 calories Lunch 400 calories Snack 150 calories, 15-20 grams Dinner 500 calories Snack 100 calories, 15-20 grams 2). Make sure you have breakfast 3). Vegetables: 2 servings minimum daily 4). Track calories 5). Track exercise Food logs to reinforce meal plan and encourage portion control -[employer] Encouraged regular physical activity for weight management and blood glucose control-start by doingsomething fun with daughter on weekends. Follow-up 3 months Thank you for your kind referral of Mei Tang for nutrition counseling. Time Spent With Patient: 1 hour 250.00 DM W/O COMPLICATIONS TYPE II Mery Menendez RD 12/25/2012 21:43 documented in this encounter Plan of Treatment Not on file documented as of this encounter Visit Diagnoses Not on filedocumented in this encounter Historical Medications * This list may reflect changes made after this encounter. Medication Sig Dispensed Refills Start Date End Date ascorbic acid (VITAMIN C) 500 mg tablet Take 500 mg by mouth daily. ferrous sulfate (IRON) 325 mg (65 mg iron) tablet Take 325 mg by mouth. During menses only approx 1 wk monthly added in this encounter Care Teams Map Editor Relationship Specialty Start Date End Date Amisha Beth MD [address] [facility], [address] [place] [address] PCP - General 08/21/11 04/22/16 documented as of this encounter
--- OUTSIDE RECORDS SUMMARY | 2024-05-26 18:18 | XMS_ITS | Encounter Summary ---
Author Organization [facility] Address [address] [place] [address] Care Team Providers Care Welder Gas Name Role Phone Amisha Beth MD Primary Care Provider +1- [phone] Encounter Details Date Type Department Care Team (Late st Contact Info) Description 08/21/2013 7:03 EST - 08/21/2013 23:59 [facility] Hospital Encounter [facility] [address] [place] [address] Amisha Beth MD [address] [place] [address], [address] [place], [place] [id number] Discharge Disposition: Home or Self Care Social [...] Diagnoses Diagnosis 250.00 DIABETES UNCOMPL ADULT-TYPE II[ICD-9-CM] 272.4 HYPERLIPIDEMIA NEC/NOS[ICD-9-CM] 280.0 CHR BLOOD LOSS ANEMIA[ICD-9-CM] documented in this encounter Medications at Time [...] Name Priority Date/Time Associated Diagnosis Comments URINE WILQYHG-OF-YAEWYIUZD E RATIO (ACR) Routine 08/21/2013 7:11 EST COMPLETE BLOOD COUNT Routine 08/21/2013 7:11 EST ALT Routine 08/21/2013 7:11 EST AST Routine 08/21/2013 7:11 EST HEMOGLOBIN A1C Routine 08/21/2013 7:11 EST FERRITIN Routine 08/21/2013 7:11 EST CK Routine 08/21/2013 7:11 EST LIPID PROFILE (INCLUDES CHOLESTEROL, TRIGLYCERIDES, HDL, LDL) Routine 08/21/2013 7:11 EST BASIC METABOLIC PANEL (BMP) Routine 08/21/2013 7:11 EST documented in this encounter Results * ALBUMIN, URINE (08/21/2013 7:11 EST) Creatinine, Urn Theodore 221.1 mg/dl [facility] Ur Albumin mg/dl 1.8 mg/dl [facility] Ur Alb ug/mg Crea 8.1 ug/mg Crea [facility] Comment: Normal: <30 ug/mg creat High: 30-300 ug/mg creat Very high and nephrotic: >300 ug/mg creat 08/21/2013 7:11 EST 08/21/2013 8:35 EST Amisha Beth MD CHEMISTRY & BLOOD GAS ORDERABLES Performing Organization Address [facility] de Phone Number [facility] [address] [place] [address] * LIPID PROFILE (INCLUDES CHOLESTEROL, TRIGLYCERIDES, HDL, LDL) (08/21/2013 7:11 EST) Cholesterol 188 mg/dl [facility] Comment: Desirable:<200 Borderline High:200-239 High:>za=130 Triglycerides 135 mg/dl [facility] Comment: Normal:<150 Borderline High:150-199 High:200-499 Very High:>vt=070 HDL 49 mg/dl [facility] Comment: Low:<40 Normal:40-60 Desirable: >60 LDL, Calculated 112 mg/dl [facility] Comment: Optimal:<100 Near Optimal:100-129 Borderline High:130-159 High:160-189 Very High:>nv=336 Chol/HDL Ratio 3.8 [facility] Fasting? YES [facility] Non HDL Cholesterol 139 mg/dl [facility] Comment: Desirable:<130 Borderline:130-159 High: 160-189 Very High: >fn=320 08/21/2013 7:11 EST 08/21/2013 7:47 EST Amisha Beth MD CHEMISTRY & BLOOD GAS ORDERABLES Performing Organization Address [facility] de Phone Number [facility] [address] [place] [address] * HEMOGLOBIN A1C (08/21/2013 7:11 EST) Hemoglobin A1C 6.7 % [facility] Comment: Reference Range: <5.7% Normal 5.7-6.4% Increased risk for diabetes =>6.5% Diagnostic for diabetes (if confirmed) The A1c goal for non adults in general is <7%. The A1c goal for selected patients may be significantly lower than 7% if this can be achieved without significant hypoglycemia or other adverse effects of treatment. Est Avg Glucose 146 mg/dl [facility] Comment: eAG represents the A1c result expressed as average glucose in mg/dl. 08/21/2013 7:11 EST 08/21/2013 7:47 EST Amisha Beth MD CHEMISTRY & BLOOD GAS ORDERABLES Performing Organization Address [facility] Co de Phone Number [facility] [address] [place] [address] * (ABNORMAL) FERRITIN (08/21/2013 7:11 EST) Pathologist [facility] Ferritin 8(L) 10 - 291 ng/mL [facility] 08/21/2013 7:11 EST 08/21/2013 7:47 EST Amisha Beth MD CHEMISTRY & BLOOD GAS ORDERABLES Performing Organization Address [facility] Co de Phone Number [facility] [address] [place] [address] * CK (08/21/2013 7:11 EST) Pathologist [facility] CK 48 30 - 135 U/L [facility] 08/21/2013 7:11 EST 08/21/2013 7:47 EST Amisha Beth MD CHEMISTRY & BLOOD GAS ORDERABLES Performing Organization Address [facility] de Phone Number [facility] [address] [place] [address] * HEMAGRAM (08/21/2013 7:11 EST) Pathologist [facility] WBC 5.98 4.0 - 12.4 K/cmm [facility] RBC 4.47 3.86 - 5.04 M/cmm [facility] Hemoglobin 13.5 11.6 - 15.2 gm/dl [facility] HCT 39.6 34.9 - 44.4 % [facility] MCV 89 81 - 98 fl [facility] MCH 30.2 26.7 - 33.3 pg [facility] MCHC 34.1 32.1 - 35.9 gm/dl [facility] PLT 264 141 - 320 K/cmm [facility] RDW-CV 12.7 11.7 - 14.6 % [facility] 08/21/2013 7:11 EST 08/21/2013 7:47 EST Amisha Beth MD HEMATOLOGY & PF4 O RDERABLES Performing Organization Address [facility] Co de Phone Number [facility] [address] [place] [address] * (ABNORMAL) BASIC METABOLIC PANEL (08/21/2013 7:11 EST) Sodium 139 136 - 145 mEq/L [facility] Potassium 4.3 3.5 - 5.0 mEq/L [facility] Chloride 102 96 - 110 mEq/L [facility] CO2 24 24 - 32 mEq/L [facility] BUN 12 10 - 26 mg/dl [facility] Creatinine 0.67 0.52 - 1.04 mg/dl [facility] GFR, Calculated >60 >60 ml/min/1.7 3m2 [facility] Calcium 9.2 8.5 - 10.5 mg/dl [facility] Calculated Calcium 9.7 8.5 - 10.5 mg/dl [facility] Glucose, Serum 151(H) 70 - 100 mg/dl [facility] Fasting? YES [facility] 08/21/2013 7:11 EST 08/21/2013 7:47 EST Amisha Beth MD CHEMISTRY & BLOOD GAS ORDERABLES Performing Organization Address [facility] de Phone Number [facility] [address] [place] [address] * AST (08/21/2013 7:11 EST) AST 20 15 - 46 U/L [facility] 08/21/2013 7:11 EST 08/21/2013 7:47 EST Amisha Beth MD CHEMISTRY & BLOOD GAS ORDERABLES Performing Organization Address [facility] Co de Phone Number [facility] [address] [place] [address] * ALT (08/21/2013 7:11 EST) ALT 33 9 - 52 U/L [facility] 08/21/2013 7:11 EST 08/21/2013 7:47 EST Amisha Beth MD CHEMISTRY & BLOOD GAS ORDERABLES Performing Organization Address City/State/[facility] Co de Phone Number [facility] [address] [place] [address] documented in this encounter Visit Diagnoses Not on filedocumented in this encounter Care Teams Welder Gas Relationship Specialty Start Date End Date Amisha Beth MD [address] [place] [address], [address] [place] [address] PCP - General 08/21/11 04/22/16 documented as of this encounter
--- OUTSIDE RECORDS SUMMARY | 2024-05-26 18:18 | XMS_ITS | Encounter Summary ---
Author Organization [facility] Address [address] [place] [address] Care Team Providers Care Architectural Technician Name Role Phone Amisha Beth MD Primary Care Provider +1- [phone] Encounter Details Date Type Department Care Team (Late st Contact Info) Description 01/29/2015 Phlebotomy Only [facility] [address] [place] [address] Bundle Packer, Outpatient Social History Tobacco Use Types Packs/Day [...] on filedocumented in this encounter Care Teams Architectural Technician Relationship Specialty Start Date End Date Amisha Beth MD [address] [place] [address], [address] [place] [address] PCP - General 08/21/11 04/22/16 documented as of this encounter
--- OUTSIDE RECORDS SUMMARY | 2024-05-26 18:18 | XMS_ITS | Encounter Summary ---
Author Organization [facility] Address [address] [place] [address] Care Team Providers Care Anesthetist Name Role Phone Sita Yanez MD Primary Care Provider +1- [phone] Encounter Details Date Type Department Care Team (Late st Contact Info) Description 07/04/2007 Results Only [facility] [address] [place] [address] Sita Yanez MD [address] [place] [phone] Social History Tobacco Use Types Packs/Day Years Used Date Smoking Tobacco: Never Assessed Sex and Gender Information Value Date Recorded Sex Assigned at Not on file Gender Identity Female 11/22/2019 12:18 EST Sexual Orientation Not on file documented as of this encounter Plan of Treatment Not on file documented as of this encounter Procedures Procedure Name Priority Date/Time Associated Diagnosis Comments VANILLYLMANDELIC ACID (VMA), URINE 24HR Routine 07/04/2007 9:23 EDT CATECHOLAMINE FRACTIONATION, FREE, URINE 24HR Routine 07/04/2007 9:23 EDT documented in this encounter Results * CATECHOLAMINE FRACTIONATION, URINARY, FREE (07/04/2007 9:23 EDT) Collection Duration 24 hours [facility] Urine Volume 1400 mL [facility] Norepinephrine 45Reference range: 15 to 80 Unit: ug/24 h [facility] Epinephrine 3.0Reference range: 0.0 to 20.0 Unit: ug/24 h [facility] Dopamine 223Reference range: 65 to 400 Unit: ug/24 h Performed or Referred by: [facility] Dpt of Lab Med and Path, [address] ?? [place] [id number], Lab Dir: MD [facility] 07/04/2007 9:23 EDT 07/04/2007 18:49 EDT Sita Yanez MD URINALYSIS ORDERAB LES Performing Organization Address City/[facility] Co de Phone Number [facility] [address] [place] [address] * VANILLYLMANDELIC ACID (VMA), URINE (07/04/2007 9:23 EDT) VMA, Adult (over 14) 3.9Reference range: <8.0 Unit: mg/24 h Performed or Referred by: [facility] Dpt of Lab Med and Path, [address] ?? [place] [id number], Lab Dir: MD [facility] Collection Duration 24 hours [facility] Urine Volume 1400 mL [facility] 07/04/2007 9:23 EDT 07/04/2007 18:49 EDT Sita Yanez MD URINALYSIS ORDERAB LES Performing Organization Address City/[facility]/ZIP Co de Phone Number [facility] [address] [place] [address] documented in this encounter Visit Diagnoses Not on filedocumented in this encounter Care Teams Anesthetist Relationship Specialty Start Date End Date Sita Yanez MD [address] [place] [phone] PCP - General 01/23/09 08/20/11 documented as of this encounter
--- OUTSIDE RECORDS SUMMARY | 2024-05-26 18:18 | XMS_ITS | Encounter Summary ---
Author Organization [facility] Address [address] [place] [address] Care Team Providers Care Contract Designer Name Role Phone Amisha Beth MD Primary Care Provider +1- [phone] Encounter Details Date Type Department Care Team (Late st Contact Info) Description 08/21/2011 7:50 EST - 08/21/2011 23:59 EST Hospital Encounter [facility] [address] [place] [address] Amisha Beth MD [address], [address] [place], [place] [address] Discharge Disposition: Home or Self Care Social History Tobacco Use Types Packs/Day Years Used Date Smoking Tobacco: Never Assessed Sex and Gender Information Value Date Recorded Sex Assigned at Not on file Gender Identity Female 11/22/2019 12:18 EST Sexual Orientation Not on file documented as of this encounter Discharge Disposition Disposition Code Departure Means Destination Home or Self Snf documented in this encounter Plan of Treatment Not on file documented as of this encounter Visit Diagnoses Not on filedocumented in this encounter Care Teams Contract Designer Relationship Specialty Start Date End Date Amisha Beth MD [address], [address] [place], [place] [address] PCP - General 08/21/11 04/22/16 documented as of this encounter
--- OUTSIDE RECORDS SUMMARY | 2024-05-26 18:18 | XMS_ITS | Encounter Summary ---
Author Organization [facility] Address [address] [place] [address] Care Team Providers Care Director Of Hotel Operations Name Role Phone Sita Yanez MD Primary Care Provider +1- [phone] Encounter Details Date Type Department Care Team (Late st Contact Info) Description 09/08/2010 Results Only [facility] Laboratory Services - [facility] ([facility]) [address] [place], [place] [address] Sita Yanez MD [address] [place] [address] Social History Tobacco Use Types [...] Date/Time Associated Diagnosis Comments CHLAMYDIA/N. GONORRHOEAE AMPLIFIED RNA, URINE Routine 09/08/2010 12:53 EST HEPATITIS B SURFACE ANTIGEN Routine 09/08/2010 8:30 EST HIV 1/2 ANTIGEN AND ANTIBODY, 4TH GENERATION Routine 09/08/2010 8:30 EST documented in this encounter Results * CHLAMYDIA/GC AMPLIFIED, URINE (09/08/2010 12:53 EST) Specimen Description Urine [facility] Chlamydia Result No Chlamydia trachomatis DNA detected by business management intern mediated amplification. [facility] GC Result No Neisseria gonorrhoeae DNA detected by business management intern mediated amplification. [facility] 09/08/2010 12:5 3 EST 09/08/2010 12:53 EST Sita Yanez MD MICROBIOLOGY - GEN ERAL ORDERABLES Performing Organization Address [facility] de Phone Number [facility] [address] [place] [address] * HIV ANTIBODY (09/08/2010 8:30 EST) HIV 1/2 Antibody Negative Reference Range: Negative [facility] 09/08/2010 8:30 EST 09/08/2010 12:33 EST Sita Yanez MD IMMUNOLOGY AND SER OLOGY ORDERABLES Performing Organization Address [facility] de Phone Number [facility] [address] [place] [address] * HEPATITIS B SURFACE ANTIGEN (09/08/2010 8:30 EST) Hepatitis B Surface Ag Negative Reference Range: Negative [facility] 09/08/2010 8:30 EST 09/08/2010 12:33 EST Sita Yanez MD CHEMISTRY & BLOOD GAS ORDERABLES Performing Organization Address [facility] de Phone Number [facility] [address] [place] [address] documented in this encounter Visit Diagnoses Not on filedocumented in this encounter Care Teams Director Of Hotel Operations Relationship Specialty Start Date End Date Sita Yanez MD [address] [place] [phone] PCP - General 01/23/09 08/20/11 documented as of this encounter
--- OUTSIDE RECORDS SUMMARY | 2024-05-26 18:18 | XMS_ITS | Encounter Summary ---
Author Organization [facility] Address [address] [place] [address] Care Team Providers Care Value Stream Manager Name Role Phone Amisha Beth MD Primary Care Provider +1- [phone] Reason for Visit * Reason Onset Date Comments Appointment Related 01/30/2015 with Juanis Encounter Details Date Type Department Care Team (Late st Contact Info) Description 01/30/2015 Telephone [facility] Endocrinology - [address] [id number] None, Provider Appointment Related (with Juanis) Social History Tobacco Use Types Packs/Day Years [...] * Telephone Encounter - Camilla Loya - 02/01/2015 1342 EDT Spoke with patient and scheduled. Last seen 2012. A1c has increased and she is looking for information to help bring it down. * Telephone Encounter - Haritha Fritz - 01/30/2015 1429 EDT Reason for Call: Appointment Related Summary/Symptoms (Right or Left if applicable): Patient looking to set up appt with Juanis, anytime okay Haritha Fritz 01/30/2015 14:29 documented in this encounter Plan of Treatment Not on file documented as of this encounter Visit Diagnoses Not on filedocumented in this encounter Care Teams Value Stream Manager Relationship Specialty Start Date End Date Amisha Beth MD [address] [facility], [address] [place] [address] PCP - General 08/21/11 04/22/16 documented as of this encounter
--- OUTSIDE RECORDS SUMMARY | 2024-05-26 18:18 | XMS_ITS | Encounter Summary ---
Author Organization [facility] Address [address] [place] [address] Care Team Providers Care Hot End Operator Name Role Phone Amisha Beth MD Primary Care Provider +1- [phone] Reason for Visit * Reason Comments Diabetes Encounter Details Date Type Department Care Team (Late st Contact Info) Description 02/28/2015 15:00 EDT Nutrition [facility] Endocrinology - [address] [address] Mery Menendez Type II or unspecified type [...] Sign Reading Time Taken Comments Blood Pressure 124/60 02/28/2015 1447 EDT Pulse 89 02/28/2015 1447 EDT Temperature - - Respiratory Rate - - Oxygen Saturation - - Inhaled Oxygen Concentration - - Weight 100.7 kg (222 lb) 02/28/2015 1447 EDT Height 172.7 cm (5' 8) 02/28/2015 1447 EDT Body Mass Index 33.75 02/28/2015 1447 EDT documented in this encounter Progress Notes * Mery Menendez - 02/28/2015 1656 EDT [facility] ENDOCRINOLOGY & DIABETES DIABETES NUTRITION VISIT NOTE Name:Mei Tang Date of visit: 02/28/2015 PATIENT ID: Mei Tang is a 44 y.o. female referred for medical nutrition therapy by Luis Snider NP for Diabetes - Type 2. SUBJECTIVE: Mei Tang was seen for a medical nutrition therapy visit, follow up, at the [facility] Endocrinology & Diabetes out-patient clinic on 02/28/2015 accompanied by: alone Last seen one year ago. Recently finished college for her Associates degree; very stressful spring.Let things go with her diabetes management and had an A1c higher than she ever has; 8.1%. This was a wake-up callfor her. Very supportive boyfriend who has helped her to make lifestyle changes. OBJECTIVE: Diabetes type: Type 2 Vitals: BP 124/60 Pulse 89 Ht 172.7 cm (68) Wt 100.699 kg (222 lb) BMI 33.76 kg/m2 LMP 02/16/2015 (Exact Date) BMI: Body mass index is 33.76 kg/(m^2). Diabetes Medications: Current AntiDiabetic Medications 08/24/2011 metFORMIN (oral) 1,000 MG BID (BREAKFAST/DINNER) (1,000 mg tab) Laboratory Results: Lab Results Component Value Date HGBA1C 8.1 01/29/2015 HGBA1C 7.0 03/01/2014 Lab Results Component Value Date CHOL 168 01/29/2015 HDL 49 01/29/2015 LDLBASE 101 01/29/2015 TRIG 91 01/29/2015 CHOLHDL 3.4 01/29/2015 DIABETES MEAL PLANNING: Type of meal planning: Consistent Carbohydrate Carbohydrate targets: 45 gm/meal Follows meal plan: had not been following up until 1 month ago. PRESENT MEAL PATTERN: Current eating habits:eats 3 meals plus snacks. Breakfast: Azeri muffin with margarine or egg and cheese on Eng muffin Lunch: leftovers or salad or purchased sandwich/wrap Dinner: chicken, cheeseburgers, kielbasa, shrimp scampi, mashed potatoes, vegetables Snacks: fruit, pretzels, Smartfood Beverages: water Comments: Dietary changes made: not eating out as much, no sweets, cut down on snacking, eliminatedhigh carb beverages PHYSICAL ACTIVITY: Comments: Started walking and hiking more BLOOD GLUCOSE MONITORING: Glucose monitorin-2 times daily. Barriers to monitoring: None Hypoglycemic episode: none Carbohydrate source on person? No Home Blood Glucoses Running: fastin-153; pre-lunch: 114-167; before dinner: 98-166 ASSESSMENT: Mei is a 44 yo female with type 2 diabetes who has had excellent glycemic control until recently; A1c jumped to 8.1% which alarmed her into making dramatic lifestyle changes. Her last semester ofcollege was very stressful and gave her a firsthand look at how stress and lifestyle can negativelyimpact glycemic control. She has made significant changes that have resulted in much better glucoses throughout the day and night. We reviewed a lot of nutrition topics today. Exercise is increasing. Learning readiness: Verbalizes interest and Active attentive participant Psychosocial, cultural, or economic barriers to care:none. Mei Sal Kitty verbalized understanding of meal planning guidelines reviewed at this visit. NUTRITION PLAN: Patient education on Carbohydrate Based Diabetes Meal Planning Type of meal planning: Consistent Carbohydrate Carbohydrate meal plan target: 45 gm/meal Food logs to reinforce meal plan and encourage portion control Encouraged regular physical activity for weight management and blood glucose control. Follow-up after next check up with her PCP in April, she will decide further follow up Thank you for your kind referral of Mei Sal Kitty for nutrition counseling. Time Spent With Patient: 1 hour 250.00 DM W/O COMPLICATIONS TYPE II Mery Menendez RD 02/28/2015 16:56 documented in this encounter Plan of Treatment Not on file documented as of this encounter Visit Diagnoses Diagnosis Type II or unspecified type diabetes mellitus without mention of complication, not stated as uncontrolled- Primary documented in this encounter Historical Medications * This list may reflect changes made after this encounter. Medication Sig Dispensed Refills Start Date End Date lisinopril (PRINIVIL, ZESTRIL) 5 mg tablet Take 5 mg by mouth daily 10/07/2020 added in this encounter Care Teams Hot End Operator Relationship Specialty Start Date End Date Amisha Beth MD [address] [facility], [address] [place] [address] PCP - General 08/21/11 04/22/16 documented as of this encounter
--- OUTSIDE RECORDS SUMMARY | 2024-05-26 18:18 | XMS_ITS | Encounter Summary ---
Author Organization [facility] Address [address] [place] [address] Care Team Providers Care Multiple Drill Operator Name Role Phone Amisha Beth MD Primary Care Provider +1- [phone] Encounter Details Date Type Department Care Team (Late st Contact Info) Description 08/21/2011 Results Only [facility] Laboratory Services - [facility] ([facility]) [address] [place], [place] [address] Amisha Beth MD [address], [address] [place], [place] [id number] Social History Tobacco Use Types Packs/Day Years Used Date Smoking Tobacco: Never Assessed Sex and Gender Information Value Date Recorded Sex Assigned at Not on file Gender Identity Female 11/22/2019 12:18 EST Sexual Orientation Not on file documented as of this encounter Plan of Treatment Pending Results Name Type Priority Associated Diagnoses Date /Time LIPID PROFILE (INCLUDES CHOLESTEROL, TRIGLYCERIDES, HDL, LDL) Lab Routine 08/21/2011 8:04 EST ALBUMIN, URINE Lab Routine 08/21/2011 8:04 EST ALT Lab Routine 08/21/2011 8:0 4 EST AST Lab Routine 08/21/2011 8:0 4 EST BASIC METABOLIC PANEL Lab Routine 10/2010 8:04 EST documented as of this encounter Visit Diagnoses Not on filedocumented in this encounter Care Teams Multiple Drill Operator Relationship Specialty Start Date End Date Amisha Beth MD [address], [address] [place], [place] [phone] PCP - General 08/21/11 04/22/16 documented as of this encounter
--- OUTSIDE RECORDS SUMMARY | 2024-05-26 18:19 | XMS_ITS | Encounter Summary ---
Author Organization [facility] Address [address] [place] [address] Care Team Providers Care Fruit Sprayer Name Role Phone Sita Yanez MD Primary Care Provider [phone] Encounter Details Date Type Department Care Team (Late st Contact Info) Description 11/24/2000 Results Only [facility] - Maple [facility] [address] [place] [address] Sita Yanez MD [address] [place] [phone] Social History Tobacco Use Types Packs/Day Years Used Date Smoking Tobacco: Never Assessed Sex and Gender Information Value Date Recorded Sex Assigned at Not on file Gender Identity Female 11/22/2019 12:18 EST Sexual Orientation Not on file documented as of this encounter Plan of Treatment Not on file documented as of this encounter Procedures Procedure Name Priority Date/Time Associated Diagnosis Comments TSH Routine 11/24/2000 8:40 EST LH Routine 11/24/2000 8:40 EST FSH Routine 11/24/2000 8:40 EST GLUCOSE, SERUM Routine 11/24/2000 8:40 EST LIPID PROFILE (INCLUDES CHOLESTEROL, TRIGLYCERIDES, HDL, LDL) Routine 11/24/2000 8:40 EST documented in this encounter Results * TSH (11/24/2000 8:40 EST) TSH 1.92 0.35 - 5.50 uIU/ml [facility] 11/24/2000 8:40 EST 11/24/2000 13:23 EST Sita Yanez MD CHEMISTRY & BLOOD GAS ORDERABLES Performing Organization Address [facility] de Phone Number [facility] [address] [place] [address] * GLUCOSE, SERUM (11/24/2000 8:40 EST) Pathologist [facility] Glucose, Serum 101 70 - 110 mg/dl [facility] 11/24/2000 8:40 EST 11/24/2000 13:23 EST Sita Yanez MD CHEMISTRY & BLOOD GAS ORDERABLES Performing Organization Address [facility] Phone Number [facility] [address] [place] [address] * (ABNORMAL) LIPID PROFILE (INCLUDES CHOLESTEROL, TRIGLYCERIDES, HDL, LDL) (11/24/2000 8:40 EST) Pathologist [facility] Cholesterol 236 mg/dl [facility] Comment: Desirable:<200 Borderline:200-239 High Risk:>uq=[id number] Triglycerides 216(H) 35 - 160 mg/dl [facility] HDL 47 mg/dl [facility] Comment: Highly Desirable:>60 Desirable:35-60 High Risk:<35 LDL, Calculated 146 mg/dl ENE[facility] WILL[facility] Comment: Desirable:<130 Borderline:130-159 High Risk:>sx=048 Chol/HDL Ratio 5.0 [facility] 11/24/2000 8:40 EST 11/24/2000 13:23 EST Sita Yanez MD CHEMISTRY & BLOOD GAS ORDERABLES Performing Organization Address [facility] de Phone Number [facility] [address] [place] [address] * LH (11/24/2000 8:40 EST) LH 16.0 mIU/ml [facility] Comment: Follicular: 1-18 Mid-Cycle Peak: 15-80 Luteal: 0.5-18 Postmenopausal: 12-55 Note new reference range. 11/24/2000 8:40 EST 11/24/2000 13:23 EST Sita Yanez MD CHEMISTRY & BLOOD GAS ORDERABLES Performing Organization Address City/[facility] Co de Phone Number [facility] [address] [place] [address] * FSH (11/24/2000 8:40 EST) FSH 3.9 mIU/ml [facility] Comment: Follicular: 2-11 Mid-Cycle Peak: 3.4-35 Luteal: 1-9 Postmenopausal: 25-120 Note new reference range. 11/24/2000 8:40 EST 11/24/2000 13:23 EST Sita Yanez MD CHEMISTRY & BLOOD GAS ORDERABLES Performing Organization Address [facility] de Phone Number [facility] [address] [place] [address] documented in this encounter Visit Diagnoses Not on filedocumented in this encounter Care Teams Fruit Sprayer Relationship Specialty Start Date End Date Sita Yanez MD [address] [place] [phone] PCP - General 01/23/09 08/20/11 documented as of this encounter
--- OUTSIDE RECORDS SUMMARY | 2024-05-26 18:19 | XMS_ITS | Encounter Summary ---
Author Organization [facility] Address [address] [place] [address] Care Team Providers Care Information Systems Security Specialist Name Role Phone Unavailable Primary Care Provider Unavailabl e Encounter Details Date Type Department Care Team (Latest Contact Info) Description 12/15/2001 8:33 EST - 12/19/2001 11:59 EST Hospital Encounter [facility] Mother/Baby Unit [address], [place] [address] Masoud Ocampo MD Capeless, Eleanor, MD Discharge Disposition: Home-Health Care Svc Social History [...] Associated Diagnosis Comments COMPLETE BLOOD COUNT Routine 12/18/2001 8:25 EST BLOOD GASES, CORD ARTERIAL Routine 12/17/2001 22:36 EST URINE MICROSCOPIC Routine 12/17/2001 14: 47 EST URINALYSIS WITH MICROSCOPIC IF POSITIVE Routine 12/17/2001 14:47 EST CREATININE Routine 12/17/2001 6:12 EST HEMAGRAM & DIFF Routine 12/17/2001 6:12 EST FIBRINOGEN Routine 12/17/2001 6:12 EST URIC ACID Routine 12/17/2001 6:12 EST BUN Routine 12/17/2001 6:12 EST ALT Routine 12/17/2001 6:12 EST AST Routine 12/17/2001 6:12 EST HEMAGRAM & DIFF Routine 12/16/2001 6:40 EST URINE MICROSCOPIC Routine 12/15/2001 18: 40 EST URINALYSIS WITH MICROSCOPIC IF POSITIVE Routine 12/15/2001 18:40 EST BACTERIAL CULTURE, URINE Routine 12/15/2001 18:40 EST CREATININE Routine 12/15/2001 11:06 EST FIBRINOGEN Routine 12/15/2001 11:06 EST COMPLETE BLOOD COUNT Routine 12/15/2001 11:06 EST URIC ACID Routine 12/15/2001 11:06 EST BUN Routine 12/15/2001 11:06 EST ALT Routine 12/15/2001 11:06 EST AST Routine 12/15/2001 11:06 EST documented in this encounter Results * (ABNORMAL) HEMAGRAM (12/18/2001 8:25 EST) WBC 10.10 4.0 - 12.4 K/cmm [facility] RBC 3.67(L) 3.86 - 5.04 M/cmm [facility] Hemoglobin 11.3(L) 11.6 - 15.2 gm/dl [facility] HCT 32.2(L) 34.9 - 44.4 % [facility] MCV 88 81 - 98 fl [facility] MCH 30.7 26.7 - 33.3 pg [facility] MCHC 35.0 32.1 - 35.9 gm/dl [facility] PLT 223 141 - 320 K/cmm [facility] RDW-CV 12.4 11.7 - 14.6 % [facility] 12/18/2001 8:25 EST 12/18/2001 8:37 EST Gabriel Velazquez MD HEMATOLOGY & PF4 ORD ERABLES Performing Organization Address [facility] Co de Phone Number [facility] [address] [place] [address] * (ABNORMAL) BLOOD GASES, CORD (12/17/2001 22:36 EST) Base Deficit 5.8 [facility] pCO2, arterial 70(H) 35 - 45 mmHg [facility] pH, arterial 7.16(L) 7.35 - 7.45 [facility] pO2, arterial 8(L) 85 - 100 mmHg [facility] TCO2 27 mEq/L [facility] 12/17/2001 22:3 6 EST 12/17/2001 22:46 EST Gabriel Velazquez MD GEN LAB UNIT COLLECT ORDERABLES Performing Organization Address [facility] Co de Phone Number [facility] [address] [place] [address] * (ABNORMAL) URINE MICROSCOPIC (12/17/2001 14:47 EST) WBC, UA 5 to 10 0 - 5 /HPF [facility] RBC, UA 10 to 50 0 - 5 /HPF [facility] Squam Epithel, UA Many(A) NS /HPF [facility] Renal Epithel, UA None seen NS /HPF [facility] Bacteria, UA None seen NS /HPF [facility] Crystals, UA None seen /HPF [facility] Hyaline Casts, UA None seen /LPF [facility] UA Comment Microscopic results are unreliable on urines unrefrig >2hrs or refrig >8hrs. [facility] 12/17/2001 14:4 7 EST 12/17/2001 14:47 EST Gabriel Velazquze MD URINALYSIS ORDERABLE S Performing Organization Address [facility] de Phone Number [facility] [address] [place] [address] * (ABNORMAL) URINALYSIS (12/17/2001 14:47 EST) Color, UA Yellow [facility] Clarity, UA Clear [facility] Glucose, UA Norm NORM [facility] Bilirubin, UA Neg NEG FLEKYLAH ER [facility] Ketones, UA Neg NEG [facility] Specific [place], Urine <1.005(L) 1.005 - 1.02 [facility] Comment: Refractometer specific gravity 1.004 Blood, UA Large(A) NEG [facility] pH, UA 7.0 5.0 - 9.0 [facility] Protein, UA Neg NEG [facility] Urobilinogen, UA Norm NORM mg/dL [facility] Nitrite, UA Neg NEG [facility] Leuk Esterase Small(A) NEG DANISH EPSTEIN [facility] 12/17/2001 14:4 7 EST 12/17/2001 14:47 EST Gabriel Velazquez MD URINALYSIS ORDERABLE S Performing Organization Address [facility] de Phone Number [facility] [address] [place] [address] * URIC ACID (12/17/2001 6:12 EST) Uric Acid 5.2 2.2 - 7.7 mg/dl [facility] 12/17/2001 6:12 EST 12/17/2001 6:17 EST Gabriel Velazquez MD CHEMISTRY & BLOOD GA S ORDERABLES Performing Organization Address [facility] Co de Phone Number [facility] [address] [place] [address] * (ABNORMAL) FIBRINOGEN (12/17/2001 6:12 EST) Fibrinogen 752(H) 180 - 433 mg/dl [facility] 12/17/2001 6:12 EST 12/17/2001 6:17 EST Gabriel Velazquez MD HEMATOLOGY & PF4 ORD ERABLES Performing Organization Address [facility] de Phone Number [facility] [address] [place] [address] * CREATININE (12/17/2001 6:12 EST) Creatinine 0.8 0.7 - 1.5 mg/dl [facility] 12/17/2001 6:12 EST 12/17/2001 6:17 EST Gabriel Velazquez MD HISTORICAL LAB FOR S Q LOAD Performing Organization Address [facility] de Phone Number [facility] [address] [place] [address] * (ABNORMAL) HEMAGRAM & DIFF (12/17/2001 6:12 EST) WBC 9.74 4.0 - 12.4 K/cmm [facility] RBC 3.97 3.86 - 5.04 M/cmm [facility] Hemoglobin 12.0 11.6 - 15.2 gm/dl [facility] HCT 35.6 34.9 - 44.4 % [facility] MCV 90 81 - 98 fl [facility] MCH 30.3 26.7 - 33.3 pg [facility] MCHC 33.8 32.1 - 35.9 gm/dl [facility] PLT 254 141 - 320 K/cmm [facility] RDW-CV 12.3 11.7 - 14.6 % [facility] % Neutrophils 77.6 45.5 - 79.7 % [facility] % Lymphocytes 13.7(L) 15.0 - 46.8 % [facility] % Monocytes 7.2 1.8 - 12.0 % [facility] % Eosinophils 0.8 0.6 - 6.9 % [facility] % Basophils 0.7 0.2 - 1.4 % [facility] ABS Neutrophils 7.57 2.20 - 8.85 K/cmm [facility] ABS Lymphs 1.33 1.09 - 3.30 K/cmm [facility] ABS Monocytes 0.70 0.1 - 0.8 K/cmm [facility] ABS Eosinophils 0.07 0.03 - 0.61 K/cmm [facility] ABS Basophils 0.07 0.01 - 0.11 K/cmm [facility] Type of Diff: Automated FLETCH [facility] 12/17/2001 6:12 EST 12/17/2001 6:17 EST Gabriel Velazquez MD HISTORICAL LAB FOR S Q LOAD Performing Organization Address [facility] de Phone Number [facility] [address] [place] [address] * (ABNORMAL) BUN (12/17/2001 6:12 EST) BUN 6(L) 10 - 26 mg/dl [facility] 12/17/2001 6:12 EST 12/17/2001 6:17 EST Gabriel Velazquez MD CHEMISTRY & BLOOD GA S ORDERABLES Performing Organization Address [facility] de Phone Number [facility] [address] [place] [address] * AST (12/17/2001 6:12 EST) AST 18 8 - 50 U/L [facility] 12/17/2001 6:12 EST 12/17/2001 6:17 EST Gabriel Velazquez MD CHEMISTRY & BLOOD GA S ORDERABLES Performing Organization Address [facility] Co de Phone Number [facility] [address] [place] [address] * ALT (12/17/2001 6:12 EST) ALT 23 15 - 75 U/L [facility] 12/17/2001 6:12 EST 12/17/2001 6:17 EST Gabriel Velazquez MD CHEMISTRY & BLOOD GA S ORDERABLES [facility] [address] [place] [address] * (ABNORMAL) HEMAGRAM & DIFF (12/16/2001 6:40 EST) WBC 8.45 4.0 - 12.4 K/cmm [facility] RBC 3.84(L) 3.86 - 5.04 M/cmm [facility] Hemoglobin 11.6 11.6 - 15.2 gm/dl [facility] HCT 33.3(L) 34.9 - 44.4 % [facility] MCV 87 81 - 98 fl [facility] MCH 30.3 26.7 - 33.3 pg [facility] MCHC 34.9 32.1 - 35.9 gm/dl [facility] PLT 264 141 - 320 K/cmm [facility] RDW-CV 12.7 11.7 - 14.6 % [facility] % Neutrophils 74.8 45.5 - 79.7 % [facility] % Lymphocytes 16.3 15.0 - 46.8 % [facility] % Monocytes 7.7 1.8 - 12.0 % [facility] % Eosinophils 1.0 0.6 - 6.9 % [facility] % Basophils 0.2 0.2 - 1.4 % [facility] ABS Neutrophils 6.32 2.20 - 8.85 K/cmm [facility] ABS Lymphs 1.38 1.09 - 3.30 K/cmm [facility] ABS Monocytes 0.65 0.1 - 0.8 K/cmm [facility] ABS Eosinophils 0.08 0.03 - 0.61 K/cmm [facility] ABS Basophils 0.02 0.01 - 0.11 K/cmm [facility] Type of Diff: Automated [facility] 12/16/2001 6:40 EST 12/16/2001 6:54 EST Gabriel Velazquez MD HISTORICAL LAB FOR S Q LOAD Performing Organization Address [facility] Co de Phone Number [facility] [address] [place] [address] * BACTERIAL CULTURE, URINE (12/15/2001 18:40 EST) Specimen Description Urine [facility] Result Less than 10,000 CFU/ml Mixed gram positive growth [facility] Report Status Final [id number] [facility] 12/15/2001 18:4 0 EST 12/15/2001 19:05 EST Gabriel Velazquez MD MICROBIOLOGY - GENER AL ORDERABLES Performing Organization Address [facility] Phone Number [facility] [address] [place] [address] * (ABNORMAL) URINE MICROSCOPIC (12/15/2001 18:40 EST) WBC, UA 1 to 5 0 - 5 /HPF [facility] RBC, UA None seen 0 - 5 /HPF [facility] Squam Epithel, UA Many(A) NS /HPF [facility] Renal Epithel, UA None seen NS /HPF [facility] Bacteria, UA Few(A) NS /HPF [facility] Crystals, UA None seen /HPF [facility] Hyaline Casts, UA None seen /LPF [facility]A Comment Microscopic results are unreliable on urines unrefrig >2hrs or refrig >8hrs. [facility] 12/15/2001 18:4 0 EST 12/15/2001 18:52 EST Gabriel Velazquez MD URINALYSIS ORDERABLE S Performing Organization Address [facility] Co de Phone Number [facility] [address] [place] [address] * (ABNORMAL) URINALYSIS (12/15/2001 18:40 EST) Color, UA Yellow [facility] Clarity, UA Hazy [facility] Glucose, UA Norm NORM [facility] Bilirubin, UA Neg NEG [facility]H [facility] Ketones, UA Neg NEG [facility] Specific [place], Urine 1.010 1.005 - 1.02 [facility] Blood, UA Neg NEG [facility] pH, UA 6.5 5.0 - 9.0 [facility] Protein, UA Neg NEG [facility] Urobilinogen, UA Norm NORM mg/dL [facility] Nitrite, UA Neg NEG [facility] Leuk Esterase Trace(A) NEG [facility]H [facility] 12/15/2001 18:4 0 EST 12/15/2001 18:52 EST Gabriel Velazquez MD URINALYSIS ORDERABLE S Performing Organization Address [facility] de Phone Number [facility] [address] [place] [address] * URIC ACID (12/15/2001 11:06 EST) Uric Acid 5.1 2.2 - 7.7 mg/dl [facility] 12/15/2001 11:0 6 EST 12/15/2001 11:10 EST Masoud Ocampo MD CHEMISTRY & BLOOD GA S ORDERABLES Performing Organization Address [facility] de Phone Number [facility] [address] [place] [address] * (ABNORMAL) FIBRINOGEN (12/15/2001 11:06 EST) Fibrinogen 760(H) 180 - 433 mg/dl [facility] 12/15/2001 11:0 6 EST 12/15/2001 11:10 EST Masoud Ocampo MD HEMATOLOGY & PF4 ORD ERABLES Performing Organization Address [facility] Co de Phone Number [facility] [address] [place] [address] * CREATININE (12/15/2001 11:06 EST) Creatinine 1.0 0.7 - 1.5 mg/dl [facility] 12/15/2001 11:0 6 EST 12/15/2001 11:10 EST Masoud Ocampo MD HISTORICAL LAB FOR S Q LOAD Performing Organization Address City/[facility] Co de Phone Number [facility] [address] [place] [address] * HEMAGRAM (12/15/2001 11:06 EST) WBC 9.70 4.0 - 12.4 K/cmm [facility] RBC 3.99 3.86 - 5.04 M/cmm [facility] Hemoglobin 12.1 11.6 - 15.2 gm/dl [facility] HCT 35.3 34.9 - 44.4 % [facility] MCV 89 81 - 98 fl [facility] MCH 30.3 26.7 - 33.3 pg [facility] MCHC 34.2 32.1 - 35.9 gm/dl [facility] PLT 288 141 - 320 K/cmm [facility] RDW-CV 12.7 11.7 - 14.6 % [facility] 12/15/2001 11:0 6 EST 12/15/2001 11:10 EST Masoud Ocampo MD HEMATOLOGY & PF4 ORD ERABLES Performing Organization Address City/[facility] Co de Phone Number [facility] [address] [place] [address] * BUN (12/15/2001 11:06 EST) BUN 12 10 - 26 mg/dl [facility] 12/15/2001 11:0 6 EST 12/15/2001 11:10 EST Masoud Ocampo MD CHEMISTRY & BLOOD GA S ORDERABLES Performing Organization Address City/[facility]/ZIP Co de Phone Number [facility] [address] [place] [address] * AST (12/15/2001 11:06 EST) AST 18 8 - 50 U/L [facility] 12/15/2001 11:0 6 EST 12/15/2001 11:10 EST Masoud Ocampo MD CHEMISTRY & BLOOD GA S ORDERABLES Performing Organization Address [facility] de Phone Number [facility] [address] [place] [address] * ALT (12/15/2001 11:06 EST) ALT 19 15 - 75 U/L [facility] 12/15/2001 11:0 6 EST 12/15/2001 11:10 EST Masoud Ocampo MD CHEMISTRY & BLOOD GA S ORDERABLES Performing Organization Address City/[facility] Co de Phone Number [facility] [address] [place] [address] documented in this encounter Visit Diagnoses Not on filedocumented in this encounter
--- OUTSIDE RECORDS SUMMARY | 2024-05-26 18:19 | XMS_ITS | Encounter Summary ---
Author Organization [facility] Address [address] [place] [address] Care Team Providers Care Sr. Operations Manager Name Role Phone Unavailable Primary Care Provider Unavailabl e Encounter Details Date Type Department Care Team (Latest Contact Info) Description 08/31/2006 15:38 EST Hospital Encounter [facility] - Other [address] [place] [address] Sita Yanez MD [address] [place] [phone] Discharge Disposition: Home or Self Care [...] Name Priority Date/Time Associated Diagnosis Comments URINE [id number] NE RATIO (ACR) Routine 08/31/2006 8:15 EST documented in this encounter Results * MICROALBUMIN (08/31/2006 8:15 EST) Creatinine, Urn [place] 203.6 mg/dl [facility] Ur Albumin mg/dl 1.2 <1.9 mg/dl [facility] Ur Alb ug/mg Crea 5.9 ug/mg Crea [facility] Comment: Normal: ??<30 ug/mg Creat Microalbuminuria: ??30-300 ug/mg Creat Clinical albuminuria: ??>300 ug/mg Creat 08/31/2006 8:15 EST 08/31/2006 13:23 EST Sita Yanez MD CHEMISTRY & BLOOD GAS ORDERABLES Performing Organization Address City/State/[facility] Co de Phone Number [facility] [address] [place] [address] documented in this encounter Visit Diagnoses Not on filedocumented in this encounter
--- OUTSIDE RECORDS SUMMARY | 2024-05-26 18:19 | XMS_ITS | Encounter Summary ---
Author Organization [facility] Address [address] [place] [address] Care Team Providers Care Train Attendant Name Role Phone Sita Salamanca MD Primary Care Provider [phone] Encounter Details Date Type Department Care Team (Late st Contact Info) Description 03/09/2005 Results Only [facility] - Maple conversion [address] [place] [address] Sita Salamanca MD [address] [place] [phone] Social History Tobacco Use Types Packs/Day Years Used Date Smoking Tobacco: Never Assessed Sex and Gender Information Value Date Recorded Sex Assigned at Not on file Gender Identity Female 11/22/2019 12:18 EST Sexual Orientation Not on file documented as of this encounter Plan of Treatment Not on file documented as of this encounter Procedures Procedure Name Priority Date/Time Associated Diagnosis Comments CYTOPATHOLOGY Routine 03/09/2005 0:00 EDT documented in this encounter Results * CYTOPATHOLOGY (03/09/2005 0:00 EDT) Pathology Report: CYTOPATHOLOGY REPORT Reports generated via electronic interface contain original data; however they are lacking the format of the original report. Caution should be taken when reading/interpreti ng unformatted reports. Name: ? MAURICIO BRITO ? Accession #: ? [id number] : ? 1970 (Age: 34) ??F ?Collect Date: ? 03/09/2005 Location: ? [facility] ? Receive Date: ? 03/10/2005 Provider: ?SITA SALAMANCA MD Copy to: ? Specimen/Source: ?ThinPrep Pap Test, Cervix/Endocervix Last Menstrual Period: ? 02/13/05 Other: ? HPVA - HPV testing requested if ASC-US on the current ThinPrep Pap test. ? SPECIMEN ADEQUACY ? Satisfactory for Evaluation - transformation zone component present GENERAL CATEGORIZATION ? Negative for Intraepithelial Lesion or Malignancy ? Document reviewed and electronically signed by: ? JORGE Rodriguez(ASCP)(IAC) ? Report Date: ??03/17/2005 08:33 End of Report [facility] 03/09/2005 03/10/2005 Sita Salamanca MD PATHOLOGY ORDERABL ES [facility] [address] [place] [address] documented in this encounter Visit Diagnoses Not on filedocumented in this encounter Care Teams Train Attendant Relationship Specialty Start Date End Date Sita Salamanca MD [address] [place] [phone] PCP - General 01/23/09 08/20/11 documented as of this encounter
--- OUTSIDE RECORDS SUMMARY | 2024-05-26 18:19 | XMS_ITS | Encounter Summary ---
Author Organization [facility] Address [address] [place] [address] Care Team Providers Care Nutrition Tech Name Role Phone Unavailable Primary Care Provider Unavailabl e Encounter Details Date Type Department Care Team (Latest Contact Info) Description 01/30/2004 12:58 EDT Hospital Encounter [facility] - Other [address] [place] [address] Sita Yanez MD [address] [place] [phone] Discharge Disposition: Auto Discharge Social History Tobacco [...]
--- OUTSIDE RECORDS SUMMARY | 2024-05-26 18:19 | XMS_ITS | Encounter Summary ---
Author Organization [facility] Address [address] [place] [address] Care Team Providers Care Customer Response Representative Name Role Phone Unavailable Primary Care Provider Unavailabl e Encounter Details Date Type Department Care Team (Late st Contact Info) Description 09/24/2006 10:20 EST Hospital Encounter [address] [address] Mery Menendez Social History Tobacco Use Types [...]
--- OUTSIDE RECORDS SUMMARY | 2024-05-26 18:19 | XMS_ITS | Encounter Summary ---
Author Organization [facility] Address [address] [place] [address] Care Team Providers Care Referral Specialist Name Role Phone Unavailable Primary Care Provider Unavailabl e Encounter Details Date Type Department Care Team (Latest Contact Info) Description 11/22/2000 15:31 EST Hospital Encounter [facility] - Other [address] [place] [address] Sita Salamanca MD [address] [place] [address] [phone] Unknown, ProviderMD Discharge Disposition: Auto Discharge Social History Tobacco [...] Priority Date/Time Associated Diagnosis Comments CYTOPATHOLOGY Routine 11/22/2000 0:00 EST documented in this encounter Results * CYTOPATHOLOGY (11/22/2000 0:00 EST) Pathology Report: CYTOPATHOLOGY REPORT Reports generated via electronic interface contain original data; however they are lacking the format of the original report. Caution should be taken when reading/interpreti ng unformatted reports. Name: ? MAURICIO BRITO ? Accession #: ? [id number] : ? 1970 (Age: 30) ??F ?Collect Date: ? 11/22/2000 Location: ? [facility] ? Receive Date: ? 11/23/2000 Provider: ?SITA SALAMANCA MD Copy to: ? Specimen/Source: ?ThinPrep Pap Test, Vagina/Cervix Last Menstrual Period: ? 11/10/00 ? SPECIMEN ADEQUACY ? Satisfactory for evaluation. GENERAL CATEGORIZATION ? Benign Cellular Changes DESCRIPTIVE DIAGNOSIS ? Predominance of coccobacilli present consistent with shift in vaginal dhruv. ? Document reviewed and electronically signed by: ? Sita Guzman, SCT(ASCP) ? Report Date: ??11/24/2000 08:16 End of Report [facility] 11/22/2000 11/23/2000 Sita Salamanca MD PATHOLOGY ORDERABL ES [facility] [address] [place] [address] documented in this encounter Visit Diagnoses Not on filedocumented in this encounter
--- OUTSIDE RECORDS SUMMARY | 2024-05-26 18:19 | XMS_ITS | Encounter Summary ---
Author Organization [facility] Address [address] [place] [address] Care Team Providers Care Supreme Court Judge Name Role Phone Unavailable Primary Care Provider Unavailabl e Encounter Details Date Type Department Care Team (Latest Contact Info) Description 12/10/2001 9:10 EST - 12/10/2001 11:59 EST Hospital Encounter [facility] [address] [place], [place] [address] Gabriel Velazquez MD [address] [place] [address] Bree Albert MD Discharge Disposition: Home or Self Care Social [...] Procedure Name Priority Date/Time Associated Diagnosis Comments GLUCOSE, GLUCOMETER Routine 12/17/2001 1 4:27 EST documented in this encounter Results * GLUCOSE, GLUCOMETER (12/17/2001 14:27 EST) Glucose, Fingerstick 101 70 - 110 MG/DL [facility] Floor Layer Apprentice [place] [id number] Test Performed by Nursing Services [facility] 12/17/2001 14:2 7 EST 12/21/2001 12:16 EST Gabriel Velazquez MD CHEMISTRY & BLOOD GA S ORDERABLES Performing Organization Address City/State/[facility] Co de Phone Number [facility] [address] documented in this encounter Visit Diagnoses Not on filedocumented in this encounter
--- OUTSIDE RECORDS SUMMARY | 2024-05-26 18:19 | XMS_ITS | Encounter Summary ---
Author Organization [facility] Address [address] [place] [address] Care Team Providers Care Senior Accountant Cpa Name Role Phone Sita Yanez MD Primary Care Provider [phone] Encounter Details Date Type Department Care Team (Late st Contact Info) Description 02/19/2004 Results Only [facility] [address] [place] [address] Sita Yanez MD [address] [place] [phone] Social History Tobacco Use Types Packs/Day Years Used Date Smoking Tobacco: Never Assessed Sex and Gender Information Value Date Recorded Sex Assigned at Not on file Gender Identity Female 11/22/2019 12:18 EST Sexual Orientation Not on file documented as of this encounter Plan of Treatment Not on file documented as of this encounter Procedures Procedure Name Priority Date/Time Associated Diagnosis Comments BASIC METABOLIC PANEL (BMP) Routine 02/19/2004 10:05 EDT documented in this encounter Results * (ABNORMAL) BASIC METABOLIC PANEL (02/19/2004 10:05 EDT) Sodium 140 136 - 145 mEq/L [facility] Potassium 4.6 3.5 - 5.0 mEq/L [facility] Chloride 104 96 - 110 mEq/L [facility] CO2 27 24 - 32 mEq/L [facility] BUN 11 10 - 26 mg/dl [facility] Creatinine 0.7 0.7 - 1.5 mg/dl [facility] Calcium 8.8 8.5 - 10.5 mg/dl [facility] Calculated Calcium 9.1 8.5 - 10.5 mg/dl [facility] Glucose, Serum 122(H) 70 - 110 mg/dl [facility] 02/19/2004 10:0 5 EDT 02/19/2004 13:59 EDT Sita Yanez MD CHEMISTRY & BLOOD GAS ORDERABLES [facility] [address] [place] [address] documented in this encounter Visit Diagnoses Not on filedocumented in this encounter Care Teams Senior Accountant Cpa Relationship Specialty Start Date End Date Sita Yanez MD [address] [place] [phone] PCP - General 01/23/09 08/20/11 documented as of this encounter
--- OUTSIDE RECORDS SUMMARY | 2024-05-26 18:19 | XMS_ITS | Encounter Summary ---
Author Organization [facility] Address [address] [place] [address] Care Team Providers Care Wood Carver Name Role Phone Unavailable Primary Care Provider Unavailabl e Encounter Details Date Type Department Care Team (Late st Contact Info) Description 11/24/2000 7:54 EST Hospital Encounter [facility] - Other [address] [place] [address] Sita Yanez MD [address] [place] [phone] Unknown, Provider, Social History Tobacco Use Types Packs/Day Years [...]
--- OUTSIDE RECORDS SUMMARY | 2024-05-26 18:19 | XMS_ITS | Encounter Summary ---
Author Organization [facility] Address [address] [place] [address] Care Team Providers Care Security Operations Center Analyst Name Role Phone Sita Yanez MD Primary Care Provider [phone] Encounter Details Date Type Department Care Team (Late st Contact Info) Description 01/30/2004 Results Only [facility] - Maple conversion [address] [place] [address] Sita Yanez MD [address] [place] [phone] Social History Tobacco Use Types Packs/Day Years Used Date Smoking Tobacco: Never Assessed Sex and Gender Information Value Date Recorded Sex Assigned at Not on file Gender Identity Female 11/22/2019 12:18 EST Sexual Orientation Not on file documented as of this encounter Plan of Treatment Not on file documented as of this encounter Procedures Procedure Name Priority Date/Time Associated Diagnosis Comments TSH Routine 01/30/2004 8:28 EDT documented in this encounter Results * TSH (01/30/2004 8:28 EDT) TSH 3.28 0.35 - 5.50 uIU/ml [facility] 01/30/2004 8:28 EDT 01/30/2004 13:58 EDT Sita Yanez MD CHEMISTRY & BLOOD GAS ORDERABLES [facility] [address] [place] [address] documented in this encounter Visit Diagnoses Not on filedocumented in this encounter Care Teams Security Operations Center Analyst Relationship Specialty Start Date End Date Sita Yanez MD [address] [place] [phone] PCP - General 01/23/09 08/20/11 documented as of this encounter
--- OUTSIDE RECORDS SUMMARY | 2024-05-26 18:19 | XMS_ITS | Encounter Summary ---
Author Organization [facility] Address [address] [place] [address] Care Team Providers Care Utility Systems Repairer Operator Name Role Phone Unavailable Primary Care Provider Unavailabl e Encounter Details Date Type Department Care Team (Late st Contact Info) Description 10/10/2001 15:36 EST Hospital Encounter [address] [address] Tiffany Ruiz MD [address] [place] [address], [address] [place] [phone] Social History Tobacco Use Types Packs/Day Years [...]
--- OUTSIDE RECORDS SUMMARY | 2024-05-26 18:19 | XMS_ITS | Encounter Summary ---
Author Organization [facility] Address [address] [place] [address] Care Team Providers Care Professor Of History Name Role Phone Unavailable Primary Care Provider Unavailabl e Encounter Details Date Type Department Care Team (Latest Contact Info) Description 01/20/2002 9:25 EDT - 01/20/2002 11:59 EDT Hospital Encounter [address] [address] Masoud Ocampo MD Discharge Disposition: Auto Discharge Social History Tobacco [...]
--- OUTSIDE RECORDS SUMMARY | 2024-05-26 18:19 | XMS_ITS | Encounter Summary ---
Author Organization [facility] Address [address] [place] [address] Care Team Providers Care Bulk Tank Driver Name Role Phone Unavailable Primary Care Provider Unavailabl e Encounter Details Date Type Department Care Team (Latest Contact Info) Description 10/03/2001 15:[address] [facility] [address] [place] [address] Bree Albert MD Discharge Disposition: Auto Discharge Social History [...]
--- OUTSIDE RECORDS SUMMARY | 2024-05-26 18:19 | XMS_ITS | Encounter Summary ---
Author Organization [facility] Address [address] [place] [address] Care Team Providers Care Pipe Bender Name Role Phone Unavailable Primary Care Provider Unavailabl e Encounter Details Date Type Department Care Team (Late st Contact Info) Description 02/19/2004 8:46 EDT Hospital Encounter [facility] - Other [address] [place] [address] Sita Salamanca MD [address] [place] [phone] Social History Tobacco Use Types Packs/Day Years [...] Procedure Name Priority Date/Time Associated Diagnosis Comments ALT Routine 10/20/2004 10:55 EST TSH Routine 10/20/2004 10:55 EST LIPID PROFILE (INCLUDES CHOLESTEROL, TRIGLYCERIDES, HDL, LDL) Routine 10/20/2004 10:55 EST BASIC METABOLIC PANEL (BMP) Routine 10/20/2004 10:55 EST CYTOPATHOLOGY Routine 02/19/2004 0:00 EDT documented in this encounter Results * TSH (10/20/2004 10:55 EST) TSH 1.90 0.35 - 5.50 uIU/ml [facility] 10/20/2004 10:5 5 EST 10/20/2004 18:39 EST Sita Salamanca MD CHEMISTRY & BLOOD GAS ORDERABLES Performing Organization Address [facility] de Phone Number [facility] [address] [place] [address] * LIPID PROFILE (INCLUDES CHOLESTEROL, TRIGLYCERIDES, HDL, LDL) (10/20/2004 10:55 EST) Cholesterol 193 mg/dl [facility] Comment: Desirable:<200 Borderline:200-239 High Risk:>hi=150 Triglycerides 119 35 - 160 mg/dl [facility] HDL 50 mg/dl [facility] Comment: Highly Desirable:>60 Desirable:35-60 High Risk:<35 LDL, Calculated 119 mg/dl [facility] Comment: Desirable:<130 Borderline:130-159 High Risk:>jb=726 Chol/HDL Ratio 3.9 [facility] Fasting? Unknown [facility] 10/20/2004 10:5 5 EST 10/20/2004 18:39 EST Sita Salamanca MD CHEMISTRY & BLOOD GAS ORDERABLES Performing Organization Address [facility] de Phone Number [facility] [address] [place] [address] * BASIC METABOLIC PANEL (10/20/2004 10:55 EST) Sodium 140 136 - 145 mEq/L [facility] Potassium 4.2 3.5 - 5.0 mEq/L [facility] Chloride 104 96 - 110 mEq/L [facility] CO2 28 24 - 32 mEq/L [facility] BUN 11 10 - 26 mg/dl [facility] Creatinine 0.7 0.7 - 1.5 mg/dl [facility] Calcium 8.8 8.5 - 10.5 mg/dl [facility] Calculated Calcium 9.2 8.5 - 10.5 mg/dl [facility] Glucose, Serum 100 70 - 110 mg/dl [facility] Fasting? Unknown [facility] 10/20/2004 10:5 5 EST 10/20/2004 18:39 EST Sita Salamanca MD CHEMISTRY & BLOOD GAS ORDERABLES Performing Organization Address [facility] de Phone Number [facility] [address] [place] [address] * ALT (10/20/2004 10:55 EST) ALT 33 9 - 52 U/L [facility] 10/20/2004 10:5 5 EST 10/20/2004 18:39 EST Sita Salamanca MD CHEMISTRY & BLOOD GAS ORDERABLES Performing Organization Address [facility] Co de Phone Number [facility] [address] [place] [address] * CYTOPATHOLOGY (02/19/2004 0:00 EDT) Pathologist [facility] Pathology Report: CYTOPATHOLOGY REPORT Reports generated via electronic interface contain original data; however they are lacking the format of the original report. Caution should be taken when reading/interpreti ng unformatted reports. Name: ? MAURICIO BRITO ? Accession #: ? [id number] : ? 1970 (Age: 33) ??F ?Collect Date: ? 02/19/2004 Location: ? [facility] ? Receive Date: ? 02/20/2004 Provider: ?SITA SALAMANCA MD Copy to: ? Specimen/Source: ?ThinPrep Pap Test, Cervix/Endocervix Last Menstrual Period: ? 02/05/04 Other: ? HPVA - HPV testing requested if ASC-US on the current ThinPrep Pap test. ? SPECIMEN ADEQUACY ? Satisfactory for Evaluation - transformation zone component present GENERAL CATEGORIZATION ? Negative for Intraepithelial Lesion or Malignancy INTERPRETATION ? Shift in dhruv present suggestive of bacterial vaginosis. ? Document reviewed and electronically signed by: ? JORGE Worrell(ASCP) ? Report Date: ??02/25/2004 11:09 End of Report [facility] 02/19/2004 02/20/2004 Sita Salamanca MD PATHOLOGY ORDERABL ES [facility] [address] [place] [address] documented in this encounter Visit Diagnoses Not on filedocumented in this encounter
--- OUTSIDE RECORDS SUMMARY | 2024-05-26 18:19 | XMS_ITS | Encounter Summary ---
Author Organization [facility] Address [address] [place] [address] Care Team Providers Care 8Th Grade Mathematics Teacher Name Role Phone Unavailable Primary Care Provider Unavailabl e Encounter Details Date Type Department Care Team (Latest Contact Info) Description 12/06/2001 8:53 EST - 12/06/2001 11:59 EST Hospital Encounter [facility] [address] [place] [address] Bree Albert MD Discharge Disposition: Auto Discharge [...]
--- OUTSIDE RECORDS SUMMARY | 2024-05-26 18:19 | XMS_ITS | Encounter Summary ---
Author Organization [facility] Address [address] [place] [address] Care Team Providers Care Safety Lamp Keeper Name Role Phone Unavailable Primary Care Provider Unavailabl e Encounter Details Date Type Department Care Team (Latest Contact Info) Description 05/20/2001 10:42 EDT - 05/20/2001 11:59 EDT Hospital Encounter [facility] - Other [address] [place] [address] Sita Salamanca MD [address] [place] [phone] Unknown, ProviderMD Discharge Disposition: Auto Discharge Social [...] Procedure Name Priority Date/Time Associated Diagnosis Comments PROFILE Routine 05/20/2001 11:3 5 EDT HIV 1/2 ANTIGEN AND ANTIBODY, 4TH GENERATION Routine 05/20/2001 11:35 EDT N.GONORRHOEAE PROBE Routine 05/20/2001 1 1:15 EDT CHLAMYDIA TRACHOMATIS PROBE Routine 05/20/2001 11:15 EDT BACTERIAL CULTURE, URINE Routine 05/20/2001 10:35 EDT CYTOPATHOLOGY Routine 05/20/2001 0:00 EDT documented in this encounter Results * HIV ANTIBODY (BERONICA) (05/20/2001 11:35 EDT) HIV 1/2 Antibody NONREACT. NR [facility] 05/20/2001 11:3 5 EDT 05/20/2001 19:18 EDT Sita Salamanca MD IMMUNOLOGY AND SER OLOGY ORDERABLES Performing Organization Address City/State/[facility] Co de Phone Number [facility] [address] [place] [address] * (ABNORMAL) PROFILE (05/20/2001 11:35 EDT) ABO and Rh Type A POS FLET [facility] Antibody Screen Neg FLEWilma [facility] WBC 10.22 4.0 - 12.4 K/cmm [facility] RBC 4.23 3.86 - 5.04 M/cmm [facility] Hemoglobin 12.9 11.6 - 15.2 gm/dl [facility] HCT 38.3 34.9 - 44.4 % [facility] MCV 91 81 - 98 fl [facility] MCH 30.6 26.7 - 33.3 pg [facility] MCHC 33.8 32.1 - 35.9 gm/dl [facility] PLT 296 141 - 320 K/cmm [facility] RDW-CV 12.4 11.7 - 14.6 % [facility] Hepatitis B Surface Ag Neg [facility] % Neutrophils 73.3 45.5 - 79.7 % [facility] % Lymphocytes 15.9 15.0 - 46.8 % [facility] % Monocytes 8.6 1.8 - 12.0 % [facility] % Eosinophils 1.8 0.6 - 6.9 % [facility] % Basophils 0.4 0.2 - 1.4 % [facility] ABS Neutrophils 7.50 2.20 - 8.85 K/cmm [facility] ABS Lymphs 1.62 1.09 - 3.30 K/cmm [facility] ABS Monocytes 0.87(H) 0.1 - 0.8 K/cmm [facility] ABS Eosinophils 0.18 0.03 - 0.61 K/cmm [facility] ABS Basophils 0.04 0.01 - 0.11 K/cmm [facility] Type of Diff: Automated [facility] Syphilis Sero (RPR) NONREACT. NR Dils [facility] Rubella IgG Scr Antibody detected [facility] 05/20/2001 11:3 5 EDT 05/20/2001 19:18 EDT Sita Salamanca MD PACKAGES & DNA PRO BE ORDERABLES Performing Organization Address [facility] Co de Phone Number [facility] [address] [place] [address] * N.GONORRHOEAE PROBE (05/20/2001 11:15 EDT) Specimen Description Cervix [facility] Result No Neisseria gonorrhoeae DNA detected by personal financial counselor mediated amplification. [facility] Report Status Final [id number] [facility] 05/20/2001 11:1 5 EDT 05/20/2001 19:10 EDT Sita Salamanca MD HISTORICAL LAB FOR SQ LOAD Performing Organization Address [facility] Co de Phone Number [facility] [address] [place] [address] * CHLAMYDIA TRACHOMATIS PROBE (05/20/2001 11:15 EDT) Specimen Description Cervix [facility] Result No Chlamydia trachomatis DNA detected by personal financial counselor mediated amplification. [facility] Report Status Final [id number] [facility] 05/20/2001 11:1 5 EDT 05/20/2001 19:10 EDT Sita Salamanca MD HISTORICAL LAB FOR SQ LOAD Performing Organization Address [facility] Co de Phone Number [facility] [address] [place] [address] * BACTERIAL CULTURE, URINE (05/20/2001 10:35 EDT) Specimen Description Urine [facility] Result 10,000 to 100,000 CFU/ml STAPHYLOCOCCU S COAGULASE POSITIVE (STAPHYLOCOCC US AUREUS) Greater than 100,000 CFU/ml LACTOBACILLUS SPECIES [facility] Report Status Final [id number] [facility] 05/20/2001 10:3 5 EDT 05/20/2001 12:27 EDT Narrative Organism Antibiotic Method Susceptibility 10,000 to 100,000 cfu/ml staphylococcus coagulase positive (staphylococcus aureus) Oxacillin SUSCEPTIBILITY (SEAN) 0.5 Susceptible 10,000 to 100,000 cfu/ml staphylococcus coagulase positive (staphylococcus aureus) Cefazolin SUSCEPTIBILITY (SEAN) <=8 Susceptible 10,000 to 100,000 cfu/ml staphylococcus coagulase positive (staphylococcus aureus) Nitrofurantoin SUSCEPTIBILITY (SEAN) <=32 Susceptible 10,000 to 100,000 cfu/ml staphylococcus coagulase positive (staphylococcus aureus) Vancomycin SUSCEPTIBILITY (SEAN) <=0.5 Susceptible 10,000 to 100,000 cfu/ml staphylococcus coagulase positive (staphylococcus aureus) Trimethoprim-Sulfamet hoxazole SUSCEPTIBILITY (SEAN) <=.5/9.5 Susceptible 10,000 to 100,000 cfu/ml staphylococcus coagulase positive (staphylococcus aureus) Ciprofloxacin SUSCEPTIBILITY (SEAN) <=0.5 Susceptible Sita Salamanca MD MICROBIOLOGY - GEN ERAL ORDERABLES Performing Organization Address [facility]/ZIP Co de Phone Number [facility] [address] [place] [address] * CYTOPATHOLOGY (05/20/2001 0:00 EDT) Pathology Report: CYTOPATHOLOGY REPORT Reports generated via electronic interface contain original data; however they are lacking the format of the original report. Caution should be taken when reading/interpreti ng unformatted reports. Name: ? MAURICIO BRITO ? Accession #: ? [id number] : ? 1970 (Age: 30) ??F ?Collect Date: ? 05/20/2001 Location: ? [facility] ? Receive Date: ? 05/25/2001 Provider: ?SITA SALAMANCA MD Copy to: ? Specimen/Source: ?ThinPrep Pap Test, Vagina/Cervix Last Menstrual Period: ? 03/29/01 Menstrual/Pregnanc y Status: ? SPECIMEN ADEQUACY ? Satisfactory for evaluation but limited by an absence of a transformation zone component. GENERAL CATEGORIZATION ? Benign Cellular Changes DESCRIPTIVE DIAGNOSIS ? Predominance of coccobacilli present consistent with shift in vaginal dhruv. ? Document reviewed and electronically signed by: ? JORGE Link(ASCP) ? Report Date: ??05/25/2001 13:31 End of Report [facility] 05/20/2001 05/25/2001 Sita Salamanca MD PATHOLOGY ORDERABL ES [facility] [address] [place] [address] documented in this encounter Visit Diagnoses Not on filedocumented in this encounter
--- OUTSIDE RECORDS SUMMARY | 2024-05-26 18:19 | XMS_ITS | Encounter Summary ---
Author Organization [facility] Address [address] [place] [address] Care Team Providers Care Painter Sign Maintenance Name Role Phone Unavailable Primary Care Provider Unavailabl e Encounter Details Date Type Department Care Team (Latest Contact Info) Description 09/22/2000 18:[address] [facility] - Other [address] [place] [address] Jerrell Terry PA [address] [place] [phone] Unknown, Provider, Discharge Disposition: Auto Discharge Social History Tobacco [...] Diagnosis Comments GROUP A STREP CULTURE Routine 09/22/2000 16:00 EST documented in this encounter Results * CULTURE FOR GROUP A BETA STREPTOCOCCUS (09/22/2000 16:00 EST) Specimen Description Throat [facility] Result NO GROUP A BETA STREPTOCOCCI ISOLATED [facility] Report Status Final [id number] [facility] 09/22/2000 16:0 0 EST 09/23/2000 7:51 EST Jerrell SERRANO MICROBIOLOGY - GENER AL ORDERABLES Performing Organization Address City/State/[facility] Co de Phone Number [facility] [address] [place] [address] documented in this encounter Visit Diagnoses Not on filedocumented in this encounter
--- OUTSIDE RECORDS SUMMARY | 2024-05-26 18:19 | XMS_ITS | Encounter Summary ---
Author Organization [facility] Address [address] [place] [address] Care Team Providers Care Design Eng Name Role Phone Unavailable Primary Care Provider Unavailabl e Encounter Details Date Type Department Care Team (Latest Contact Info) Description 10/24/1999 14:33 EST Hospital Encounter [facility] - Other [address] [place] [address] Santos Moses MD [address] [place] [address] Unknown, ProviderMD Discharge Disposition: Auto Discharge Social [...] Priority Date/Time Associated Diagnosis Comments CYTOPATHOLOGY Routine 10/24/1999 11:32 EST documented in this encounter Results * CYTOPATHOLOGY (10/24/1999 11:32 EST) Pathology Report: CYTOPATHOLOGY REPORT Reports generated via electronic interface contain original data; however they are lacking the format of the original report. Caution should be taken when reading/interpreti ng unformatted reports. Name: ? MAURICIO BRITO ? Accession #: ? [id number] : ? 1970 (Age: 29) ??F ?Collect Date: ? 10/24/1999 Location: ?Receive Date: ? 10/24/1999 Provider: ?SANTOS MOSES MD Copy to: ?SANTOS MOSES MD ? Specimen/Source: ?Document Control Assistant ThinPrep Last Menstrual Period: ? GYNECOLOGIC ??CYTOPATHOLOGY ??REPORT Name: TINA,MAURICIO ? [facility] : 1970 ?? 29Y F ?Client ID: ?? #: [id number] ? Clinician: SANTOS MOSES MD Location: [facility] ??Copy to: ?? Specimen: ?Document Control Assistant ThinPrep ? Source: ?Collected: 10/22/99 ? Received: 10/24/1999 ?LMP: 10/01/99 ? Hormone Therapy: No ? : No ? Radiation Therapy: No ?? Post : No ?Chemotherapy: No ?IUD: No ? Prev Abnormal Pap: No ?? Clinical Hx: ?(Blank napier indicate information not provided on requisition) SPECIMEN ADEQUACY: ? Satisfactory For Evaluation ?? GENERAL CATEGORIZATION: ? BENIGN CELLULAR CHANGES ?? DESCRIPTIVE DIAGNOSIS: ? Predominance Of Coccobacilli Present Consistent With A Shift In ? Vaginal Elizabeth ? Reviewed And Electronically Signed By: ? Oliver Sal, CT(ASCP) ? Report Date: ?? 10/24/1999 Pint Please Archived Tests - Final Diagnosis Text Field: Clinical History : ? Document reviewed and electronically signed by: ? Conversion ? Report Date: ??10/24/1999 00:00 End of Report [facility] 10/24/1999 11:3 2 EST 10/24/1999 11:33 EST Santos Moses MD PATHOLOGY ORDERABLES Performing Organization Address City/State/[facility] Co de Phone Number [facility] [address] [place] [address] documented in this encounter Visit Diagnoses Not on filedocumented in this encounter
--- OUTSIDE RECORDS SUMMARY | 2024-05-26 18:19 | XMS_ITS | Encounter Summary ---
Author Organization [facility] Address [address] [place] [address] Care Team Providers Care Enamel Pulverizer Name Role Phone Unavailable Primary Care Provider Unavailabl e Encounter Details Date Type Department Care Team (Late st Contact Info) Description 09/27/2001 7:19 EST - 09/27/2001 11:59 EST Hospital [facility]counter [facility] - Other [address] [place] [address] Carolee Avila MD [address] [facility], Level 4 [place] [phone] Unknown, Provider, Discharge Disposition: Auto Discharge Social [...] Procedure Name Priority Date/Time Associated Diagnosis Comments GLUCOSE TOLERANCE, 3HR GESTATIONAL Routine 09/30/2001 10:54 EST GLUCOSE-1HR GESTATIONAL SCREEN Routine 09/27/2001 8:59 EST COMPLETE BLOOD COUNT Routine 09/27/2001 8:59 EST VARICELLA IGG ANTIBODY Routine 09/27/2001 8:59 EST documented in this encounter Results * (ABNORMAL) GLUCOSE TOLERANCE, 3HR GESTATIONAL (09/30/2001 10:54 EST) Glucose Eloise, Fasting 97(H) 50 - 95 mg/dl [facility] Glucose Eloise, 1 hr 187(H) 50 - 180 mg/dl [facility] Glucose Eloise, 2hr 180(H) 50 - 155 mg/dl [facility] Gest Gluc Eloise, 3hr 180(H) 50 - 140 mg/dl [facility] Comment: The diagnosis of diabetes is made if two or more of the glucose values exceed the reference range listed. Glucose Dose 100 g [facility] 09/30/2001 10:5 4 EST 09/30/2001 10:59 EST Carolee Avila MD PACKAGES & DNA PRO BE ORDERABLES Performing Organization Address [facility] de Phone Number [facility] [address] [place] [address] * VARICELLA IGG ANTIBODY (09/27/2001 8:59 EST) Varicella IgG Ab Antibody detected [facility] 09/27/2001 8:59 EST 09/27/2001 10:17 EST Carolee Avila MD IMMUNOLOGY AND SER OLOGY ORDERABLES Performing Organization Address [facility] Phone Number [facility] [address] [place] [address] * (ABNORMAL) GLUCOSE-1HR GESTATIONAL SCREEN (09/27/2001 8:59 EST) Glucose-1hr Gest Scn 181(H) 50 - 135 mg/dl [facility] Glucose Dose 50 g [facility] 09/27/2001 8:59 EST 09/27/2001 10:17 EST Carolee Avila MD PACKAGES & DNA PRO BE ORDERABLES Performing Organization Address [facility] de Phone Number [facility] [address] [place] [address] * (ABNORMAL) HEMAGRAM (09/27/2001 8:59 EST) WBC 9.07 4.0 - 12.4 K/cmm [facility] RBC 3.88 3.86 - 5.04 M/cmm [facility] Hemoglobin 11.9 11.6 - 15.2 gm/dl [facility] HCT 34.7(L) 34.9 - 44.4 % [facility] MCV 89 81 - 98 fl [facility] MCH 30.7 26.7 - 33.3 pg [facility] MCHC 34.4 32.1 - 35.9 gm/dl [facility] PLT 299 141 - 320 K/cmm [facility] RDW-CV 12.7 11.7 - 14.6 % [facility] 09/27/2001 8:59 EST 09/27/2001 10:17 EST Carolee Avila MD HEMATOLOGY & PF4 O RDERABLES [facility] [address] [place] [address] documented in this encounter Visit Diagnoses Not on filedocumented in this encounter
--- OUTSIDE RECORDS SUMMARY | 2024-05-26 18:19 | XMS_ITS | Encounter Summary ---
Author Organization [facility] Address [address] [place] [address] Care Team Providers Care Test Driller Name Role Phone Unavailable Primary Care Provider Unavailabl e Encounter Details Date Type Department Care Team (Late st Contact Info) Description 10/20/2004 20:25 EST Hospital Encounter [facility] - Other [address] [place] [address] Sita Yanez MD [address] [place] [address] [phone] Social History Tobacco Use Types Packs/Day Years [...]
--- OUTSIDE RECORDS SUMMARY | 2024-05-26 18:19 | XMS_ITS | Encounter Summary ---
Author Organization [facility] Address [address] [place] [address] Care Team Providers Care Health Commissioner Name Role Phone Unavailable Primary Care Provider Unavailabl e Encounter Details Date Type Department Care Team (Late st Contact Info) Description 01/18/2002 8:47 EDT Hospital Encounter [facility] - Other [address] [place] [address] Bree Albert MD Unknown, Provider, Social History Tobacco Use Types [...] Priority Date/Time Associated Diagnosis Comments GLUCOSE TOLERANCE, 2HR Routine 01/18/2002 7:57 EDT documented in this encounter Results * GLUCOSE TOLERANCE, 2HR (01/18/2002 7:57 EDT) Glucose Eloise, Fasting 85 50 - 110 mg/dl [facility] Glucose Eloise, 2hr 99 50 - 140 mg/dl [facility] Glucose Dose 75 g [facility] 01/18/2002 7:57 EDT 01/18/2002 9:52 EDT Bree Albert MD PACKAGES & DNA PROBE ORDERABLES [facility] [address] [place] [address] documented in this encounter Visit Diagnoses Not on filedocumented in this encounter
--- OUTSIDE RECORDS SUMMARY | 2024-05-26 18:19 | XMS_ITS | Encounter Summary ---
Author Organization [facility] Address [address] [place] [address] Care Team Providers Care Training Lead Name Role Phone Unavailable Primary Care Provider Unavailabl e Encounter Details Date Type Department Care Team (Latest Contact Info) Description 07/13/2001 20:55 EDT Hospital Encounter [facility] - Other [address] [place] [address] Julieta Barker CNM Unknown, Provider, Discharge Disposition: Auto Discharge Social [...] Procedure Name Priority Date/Time Associated Diagnosis Comments MISCELLANEOUS TEST, PLASCENCIA Routine 07/13/2001 16:29 EDT IGM Routine 07/13/2001 16:29 EDT IGG Routine 07/13/2001 16:29 EDT documented in this encounter Results * MISCELLANEOUS TEST (07/13/2001 16:29 EDT) Test Name VARICELLA IGM [facility] Result Results unavailable; laboratory error [facility] Ref Range Resubmit at no charge. Send to the attention of Customer Service. [facility] Ref Lab SPOKE WITH [facility] AT [facility]. [facility] 07/13/2001 16:2 9 EDT 07/13/2001 16:37 EDT Julieta Georgearabellaer CN CHEMISTRY & BLOOD G ORDERABLES Performing Organization Address [facility] de Phone Number [facility] [address] [place] [address] * IGM (07/13/2001 16:29 EDT) IgM 70 46 - 304 mg/dl [facility] 07/13/2001 16:2 9 EDT 07/13/2001 16:37 EDT Julieta Mj CN CHEMISTRY & BLOOD G ORDERABLES Performing Organization Address [facility] de Phone Number [facility] [address] [place] [address] * IGG (07/13/2001 16:29 EDT) IgG 1160 751 - 1560 mg/dl [facility] 07/13/2001 16:2 9 EDT 07/13/2001 16:37 EDT Julieta Kelarabellaer CN CHEMISTRY & BLOOD G ORDERABLES Performing Organization Address [facility] de Phone Number [facility] [address] [place] [address] documented in this encounter Visit Diagnoses Not on filedocumented in this encounter
--- OUTSIDE RECORDS SUMMARY | 2024-05-26 18:19 | XMS_ITS | Encounter Summary ---
Author Organization [facility] Address [address] [place] [address] Care Team Providers Care Plane Tableman Name Role Phone Unavailable Primary Care Provider Unavailabl e Encounter Details Date Type Department Care Team (Latest Contact Info) Description 01/07/2007 23:12 EDT Hospital Encounter [facility] - Other [address] [place] [address] Sita Yanez MD [address] [place] [phone] Discharge Disposition: Home or Self Care [...] Priority Date/Time Associated Diagnosis Comments TSH Routine 01/07/2007 8:20 EDT documented in this encounter Results * TSH (01/07/2007 8:20 EDT) TSH 2.30 0.35 - 5.00 uIU/mL [facility] 01/07/2007 8:20 EDT 01/07/2007 12:55 EDT Stia Yanez MD CHEMISTRY & BLOOD GAS ORDERABLES [facility] [address] [place] [phone] documented in this encounter Visit Diagnoses Not on filedocumented in this encounter
--- OUTSIDE RECORDS SUMMARY | 2024-05-26 18:19 | XMS_ITS | Encounter Summary ---
Author Organization [facility] Address [address] [place] [address] Care Team Providers Care Chief Librarian Circulation Department Name Role Phone Unavailable Primary Care Provider Unavailabl e Encounter Details Date Type Department Care Team (Latest Contact Info) Description 06/22/2006 11:11 EDT - 06/22/2006 11:59 EDT Hospital Encounter [address] [address] Mery Menendez Discharge Disposition: Auto Discharge Social [...]
--- OUTSIDE RECORDS SUMMARY | 2024-05-26 18:19 | XMS_ITS | Encounter Summary ---
Author Organization [facility] Address [address] [place] [address] Care Team Providers Care Control And Recovery Special Tactics Name Role Phone Unavailable Primary Care Provider Unavailabl e Encounter Details Date Type Department Care Team (Late st Contact Info) Description 05/03/2001 19:49 EDT Hospital Encounter [facility] - Other [address] [place] [address] Eriberto Carrera MD PhD Unknown, Provider, Social History Tobacco Use Types [...] Procedure Name Priority Date/Time Associated Diagnosis Comments QUANT BETA HCG, Routine 05/03/2001 6:53 EDT documented in this encounter Results * HCG (05/03/2001 6:53 EDT) HCG 1241 mIU/ml [facility] Comment: <4 = Negative 4-10 = Borderline, recommend repeat. 05/03/2001 6:53 EDT 05/03/2001 6:54 EDT Eriberto Carrera MD PhD CHEMISTRY & BLOO D GAS ORDERABLES [facility] [address] [place] [address] documented in this encounter Visit Diagnoses Not on filedocumented in this encounter
--- OUTSIDE RECORDS SUMMARY | 2024-05-26 18:19 | XMS_ITS | Encounter Summary ---
Author Organization [facility] Address [address] [place] [address] Care Team Providers Care Letter Carrier Name Role Phone Unavailable Primary Care Provider Unavailabl e Encounter Details Date Type Department Care Team (Late st Contact Info) Description 12/02/2001 11:13 EST Hospital Encounter [facility] - Other [address] [place] [address] Bree Albert MD Unknown, Provider, Social History [...] Name Priority Date/Time Associated Diagnosis Comments GROUP B STREPTOCOCCUS SUSCEPTIBILITY Routine 12/02/2001 10:16 EST documented in this encounter Results * GROUP B STREPTOCOCCUS SUSCEPTIBILITY (12/02/2001 10:16 EST) Specimen Description Vaginal and Rectal [facility] Result NO GROUP B BETA STREPTOCOCCI ISOLATED [facility] Report Status Final [id number] [facility] 12/02/2001 10:1 6 EST 12/03/2001 10:16 EST Bree Albert MD HISTORICAL LAB FOR S Q LOAD [facility] [address] [place] [address] documented in this encounter Visit Diagnoses Not on filedocumented in this encounter
--- OUTSIDE RECORDS SUMMARY | 2024-05-26 18:19 | XMS_ITS | Encounter Summary ---
Author Organization [facility] Address [address] [place] [address] Care Team Providers Care Medical Radiation Tech Name Role Phone Unavailable Primary Care Provider Unavailabl e Encounter Details Date Type Department Care Team (Latest Contact Info) Description 06/01/2001 12:46 EDT Hospital Encounter [facility] [address] [place] [address] Bree Albert MD Discharge Disposition: Auto Discharge [...]
--- OUTSIDE RECORDS SUMMARY | 2024-05-26 18:19 | XMS_ITS | Encounter Summary ---
Author Organization [facility] Address [address] [place] [address] Care Team Providers Care Rf Microwave Engineer Name Role Phone Unavailable Primary Care Provider Unavailabl e Encounter Details Date Type Department Care Team (Late st Contact Info) Description 09/30/2001 21:52 EST Hospital Encounter [facility] - Other [address] [place] [address] Carolee Avila MD [address] [facility], [address] [place] [phone] Unknown, Provider, Discharge Disposition: Auto Discharge Social [...]
--- OUTSIDE RECORDS SUMMARY | 2024-05-26 18:19 | XMS_ITS | Encounter Summary ---
Author Organization [facility] Address [address] [place] [address] Care Team Providers Care Retail Bakery Manager Name Role Phone Unavailable Primary Care Provider Unavailabl e Encounter Details Date Type Department Care Team (Late st Contact Info) Description 12/12/2001 11:00 EST - 12/12/2001 11:59 EST Hospital Encounter [facility] [address] [place] [address] Carolee Avila MD [address] [facility], [address] [place] [phone] Discharge Disposition: Auto Discharge Social History Tobacco [...]
--- OUTSIDE RECORDS SUMMARY | 2024-05-26 18:19 | XMS_ITS | Encounter Summary ---
Author Organization [facility] Address [address] [place] [address] Care Team Providers Care Computer Network Engineer Name Role Phone Unavailable Primary Care Provider Unavailabl e Encounter Details Date Type Department Care Team (Latest Contact Info) Description 05/18/2006 18:18 EDT Hospital Encounter [facility] - Other [address] [place] [address] Sita Yanez MD [address] [place] [phone] Discharge Disposition: Home or Self Care [...] Priority Date/Time Associated Diagnosis Comments TSH Routine 05/18/2006 10:15 EDT documented in this encounter Results * TSH (05/18/2006 10:15 EDT) TSH 3.28 0.35 - 5.00 uIU/mL [facility] 05/18/2006 10:1 5 EDT 05/18/2006 19:16 EDT Sita Yanez MD CHEMISTRY & BLOOD GAS ORDERABLES [facility] [address] [place] [address] documented in this encounter Visit Diagnoses Not on filedocumented in this encounter
--- OUTSIDE RECORDS SUMMARY | 2024-05-26 18:19 | XMS_ITS | Encounter Summary ---
Author Organization [facility] Address [address] [place] [address] Care Team Providers Care Basket Operator Name Role Phone Unavailable Primary Care Provider Unavailabl e Encounter Details Date Type Department Care Team (Latest Contact Info) Description 09/07/2006 11:06 EST - 09/07/2006 11:59 EST Hospital Encounter [facility] - Other [address] [place] [address] Sita Yanez MD [address] [place] [phone] Discharge Disposition: Home or Self Care Social [...]
--- OUTSIDE RECORDS SUMMARY | 2024-05-26 18:19 | XMS_ITS | Encounter Summary ---
Author Organization [facility] Address [address] [place] [address] Care Team Providers Care Gas Roller Operator Name Role Phone Unavailable Primary Care Provider Unavailabl e Encounter Details Date Type Department Care Team (Late st Contact Info) Description 03/09/2005 9:44 EDT Hospital Encounter [facility] - Other [address] [place] [address] Sita Yanez MD [address] [place] [phone] Social History Tobacco Use Types Packs/Day Years [...]
--- OUTSIDE RECORDS SUMMARY | 2024-05-26 18:19 | XMS_ITS | Encounter Summary ---
Author Organization [facility] Address [address] [place] [address] Care Team Providers Care Director Of Cath Lab Name Role Phone Unavailable Primary Care Provider Unavailabl e Encounter Details Date Type Department Care Team ([facility] st Contact Info) Description 12/23/2000 8:47 EDT Hospital Encounter [address] [address] Eriberto Carrera MD PhD Social History Tobacco Use Types Packs/Day Years [...] Procedure Name Priority Date/Time Associated Diagnosis Comments RUBELLA IGG AB Routine 12/23/2000 9:22 EDT PROLACTIN Routine 12/23/2000 9:22 EDT documented in this encounter Results * RUBELLA IGG AB (12/23/2000 9:22 EDT) Rubella IgG Scr Antibody detected [facility] 12/23/2000 9:22 EDT 12/23/2000 9:24 EDT Eriberto Carrera MD PhD HISTORICAL LAB F OR SQ LOAD Performing Organization Address [facility] de Phone Number [facility] [address] [place] [address] * PROLACTIN (12/23/2000 9:22 EDT) Prolactin 9.9 ng/ml [facility] Comment: Non-: 2.8-29.2 : 9.7-208.5 Post Menopausal: 1.8-20.3 12/23/2000 9:22 EDT 12/23/2000 9:24 EDT Eriberto Carrera MD PhD CHEMISTRY & BLOO D GAS ORDERABLES Performing Organization Address [facility] de Phone Number [facility] [address] [place] [address] documented in this encounter Visit Diagnoses Not on filedocumented in this encounter
--- OUTSIDE RECORDS SUMMARY | 2024-05-26 18:19 | XMS_ITS | Encounter Summary ---
Author Organization [facility] Address [address] [place] [address] Care Team Providers Care Program Director Substance Abuse Name Role Phone Unavailable Primary Care Provider Unavailabl e Encounter Details Date Type Department Care Team (Latest Contact Info) Description 06/21/2001 19:18 EDT Hospital Encounter [facility] - Other [address] [place] [address] Sita Yanez MD [address] [place] [phone] Unknown, Provider, Discharge Disposition: Auto Discharge Social [...] Procedure Name Priority Date/Time Associated Diagnosis Comments BACTERIAL CULTURE, URINE Routine 06/21/2001 16:00 EDT documented in this encounter Results * BACTERIAL CULTURE, URINE (06/21/2001 16:00 EDT) Specimen Description Urine [facility] Result Less than 10,000 CFU/ml Mixed gram positive growth [facility] Report Status Final [id number] [facility] 06/21/2001 16:0 0 EDT 06/21/2001 18:02 EDT Sita Yanez MD MICROBIOLOGY - GEN ERAL ORDERABLES Performing Organization Address City/State/[facility] Co de Phone Number [facility] [address] documented in this encounter Visit Diagnoses Not on filedocumented in this encounter
--- OUTSIDE RECORDS SUMMARY | 2024-05-26 18:19 | XMS_ITS | Encounter Summary ---
Author Organization [facility] Address [address] [place] [address] Care Team Providers Care Mental Health Clinician Name Role Phone Unavailable Primary Care Provider Unavailabl e Encounter Details Date Type Department Care Team (Latest Contact Info) Description 12/09/2001 10:35 EST - 12/09/2001 11:59 EST Hospital Encounter [facility] [address] [place] [address] Bree Albert MD Discharge Disposition: Auto Discharge [...] Priority Date/Time Associated Diagnosis Comments RAD US OBSTETRICAL LIMITED Routine 12/09/2001 13:05 EST documented in this encounter Results * RAD US OBSTETRICAL LIMITED (12/09/2001 13:05 EST) Anatomical Region Laterality Modality Other 12/09/2001 13:0 5 EST Narrative 07/03/2009 0:49 EDT OB U/S,FOLLOW-UP NR NST A bridges intrauterine gestation was identified in vertex presentation, with a posterior placenta implantation. LMP: 03/29/01 WOOD: volume WNL BIOMETRIC PARAMETERS: BPD 9.0 cm = 36.5 wk; HC 32.4 cm = 36.7 wk; FL 7.2 cm = 36.4 wk; AC 33.3 cm = 37.2 wk Estimated gestational age by ultrasound = 36.7 wk EFW = 3083 gm ADDITIONAL BIOMETRY: FL/HC = 0.22; HUM = 5.9 cm; GA = 34.2 wk COMMENTS: Biometry is consistent with prior dating. The anatomy appears grossly normal, although a detailed anatomic survey was not performed. Follow-up as clinically indicated. She is also seen for non-reactive non-stress test. Two tests were performed: DOPPLER STUDIES Doppler studies of the umbilical artery and MCA (using color Doppler) were normal. BIOPHYSICAL PROFILE A BPP was performed with a score of 6/10. No breathing was noted. This needs follow-up with a contraction stress test. t: 12/13/01 /cierra Procedure Note Dennis Mcgrath MD - 07/03/2009 OB U/S,FOLLOW-UP NR NST A bridges intrauterine gestation was identified in vertex presentation, with a posterior placenta implantation. LMP: 03/29/01 WOOD: volume WNL BIOMETRIC PARAMETERS: BPD 9.0 cm = 36.5 wk; HC 32.4 cm = 36.7 wk; FL 7.2 cm = 36.4 wk; AC 33.3 cm = 37.2 wk Estimated gestational age by ultrasound = 36.7 wk EFW = 3083 gm ADDITIONAL BIOMETRY: FL/HC = 0.22; HUM = 5.9 cm; GA = 34.2 wk COMMENTS: Biometry is consistent with prior dating. The anatomy appears grossly normal, although a detailed anatomic survey was not performed. Follow-up as clinically indicated. She is also seen for non-reactive non-stress test. Two tests were performed: DOPPLER STUDIES Doppler studies of the umbilical artery and MCA (using color Doppler) were normal. BIOPHYSICAL PROFILE A BPP was performed with a score of 6/10. No breathing was noted. This needs follow-up with a contraction stress test. t: 12/13/01 /cierra Bree Albert MD IMG US ORDERABLES documented in this encounter Visit Diagnoses Not on filedocumented in this encounter
--- OUTSIDE RECORDS SUMMARY | 2024-05-26 18:19 | XMS_ITS | Encounter Summary ---
Author Organization [facility] Address [address] [place] [address] Care Team Providers Care Safety Equipment Testing Specialist Name Role Phone Unavailable Primary Care Provider Unavailabl e Encounter Details Date Type Department Care Team (Late st Contact Info) Description 02/15/2003 10:46 EDT Hospital Encounter [facility] - Other [address] [place] [address] Sita Salamanca MD [address] [place] [phone] Social History Tobacco Use Types Packs/Day Years [...] Priority Date/Time Associated Diagnosis Comments CYTOPATHOLOGY Routine 02/15/2003 0:00 EDT documented in this encounter Results * CYTOPATHOLOGY (02/15/2003 0:00 EDT) Pathology Report: CYTOPATHOLOGY REPORT Reports generated via electronic interface contain original data; however they are lacking the format of the original report. Caution should be taken when reading/interpreti ng unformatted reports. Name: ? MAURICIO BRITO ? Accession #: ? [id number] : ? 1970 (Age: 32) ??F ?Collect Date: ? 02/15/2003 Location: ? [facility] ? Receive Date: ? 02/19/2003 Provider: ?SITA SALAMANCA MD Copy to: ? Specimen/Source: ?ThinPrep Pap Test, Vagina/Cervix Last Menstrual Period: ? 01/15/03 ? SPECIMEN ADEQUACY ? Satisfactory for Evaluation - transformation zone component present GENERAL CATEGORIZATION ? Negative for Intraepithelial Lesion or Malignancy ? Document reviewed and electronically signed by: ? JORGE Worrell(ASCP) ? Report Date: ??02/20/2003 07:55 End of Report [facility] 02/15/2003 02/19/2003 Sita Salamanca MD PATHOLOGY ORDERABL ES [facility] [address] [place] [address] documented in this encounter Visit Diagnoses Not on filedocumented in this encounter
--- OUTSIDE RECORDS SUMMARY | 2024-05-26 18:19 | XMS_ITS | Encounter Summary ---
Author Organization [facility] Address [address] [place] [address] Care Team Providers Care Electrical Fitter Name Role Phone Sita Yanez MD Primary Care Provider [phone] Encounter Details Date Type Department Care Team (Late st Contact Info) Description 01/20/2002 Results Only [facility] - [facility] [address] [place] [address] Cinda Ocampo MD Social History Tobacco Use Types Packs/Day Years Used Date Smoking Tobacco: Never Assessed Sex and Gender Information Value Date Recorded Sex Assigned at Not on file Gender Identity Female 11/22/2019 12:18 EST Sexual Orientation Not on file documented as of this encounter Plan of Treatment Not on file documented as of this encounter Procedures Procedure Name Priority Date/Time Associated Diagnosis Comments CYTOPATHOLOGY Routine 01/20/2002 0:00 EDT documented in this encounter Results * CYTOPATHOLOGY (01/20/2002 0:00 EDT) Pathology Report: CYTOPATHOLOGY REPORT Reports generated via electronic interface contain original data; however they are lacking the format of the original report. Caution should be taken when reading/interpreti ng unformatted reports. Name: ? DARYLMAURICIO GUZMAN ? Accession #: ? [id number] : ? 1970 (Age: 31) ??F ?Collect Date: ? 01/20/2002 Location: ? [facility] ? Receive Date: ? 01/23/2002 Provider: ?CINDA OCAMPO MD Copy to: ? Specimen/Source: ?ThinPrep Pap Test, Cervix/Endocervix Last Menstrual Period: ? prepreg Menstrual/Pregnanc y Status: ? Post ? SPECIMEN ADEQUACY ? Satisfactory for Evaluation - transformation zone component present GENERAL CATEGORIZATION ? Negative for Intraepithelial Lesion or Malignancy ? Document reviewed and electronically signed by: ? Trena Clark [facility](ASCP) ? Report Date: ??01/26/2002 08:11 End of Report [facility] 01/20/2002 01/23/2002 Cinda Ocampo MD PATHOLOGY ORDERABLES Performing Organization Address City/State/[facility] Co de Phone Number [facility] [address] [place] [address] documented in this encounter Visit Diagnoses Not on filedocumented in this encounter Care Teams Electrical Fitter Relationship Specialty Start Date End Date Sita Yanez MD [address] [place] [phone] PCP - General 01/23/09 08/20/11 documented as of this encounter
--- OUTSIDE RECORDS SUMMARY | 2024-05-26 18:19 | XMS_ITS | Encounter Summary ---
Author Organization [facility] Address [address] [place] [address] Care Team Providers Care Tower Truck Driver Name Role Phone Sita Yanez MD Primary Care Provider [phone] Encounter Details Date Type Department Care Team (Late st Contact Info) Description 09/07/2006 Results Only [facility] [address] [place] [address] Sita Yanez MD [address] [place] [phone] Social History Tobacco Use Types Packs/Day Years [...] RNA BY PCR Routine 09/07/2006 12:55 EST HEPATITIS A TOTAL ANTIBODY W REFLEX Routine 09/07/2006 12:55 EST HEPATITIS B CORE ANTIBODY (TOTAL) Routine 09/07/2006 12:55 EST HEPATITIS B SURFACE ANTIBODY Routine 09/07/2006 12:55 EST HEPATITIS B SURFACE ANTIGEN Routine 09/07/2006 12:55 EST HEPATIC FUNCTION PANEL (ALB,ALK PHOS,ALT,AST,DBIL,T OT CHRISTINA,TOT PROT) Routine 09/07/2006 12:55 EST documented in this encounter Results * (ABNORMAL) LIVER FUNCTION TESTS (09/07/2006 12:55 EST) Albumin 4.4 3.4 - 4.9 g/dl [facility] Comment:Slight hemolysis Total Protein 7.6 6.5 - 8.3 g/dl [facility] Comment:Slight hemolysis Total Alkaline Phosphatase 79 38 - 126 U/L [facility] Comment:Slight hemolysis ALT 63(H) 9 - 52 U/L [facility] Comment:Slight hemolysis AST 46 15 - 46 U/L [facility] Comment:Slight hemolysis Unconjugated Bilirubin 0.5 0.1 - 1.1 mg/dl [facility] Comment:Slight hemolysis Conjugated Bilirubin 0.0 0.0 - 0.3 mg/dl [facility] Comment:Slight hemolysis Bilirubin, Total <0.5 0.2 - 1.3 mg/dl [facility] Comment:Slight hemolysis 09/07/2006 12:5 5 EST 09/07/2006 19:53 EST Sita Yanez MD CHEMISTRY & BLOOD GAS ORDERABLES Performing Organization Address [facility] de Phone Number [facility] [address] [place] [address] * HEPATITIS C ANTIBODY (09/07/2006 12:55 EST) Hepatitis C Ab Neg [facility] 09/07/2006 12:5 5 EST 09/07/2006 19:53 EST Sita Yanez MD CHEMISTRY & BLOOD GAS ORDERABLES Performing Organization Address [facility] Co de Phone Number [facility] [address] [place] [address] * HEPATITIS B CORE ANTIBODY (09/07/2006 12:55 EST) Hep B Core Ab Neg [facility] 09/07/2006 12:5 5 EST 09/07/2006 19:53 EST Sita Yanez MD CHEMISTRY & BLOOD GAS ORDERABLES Performing Organization Address [facility] Phone Number [facility] [address] [place] [address] * HEPATITIS B SURFACE ANTIGEN (09/07/2006 12:55 EST) Hepatitis B Surface Ag Neg [facility] 09/07/2006 12:5 5 EST 09/07/2006 19:53 EST Sita Yanez MD CHEMISTRY & BLOOD GAS ORDERABLES Performing Organization Address [facility] de Phone Number [facility] [address] [place] [address] * HEPATITIS B SURFACE ANTIBODY (09/07/2006 12:55 EST) Hepatitis B Surface Ab Neg [facility] 09/07/2006 12:5 5 EST 09/07/2006 19:53 EST Sita Yanez MD CHEMISTRY & BLOOD GAS ORDERABLES Performing Organization Address [facility] Phone Number [facility] [address] [place] [address] * HEPATITIS A TOTAL ANTIBODY (09/07/2006 12:55 EST) Hep A Antibody Neg [facility] 09/07/2006 12:5 5 EST 09/07/2006 19:53 EST Sita Yanez MD CHEMISTRY & BLOOD GAS ORDERABLES Performing Organization Address [facility] de Phone Number [facility] [address] [place] [address] documented in this encounter Visit Diagnoses Not on filedocumented in this encounter Care Teams Tower Truck Driver Relationship Specialty Start Date End Date Sita Yanez MD [address] [place] [address] [phone] PCP - General 01/23/09 08/20/11 documented as of this encounter
== END 2024-05-26 18:09 | disposition home or self-care (01) ==
LOC: NCHCN 18:08
PROVIDERS: PCP Registered Nurse; Visit Provider Family Medicine
DX: E11.9 Type 2 diabetes mellitus without complications (principal)
CPT/HCPCS: 82043; 82570

== ENCOUNTER 2024-06-07 16:31 | Outpatient (REF) | payer BC, SELFPAY ==
--- NOTE | 2024-06-07 07:27 | SKI_PTH ---
PATIENT: Mei Valenzuela LOC: [facility] U#:[id number] AGE/SX: 53/F ROOM: RE06/07/[address]: Mauricio Cox MD : 1970 BED: DIS: 06/07/2024 SPEC #: [id number] RECD: 06/07/24 17:08 STATUS: GE REKelton #: [id number] MONAE: 06/07/24 07:[address]: Mauricio Cox DEPT: Surgical Specimen RECD BY: Maribell Munoz ENTERED: 06/07/24 17:09 SP TYPE: BLADE FUENTES DR: Roro Mallory Tissues: 1 - SKIN BIOPSY(SHAVE/PUNCH) Procedures: SKIN LEVEL 4 Comments: [id number]
--- OUTSIDE RECORDS SUMMARY | 2024-06-07 16:37 | XMS_ITS ---
Author Organization Unknown Address [address] [place] [address] [phone] Phone Care Team Providers Care Stone Polisher Machine Name Role Phone CONNER Stevenson Attending Unavailable CHASE Sal Primary Unavailable Social History Type Status Start Date End Date Code Code Syst em Smoking History Never smoker (Never Smoked) 075152938 SNOMED CT Sex Female Hospital Discharge Instructions [...] Co de Code System RANITIDINE Rash (SNOMED-CT: 836348552) Severe Active 9143 RxNorm PRILOSEC Rash (SNOMED-CT: 843100344) Severe Active 20321223 RxNorm Plan of Treatment MM SCREEN BILAT 05/19/2023 US PELVIC / TV 06/16/2023 US PELVIC / TV 03/17/2023 PRE-OP COVID-19 TESTING 01/23/2022 US PELVIC / TV 10/21/2021 US GUIDED NEEDLE BIOPSY 08/27/2021 Encounters Encounter Diagnosis Start Date Code Code Sys tem Biceps tendinitis 10/09/2021292925654 SNOMED-CT Personal Care Team Section Performer Name Performer Role Active Date Inactive Da te
--- OUTSIDE RECORDS SUMMARY | 2024-06-07 16:37 | XMS_ITS ---
Author Organization Unknown Address [address] [place] [address] [phone] Phone Care Team Providers Care Latex Ribbon Machine Operator Name Role Phone SELINA LUCAS Attending Unavailable CHASE Sal Primary Unavailable Results US GUIDANCE FOR NEEDLE PLACE MENT - Completed: 08/27/2021 15:52 LOINC: Ultrasound guidance was prov ided for right biceps injection. Radiologist was not present for this procedure. Dictated by: ALMITA GAONA MD Transcribed by: REGINALDO 08/28/2108:23 D Friday, August 27, 2021 12:33:50 PM [id number] Electronically Reviewed and Signed By: DAVID GAONA MD 08/29/21 09:04 Copy for: [facility] Social History Type Status Start Date End Date Code Code Syst em Smoking History Never smoker (Never Smoked) 036586708 SNOMED CT Sex Female Hospital Discharge Instructions [...] Co de Code System RANITIDINE Rash (SNOMED-CT: 973761632) Severe Active 9143 RxNorm PRILOSEC Rash (SNOMED-CT: 106797158) Severe Active 20321223 RxNorm Plan of Treatment [...]
--- OUTSIDE RECORDS SUMMARY | 2024-06-07 16:38 | XMS_ITS ---
Author Organization Unknown Address [address] [place] [address] [phone] Phone Care Team Providers Care Field Coil Winder Name Role Phone LENORA Barraza Attending Unavailable CHASE Sal Primary Unavailable Social History Type Status Start Date End Date Code Code Syst em Smoking History Never smoker (Never Smoked) 839802166 SNOMED CT Sex Female Hospital Discharge Instructions [...] Co de Code System RANITIDINE Rash (SNOMED-CT: 721686382) Severe Active 9143 RxNorm PRILOSEC Rash (SNOMED-CT: 001101759) Severe Active 20321223 RxNorm Plan of Treatment [...]
--- OUTSIDE RECORDS SUMMARY | 2024-06-07 16:38 | XMS_ITS ---
Author Organization Unknown Address [address] [place] [address] [phone] Phone Care Team Providers Care Counter Top Assembler Name Role Phone JOSÉ LUIS Marquez Attending [...] D Thursday, October 21, 2021 3:41:30 PM [id number] Electronically Reviewed and Signed By: YONI AZEVEDO MD 11/10/21 08:12 Copy for: [facility] IN[facility] MG[facility] Social History Type Status Start Date End Date Code Code Syst em Smoking History Never smoker (Never Smoked) 886959989 SNOMED CT Sex Female Hospital Discharge Instructions [...] Co de Code System RANITIDINE Rash (SNOMED-CT: 153679548) Severe Active 9143 RxNorm PRILOSEC Rash (SNOMED-CT: 321389620) Severe Active 639374 RxNorm Plan of Treatment MM SCREEN BILAT [...]
--- OUTSIDE RECORDS SUMMARY | 2024-06-07 16:38 | XMS_ITS ---
Author Organization Unknown Address [address] [place] [address] [phone] Phone Care Team Providers Care Client Service Manager Name Role Phone ROLANDO Chew Attending Unavailable CHASE Sal Primary Unavailable Results TEST (URINE) QUALI TATIVE - Collect Date/Time: 01/26/2022 09:05 ID: [id number] [address] [place] [address], 56 LOINC: 2106-3 Test Value Unit Reference Range Code Code System Flag TEST NEGATIVE 6-3 LOINC Social History Type Status Start Date End Date Code Code Syst em Smoking History Never smoker (Never Smoked) 101487173 SNOMED CT Sex Female Vital Signs Vital Sign Value Unit Polk Value Polk Unit Date/Time Recent/Initial? Code Code System Systolic Blood Pressure 119 mm[Hg] 01/26/2022 10:35 Initial 8480-6 LOINC Diastolic Blood Pressure 77 mm[Hg] 01/26/2022 10:35 Initial 8462-4 LOINC O2 Saturation 100 % 2021 10:35 Initial 81281- 5 LOINC Pulse 80.0 /min 01/26/2022 10:35 [...] Po lyp Lesion Snare Tq 01/26/2022 completed 41502 CPT Allergies and Adverse Reactions Allergy Substance Reaction Severity Start Date Concern Status Co de Code System RANITIDINE Rash (SNOMED-CT: 055271085) Severe Active 9142 RxNorm PRILOSEC Rash (SNOMED-CT: 780509183) Severe Active 20321223 RxNorm Plan of Treatment [...]
--- OUTSIDE RECORDS SUMMARY | 2024-06-07 16:39 | XMS_ITS ---
Author Organization Unknown Address [address] [place] [address] [phone] Phone Care Team Providers Care Flooring Professional Name Role Phone LUIS WOODS Attending Unavail able CHASE Sal Primary Unavailable Social History Type Status Start Date End Date Code Code Syst em Smoking History Never smoker (Never Smoked) 322533125 SNOMED CT Sex Female Hospital Discharge Instructions [...] Co de Code System RANITIDINE Rash (SNOMED-CT: 008213968) Severe Active 9143 RxNorm PRILOSEC Rash (SNOMED-CT: 109306633) Severe Active 20321223 RxNorm Plan of Treatment [...]
--- OUTSIDE RECORDS SUMMARY | 2024-06-07 16:39 | XMS_ITS ---
Author Organization Unknown Address [address] [place] [address] [phone] Phone Care Team Providers Care Substation Operator Automatic Name Role Phone CHASE Sal Attending Unavailable Social History Type Status Start Date End Date Code Code Syst em Smoking History Never smoker (Never Smoked) 587962178 SNOMED CT Sex Female Hospital Discharge Instructions [...] Co de Code System RANITIDINE Rash (SNOMED-CT: 606849011) Severe Active 9143 RxNorm PRILOSEC Rash (SNOMED-CT: 379281121) Severe Active 596411 RxNorm Plan of Treatment MM SCREEN BILAT [...]
--- OUTSIDE RECORDS SUMMARY | 2024-06-07 16:39 | XMS_ITS ---
Author Organization Unknown Address [address] [place] [address] [phone] Phone Care Team Providers Care Manager Licensing Name Role Phone PITA Rivers Attending Unavailable CHASE Sal Primary Unavailable Social History Type Status Start Date End Date Code Code Syst em Smoking History Never smoker (Never Smoked) 070793169 SNOMED CT Sex Female Hospital Discharge Instructions [...] Co de Code System RANITIDINE Rash (SNOMED-CT: 983248442) Severe Active 9143 RxNorm PRILOSEC Rash (SNOMED-CT: 945614625) Severe Active 20321223 RxNorm Plan of Treatment [...]
--- OUTSIDE RECORDS SUMMARY | 2024-06-07 16:39 | XMS_ITS ---
Author Organization Unknown Address [address] [place] [address] [phone] Phone Care Team Providers Care Rectifying Operator Name Role Phone PITA Rivers Attending Unavailable CHASE Sal Primary Unavailable Social History Type Status Start Date End Date Code Code Syst em Smoking History Never smoker (Never Smoked) 045983829 SNOMED CT Sex Female Hospital Discharge Instructions [...] Co de Code System RANITIDINE Rash (SNOMED-CT: 365997239) Severe Active 9143 RxNorm PRILOSEC Rash (SNOMED-CT: 206056297) Severe Active 20321223 RxNorm Plan of Treatment [...]
--- OUTSIDE RECORDS SUMMARY | 2024-06-07 16:40 | XMS_ITS ---
Author Organization Unknown Address [address] [place] [address] [phone] Phone Care Team Providers Care Surg Tech Name Role Phone JOSELITO Lafleur Attending Unavailable ROSEMARY Sahu DIRECTOR OF HEAD START Unavailable CHASE Sal Primary Unavailable Results GLUCOSE FINGER/HEEL CAPILLAR Y - Collect Date/Time: 01/15/2023 09:12 [facility] ID: [id number] [address] [place] [address], [phone] LOINC: 89478-8 Test Value Unit Reference Range Code Code System Flag GLUCOSE CAP 85 mg/dL L=70 H=116 Social History Type Status Start Date End Date Code Code Syst em Smoking History Never smoker (Never Smoked) 013537010 SNOMED CT Sex Female Vital Signs Vital Sign Value Unit Waddell Value Waddell Unit Date/Time Recent/Initial? Code Code System Body Mass Index 32.89 kg/m2 01/11/2023 11:12 Initial 38326 -5 LOINC Systolic Blood Pressure 117 mm[Hg] 01/15/2023 12:35 Initial 8480- 6 LOINC Diastolic Blood Pressure 70 mm[Hg] 01/15/2023 12:35 Initial 8462- 4 LOINC Body Surface Area 2.12 m2 01/11/2023 11:12 Initial 3140- 1 LOINC Height 170.180 0 cm 67.00 in 01/11/2023 11:12 Initial 8302- 2 LOINC O2 Saturation 100 % 2022 12:35 Initial 99062 -5 LOINC Pulse 65.0 /min 01/15/2023 12:35 Initial 8867- 4 LOINC Respiration 18 /min 01/16/20 12:35 Initial 9279- 1 LOINC Temperature 36.1 Elen 97.0 F 01/16/20 12:35 Initial 8310- 5 [facility] Weight 95.25 kg 210.00 lbs 01/11/2023 11:12 Initial 10306 -7 [facility] Hospital Discharge Instructions Should you have any [...] 2 Or More Hemorrhoid Columns/Groups 01/15/2023 completed 11357 CPT Anesthesia, Anorectal Proc 01/15/2023 completed 78181 CPT Allergies and Adverse Reactions Allergy Substance Reaction Severity Start Date Concern Status Co de Code System RANITIDINE Rash (SNOMED-CT: 099307494) Severe Active 9143 RxNorm PRILOSEC Rash (SNOMED-CT: 118292067) Severe Active 20321223 RxNorm Plan of Treatment [...]
--- OUTSIDE RECORDS SUMMARY | 2024-06-07 16:40 | XMS_ITS ---
Author Organization Unknown Address [address] [place] [address] [phone] Phone Care Team Providers Care Psychology Clinician Name Role Phone JOSELITO Lafleur Attending Unavailable STONEFIELD MICHELMARLEN Sal Primary Unavailable Social History Type Status Start Date End Date Code Code Syst em Smoking History Never smoker (Never Smoked) 491155602 SNOMED CT Sex Female Hospital Discharge Instructions [...] Co de Code System RANITIDINE Rash (SNOMED-CT: 005656115) Severe Active 9143 RxNorm PRILOSEC Rash (SNOMED-CT: 335343959) Severe Active 20321223 RxNorm Plan of Treatment MM SCREEN BILAT 05/19/2023 US PELVIC / TV 06/16/2023 US PELVIC / TV 03/17/2023 PRE-OP COVID-19 TESTING 01/23/2022 US PELVIC / TV 10/21/2021 US GUIDED NEEDLE BIOPSY 08/27/2021 Encounters Encounter Diagnosis Start Date Code Code Sys tem Residual hemorrhoidal skin tags 12/14/2022 74886758 SNOMED-CT Personal Care Team Section Performer Name Performer Role Active Date Inactive Da te
--- OUTSIDE RECORDS SUMMARY | 2024-06-07 16:40 | XMS_ITS ---
Author Organization Unknown Address [address] [place] [address] [phone] Phone Care Team Providers Care Gum Scoring Machine Operator Name Role Phone JOSELITO HYUN Lafleur Attending Unavailable CHASE Sal Primary Unavailable Results BASIC METABOLIC PANEL (BMP) - Collect Date/Time: 01/11/2023 09:30 [facility] ID: [id number] [address] [place] [address], [address] LOINC: 66991-5 Test Value Unit Reference Range Code Code [...] H=34 2028-9 LOINC ANION GAP 10.4 mmol/L 14336-2 LOINC CALCIUM SERUM 9.6 mg/dL L=8.2 H=10.2 51587-3 LOINC AGE 52 years eGFR (non-Afr.Amer.) 81 mL/min 58374-7 LOINC eGFR (Afr-Cuban) 97 mL/min 14718-4 [facility] CBC W/ DIFFERENTIAL* - Colle ct Date/Time: 01/11/2023 09:30 [facility] ID: [id number] [address], [place], [address] LOINC: 97825-3 Test Value Unit Reference Range Code Code System Flag WBC 6.76 th/cmm L=5.00 H=10.00 6690-2 LOINC NEUT % 68.6 % L=40.0 H=80.0 LYMPH % 20.1 % L=10.0 H=50.0 MONO % 7.8 % L=2.0 H=12.0 19525-9 LOINC EOS % 2.5 % L=0.0 H=8.0 BASO % 0.7 % L=0.0 H=3.0 IG % 0.3 % L=0.0 H=1.1 2514-8 LOINC NRBC % 0.0 % L=0.0 H=0.0 68185-3 LOINC NEUT abs count 4.6 th/cmm L=1.6 H=8.4 751-8 LOINC LYMPH abs count 1.4 th/cmm L=1.5 H=4.0 731-0 LOINC L MONO abs count 0.5 th/cmm L=0.2 H=1.0 742-7 LOINC EOS abs count 0.2 th/cmm L=0.0 H=0.5 711-2 LOINC BASO abs count 0.1 th/cmm L=0.0 H=0.2 704-7 LOINC IG abs count 0.0 th/cmm L=0.0 H=0.1 47920-8 LOINC NRBC abs count 0.0 mil/cmm L=0.0 H=0.0 60810-6 LOINC RBC 4.65 mil/cmm L=3.90 H=5.40 789-8 [...] em Smoking History Never smoker (Never Smoked) 248989521 SNOMED CT Sex Female Hospital Discharge Instructions [...] Co de Code System RANITIDINE Rash (SNOMED-CT: 121012946) Severe Active 43 RxNorm PRILOSEC Rash (SNOMED-CT: 775334100) Severe Active 20321223 RxNorm Plan of Treatment [...]
--- OUTSIDE RECORDS SUMMARY | 2024-06-07 16:41 | XMS_ITS ---
Author Organization Unknown Address [address] [place] [address] [phone] Phone Care Team Providers Care Concrete Float Maker Name Role Phone PROVOST LEVINE Attending Unavailable CHASE Sal Primary Unavailable Results US PELVIC TRANSVAGINAL* - Co mpleted: 03/17/2023 14:05 LOINC: [facility] [place], [place] [address] PACS DIRECTOR COMMUNICATIONS REPORT Patient Name: MAURICIO CASTRO MRN: Sex: : Age: [id number] F 1970 52 Account: Accession: Admit: StayType: [id number] 03/17/2023 O/P Ordered: Order ID: Submitted: Ordering Provider: 03/17/2023 13:28 [id number] KT JULIANNA XIE Completed: Technologist: Resulted: 03/17/2023 [...] em Smoking History Never smoker (Never Smoked) 425842245 [facility] PowerOMED CT Sex Female Hospital Discharge Instructions Should you have any questions prior to discharge, please contact a member of your healthcare team. If you have left the hospital and have any questions, please contact your primary care physician. Reason For Referral No Data Found Allergies and Adverse Reactions Allergy Substance Reaction Severity Start Date Concern Status Co de Code System RANITIDINE Rash (SNOMED-CT: 054328908) Severe Active 9143 RxNorm PRILOSEC Rash (SNOMED-CT: 789246735) Severe Active 20321223 RxNorm Plan of Treatment MM SCREEN BILAT 05/19/2023 US PELVIC / TV 06/16/2023 US PELVIC / TV 03/17/2023 PRE-OP COVID-19 TESTING 01/23/2022 US PELVIC / TV 10/21/2021 US GUIDED NEEDLE BIOPSY 08/27/2021 Encounters Encounter Diagnosis Start Date Code Code Sys tem Abnormal findings on diagnos tic imaging of other specified body structures 03/17/2023 DrAvailable-CT Personal Care Team Section Performer Name Performer Role Active Date Inactive Da te
--- OUTSIDE RECORDS SUMMARY | 2024-06-07 16:41 | XMS_ITS ---
Author Organization Unknown Address [address] [place] [address] [phone] Phone Care Team Providers Care Cloth Examiner Name Role Phone JOSELITO Lafleur Attending Unavailable CHASE Sal Primary Unavailable Social History Type Status Start Date End Date Code Code Syst em Smoking History Never smoker (Never Smoked) 638135201 SNOMED CT Sex Female Hospital Discharge Instructions [...] Co de Code System RANITIDINE Rash (SNOMED-CT: 652172228) Severe Active 9143 RxNorm PRILOSEC Rash (SNOMED-CT: 862423935) Severe Active 20321223 RxNorm Plan of Treatment MM SCREEN BILAT 05/19/2023 US PELVIC / TV 06/16/2023 US PELVIC / TV 03/17/2023 PRE-OP COVID-19 TESTING 01/23/2022 US PELVIC / TV 10/21/2021 US GUIDED NEEDLE BIOPSY 08/27/2021 Encounters Encounter Diagnosis Start Date Code Code Sys tem Follow-up visit 02/08/2023 384256768 SNOMED-CT Personal Care Team Section Performer Name Performer Role Active Date Inactive Da te
--- OUTSIDE RECORDS SUMMARY | 2024-06-07 16:41 | XMS_ITS ---
Author Organization Unknown Address [address] [place] [address] [phone] Phone Care Team Providers Care Memorial Counselor Name Role Phone JOSELITODESTINY Lafleur Attending Unavailable STONEFIELD MICHELMARLEN Sal Primary Unavailable Social History Type Status Start Date End Date Code Code Syst em Smoking History Never smoker (Never Smoked) 502901908 SNOMED CT Sex Female Hospital Discharge Instructions [...] Co de Code System RANITIDINE Rash (SNOMED-CT: 991110861) Severe Active 9143 RxNorm PRILOSEC Rash (SNOMED-CT: 787042219) Severe Active 20321223 RxNorm Plan of Treatment MM SCREEN BILAT 05/19/2023 US PELVIC / TV 06/16/2023 US PELVIC / TV 03/17/2023 PRE-OP COVID-19 TESTING 01/23/2022 US PELVIC / TV 10/21/2021 US GUIDED NEEDLE BIOPSY 08/27/2021 Encounters Encounter Diagnosis Start Date Code Code Sys tem Internal hemorrhoids grade IV 01/15/2023 669353825 SNOMED-CT Personal Care Team Section Performer Name Performer Role Active Date Inactive Da te
--- OUTSIDE RECORDS SUMMARY | 2024-06-07 16:42 | XMS_ITS ---
Author Organization Unknown Address [address] [place] [address] [phone] Phone Care Team Providers Care Lawn Caretaker Name Role Phone KELLY Lafleur Attending Unavailable STONE BRITTNEY Sal Primary Unavailable Social History Type Status Start Date End Date Code Code Syst em Smoking History Never smoker (Never Smoked) 042655112 SNOMED CT Sex Female Hospital Discharge Instructions [...] Co de Code System RANITIDINE Rash (SNOMED-CT: 581502832) Severe Active 9143 RxNorm PRILOSEC Rash (SNOMED-CT: 588960660) Severe Active 20321223 RxNorm Plan of Treatment MM SCREEN BILAT 05/19/2023 US PELVIC / TV 06/16/2023 US PELVIC / TV 03/17/2023 PRE-OP COVID-19 TESTING 01/23/2022 US PELVIC / TV 10/21/2021 US GUIDED NEEDLE BIOPSY 08/27/2021 Encounters Encounter Diagnosis Start Date Code Code Sys tem 04/12/2023 [id number] SNOMED-CT Personal Care Team Section Performer Name Performer Role Active Date Inactive Da te
--- OUTSIDE RECORDS SUMMARY | 2024-06-07 16:42 | XMS_ITS ---
Author Organization Unknown Address [address] [place] [address] [phone] Phone Care Team Providers Care Bindery Production Manager Name Role Phone ANNE-MARIE JULIANNA Attending Unavailable CHASE Sal Primary Unavailable Results MM SCREENING BILAT MAMMO W T AME W CAD - Completed: 05/19/2023 08:11 LOINC: [facility] [place], [place] [address] PACS CALENDER ROLL OPERATOR REPORT Patient Name: MAURICIO CASTRO MRN: Sex: : Age: [id number] F 1970 52 Account: Accession: Admit: StayType: [id number] O/P Ordered: Order ID: Submitted: Ordering Provider: 05/19/2023 07:41 [id number] [facility] JULIANNA XIE Completed: Technologist: Resulted: 05/19/2023 08:11 [...] follow-up screening mammography is recommended, as per [employer] guidelines. BI-RADS Category 1: Negative [...] em Smoking History Never smoker (Never Smoked) 104694118 SNOMED CT Sex Female Hospital Discharge Instructions [...] Co de Code System RANITIDINE Rash (SNOMED-CT: 945456983) Severe Active 9143 RxNorm PRILOSEC Rash (SNOMED-CT: 404246864) Severe Active 500624 RxNorm Plan of Treatment MM SCREEN BILAT [...]
--- OUTSIDE RECORDS SUMMARY | 2024-06-07 16:42 | XMS_ITS ---
Author Organization Unknown Address [address] [place] [phone] Phone Care Team Providers Care Barrel Waterer Name Role Phone December Attending Unavailable CHASE Sal Primary Unavailable Results VAGINAL SMEAR EVALUATION* - Collect Date/Time: 04/06/2023 13:47 [facility] ID: [id number] [address] [place] [address], [phone] LOINC: 37288-3 Test Value Unit Reference Range Code Code System Flag WBC s few Yeast. Moderate Hyphae Present Clue cells Not present TOTAL AUGUSTINE SCORE 2 CULT URINE CULTURE* - Collec t Date/Time: 04/06/2023 13:45 [facility] ID: [id number] [address] [place] [address], [phone] LOINC: 630-4 Test Value Unit Reference Range Code Code System Flag COLLECTION MODE: NOT STATED 95309-1 LOINC Social History Type Status Start Date End Date Code Code Syst em Smoking History Never smoker (Never Smoked) 659302619 SNOMED CT Sex Female Hospital Discharge Instructions [...] Co de Code System RANITIDINE Rash (SNOMED-CT: 381185281) Severe Active 9143 RxNorm PRILOSEC Rash (SNOMED-CT: 035555370) Severe Active 628618 RxNorm Plan of Treatment MM SCREEN BILAT 05/19/2023 US PELVIC / TV 06/16/2023 US PELVIC / TV 03/17/2023 PRE-OP COVID-19 TESTING 01/23/2022 US PELVIC / TV 10/21/2021 US GUIDED NEEDLE BIOPSY 08/27/2021 Encounters Encounter Diagnosis Start Date Code Code Sys tem Noninflammatory disorder of the vagina 04/06/2023 22 293172 SNOMED-CT Personal Care Team Section Performer Name Performer Role Active Date Inactive Da te
--- OUTSIDE RECORDS SUMMARY | 2024-06-07 16:42 | XMS_ITS ---
Author Organization Unknown Address [address] [place] [phone] Phone Care Team Providers Care Septic Tank Service Technician Name Role Phone JOSELITO Lafleur Attending Unavailable CHASE Sal Primary Unavailable Social History Type Status Start Date End Date Code Code Syst em Smoking History Never smoker (Never Smoked) 888298795 SNOMED CT Sex Female Hospital Discharge Instructions [...] Co de Code System RANITIDINE Rash (SNOMED-CT: 197720683) Severe Active 9143 RxNorm PRILOSEC Rash (SNOMED-CT: 748388832) Severe Active 20321223 RxNorm Plan of Treatment MM SCREEN BILAT 05/19/2023 US PELVIC / TV 06/16/2023 US PELVIC / TV 03/17/2023 PRE-OP COVID-19 TESTING 01/23/2022 US PELVIC / TV 10/21/2021 US GUIDED NEEDLE BIOPSY 08/27/2021 Encounters Encounter Diagnosis Start Date Code Code Sys tem Follow-up visit 03/22/2023 052525719 SNOMED-CT Personal Care Team Section Performer Name Performer Role Active Date Inactive Da te
--- OUTSIDE RECORDS SUMMARY | 2024-06-07 16:43 | XMS_ITS | Encounter Summary ---
Author Organization [facility] Address [address] [place] [address] Care Team Providers Care Windows Server Specialist Name Role Phone Roro Mallory Jonelle GONZALEZ Primary Care Provider + Reason for Visit * Reason Comments Diabetes Encounter Details Date Type Department Care Team (Latest Contact Info) Description 2021 11:30 EST Telemedicine [facility] Endocrinology - [facility] [address] [place], [place] [phone] Stalin Naylor MD [address] [place] [address] Type 2 diabetes mellitus with [...] mg 2 twice daily repeat labs at [facility] documented in this encounter Ordered Prescriptions Prescription [...] from the original note were not included. [facility] Diabetes Follow up Evaluation Note The concept [...] by video through the Zoom application Code [id number] The location of the patient : Home The location of the provider: Office The following staff and their role did participate in today's encounter visit: Stalin Naylor MD CHIEF COMPLAINT: Mei Valenzuela presents with 1. Type 2 diabetes mellitus with hyperglycemia, without long-term current use of insulin ([facility]) (HCC) 2. Pure hypercholesterolemia 3. Essential [...] remained symptom-free Metformin ER 500 2 BID [id number] The history is provided by the patient. [...] being taken. She does not see a premium representative.Eye exam is current. Glucose Range is Family history is reviewed and includes the following: [email or web address] [place] Valenzuela has a history of being [...] below are the findings from the last ipcs-pv-uoes encounter Vitals: BP 124/59 Pulse 77 Ht [...] current use of insulin ([facility]) ([facility]) 2. Pure hypercholesterolemia 3. Essential hypertension, benign Mei is a 51 y.o. woman who was put on sitagliptin along with her metformin at the last visit since that time her blood sugars are averaging very well !! May consider transferring care to [facility] She is basically symptom-free. In November 2019 [...] Januvia 100 mgm daily repeat labs at [facility] Non-insulin: diet. Recommended: Is on GOGO inhibition -a small dose, and a statin. Glucose monitoring BID. Referred to diabetic education program. Referred to technical coordinator yes prn. Patient referred to eye care professional for annual dilated eye exam. Lifestyle modifications: [...] that video through the Zoom application code [id number] Stalin Naylor MD 2021 11:28 documented in this encounter Plan of Treatment Not on file documented as of this encounter Results * (ABNORMAL) PROTEIN/CREATININE RATIO, URINE (09/26/2021 13:03 EST) Total Protein, Urine 66 See Note mg/dL 09/26/2021 14:23 [facility] Comment:Reference range not established. Creatinine, Urine 144.4 See Note mg/dL 09/26/2021 14:23 [facility] Comment:Reference range not established. UPRO mg/mg Cr, Ur 0.46(H) <0.18 mg/mg Creatinine 09/26/2021 14:23 [facility] Urine URINE SPECIMEN COLLECTION, CLEAN CATCH / Unknown Urine Collect / Unknown 09/26/2021 13:03 EST 09/26/2021 13:03 EST Stalin Naylor MD URINALYSIS ORDERAB LES [facility] [address] [place] [address] * (ABNORMAL) COMPREHENSIVE METABOLIC PANEL (CMP) (09/26/2021 13:02 EST) Sodium 138 136 - 145 mmol/L 09/26/2021 14:42 [facility] Potassium 4.5 3.5 - 5.0 mmol/L 09/26/2021 14:42 [facility] Chloride 102 96 - 110 mmol/L 09/26/2021 14:42 [facility] CO2 Total 27 22 - 32 mmol/L 09/26/2021 14:42 [facility] Glucose 112(H) 70 - 100 mg/dL 09/26/2021 14:42 [facility] BUN 12 10 - 26 mg/dL 09/26/2021 14:42 [facility] Creatinine 0.65 0.52 - 1.04 mg/dL 09/26/2021 14:42 [facility] eGFR 105 >60 mL/min/1.7 3m2 09/26/2021 14:42 [facility] Total Protein 7.5 6.3 - 8.2 g/dL 09/26/2021 14:42 [facility] Albumin 4.3 3.4 - 4.9 g/dL 09/26/2021 14:42 [facility] Alkaline Phosphatase 84 38 - 126 U/L 09/26/2021 14:42 [facility] AST 30 15 - 46 U/L 09/26/2021 14:42 [facility] ALT 30 <35 U/L 09/26/2021 14:42 [facility] Bilirubin, Total <0.5 <1.4 mg/dL 09/26/19 14:42 [facility] Calcium 9.4 8.5 - 10.5 mg/dL 09/26/2021 14:42 [facility] Albumin/Globulin Ratio 1.3 1.0 - 2.5 09/26/2021 14:42 [facility] Anion Gap 9 8 - 16 09/26/2021 14:42 [facility] Blood VENOUS BLOOD / Unknown Venipuncture / Unknown 09/26/2021 13:02 EST 09/26/2021 13:03 EST Stalin Naylor MD CHEMISTRY & BLOOD GAS ORDERABLES Performing Organization Address City/State/[place] Co de Phone Number [facility] [address] [place] [address] * LIPID PROFILE (INCLUDES CHOLESTEROL, TRIGLYCERIDES, HDL, LDL) (09/26/2021 13:02 EST) Cholesterol 176 See Note mg/dL 09/26/2021 14:42 [facility] Comment: Acceptable: ?<200 mg/dL Borderline High: 200-239 mg/dL High: ?> or = 240 mg/dL HDL 60 See Note mg/dL 09/26/2021 14:42 [facility] Comment: Low: ? <40 mg/dL Normal: ??40-60 mg/dL High: ?>60 mg/dL LDL, Calculated 92 See Note mg/dL 09/26/2021 14:42 [facility] Comment: Optimal: ? <100 mg/dL Near Optimal: ?100-129 mg/dL Borderline High: 130-159 mg/dL High: ?160-189 mg/dL Very High: ? > or = 190 mg/dL Triglyceride 118 See Note mg/dL 09/26/2021 14:42 [facility] Comment: Normal: ? <150 mg/dL Borderline High: ??150 - 199 mg/dL High: ? 200 - 499 mg/dL Very High: ?> or = 500 mg/dL Chol/HDL Ratio 2.9 See Note 09/26/2021 14:42 [facility] Comment:No reference range h as been established for CHOL/HDL ratio. Non HDL Cholesterol 116 See Note mg/dL 09/26/2021 14:42 [facility] Comment: Desirable: ?<130 mg/dL Borderline High: ??130-159 mg/dL High: ? 160-189 mg/dL Very High: ?> or = 190 mg/dL Blood VENOUS BLOOD / Unknown Venipuncture / Unknown 09/26/2021 13:02 EST 09/26/2021 13:03 EST Stalin Naylor MD CHEMISTRY & BLOOD GAS ORDERABLES [facility] [address] [place] [address] * (ABNORMAL) HEMOGLOBIN A1C (09/26/2021 13:02 EST) Hemoglobin A1c 6.2(H) <5.7 % 09/26/2021 16:13 [facility] Comment: Glycemic Status References: Normal: ??<5.7% Pre-Diabetes: ??5.7% - 6.4% Diagnostic of Diabetes: ??> or = 6.5% (if confirmed) Est Avg Glucose 131 mg/dL 16:13 [facility] Comment:The eAG represents t he A1c result expressed as average glucose in mg/dL. Blood VENOUS BLOOD / Unknown Venipuncture / Unknown 09/26/2021 13:02 EST 09/26/2021 13:03 EST Stalin Naylor MD CHEMISTRY & BLOOD GAS ORDERABLES [facility] [address] [place] [address] documented in this encounter Visit Diagnoses Diagnosis Type 2 diabetes mellitus with hyperglycemia, without long-term current use of insulin ([facility])- Primary Pure hypercholesterolemia Essential hypertension, benign documented in this encounter Discontinued Medications Medication Sig Discontinue Reason Start Date End Da te metFORMIN (GLUCOPHAGE-XR) 500 mg ER tablet Take 2 Tabs by mouth 2 times daily. Reorder 10/07/2020 2021 SITagliptin (JANUVIA) 100 mg tablet Take 1 Tab by mouth daily. Reorder 10/07/2020 2021 documented as of this encounter Care Teams Windows Server Specialist Relationship Specialty Start Date End Date Roro Mallory APRN [address] [place] [address] PCP - General 12/06/18 documented as of this encounter
--- OUTSIDE RECORDS SUMMARY | 2024-06-07 16:43 | XMS_ITS | Encounter Summary ---
Author Organization [facility] Address [address] [place] [address] Care Team Providers Care Linux Unix Administrator Name Role Phone Roro Mallory COMBINE DRIVER Primary Care Provider + Encounter Details Date Type Department Care Team (Late st Contact Info) Description 11/23/2022 Lab Requisition [facility] Pathology & Laboratory Medicine - [facility] [address] [place] [address] Roro Mallory, COMBINE DRIVER [address] [place] [address] Encounter for general adult medical [...] types, PCR Negative Negative 12/06/2022 15:43 EDT [facility] Comment:No E6 or E7 mRNA is detected from HPV types 16,18,31,33,35,39,45,51,52,56,58,59,66, and 68 by online facilitator mediated amplification. Papanicolaou smear specimen (specimen) CERVIX UTERI STRUCTURE / Unknown 11/20/2022 7:55 EST 12/03/2022 13:34 EDT Roro Mallory COMBINE DRIVER MICROBIOLOGY - G ENERAL ORDERABLES Performing Organization Address City/State/[facility] Co de Phone Number [facility] [address] [place] [address] * PAP TEST (11/20/2022 7:55 EST) Specimens A. Cervix and/or Endocervix , ThinPrep Imaging System with Manual Evaluation 12/06/2022 15:43 EDT [facility] Specimen Adequacy Satisfactory for Evaluation - transformation zone component present 12/06/2022 15:43 EDT [facility] General Categorization Negative for intraepithelial lesion or malignancy 12/06/2022 15:43 EDT [facility] Descriptive Diagnosis Shift in dhruv present suggestive of bacterial vaginosis. 12/06/2022 15:43 EDT [facility] Attestation . 12/06/2022 15:43 EDT [facility] at 1543 Clinical History SEE BELOW 12/07/19 23 15:43 EDT [facility] HPV The result for the Human Papillomavirus (HPV) Detection-High Risk Types is Negative. No E6 or E7 mRNA is detected from HPV types 16,18,31,33,35,39 ,45,51,52,56,58,5 9,66, and 68 by online facilitator mediated amplification.Rosana ting was performed on specimen [id number] and was resulted on 12/06/2022 1543 EDT by ABHISHEK, LAB INSTRUMENT RESULTS IN 12/06/2022 15:43 EDT [facility] Performing Lab [facility] 12/06/2022 15:43 EDT [facility] Scanned Images 12/06/2022 15:43 EDT [facility] Papanicolaou smear specimen (specimen) CERVIX UTERI STRUCTURE / Unknown 11/20/2022 7:55 EST 11/23/2022 13:47 EST Roro Mallory COMBINE DRIVER PATHOLOGY ORDERA [facility] [address] [place] [address] documented in this encounter Visit Diagnoses Diagnosis Encounter for general adult medical examination without abnormal findings Unspecified general medical examination documented in this encounter Care Teams Linux Unix Administrator Relationship Specialty Start Date End Date Roro Mallory APRN [address] [place] [address] PCP - General 12/06/18 documented as of this encounter
--- OUTSIDE RECORDS SUMMARY | 2024-06-07 16:43 | XMS_ITS | Encounter Summary ---
Author Organization [facility] Address [address] [place] [address] Care Team Providers Care Postdoctoral Research Associate Name Role Phone Roro Mallory Jonelle GONZALEZ Primary Care Provider + Reason for Visit * Reason Onset Date Comments Medications Refill 11/06/2021 Encounter Details Date Type Department Care Team (Late st Contact Info) Description 11/06/2021 Refill [facility] Endocrinology - [facility] [address] [place] [address] Stalin Naylor MD [address] [place] [address] Medications Refill Social History Tobacco [...] not included. We received a fax from [employer] requesting a refill for METFORMIN ER 500MG 24HR TABS. Please review appropriately. documented in this encounter Plan of Treatment Not on file documented as of this encounter Visit Diagnoses Not on filedocumented in this encounter Care Teams Postdoctoral Research Associate Relationship Specialty Start Date End Date Roro Mallory APRN [address] [place] [address] PCP - General 12/06/18 documented as of this encounter
--- OUTSIDE RECORDS SUMMARY | 2024-06-07 16:43 | XMS_ITS | Encounter Summary ---
Author Organization [facility] Address [address] [place] [address] Care Team Providers Care Champion Of Sustainable Design Name Role Phone Roro Mallory Jonelle GONZALEZ Primary Care Provider + Encounter Details Date Type Department Care Team (Latest Contact Info) Description 09/26/2021 13:00 EST Phlebotomy Only [facility] Laboratory Services - [facility] ([facility] [address] [place], [place] [phone] Type 2 diabetes mellitus with hyperglycemia, without long-term current use of insulin ([facility]) ([facility]); Pure hypercholesterolemia ; Essential hypertension, benign [...] hyperglycemia, without long-term current use of insulin ([facility]) ([facility]) Essential hypertension, benign HEMOGLOBIN A1C Routine 09/26/2021 13:02 EST Type 2 diabetes mellitus with hyperglycemia, without long-term current use of insulin ([facility]) ([facility]) LIPID PROFILE (INCLUDES CHOLESTEROL, TRIGLYCERIDES, HDL, LDL) Routine 09/26/2021 13:02 EST Type 2 diabetes mellitus with hyperglycemia, without long-term current use of insulin ([facility]) ([facility]) Pure hypercholesterolemia COMPREHENSIVE METABOLIC PANEL (CMP) Routine 09/26/2021 13:02 EST Type 2 diabetes mellitus with hyperglycemia, without long-term current use of insulin ([facility]) ([facility]) documented in this encounter Results * (ABNORMAL) PROTEIN/CREATININE RATIO, URINE (09/26/2021 13:03 EST) Total Protein, Urine 66 See Note mg/dL 09/26/2021 14:23 [facility] Comment:Reference range not established. Creatinine, Urine 144.4 See Note mg/dL 09/26/2021 14:23 [facility] Comment:Reference range not established. UPRO mg/mg Cr, Ur 0.46(H) <0.18 mg/mg Creatinine 09/26/2021 14:23 [facility] Urine URINE SPECIMEN COLLECTION, CLEAN CATCH / Unknown Urine Collect / Unknown 09/26/2021 13:03 EST 09/26/2021 13:03 EST Stalin Naylor MD URINALYSIS ORDERAB LES [facility] [address] [place] [address] * (ABNORMAL) COMPREHENSIVE METABOLIC PANEL (CMP) (09/26/2021 13:02 EST) Sodium 138 136 - 145 mmol/L 09/26/2021 14:42 [facility] Potassium 4.5 3.5 - 5.0 mmol/L 09/26/2021 14:42 [facility] Chloride 102 96 - 110 mmol/L 09/26/2021 14:42 [facility] CO2 Total 27 22 - 32 mmol/L 09/26/2021 14:42 [facility] Glucose 112(H) 70 - 100 mg/dL 09/26/2021 14:42 [facility] BUN 12 10 - 26 mg/dL 09/26/2021 14:42 [facility] Creatinine 0.65 0.52 - 1.04 mg/dL 09/26/2021 14:42 [facility] eGFR 105 >60 mL/min/1.7 3m2 09/26/2021 14:42 [facility] Total Protein 7.5 6.3 - 8.2 g/dL 09/26/2021 14:42 [facility] Albumin 4.3 3.4 - 4.9 g/dL 09/26/2021 14:42 [facility] Alkaline Phosphatase 84 38 - 126 U/L 09/26/2021 14:42 [facility] AST 30 15 - 46 U/L 09/26/2021 14:42 [facility] ALT 30 <35 U/L 09/26/2021 14:42 [facility] Bilirubin, Total <0.5 <1.4 mg/dL 09/26/19 14:42 [facility] Calcium 9.4 8.5 - 10.5 mg/dL 09/26/2021 14:42 [facility] Albumin/Globulin Ratio 1.3 1.0 - 2.5 09/26/2021 14:42 [facility] Anion Gap 9 8 - 16 09/26/2021 14:42 [facility] Blood VENOUS BLOOD / Unknown Venipuncture / Unknown 09/26/2021 13:02 EST 09/26/2021 13:03 EST Stalin Naylor MD CHEMISTRY & BLOOD GAS ORDERABLES [facility] [address] [place] [address] * LIPID PROFILE (INCLUDES CHOLESTEROL, TRIGLYCERIDES, HDL, LDL) (09/26/2021 13:02 EST) Cholesterol 176 See Note mg/dL 09/26/2021 14:42 [facility] Comment: Acceptable: ?<200 mg/dL Borderline High: 200-239 mg/dL High: ?> or = 240 mg/dL HDL 60 See Note mg/dL 09/26/2021 14:42 [facility] Comment: Low: ? <40 mg/dL Normal: ??40-60 mg/dL High: ?>60 mg/dL LDL, Calculated 92 See Note mg/dL 09/26/2021 14:42 [facility] Comment: Optimal: ? <100 mg/dL Near Optimal: ?100-129 mg/dL Borderline High: 130-159 mg/dL High: ?160-189 mg/dL Very High: ? > or = 190 mg/dL Triglyceride 118 See Note mg/dL 09/26/2021 14:42 [facility] Comment: Normal: ? <150 mg/dL Borderline High: ??150 - 199 mg/dL High: ? 200 - 499 mg/dL Very High: ?> or = 500 mg/dL Chol/HDL Ratio 2.9 See Note 09/26/2021 14:[address] [facility] Comment:No reference range h as been established for CHOL/HDL ratio. Non HDL Cholesterol 116 See Note mg/dL 09/26/2021 14:42 [facility] Comment: Desirable: ?<130 mg/dL Borderline High: ??130-159 mg/dL High: ? 160-189 mg/dL Very High: ?> or = 190 mg/dL Blood VENOUS BLOOD / Unknown Venipuncture / Unknown 09/26/2021 13:02 EST 09/26/2021 13:03 EST Stalin Naylor MD CHEMISTRY & BLOOD GAS ORDERABLES Performing Organization Address [facility] de Phone Number [facility] [address] [place] [address] * (ABNORMAL) HEMOGLOBIN A1C (09/26/2021 13:02 EST) Hemoglobin A1c 6.2(H) <5.7 % 09/26/2021 16:[address] [facility] Comment: Glycemic Status References: Normal: ??<5.7% Pre-Diabetes: ??5.7% - 6.4% Diagnostic of Diabetes: ??> or = 6.5% (if confirmed) Est Avg Glucose 131 mg/dL 16:13 [facility] Comment:The eAG represents t he A1c result expressed as average glucose in mg/dL. Blood VENOUS BLOOD / Unknown Venipuncture / Unknown 09/26/2021 13:02 EST 09/26/2021 13:03 EST Stalin Naylor MD CHEMISTRY & BLOOD GAS ORDERABLES Performing Organization Address [facility] de Phone Number [facility] [address] [place] [address] documented in this encounter Visit Diagnoses Diagnosis Type 2 diabetes mellitus with hyperglycemia, without long-term current use of insulin ([facility]) Pure hypercholesterolemia Essential hypertension, benign documented in this encounter Care Teams Champion Of Sustainable Design Relationship Specialty Start Date End Date Roro Mallory, TALENT ENGINEER [address] [place] [address] PCP - General 12/06/18 documented as of this encounter
--- OUTSIDE RECORDS SUMMARY | 2024-06-07 16:43 | XMS_ITS | Encounter Summary ---
Author Organization [facility] Address [address] [place] [address] Care Team Providers Care Faculty Physician Name Role Phone Roro Mallory Jonelle GONZALEZ Primary Care Provider + Reason for Visit * Reason Onset Date Comments Medications Refill 08/17/2022 Encounter Details Date Type Department Care Team (Late st Contact Info) Description 08/17/[address] [facility] Endocrinology [address] [address] Clifford Atkinson MD Medications Refill Social History [...] not included. We received a fax from [employer] requesting a refill for JANUVIA 100MG TABLETS. [...] documented as of this encounter Care Teams Faculty Physician Relationship Specialty Start Date End Date Roro Mallory APRN [address] [place] [phone] PCP - General 12/06/18 documented as of this encounter
--- OUTSIDE RECORDS SUMMARY | 2024-06-07 16:43 | XMS_ITS ---
Author Organization Unknown Address [address] [place] [phone] Phone Care Team Providers Care Welcome Wagon Host/Hostess Name Role Phone DEYSI Monge Attending Unavailable ANNE-MARIE JULIANNA Primary Unavailable Results XR ELBOW RT 2V* - Completed: 09/23/2023 08:58 LOINC: [facility] [place], [place] [address] PACS ELECTRIC SCOOP OPERATOR REPORT Patient Name: MAURICIO CASTRO MRN: Sex: : Age: [id number] F 1970 53 Account: Accession: Admit: StayType: [id number] 09/23/2023 O/P Ordered: Order ID: Submitted: Ordering Provider: 09/23/2023 08:47 [id number] KT ABIMAEL JO Completed: Technologist: Resulted: 09/23/2023 [...] em Smoking History Never smoker (Never Smoked) [id number] SNOMED CT Sex Female Hospital Discharge Instructions [...] Co de Code System RANITIDINE Rash (SNOMED-CT: 738194177) Severe Active 9143 RxNorm PRILOSEC Rash (SNOMED-CT: 793705540) Severe Active 20321223 RxNorm Plan of Treatment [...]
--- OUTSIDE RECORDS SUMMARY | 2024-06-07 16:43 | XMS_ITS | Encounter Summary ---
Author Organization [facility] Address [address] [place] [address] Care Team Providers Care Slack Cooper Name Role Phone MohamudDonaldmatthew Sal APRN Primary Care Provider + Reason for Visit * Reason Onset Date Comments Discuss Surgery 05/29/2022 Encounter Details Date Type Department Care Team (Late st Contact Info) Description 05/29/2022 Telephone [facility] Vascular Surgery - [address] [address] Unknown, Provider, Discuss Surgery Social History Tobacco [...] 1058 EDT Patient called to say that [facility] send her an approval for surgery with Dr. Muller. I spoke with [facility] they did indeed process the request on the wrong patient. Left message for patient. documented in this encounter Plan of Treatment Not on file documented as of this encounter Visit Diagnoses Not on filedocumented in this encounter Care Teams Slack Cooper Relationship Specialty Start Date End Date Roro Mallory, ATTENDING PATHOLOGIST [address] [place] [phone] PCP - General 12/06/18 documented as of this encounter
--- OUTSIDE RECORDS SUMMARY | 2024-06-07 16:43 | XMS_ITS | Referral Summary ---
Author Organization [facility] Address [address] [place] [address] Care Team Providers Care Tobacco Roller Name Role Phone Roro Mallory Jonelle GONZALEZ [...] & BLOOD GAS ORDERABLES [facility] [address] [place] [phone] from Last 3 Months or Most Recently Relevant to Health Maintenance Care Teams Tobacco Roller Relationship Specialty Start Date End Date Roro Mallory, CASINO CAGE SUPERVISOR [address] [place] [phone] PCP - General 12/06/18
--- OUTSIDE RECORDS SUMMARY | 2024-06-07 16:43 | XMS_ITS | Encounter Summary ---
Author Organization [facility] Address [address] [place] [address] Care Team Providers Care Hand Turner Name Role Phone MalloryRoro brown Jonelle GONZALEZ Primary Care Provider + Reason for Visit * Reason Onset Date Comments Appointment Related 06/19/2021 Encounter Details Date Type Department Care Team (Late st Contact Info) Description 06/19/2021 Telephone [facility] Endocrinology - [facility] [address] [place] [address] Stalin Naylor MD [address] [facility] [address] [place] [address] Appointment Related Social History Tobacco [...] encounter Miscellaneous Notes * Telephone Encounter - Miguel Manzanares - 06/24/2021 1538 EDT Patient rescheduled [...] filedocumented in this encounter Care Teams Hand Turner Relationship Specialty Start Date End Date Roro Mallory APRN [address] [place] [phone] PCP - General 12/06/18 documented as of this encounter
--- OUTSIDE RECORDS SUMMARY | 2024-06-07 16:43 | XMS_ITS | Encounter Summary ---
Author Organization [facility] Address [address] [place] [address] Care Team Providers Care Airworthiness Inspector Name Role Phone MalloryDonald brownmatthew Sal APRN Primary Care Provider + Encounter Details Date Type Department Care Team (Late st Contact Info) Description 01/03/2022 Lab [facility] Pathology & Laboratory Medicine - [facility] [address] [place] [address] Outr Resulting Lab, Provider Social History Tobacco [...] IGA 1.2 <4.0 U/mL 01/05/2022 12:39 EDT [facility] Comment: A negative result may be due to IgA deficiency and does not rule out celiac disease. ? Negative: ??<4.0 U/mL ? Weak Positive: ??4.0 - 10.0 U/mL ? Positive: ??>10.0 U/mL Results were obtained with the JiboA Lite R h-tTG IgA BERONICA assay on the Hungrio DSX. IgA 128 85 - 499 mg/dL 01/05/2022 12:39 EDT [facility] Celiac Disease Interpretation Negative Serology. Celiac disease unlikely. Approximately 10% of patients with celiac disease are seronegative. Patients who are already adhering to a gluten-free diet may also be seronegative. If celiac disease is highly clinically suspected, referral to gastroenterology for additional evaluation is recommended. 01/05/2022 12:39 EDT [facility] Blood VENOUS BLOOD / Unknown 01/02/2022 8:45 EDT 01/03/2022 22:06 EDT Provider Outr Resulting Lab IMMUNOLOGY A ND SEROLOGY ORDERABLES Performing Organization Address City/State/[facility] Co de Phone Number [facility] [address] [place] [address] documented in this encounter Visit Diagnoses Not on filedocumented in this encounter Care Teams Airworthiness Inspector Relationship Specialty Start Date End Date Roro Mallory, RECORDS MANAGEMENT SPECIALIST [address] [place] [phone] PCP - General 12/06/18 documented as of this encounter
--- OUTSIDE RECORDS SUMMARY | 2024-06-07 16:43 | XMS_ITS ---
Author Organization Unknown Address [address] [place] [phone] Phone Care Team Providers Care Assistant County Engineer Name Role Phone PROVOST LEVINE Attending Unavailable Results XR KNEE 4V RT* - Completed: 09/03/2023 08:16 LOINC: [facility] [place], [place] [address] PACS CRITICAL CARE EDUCATOR REPORT Patient Name: MAURICIO CASTRO MRN: Sex: : Age: [id number] F 1970 53 Account: Accession: Admit: StayType: [id number] 09/03/2023 O/P Ordered: Order ID: Submitted: Ordering Provider: 09/03/2023 08:01 [id number] JULIANNA JOY Completed: Technologist: Resulted: 09/03/2023 08:16 [...] em Smoking History Never smoker (Never Smoked) [id number] SNOMED CT Sex Female Hospital Discharge Instructions [...] Co de Code System RANITIDINE Rash (SNOMED-CT: 329906953) Severe Active 9143 RxNorm PRILOSEC Rash (SNOMED-CT: 518880014) Severe Active 20321223 RxNorm Plan of Treatment MM SCREEN BILAT 05/19/2023 US PELVIC / TV 06/16/2023 US PELVIC / TV 03/17/2023 PRE-OP COVID-19 TESTING 01/23/2022 US PELVIC / TV 10/21/2021 US GUIDED NEEDLE BIOPSY 08/27/2021 Encounters Encounter Diagnosis Start Date Code Code Sys tem 09/03/2023 [id number] code-laborationOMED-CT Personal Care Team Section Performer Name Performer Role Active Date Inactive Da te
--- OUTSIDE RECORDS SUMMARY | 2024-06-07 16:43 | XMS_ITS ---
Author Organization Unknown Address [address] [place] [phone] Phone Care Team Providers Care Salesperson Burial Needs Name Role Phone KELLY Lafleur Attending Unavailable CHASE Sal Primary Unavailable Results US PELVIC TRANSVAGINAL* - Co mpleted: 06/16/2023 08:26 LOINC: [facility] [place], [place] [address] PACS DIRECTOR OF LABOR RELATIONS REPORT Patient Name: MAURICIO CASTRO MRN: Sex: : Age: [id number] F 1970 52 Account: Accession: Admit: StayType: [id number] 06/16/2023 O/P Ordered: Order ID: Submitted: Ordering Provider: 06/16/2023 07:45 [id number] MATY CHAPARRO Completed: Technologist: Resulted: 06/16/2023 08:26 [...] Baez on 06/16/2023 10:18 AM EDT 06/16/[email or web address] [place] via fax Social History Type Status Start Date End Date Code Code Syst em Smoking History Never smoker (Never Smoked) [id number] InSpa Sex Female Hospital Discharge Instructions Should you have any questions prior to discharge, please contact a member of your healthcare team. If you have left the hospital and have any questions, please contact your primary care physician. Reason For Referral No Data Found Allergies and Adverse Reactions Allergy Substance Reaction Severity Start Date Concern Status Co de Code System RANITIDINE Rash (SNOMED-CT: 341038993) Severe Active 9185 RxNorm PRILOSEC Rash (SNOMED-CT: 477041127) Severe Active 186382 RxNorm Plan of Treatment MM SCREEN BILAT 05/19/2023 US PELVIC / TV 06/16/2023 US PELVIC / TV 03/17/2023 PRE-OP COVID-19 TESTING 01/23/2022 US PELVIC / TV 10/21/2021 US GUIDED NEEDLE BIOPSY 08/27/2021 Encounters Encounter Diagnosis Start Date Code Code Sys tem Abnormal findings on diagnos tic imaging of other specified body structures 06/16/2023 Zetta.net-CT Personal Care Team Section Performer Name Performer Role Active Date Inactive Da te
--- OUTSIDE RECORDS SUMMARY | 2024-06-07 16:43 | XMS_ITS | Clinical Summary ---
Author Organization [facility] Address [address] [place] [address] Care Team Providers Care Research Associate Policy Name Role Phone MalloryRoro brown Jonelle GONZALEZ [...] History Medical History Date Comments Diabetes mellitus ([facility]) Family History Medical History Relation Comments Diabetes [...] BLOOD GAS ORDERABLES [facility] [address] [place] [address] from Last 3 Months or Most Recently Relevant to Health Maintenance Care Teams Research Associate Policy Relationship Specialty Start Date End Date Roro Mallory APRN [address] [place] [address] PCP - General 12/06/18
--- OUTSIDE RECORDS SUMMARY | 2024-06-07 16:44 | XMS_ITS | Encounter Summary ---
Author Organization [facility] Address [address] [place] [address] Care Team Providers Care Seam Stayer Name Role Phone Luis Snider NET DEVELOPMENT MANAGER Primary Care Provi kellen Reason for Visit * Reason Onset Date Comments Appointment Related 11/13/2016 CDE from Ext ernal/ Referral in [facility] Encounter Details Date Type Department Care Team (Late st Contact Info) Description 11/13/2016 Telephone [facility] Endocrinology - [address] [address] Mery Menendez Appointment Related (CDE from External/ Referral in [facility]) Social History Tobacco Use Types Packs/Day [...] not received referral. Please have faxed to [phone]. * Telephone Encounter - Judi Leon - 11/13/2016 1536 EST Referral sent over for Patient to set up CDE appt. Please call documented in this encounter Plan of Treatment Not on file documented as of this encounter Visit Diagnoses Not on filedocumented in this encounter Care Teams Seam Stayer Relationship Specialty Start Date End Date Luis Snider FNP [address] [address] PCP - General 04/23/16 11/10/18 documented as of this encounter
--- OUTSIDE RECORDS SUMMARY | 2024-06-07 16:44 | XMS_ITS | Encounter Summary ---
Author Organization [facility] Address [address] [place] [address] Care Team Providers Care Control Valve Mechanic Name Role Phone Luis Snider Primary Care Provi kellen Encounter Details Date Type Department Care Team (Late st Contact Info) Description 05/11/2018 Results Only [facility] [phone] Luis Snider FNP [address] [facility] [address] [place] [address] Social History Tobacco Use Types Packs/Day Years [...] Name Priority Date/Time Associated Diagnosis Comments URINE [id number] NE RATIO (ACR) Routine 05/11/2018 9:37 EDT documented in this encounter Results * ALBUMIN, URINE (05/11/2018 9:37 EDT) Creatinine, Urn [place] 69.9 mg/dl 05/11/2018 16:27 EDT [facility] Ur Albumin mg/dl <0.6 mg/dL 05/11/20 18 16:33 EDT [facility] Comment:New Vitros 5600 Meth odology in use 01/19/2018 Urine Albumin to Creatinine Ratio <8.6 ug/mg Crea 05/11/2018 16:33 EDT [facility] Comment: Normal: <30 ug/mg creatinine Moderately increased albuminuria: 30-300 ug/mg creatinine Severly increased albuminuria: >300 ug/mg creatinine New Vitros 5600 Methodology in use 01/19/2018 URINE / Unknown 05/11/2018 9 :37 EDT 05/11/2018 15:24 EDT Luis GARCIA CHEMISTRY & BLOOD GAS ORDERABLES [facility] [address] [place] [address] documented in this encounter Visit Diagnoses Not on filedocumented in this encounter Care Teams Control Valve Mechanic Relationship Specialty Start Date End Date Luis Snider FNP [address] [address] PCP - General 04/23/16 11/10/18 documented as of this encounter
--- OUTSIDE RECORDS SUMMARY | 2024-06-07 16:44 | XMS_ITS | Encounter Summary ---
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 added in this encounter Care Teams Transmitter Supervisor Relationship Specialty Start Date End Date Unknown, Provider, PCP - General 11/11/18 12/05/18 documented as of this encounter
--- OUTSIDE RECORDS SUMMARY | 2024-06-07 16:44 | XMS_ITS | Encounter Summary ---
Author Organization [facility] Address [address] [place] [address] Care Team Providers Care Credit Risk Specialist Name Role Phone MalloryDonald brownmatthew Sal APRN Primary Care Provider + Reason for Visit * Reason Onset Date Comments Appointment Related 03/21/2019 Encounter Details Date Type Department Care Team (Late st Contact Info) Description 03/21/2019 Telephone [facility] Endocrinology - [address] CDE [address] [facility] [address] [place] [address] Appointment Related Social History Tobacco [...] on filedocumented in this encounter Care Teams Credit Risk Specialist Relationship Specialty Start Date End Date Roro Mallory, RECREATIONAL THERAPY AIDE [address] [place] [address] PCP - General 12/06/18 documented as of this encounter
--- OUTSIDE RECORDS SUMMARY | 2024-06-07 16:44 | XMS_ITS | Encounter Summary ---
Author Organization [facility] Address [address] [place] [address] Care Team Providers Care Petroleum Sampler Name Role Phone Luis Snider Primary Care Provi kellen Encounter Details Date Type Department Care Team (Late st Contact Info) Description 05/25/2017 Phlebotomy Only [facility] [address] [place] [address] Smoking Tobacco Packer Hand, Outpatient Social History Tobacco Use Types Packs/Day [...] on filedocumented in this encounter Care Teams Petroleum Sampler Relationship Specialty Start Date End Date Luis Snider FNP [address] [facility] [address] [place], [place] [address] PCP - General 04/23/16 11/10/18 documented as of this encounter
--- OUTSIDE RECORDS SUMMARY | 2024-06-07 16:44 | XMS_ITS | Encounter Summary ---
Author Organization [facility] Address [address] [place] [address] Care Team Providers Care Apprise Counselor Name Role Phone Roro Mallory APRN Primary [...] on filedocumented in this encounter Care Teams Apprise Counselor Relationship Specialty Start Date End Date Roro Mallory APRN [address] [place] [address] PCP - General 12/06/18 documented as of this encounter
--- OUTSIDE RECORDS SUMMARY | 2024-06-07 16:44 | XMS_ITS | Encounter Summary ---
Author Organization [facility] Address [address] [place] [address] Care Team Providers Care Research Associate Molecular Biology Name Role Phone Roro Mallory Jonelle GONZALEZ Primary Care Provider + Reason for Visit * Reason Onset Date Comments Coordination Of Care 12/12/2019 Encounter Details Date Type Department Care Team (Late st Contact Info) Description 12/12/2019 Telephone [facility] Endocrinology - [address] [address] Yarelis Kothari, RD [address] [place] [address] Coordination Of Care Social History [...] on filedocumented in this encounter Care Teams Research Associate Molecular Biology Relationship Specialty Start Date End Date Roro Mallory, LISA [address] [place] [phone] PCP - General 12/06/18 documented as of this encounter
--- OUTSIDE RECORDS SUMMARY | 2024-06-07 16:44 | XMS_ITS | Encounter Summary ---
Author Organization [facility] Address [address] [place] [address] Care Team Providers Care Call Center Representative Name Role Phone Roro Mallory Jonelle GONZALEZ Primary Care Provider + Reason for Visit * Reason Comments Foot Swelling Encounter Details Date Type Department Care Team (Late st Contact Info) Description 03/03/2019 13:11 EDT - 03/03/2019 15:55 EDT Hospital Encounter [facility] Urgent Care - [address] [address] Tequila Marx MD [address] [place] [phone] Unknown, ProviderMD Swelling of lower leg [...] Medical History: Diagnosis Date ??? Diabetes mellitus ([facility]) Social History Tobacco Use ??? Smoking [...] mg daily x10 days. 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 She is complaining of 3 days of [...] of further medications. Upon departure from [facility], the patient's pain was 0 on a zero to ten scale. Any further pain treatment will be at the discretion of the provider following up with the patient based on their clinical assessment . Condition at departure from the [facility] : Stable MDM 03/03/2019 15:55 [...] documented as of this encounter Care Teams Call Center Representative Relationship Specialty Start Date End Date Roro Mallory APRN [address] [place] [address] PCP - General 12/06/18 documented as of this encounter
--- OUTSIDE RECORDS SUMMARY | 2024-06-07 16:44 | XMS_ITS | Encounter Summary ---
Author Organization [facility] Address [address] [place] [address] Care Team Providers Care Roll Over Loader Name Role Phone Roro Mallory APRN Primary [...] on filedocumented in this encounter Care Teams Roll Over Loader Relationship Specialty Start Date End Date Roro Mallory APRN [address] [place] [address] PCP - General 12/06/18 documented as of this encounter
--- OUTSIDE RECORDS SUMMARY | 2024-06-07 16:44 | XMS_ITS | Encounter Summary ---
Author Organization [facility] Address [address] [place] [address] Care Team Providers Care Ophthalmology Technician Name Role Phone Luis Snider LAMINATION SPINNER Primary Care Provi kellen Encounter Details Date Type Department Care Team (Late st Contact Info) Description 06/13/2018 Results Only [facility] [phone] Norma Coombs MD [address] [place] [phone] Social History Tobacco Use Types Packs/Day Years [...] GLORIA MAURICIO Jonelle ? Accession #: ? [id number] ? : ? 1970 (Age: 47) ??F [...] types 16,18,31,33,35, 39,45,51,52,56,58, 59,66, and 68 by internet marketing executive mediated amplification. Comments Document reviewed and electronically signed by: ? System Interface ? Report date: 06/22/2018 By the signature above, the attending physician certifies that he/she has personally conducted a gross and/or microscopic examination of the described specimens and rendered or confirmed the above diagnosis. End of Report [facility] 06/13/2018 06/15/2018 Norma Coombs MD PATHOLOGY ORDERABLE S [facility] [address] [place] [address] documented in this encounter Visit Diagnoses Not on filedocumented in this encounter Care Teams Ophthalmology Technician Relationship Specialty Start Date End Date Luis Snider FNP [address] [facility] [address] [place] [address] PCP - General 04/23/16 11/10/18 documented as of this encounter
--- OUTSIDE RECORDS SUMMARY | 2024-06-07 16:44 | XMS_ITS | Encounter Summary ---
Author Organization [facility] Address [address] [place] [address] Care Team Providers Care Route Driver Coin Machines Name Role Phone Luis Snider Primary Care Provi kellen Encounter Details Date Type Department Care Team (Latest Contact Info) Description 12/20/2017 7:30 EDT - 12/20/2017 23:59 EDT Hospital Encounter [facility] [address] [place] [address] Luis Snider FNP 8 [facility] [address] [place], [place] [id number] Discharge Disposition: Home or Self Care Social [...] Code Departure Means Destination Home or Self Intermediate documented in this encounter Plan of Treatment [...] Results * HEMOGLOBIN A1C (12/20/2017 7:46 EDT) [facility] Hemoglobin A1C 5.6 % 12/20/2017 10:56 EDT [facility] Comment: Reference Range: <5.7% Normal 5.7-6.4% Prediabetes =>6.5% Diagnostic for diabetes (if confirmed) Goals for glycemic control in diabetes ADA 2017 For non adults with diabetes: ?? Target <7.5% For children and adolescents with type 1 diabetes: ?? Target <7.0% More or less stringent targets may be appropriate for individual patients. Est Avg Glucose 114 mg/dl 8 10:56 [facility] Comment: eAG represents the A1c result expressed as average glucose in mg/dl. BLOOD SPECIMEN / Unknown 12/20/2017 7:46 EDT 12/20/2017 8:48 EDT Luis ArauzMatthew [facility] CHEMISTRY & BLOOD GAS ORDERABLES [facility] [address] [place] [address] * LIPID PROFILE (INCLUDES CHOLESTEROL, TRIGLYCERIDES, HDL, LDL) (12/20/2017 7:46 EDT) Cholesterol 166 mg/dl 12/20/2017 9:21 [facility] Comment: Desirable:<200 Borderline High:200-239 High:>[id number] Triglycerides 126 mg/dl 12/20/2017 9:21 [facility] Comment: Normal:<150 Borderline High:150-199 High:200-499 Very High:>jz=020 HDL 60 mg/dl 12/20/2017 9:21 [facility] Comment: Low:<40 Normal:40-60 Desirable: >60 LDL, Calculated 81 mg/dl 8 9:21 [facility] Comment: Optimal:<100 Near Optimal:100-129 Borderline High:130-159 High:160-189 Very High:>nt=004 Chol/HDL Ratio 2.8 12/20/2017 9:21 [facility] Fasting? YES 12/20/2017 7:34 [facility] Non HDL Cholesterol 106 mg/dl 12/20/2017 9:21 [facility] Comment: Desirable:<130 Borderline:130-159 High: 160-189 Very High: >co=444 BLOOD SPECIMEN / Unknown 12/20/2017 7:46 EDT 12/20/2017 8:48 EDT Luis GlassEla [facility] CHEMISTRY & BLOOD GAS ORDERABLES [facility] [address] [place] [address] * BASIC METABOLIC PANEL (BMP) (12/20/2017 7:46 EDT) Sodium 139 136 - 145 mEq/L 12/20/2017 9:21 [facility] Potassium 4.8 3.5 - 5.0 mEq/L 12/20/2017 9:21 [facility] Chloride 103 96 - 110 mEq/L 12/20/2017 9:21 [facility] CO2 28 22 - 32 mEq/L 12/20/2017 9:21 [facility] BUN 10 10 - 26 mg/dl 12/20/2017 9:21 [facility] Creatinine 0.71 0.52 - 1.04 mg/dl 12/20/2017 9:21 [facility] GFR, Calculated 103 >60 ml/min/1.7 3m2 12/20/2017 9:21 [facility] Comment: eGFR calculated using CKD-EPI equation for non Americans. Multiply eGFR by 1.16 for Americans. Calcium 9.8 8.5 - 10.5 mg/dl 12/20/2017 9:21 [facility] Calculated Calcium 9.9 8.5 - 10.5 mg/dl 12/20/2017 9:21 [facility] Glucose, Serum 99 70 - 100 mg/dl 12/20/2017 9:21 [facility] Fasting? YES 12/20/2017 7:34 [facility] BLOOD SPECIMEN / Unknown 12/20/2017 7:46 EDT 12/20/2017 8:48 EDT Luis Snider [facility] CHEMISTRY & BLOOD GAS ORDERABLES [facility] [address] [place] [address] * HEMAGRAM (12/20/2017 7:46 EDT) WBC 6.26 4.0 - 12.4 K/cmm 12/20/2017 9:00 EDT [facility] RBC 4.35 3.86 - 5.04 M/cmm 12/20/2017 9:00 T [facility] Hemoglobin 13.5 11.6 - 15.2 gm/dl 12/20/2017 9:00 T [facility] HCT 40.3 34.9 - 44.4 % 12/20/2017 9:00 EDT [facility] MCV 93 81 - 98 fl 12/20/2017 9:00 EDT [facility] MCH 31.0 26.7 - 33.3 pg 12/20/2017 9:00 T [facility] MCHC 33.5 32.1 - 35.9 gm/dl 12/20/2017 9:00 EDT [facility] RDW-CV 11.9 <14.7 % 12/20/2017 9:00 T [facility] RDW-SD 41.1 <50.4 fl 12/20/2017 9:00 T [facility] PLT 308 141 - 377 K/cmm 12/20/2017 9:00 T [facility] MPV 10.0 9.5 - 12.7 fl 12/20/2017 9:00 [facility] BLOOD SPECIMEN / Unknown 12/20/2017 7:46 EDT 12/20/2017 8:48 EDT Luis GARCIA HEMATOLOGY & PF4 ORDERABLES [facility] [address] [place] [address] documented in this encounter Visit Diagnoses Not on filedocumented in this encounter Care Teams Route Driver Coin Machines Relationship Specialty Start Date End Date Luis Snider FNP 8 [facility] [address] [place] [address] PCP - General 04/23/16 11/10/18 documented as of this encounter
--- OUTSIDE RECORDS SUMMARY | 2024-06-07 16:44 | XMS_ITS | Encounter Summary ---
Author Organization [facility] Address [address] [place] [address] Care Team Providers Care Appeals Assistant Name Role Phone MalloryDonald brownmatthew Sal APRN Primary Care Provider + Reason for Visit * Reason Comments Diabetes Encounter Details Date Type Department Care Team (Late st Contact Info) Description 01/19/2020 9:00 EDT Nutrition [facility] Endocrinology - [address] [address] Yarelis Kothari, RD [address] [place] [address] Type 2 diabetes mellitus with hyperglycemia, with long-term current use of insulin ([facility]) (Primary Dx) Social History Tobacco Use Types [...] Yarelis Kothari, RD - 01/19/2020 0900 EDT [facility] Endocrinology and Diabetes DIABETES NUTRITION INITIAL VISIT [...] initial medical nutrition therapy visit at the [facility] Endocrinology & Diabetes out-patient clinic on 01/19/2020. [...] hyperglycemia, with long-term current use of insulin ([facility])- Primary documented in this encounter Care Teams Appeals Assistant Relationship Specialty Start Date End Date Roro Mallory APRN [address] [place] [phone] PCP - General 12/06/18 documented as of this encounter
--- OUTSIDE RECORDS SUMMARY | 2024-06-07 16:44 | XMS_ITS | Encounter Summary ---
Author Organization [facility] Address [address] [place] [address] Care Team Providers Care Inspector General Name Role Phone Luis Snider Primary Care Provi kellen Encounter Details Date Type Department Care Team (Latest Contact Info) Description 05/11/2018 9:38 EDT - 05/11/2018 9:[address] [facility] - [address] [address] Luis Snider FNP [address] [facility] [address] [place], [place] [address] Discharge Disposition: Home or Self Care Social [...] on filedocumented in this encounter Care Teams Inspector General Relationship Specialty Start Date End Date Luis Sinder FNP [address] [address] PCP - General 04/23/16 11/10/18 documented as of this encounter
--- OUTSIDE RECORDS SUMMARY | 2024-06-07 16:44 | XMS_ITS | Encounter Summary ---
Author Organization [facility] Address [address] [place] [address] Care Team Providers Care Medical Claims Processor Name Role Phone MalloryRoro brown Jonelle GONZALEZ Primary Care Provider + Reason for Visit * Reason Comments Diabetes Encounter Details Date Type Department Care Team (Late st Contact Info) Description 04/16/2020 8:00 EDT Nutrition [facility] Endocrinology - [address] [address] Yarelis Kothari, RD [address] [place] [address] Type 2 diabetes mellitus without complication, without long-term current use of insulin ([facility]) (Primary Dx) Social History Tobacco Use Types [...] a follow-up medical nutrition therapy visit the [facility] Endocrinology & Diabetes out-patient clinic.Mei Valenzuela is [...] long-term current use of insulin ([facility])- Primary documented in this encounter Care Teams Medical Claims Processor Relationship Specialty Start Date End Date Roro Mallory, PUBLIC HEALTH TECHNICIAN [address] [place] [phone] PCP - General 12/06/18 documented as of this encounter
--- OUTSIDE RECORDS SUMMARY | 2024-06-07 16:44 | XMS_ITS | Encounter Summary ---
Author Organization [facility] Address [address] [place] [address] Care Team Providers Care Filler Blender Name Role Phone Roro Mallory Jonelle GONZALEZ Primary Care Provider + Reason for Visit * Reason Comments Diabetes Encounter Details Date Type Department Care Team (Latest Contact Info) Description 10/07/2020 11:[address] [facility] Endocrinology - [facility] [address] [place] [address] Stalin Naylor MD [address] [facility] [address] [place] [address] Type 2 diabetes mellitus with hyperglycemia, without long-term current use of insulin ([facility]) (Primary Dx); Pure hypercholesterolemia ; Essential [...] from the original note were not included. [facility] Diabetes Follow up Evaluation Note The [...] by video through the Zoom application Code [id number] The location of the patient : Home The location of the provider: Office The following staff and their role did participate in today's encounter visit: Stalin Naylor MD CHIEF COMPLAINT: Mauricio Castro presents with 1. Type 2 diabetes mellitus with hyperglycemia, without long-term current use of insulin ([facility]) 2. Pure hypercholesterolemia 3. Essential hypertension, benign [...] remained symptom-free Metformin ER 500 2 BID [id number] The history is provided by the patient. [...] being taken. She does not see a senior client advisor.Eye exam is current. Glucose Range is Family history is reviewed and includes the following: diabetes.[facility] Mauricio Castro has a history of being [...] below are the findings from the last [id number] encounter Vitals: BP 124/59 Pulse 77 Ht [...] hyperglycemia, without long-term current use of insulin ([facility]) 2. Pure hypercholesterolemia 3. Essential hypertension, benign [...] Referred to diabetic education program. Referred to oliver filter operator yes prn. Patient referred to eye manager medicare for annual dilated eye exam. Lifestyle modifications: [...] that video through the Zoom application code [id number] Stalin Naylor MD 10/07/2020 10:57 Addendum Excellent [...] Urine 13 See Note mg/dL 10/17/2020 8:35 [facility] Comment:Reference range not established. Creatinine, Urine 34.1 See Note mg/dL 10/17/2020 8:35 [facility] Comment:Reference range not established. UPRO mg/mg Cr, Ur 0.38(H) <0.16 mg/mg Creatinine 10/17/2020 8:35 [facility] Urine URINE SPECIMEN COLLECTION, CLEAN CATCH / Unknown Urine Collect / Unknown 10/17/2020 6:59 EST 10/17/2020 7:03 EST Stalin Naylor MD URINALYSIS ORDERAB LES Performing Organization Address City/State/[facility] Co de Phone Number [facility] [address] [place] [address] * COMPREHENSIVE METABOLIC PANEL (CMP) (10/17/2020 6:58 EST) Sodium 142 136 - 145 mEq/L 10/17/2020 8:49 [facility] Potassium 4.6 3.5 - 5.0 mEq/L 10/17/2020 8:49 [facility] Chloride 102 96 - 110 mEq/L 10/17/2020 8:49 [facility] CO2 Total 25 22 - 32 mEq/L 10/17/2020 8:49 [facility] Glucose 94 70 - 100 mg/dL 10/17/2020 8:49 [facility] BUN 12 10 - 26 mg/dL 10/17/2020 8:49 [facility] Creatinine 0.59 0.52 - 1.04 mg/dL 10/17/2020 8:49 [facility] eGFR 109 >60 mL/min/1.7 3m2 10/17/2020 8:49 [facility] Comment:eGFR calculated carmelita dumont CKD-EPI equation for non- Americans. Multiply eGFR by 1.16 for patients. Total Protein 7.3 6.3 - 8.2 g/dL 10/17/2020 8:49 [facility] Albumin 4.3 3.4 - 4.9 g/dL 10/17/2020 8:49 [facility] Alkaline Phosphatase 66 38 - 126 U/L 10/17/2020 8:49 [facility] AST 28 15 - 46 U/L 10/17/2020 8:49 [facility] ALT 23 <35 U/L 10/17/2020 8:49 [facility] Bilirubin, Total <0.5 <1.4 mg/dL 10/17/19 8:49 [facility] Calcium 9.6 8.5 - 10.5 mg/dL 10/17/2020 8:49 [facility] Calculated Calcium 9.4 8.5 - 10.5 mg/dL 10/17/2020 8:49 [facility] Blood VENOUS BLOOD / Unknown Venipuncture / Unknown 10/17/2020 6:58 EST 10/17/2020 7:03 EST Stalin Naylor MD CHEMISTRY & BLOOD GAS ORDERABLES Performing Organization Address City/State/[facility] Co de Phone Number [facility] [address] [place] [id number] * LIPID PROFILE (INCLUDES CHOLESTEROL, TRIGLYCERIDES, HDL, LDL) (10/17/2020 6:58 EST) Cholesterol 161 See Note mg/dL 10/17/2020 8:49 [facility] Comment: Acceptable: ?<200 mg/dL Borderline High: 200-239 mg/dL High: ?> or = 240 mg/dL HDL 56 See Note mg/dL 10/17/2020 8:49 [facility] Comment: Low: ? <40 mg/dL Normal: ??40-60 mg/dL High: ?>60 mg/dL LDL, Calculated 80 See Note mg/dL 10/17/2020 8:49 [facility] Comment: Optimal: ? <100 mg/dL Near Optimal: ?100-129 mg/dL Borderline High: 130-159 mg/dL High: ?160-189 mg/dL Very High: ? > or = 190 mg/dL Triglyceride 125 See Note mg/dL 10/17/2020 8:49 [facility] Comment: Normal: ? <150 mg/dL Borderline High: ??150 - 199 mg/dL High: ? 200 - 499 mg/dL Very High: ?> or = 500 mg/dL Chol/HDL Ratio 2.9 See Note 10/17/2020 8:49 [facility] Comment:No reference range h as been established for CHOL/HDL ratio. Non HDL Cholesterol 105 See Note mg/dL 10/17/2020 8:49 [facility] Comment: Desirable: ?<130 mg/dL Borderline High: ??130-159 mg/dL High: ? 160-189 mg/dL Very High: ?> or = 190 mg/dL Blood VENOUS BLOOD / Unknown Venipuncture / Unknown 10/17/2020 6:58 EST 10/17/2020 7:03 EST Stalin Naylor MD CHEMISTRY & BLOOD GAS ORDERABLES [facility] [address] [place] [address] * (ABNORMAL) HEMOGLOBIN A1C (10/17/2020 6:58 EST) Hemoglobin A1c 6.3(H) <5.7 % 10/17/2020 9:59 EST [facility] Comment: Glycemic Status References: [...] Glucose 134 mg/dL 9:59 EST [facility] Comment:The eAG represents t he A1c result expressed as average glucose in mg/dL. Blood VENOUS BLOOD / Unknown Venipuncture / Unknown 10/17/2020 6:58 EST 10/17/2020 7:03 EST Stalin Naylor MD CHEMISTRY & BLOOD GAS ORDERABLES [facility] [address] [place] [address] documented in this encounter Visit Diagnoses Diagnosis Type 2 diabetes mellitus with hyperglycemia, without long-term current use of insulin ([facility])- Primary Pure hypercholesterolemia Essential hypertension, benign documented [...] documented as of this encounter Care Teams Filler Blender Relationship Specialty Start Date End Date Roro Mallory APRN [address] [place] [phone] PCP - General 12/06/18 documented as of this encounter
--- OUTSIDE RECORDS SUMMARY | 2024-06-07 16:44 | XMS_ITS | Encounter Summary ---
Author Organization [facility] Address [address] [place] [address] Care Team Providers Care Therapeutic Recreation Leader Name Role Phone Roro Mallory FILE CLERK DATA ENTRY Primary Care Provider + Reason for Visit * Reason Comments Diabetes * Referral (Routine) - Closed Specialty Diagnoses / Procedures Referred By [facility] t Referred To Contact Endocrinology Diagnoses Obesity, unspecified Type 2 diabetes mellitus without complications ([facility]) Roro Mallory, FILE CLERK DATA ENTRY [address] [place] [address] [facility] Endocrinology [address] [place] [address] Referral ID Status Reason Start Date Expiration Date Visits Re quested Visits Authorized [id number] Closed 1 1 Encounter Details Date Type Department Care Team (Latest Contact Info) Description 11/23/2019 8:30 EST Office Visit [facility]ology [facility] [address] [place] [address] Stalin Naylor MD [address] [place] [address] [address] [place] [address] Type 2 diabetes mellitus with hyperglycemia, without long-term current use of insulin ([facility]) (Primary Dx); Pure hypercholesterolemia ; Essential [...] from the original note were not included. [facility] Diabetes Initial Evaluation Note CHIEF COMPLAINT: Mei Valenzuela presents with 1. Type 2 diabetes mellitus with hyperglycemia, without long-term current use of insulin ([facility]) 2. Pure hypercholesterolemia 3. Essential hypertension, [...] is beingtaken. She does not see a mental health director.Eye exam is current. Glucose Range is is not testing a did not bring in her glucometer Family history is reviewed and includes the following: diabetes.[facility] Mei Valenzuela has a history of being [...] hyperglycemia, without long-term current use of insulin ([facility]) 2. Pure hypercholesterolemia 3. Essential hypertension, benign Mei has done quite well over the decade and a half since she was diagnosed with diabetes mellitus. However it about 15 years is a deterioration in beta cell function is first seen. Her [id number]'s have been in the 6% range and [...] Referred to diabetic education program. Referred to baked and graphite inspector yes prn. Patient referred to eye child day care teacher for annual dilated eye exam. Lifestyle modifications: [...] hyperglycemia, without long-term current use of insulin ([facility]) 11/23/2019 8:36 EST POCT CSN BARCODE HEMOGLOBIN A1C INT Lab Routine Type 2 diabetes mellitus with hyperglycemia, without long-term current use of insulin ([facility]) 11/23/2019 8:37 EST documented as of this encounter Procedures Procedure Name Priority Date/Time Associated Diagnosis Comments POCT HEMOGLOBIN A1C, INTERFACED Routine 11/23/2019 8:36 EST Type 2 diabetes mellitus with hyperglycemia, without long-term current use of insulin ([facility]) documented in this encounter Results * (ABNORMAL) COMPREHENSIVE METABOLIC PANEL (CMP) (11/23/2019 9:45 EST) Sodium 136 136 - 145 mEq/L 11/23/2019 12:13 [facility] Potassium 4.3 3.5 - 5.0 mEq/L 11/23/2019 12:13 [facility] Chloride 102 96 - 110 mEq/L 11/23/2019 12:13 [facility] CO2 Total 26 22 - 32 mEq/L 11/23/2019 12:13 [facility] Glucose 173(H) 70 - 100 mg/dL 11/23/2019 12:13 [facility] BUN 12 10 - 26 mg/dL 11/23/2019 12:13 [facility] Creatinine 0.67 0.52 - 1.04 mg/dL 11/23/2019 12:13 [facility] eGFR 105 >60 mL/min/1.7 3m2 11/23/2019 12:13 [facility] Comment:eGFR calculated carmelita dumont CKD-EPI equation for non- Americans. Multiply eGFR by 1.16 for patients. Total Protein 6.9 6.3 - 8.2 g/dL 11/23/2019 12:13 [facility] Albumin 4.2 3.4 - 4.9 g/dL 11/23/2019 12:13 [facility] Alkaline Phosphatase 68 38 - 126 U/L 11/23/2019 12:13 [facility] AST 31 15 - 46 U/L 11/23/2019 12:13 [facility] ALT 34 <35 U/L 11/23/2019 12:13 [facility] Bilirubin, Total <0.5 <1.4 mg/dL 11/23/19 20 12:13 [facility] Calcium 9.0 8.5 - 10.5 mg/dL 11/23/2019 12:13 [facility] Calculated Calcium 8.8 8.5 - 10.5 mg/dL 11/23/2019 12:13 [facility] Blood VENOUS BLOOD / Unknown Venipuncture / Unknown 11/23/2019 9:45 EST 11/23/2019 9:45 [facility] - 11/23/2019 12:13 EST 2 Stalin Naylor MD CHEMISTRY & BLOOD GAS ORDERABLES Performing Organization Address [facility] Co de Phone Number [facility] [address] [place] [address] * ALBUMIN, URINE (11/23/2019 9:45 EST) Albumin, Urine 1.3 See Note mg/dL 2019 12:40 [facility] Comment: NOTE: Reference range not established Creatinine, Urine 86.0 See Note mg/dL 11/23/2019 12:40 [facility] Comment: NOTE: Reference range not established Lab Urine Albumin to Creatinine Ratio 15 <30 ug/mg Creatinine 11/23/2019 12:40 [facility] Comment: Urine Albumin/Creatinine Ratio: Normal: <30 ug/mg Creatinine Moderately increased albuminuria: 30-30 ug/mg Creatinine Severley increased albuminuria: >300 ug/mg Creatinine Urine URINE SPECIMEN OBTAINED BY CLEAN CATCH PROCEDURE / Unknown Urine Collect / Unknown 11/23/2019 9:45 EST 11/23/2019 9:45 EST Stalin Naylor MD CHEMISTRY & BLOOD GAS ORDERABLES Performing Organization Address [facility] de Phone Number [facility] [address] [place] [address] * LIPID PROFILE (INCLUDES CHOLESTEROL, TRIGLYCERIDES, HDL, LDL) (11/23/2019 9:45 EST) Cholesterol 168 See Note mg/dL 11/23/2019 12:13 [facility] Comment: Acceptable: ?<200 mg/dL Borderline High: 200-239 mg/dL High: ?> or = 240 mg/dL HDL 52 See Note mg/dL 11/23/2019 12:13 [facility] Comment: Low: ? <40 mg/dL Normal: ??40-60 mg/dL High: ?>60 mg/dL LDL, Calculated 75 See Note mg/dL 11/23/2019 12:13 [facility] Comment: Optimal: ? <100 mg/dL Near Optimal: ?100-129 mg/dL Borderline High: 130-159 mg/dL High: ?160-189 mg/dL Very High: ? > or = 190 mg/dL Triglyceride 207 See Note mg/dL 11/23/2019 12:13 [facility] Comment: Normal: ? <150 mg/dL Borderline High: ??150 - 199 mg/dL High: ? 200 - 499 mg/dL Very High: ?> or = 500 mg/dL Chol/HDL Ratio 3.2 See Note 11/23/2019 12:13 [facility] Comment: No reference range has been established for CHOL/HDL ratio. Non HDL Cholesterol 116 See Note mg/dL 11/23/2019 12:13 [facility] Comment: Desirable: ?<130 mg/dL Borderline High: ??130-159 mg/dL High: ? 160-189 mg/dL Very High: ?> or = 190 mg/dL Blood VENOUS BLOOD / Unknown Venipuncture / Unknown 11/23/2019 9:45 EST 11/23/2019 9:45 EST Narrative [facility] - 11/23/2019 12:13 EST 2 Stalin Naylor MD CHEMISTRY & BLOOD GAS ORDERABLES [facility] [address] [place] [address] * TSH (11/23/2019 9:45 EST) TSH 2.62 0.47 - 4.68 uIU/mL 11/23/2019 12:45 EST [facility] Blood VENOUS BLOOD / Unknown Venipuncture / Unknown 11/23/2019 9:45 EST 11/23/2019 9:45 EST Narrative [facility] - 11/23/2019 12:45 EST The results of this assay can be falsely lowered due to the consumption of Biotin. Stalin Naylor MD CHEMISTRY & BLOOD GAS ORDERABLES Performing Organization Address [facility] Co de Phone Number [facility] [address] [place] [address] * T4 FREE (11/23/2019 9:45 EST) T4, Free 1.1 0.8 - 2.2 ng/dL 11/23/2019 12:31 EST [facility] Blood VENOUS BLOOD / Unknown Venipuncture / Unknown 11/23/2019 9:45 EST 11/23/2019 9:45 EST Stalin Naylor MD CHEMISTRY & BLOOD GAS ORDERABLES Performing Organization Address [facility] de Phone Number [facility] [address] [place] [address] * (ABNORMAL) POCT HEMOGLOBIN A1C, INTERFACED (11/23/2019 8:36 EST) Hemoglobin A1c, POC 7.4(H) <5.7 % 11/23/2019 8:53 EST [facility] seed sorter ID [id number] 11/23/2019 8:53 EST [facility] Blood VENOUS BLOOD / Unknown 11/23/2019 8:36 EST 11/23/2019 8:53 EST Narrative [facility] - 11/23/2019 8:53 EST [...] Naylor MD POINT OF CARE TEST ORDERABLES [facility] [address] [place] [address] documented in this encounter Visit Diagnoses Diagnosis Type 2 diabetes mellitus with hyperglycemia, without long-term current use of insulin ([facility])- Primary Pure hypercholesterolemia Essential hypertension, [...] 11/07/2019 added in this encounter Care Teams Therapeutic Recreation Leader Relationship Specialty Start Date End Date Roro Mallory, FILE CLERK DATA ENTRY [address] [place] [phone] PCP - General 12/06/18 documented as of this encounter
--- OUTSIDE RECORDS SUMMARY | 2024-06-07 16:44 | XMS_ITS | Encounter Summary ---
Author Organization [facility] Address [address] [place] [address] Care Team Providers Care Oral Surgery Physician Name Role Phone Luis Snider Primary Care Provi kellen Reason for Visit * Reason Comments Diabetes Encounter Details Date Type Department Care Team (Late st Contact Info) Description 12/14/2016 9:00 EDT Nutrition [facility] Endocrinology - [address] [address] Mery Menendez Type 2 diabetes mellitus without complication, without long-term current use of insulin ([facility]) (Primary Dx) Social History Tobacco [...] * Mery Menendez - 12/14/2016 0900 EDT [facility] ENDOCRINOLOGY & DIABETES DIABETES NUTRITION VISIT NOTE Name:Mei Tang Date of visit: 12/14/2016 PATIENT ID: Mei Tang is a 46 y.o. female referred for medical nutrition therapy by Dr. Luis Snider for Diabetes - Type 2. SUBJECTIVE: Mei Tang was seen for a medical nutrition therapy visit, follow up, at the [facility] Endocrinology & Diabetes out-patient clinic on [...] Caesar salads Dinner: fish, chicken, vegetables, Pat's, Peruvian take-out, Hoagies Snacks: pretzels with cheese, chips, [...] complication, without long-term current use of insulin ([facility])- Primary documented in this encounter Historical Medications * This list may reflect changes made after this encounter. Medication Sig Dispensed Refills Start Date End Date famotidine (PEPCID) 20 mg tablet Take 20 mg by mouth 2 times daily. added in this encounter Care Teams Oral Surgery Physician Relationship Specialty Start Date End Date Luis Snider FNP [address] [address] PCP - General 04/23/16 11/10/18 documented as of this encounter
--- OUTSIDE RECORDS SUMMARY | 2024-06-07 16:44 | XMS_ITS | Encounter Summary ---
Author Organization [facility] Address [address] [place] [address] Care Team Providers Care Firesetter Name Role Phone Luis Snider Primary Care Provi kellen Reason for Visit * Reason Comments Nutrition Counseling * Consult (Routine) - Closed Specialty Diagnoses / Procedures Referred By Brooke grant Referred To Contact Endocrinology Diagnoses Nutritional counseling Luis Snider FNP [address] [facility] [address] [place] [address] [facility] Endocrinology [address] [place] [address] Referral ID Status Reason Start Date Expiration Date Visits Re quested Visits Authorized [id number] Closed 1 1 Encounter Details Date Type Department Care Team (Late st Contact Info) Description 03/30/2018 8:30 EDT Nutrition [facility] Endocrinology - [address] [address] Mery Menendez Type 2 diabetes mellitus without complication, without long-term current use of insulin ([facility]) (Primary Dx) Discharge Disposition: Auto Discharge Social [...] * Mery Menendez - 03/30/2018 0830 EDT [facility] ENDOCRINOLOGY & DIABETES DIABETES NUTRITION VISIT NOTE Name:Mei Valenzuela Date of visit: 03/30/2018 PATIENT ID: Mei Valenzuela is a 47 y.o. female referred for medical nutrition therapy by Dr. Luis Snider for Diabetes - Type 2. SUBJECTIVE: Mei Valenzuela was seen for a medical nutrition therapy visit, follow-up, at the [facility] Endocrinology & Diabetes out-patient clinic [...] without long-term current use of insulin ([facility])- Primary documented in this encounter Historical Medications * This list may reflect changes made after this encounter. Medication Sig Dispensed Refills Start Date End Date calcium carbonate (CALCIUM 300 ORAL) Take 2 Capsules by mouth daily. added in this encounter Care Teams Firesetter Relationship Specialty Start Date End Date Luis Snider FNP [address] [address] PCP - General 04/23/16 11/10/18 documented as of this encounter
--- OUTSIDE RECORDS SUMMARY | 2024-06-07 16:44 | XMS_ITS | Encounter Summary ---
Author Organization [facility] Address [address] [place] [address] Care Team Providers Care Tinware Lithograph Press Operator Name Role Phone Luis Snider Primary Care Provi kellen Reason for Visit * Reason Comments Shoulder Pain left shoulder follow up /[facility]i [facility] for left shoulder Encounter Details Date Type Department Care Team (Late st Contact Info) Description 08/04/2018 10:45 EST [facility] Visit [facility] [address] [place] [address] Mariangel Miranda [place]AA[place] [address] [phone] Adhesive capsulitis of left shoulder (Primary Dx) [...] 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
--- OUTSIDE RECORDS SUMMARY | 2024-06-07 16:44 | XMS_ITS | Encounter Summary ---
Author Organization [facility] Address [address] [place] [address] Care Team Providers Care Mercerizer Name Role Phone Luis Snider Primary Care Provi kellen Reason for Visit * Reason Onset Date Comments Appointment Related 12/28/2017 Update 12/28/2017 Encounter Details Date Type Department Care Team (Late st Contact Info) Description 12/28/2017 Telephone [facility] Endocrinology - [address] [address] Mery Menendez Appointment Related; Update Social History [...] encounter Miscellaneous Notes * Telephone Encounter - SharriTanisha - 12/28/2017 0952 EDT Entered referral and called pt to schedule appt. Pt is scheduled for 03/30/18 @ 8:30AM. * Telephone Encounter - Tanisha Harrell - 12/28/2017 0852 EDT Pt calling to schedule an appt with Juanis - stefanie referral received in the scans folder of [facility]. Please review and call pt to schedule an appt. documented in this encounter Plan of Treatment Not on file documented as of this encounter Visit Diagnoses Not on filedocumented in this encounter Care Teams Mercerizer Relationship Specialty Start Date End Date Luis Snider FNP [address] [address] PCP - General 04/23/16 11/10/18 documented as of this encounter
--- OUTSIDE RECORDS SUMMARY | 2024-06-07 16:44 | XMS_ITS | Encounter Summary ---
Author Organization [facility] Address [address] [place] [address] Care Team Providers Care Rn Trauma Name Role Phone Luis Snider Primary Care Provi kellen Encounter Details Date Type Department Care Team (Latest Contact Info) Description 11/24/2017 6:18 EST - 11/24/2017 23:59 EST Hospital Encounter [place] [id number] [place] [address] Luis Snider FNP [address] [facility] [address] [place] [address] Discharge Disposition: Auto Discharge Social [...] filedocumented in this encounter Care Teams Rn Trauma Relationship Specialty Start Date End Date Luis Snider FNP [address] [address] PCP - General 04/23/16 11/10/18 documented as of this encounter
--- OUTSIDE RECORDS SUMMARY | 2024-06-07 16:44 | XMS_ITS | Encounter Summary ---
Author Organization [facility] Address [address] [place] [address] Care Team Providers Care Wholesale Diamond Broker Name Role Phone MalloryRoro brown Jonelle GONZALEZ Primary Care Provider + Reason for Visit * Reason Comments Diabetes Encounter Details Date Type Department Care Team (Latest Contact Info) Description 03/28/2020 8:30 EDT Telemedicine [facility] Endocrinology - [facility] [address] [place], [place] [phone] Stalin Naylor MD [address] [facility] [address] [place] [address] Type 2 diabetes mellitus with hyperglycemia, without long-term current use of insulin ([facility]) (Primary Dx); Pure hypercholesterolemia ; Essential hypertension, [...] from the original note were not included. [facility] Diabetes Follow up Evaluation Note [...] by video through the Zoom application Code [id number] The location of the patient : Home The location of the provider: Office The following staff and their role did participate in today's encounter visit: Stalin Naylor MD CHIEF COMPLAINT: Mei Valenzuela presents with 1. Type 2 diabetes mellitus with hyperglycemia, without long-term current use of insulin ([facility]) 2. Pure hypercholesterolemia 3. Essential hypertension, [...] remained symptom-free Metformin ER 500 2 BID [id number] The history is provided by the patient. [...] being taken. She does not see a application tester.Eye exam is current. Glucose Range is Family history is reviewed and includes the following: diabetes.[facility] Mei Valenzuela has a history of being [...] below are the findings from the last [id number] encounter Vitals: BP 124/59 Pulse 77 Ht [...] hyperglycemia, without long-term current use of insulin ([facility]) 2. Pure hypercholesterolemia 3. Essential hypertension, [...] Referred to diabetic education program. Referred to saddle and side wire stitcher yes prn. Patient referred to eye animal care specialist for annual dilated eye exam. Lifestyle modifications: [...] that video through the Zoom application code [id number] Stalin Naylor MD 03/28/2020 8:50 documented in this encounter Plan of Treatment Not on file documented as of this encounter Visit Diagnoses Diagnosis Type 2 diabetes mellitus with hyperglycemia, without long-term current use of insulin ([facility])- Primary Pure hypercholesterolemia Essential hypertension, benign documented in this encounter Care Teams Wholesale Diamond Broker Relationship Specialty Start Date End Date Roro Mallory, TEACHING DIETITIAN [address] [place] [address] PCP - General 12/06/18 documented as of this encounter
--- OUTSIDE RECORDS SUMMARY | 2024-06-07 16:44 | XMS_ITS | Encounter Summary ---
Author Organization [facility] Address [address] [place] [address] Care Team Providers Care Director Of Hemophilia Name Role Phone Luis Snider FISH BUTCHER Primary Care Provi kellen Reason for Visit * Reason Onset Date Comments Appointment Related 11/17/2016 Encounter Details Date Type Department Care Team (Late st Contact Info) Description 11/17/2016 Telephone [facility] Endocrinology - [address] [phone] Mery Menendez Appointment Related Social History Tobacco [...] in about getting appointment with Ms. Menendez, aligner typewriter read her message from 11/16 and she will call her Doctor. Also wanted me to let medical office scheduler know she did not receivea message at either of her numbers Jesus Bragg 11/17/2016 9:09 documented in this encounter Plan of Treatment Not on file documented as of this encounter Visit Diagnoses Not on filedocumented in this encounter Care Teams Director Of Hemophilia Relationship Specialty Start Date End Date Luis Snider FNP [address] [address] PCP - General 04/23/16 11/10/18 documented as of this encounter
--- OUTSIDE RECORDS SUMMARY | 2024-06-07 16:44 | XMS_ITS | Encounter Summary ---
Author Organization [facility] Address [address] [place] [address] Care Team Providers Care Credit Risk Associate Name Role Phone AmlloryDonald brownmatthew Sal APRN Primary Care Provider + Reason for Visit * Reason Comments Diabetes Encounter Details Date Type Department Care Team (Late st Contact Info) Description 04/26/2020 16:00 EDT Nutrition [facility] Endocrinology - [address] [address] Yarelis Kothari, RD [address] [place] [address] Type 2 diabetes mellitus without complication, without long-term current use of insulin ([facility]) (Primary Dx) Social History Tobacco Use [...] a follow-up medical nutrition therapy visit the [facility] Endocrinology & Diabetes out-patient clinic. Mei [...] complication, without long-term current use of insulin ([facility])- Primary documented in this encounter Care Teams Credit Risk Associate Relationship Specialty Start Date End Date Roro Mallory, ROLL OR TAPE EDGE MACHINE OPERATOR [address] [place] [phone] PCP - General 12/06/18 documented as of this encounter
--- OUTSIDE RECORDS SUMMARY | 2024-06-07 16:44 | XMS_ITS | Encounter Summary ---
Author Organization [facility] Address [address] [place] [address] Care Team Providers Care Organic Lab Worker Name Role Phone Roro Mallory Jonelle GONZALEZ Primary Care Provider + Reason for Visit * Reason Onset Date Comments Medications Refill 11/24/2019 Encounter Details Date Type Department Care Team (Late st Contact Info) Description 11/24/[address] [facility] Endocrinology - [address] [address] Tammie Hauser RN Medications Refill Social History [...] Encounter - Tammie Hauser RN - 11/24/2019 4179 EST Pt called and this junior copywriter verified that her medication was Metformin 50mg ER, 2 tablets twice daily, and that the script was sent to [facility] in [place]. Patient verbalized understanding. No barriers to learning noted. Tammie Hauser pulmonary function technician documented in this encounter Plan of Treatment Not on file documented as of this encounter Visit Diagnoses Not on filedocumented in this encounter Care Teams Organic Lab Worker Relationship Specialty Start Date End Date Roro Mallory, INTERIOR DESIGN PROFESSOR [address] [place] [phone] PCP - General 12/06/18 documented as of this encounter
--- OUTSIDE RECORDS SUMMARY | 2024-06-07 16:44 | XMS_ITS | Encounter Summary ---
Author Organization Health system Address [address] [place] [address] Care Team Providers Care Inventory Controller Name Role Phone Luis Snider Primary Care Provi kellen Encounter Details Date Type Department Care Team (Latest Contact Info) Description 05/25/2017 7:39 EDT - 05/25/2017 23:59 EDT Hospital Encounter [facility] [address] [place] [address] Luis Snider FNP 8 [facility] [address] [place], [place] [address] Discharge Disposition: Home or Self Care Social [...] Code Departure Means Destination Home or Self Longterm documented in this encounter Plan of Treatment Not on file documented as of this encounter Procedures Procedure Name Priority Date/Time Associated Diagnosis Comments URINE [id number] E RATIO (ACR) Routine 05/25/2017 7:48 EDT COMPLETE BLOOD COUNT Routine 05/25/2017 7:48 EDT HEMOGLOBIN A1C Routine 05/25/2017 7:48 EDT LIPID PROFILE (INCLUDES CHOLESTEROL, TRIGLYCERIDES, HDL, LDL) Routine 05/25/2017 7:48 EDT BASIC METABOLIC PANEL (BMP) Routine 05/25/2017 7:48 EDT documented in this encounter Results * ALBUMIN, URINE (05/25/2017 7:48 EDT) Creatinine, Urn [place] 25.4 mg/dl 05/25/2017 12:39 EDT [facility] Ur Albumin mg/dl <0.2 mg/dl 05/25/2017 14:46 EDT [facility] Ur Alb ug/mg Crea Unable to calculate ug/mg Crea result. ug/mg Crea 05/25/2017 14:46 EDT [facility] Comment: Normal: <30 ug/mg creat High albuminuria: 30-300 ug/mg creat Very high albuminuria: >300 ug/mg creat URINE / Unknown 05/25/2017 7 :48 EDT 05/25/2017 8:43 EDT [facility] CHEMISTRY & BLOOD GAS ORDERABLES Performing Organization Address [facility] Co de Phone Number [facility] [address] [place] [address] * HEMOGLOBIN A1C (05/25/2017 7:48 EDT) Hemoglobin A1C 5.7 % 05/25/2017 11:14 EDT [facility] Comment: Reference Range: <5.7% Normal 5.7-6.4% Increased risk for diabetes =>6.5% Diagnostic for diabetes (if confirmed) The A1c goal for non adults in general is <7%. The A1c goal for selected patients may be significantly lower than 7% if this can be achieved without significant hypoglycemia or other adverse effects of treatment. Est Avg Glucose 117 mg/dl 7 11:14 EDT [facility] Comment: eAG represents the A1c result expressed as average glucose in mg/dl. BLOOD SPECIMEN / Unknown 05/25/2017 7:48 EDT 05/25/2017 8:46 EDT [facility] [employer] [facility] CHEMISTRY & BLOOD GAS ORDERABLES Performing Organization Address [facility] Co de Phone Number [facility] [address] [place] [address] * LIPID PROFILE (INCLUDES CHOLESTEROL, TRIGLYCERIDES, HDL, LDL) (05/25/2017 7:48 EDT) Cholesterol 156 mg/dl 05/25/2017 9:14 EDT [facility] Comment: Desirable:<200 Borderline High:200-239 High:>rc=187 Triglycerides 100 mg/dl 05/25/2017 9:14 [facility] Comment: Normal:<150 Borderline High:150-199 High:200-499 Very High:>nd=450 HDL 51 mg/dl 05/25/2017 9:14 [facility] Comment: Low:<40 Normal:40-60 Desirable: >60 LDL, Calculated 85 mg/dl 7 9:14 [facility] Comment: Optimal:<100 Near Optimal:100-129 Borderline High:130-159 High:160-189 Very High:>tr=527 Chol/HDL Ratio 3.1 05/25/2017 9:14 [facility] Fasting? YES 05/25/2017 7:42 [facility] Non HDL Cholesterol 105 mg/dl 05/25/2017 9:14 [facility] Comment: Desirable:<130 Borderline:130-159 High: 160-189 Very High: >vm=800 BLOOD SPECIMEN / Unknown 05/25/2017 7:48 EDT 05/25/2017 8:46 EDT Luis GARCIA CHEMISTRY & BLOOD GAS ORDERABLES [facility] [address] [place] [address] * BASIC METABOLIC PANEL (05/25/2017 7:48 EDT) Sodium 141 136 - 145 mEq/L 05/25/2017 9:14 [facility] Potassium 4.6 3.5 - 5.0 mEq/L 05/25/2017 9:14 [facility] Chloride 103 96 - 110 mEq/L 05/25/2017 9:14 [facility] CO2 29 22 - 32 mEq/L 05/25/2017 9:14 [facility] BUN 14 10 - 26 mg/dl 05/25/2017 9:14 [facility] Creatinine 0.75 0.52 - 1.04 mg/dl 05/25/2017 9:14 [facility] GFR, Calculated 97 >60 ml/min/1.7 3m2 05/25/2017 9:14 [facility] Comment: eGFR calculated using CKD-EPI equation for non Americans. Multiply eGFR by 1.16 for Americans. Calcium 9.7 8.5 - 10.5 mg/dl 05/25/2017 9:14 [facility] Calculated Calcium 9.5 8.5 - 10.5 mg/dl 05/25/2017 9:14 [facility] Glucose, Serum 87 70 - 100 mg/dl 05/25/2017 9:14 [facility] Fasting? YES 05/25/2017 7:42 [facility] BLOOD SPECIMEN / Unknown 05/25/2017 7:48 EDT 05/25/2017 8:46 EDT Luis GARCIA CHEMISTRY & BLOOD GAS ORDERABLES Performing Organization Address City/State/[facility] Co de Phone Number [facility] [address] [place] [address] * HEMAGRAM (05/25/2017 7:48 EDT) WBC 6.37 4.0 - 12.4 K/cmm 05/25/2017 9:02 [facility] RBC 4.54 3.86 - 5.04 M/cmm 05/25/2017 9:02 [facility] Hemoglobin 14.1 11.6 - 15.2 gm/dl 05/25/2017 9:02 [facility] HCT 42.1 34.9 - 44.4 % 05/25/2017 9:02 [facility] MCV 93 81 - 98 fl 05/25/2017 9:02 [facility] MCH 31.1 26.7 - 33.3 pg 05/25/2017 9:02 [facility] MCHC 33.5 32.1 - 35.9 gm/dl 05/25/2017 9:02 [facility] RDW-CV 12.1 <14.7 % 05/25/2017 9:02 [facility] RDW-SD 41.1 <50.4 fl 05/25/2017 9:02 EDT [facility] PLT 319 141 - 377 K/cmm 05/25/2017 9:02 EDT [facility] MPV 9.9 9.5 - 12.7 fl 05/25/2017 9:02 EDT [facility] BLOOD SPECIMEN / Unknown 05/25/2017 7:48 EDT 05/25/2017 8:46 EDT Luis GARCIA HEMATOLOGY & PF4 ORDERABLES [facility] [address] [place] [address] documented in this encounter Visit Diagnoses Not on filedocumented in this encounter Care Teams Inventory Controller Relationship Specialty Start Date End Date Luis Snider FNP 8 [facility] [address] [place] [address] PCP - General 04/23/16 11/10/18 documented as of this encounter
--- OUTSIDE RECORDS SUMMARY | 2024-06-07 16:44 | XMS_ITS | Encounter Summary ---
Author Organization [facility] Address [address] [place] [address] Care Team Providers Care Expander Name Role Phone Luis Snider Primary Care Provi kellen Encounter Details Date Type Department Care Team (Late st Contact Info) Description 06/13/2018 8:29 EDT - 06/13/2018 23:59 EDT Hospital Encounter [address] [address] Norma Coombs MD [facility] [address] [place] [address] Discharge Disposition: Home or Self [...] on filedocumented in this encounter Care Teams Expander Relationship Specialty Start Date End Date Luis Snider FNP [address] [address] PCP - General 04/23/16 11/10/18 documented as of this encounter
--- OUTSIDE RECORDS SUMMARY | 2024-06-07 16:44 | XMS_ITS | Encounter Summary ---
Author Organization [facility] Address [address] [place] [address] Care Team Providers Care Rental Sales Agent Name Role Phone Roro Mallory APRN Primary Care Provider + Reason for Visit * Reason Comments Diabetes * Consult (Routine) - Order Cancelled Specialty Diagnoses / Procedures Referred By [facility] t Referred To Contact Endocrinology Diagnoses Type 2 diabetes mellitus with hyperglycemia, without long-term current use of insulin ([facility]) Stalin Naylor MD 62 [facility] [address] [place] [phone] [facility] Endocrinology [address] [place] [address] Referral ID Status Reason Start Date Expiration Date Visits Requested Visits Authorized [id number] Order Cancelled Specialty Services Required 11/23/2019 1 1 Encounter Details Date Type Department Care Team (Late st Contact Info) Description 12/19/2019 9:00 EDT Nutrition [facility] Endocrinology - [address] [address] Yarelis Kothari, RD [address] [place] [address] Type 2 diabetes mellitus without complication, without long-term current use of insulin ([facility]) (Primary Dx) Social History Tobacco Use Types [...] a follow-up medical nutrition therapy visit the [facility] Endocrinology & Diabetes out-patient clinic. [...] to fresh [facility] Recall indicates limited activity at this time [...] complication, without long-term current use of insulin ([facility])- Primary documented in this encounter Care Teams Rental Sales Agent Relationship Specialty Start Date End Date Roro Mallory, GERM DRIER [address] [place] [phone] PCP - General 12/06/18 documented as of this encounter
--- OUTSIDE RECORDS SUMMARY | 2024-06-07 16:44 | XMS_ITS | Encounter Summary ---
Author Organization [facility] Address [address] [place] [address] Care Team Providers Care Spot Welder Line Name Role Phone Luis Snider [facility] Primary Care Provi kellen Reason for Referral * Radiology Services (Routine) - New Request Specialty Diagnoses / Procedures Referred By Contac t Referred To Contact Diagnoses Acute pain of left shoulder Procedures SHOULDER 2 OR MORE VIEWS Mariangel Miranda PA-C [address] [address] Referral ID Status Reason Start Date Expiration Date V isits Requested Visits Authorized [id number] New Request 05/31/2018 1 1 Encounter Details Date Type Department Care Team (Late st Contact Info) Description 05/20/2018 Orders Only [facility] Orthopedic Surgery - [address] [address] Mariangel Miranda PA-C [address] [facility] [address] [place] [address] Acute pain of left shoulder [...] 17:00 EDT HISTORY: ?? M25.512-Pain in left [id number]; LEFT SHOULDER PAIN AFTER INJURY COMPARISON: None. EXAM/TECHNIQUE: SHOULDER 2 OR MORE VIEW ??05/31/2018 2:29 PM 4 view left FINDINGS / IMPRESSION: 1. ??There is evidence of AC joint degenerative change with some lucency along the distal clavicle. Correlate for evidence of distal clavicular osteolysis. 2. ??No significant glenohumeral joint degenerative changes. Procedure Note Dilan Win MD - 05/31/2018 HISTORY: M25.512-Pain in left [id number]; LEFT SHOULDER PAIN AFTER INJURY COMPARISON: None. [...] Primary documented in this encounter Care Teams Spot Welder Line Relationship Specialty Start Date End Date Luis Snider FNP [address] [address] PCP - General 04/23/16 11/10/18 documented as of this encounter
--- OUTSIDE RECORDS SUMMARY | 2024-06-07 16:44 | XMS_ITS | Encounter Summary ---
Author Organization [facility] Address [address] [place] [address] Care Team Providers Care Consultant Intern Name Role Phone Roro Mallory MOLD DESIGNER Primary Care Provider + Reason for Visit * Reason Comments Diabetes * Referral (Routine) - Closed Specialty Diagnoses / Procedures [facility] Referred To Contact Endocrinology Diagnoses Type 2 diabetes mellitus without complications ([facility]) Roro Mallory, MOLD DESIGNER [address] [place] [address] [facility] Endocrinology [address] [place] [address] Referral ID Status Reason Start Date Expiration Date Visits Re quested Visits Authorized [id number] Closed 1 1 Encounter Details Date Type Department Care Team (Late st Contact Info) Description 12/06/2018 9:00 EDT Nutrition [facility] Endocrinology - [address] CDE [address] [place] [address] [address] [place] [address] Type 2 diabetes mellitus without complication, without long-term current use of insulin ([facility]) (Primary Dx) Social History Tobacco Use Types [...] [facility] End[facility]inology & [facility] out-patient clinic accompanied by: [...] sandwich, sausage, egg and cheese on an Czech muffin Lunch: Peanut butter on a wrap [...] Jaquez 12/06/2018 17:16 Endocrinology Tracking 12/06/2018 Educator PARVEZ/ARACELI Time with Patient(Mins) 60 Patient Contact Type MNT documented in this encounter Plan of Treatment Not on file documented as of this encounter Visit Diagnoses Diagnosis Type 2 diabetes mellitus without complication, without long-term current use of insulin ([facility])- Primary documented in this encounter Care Teams Consultant Intern Relationship Specialty Start Date End Date Roro Mallory, MOLD DESIGNER [address] [place] [address] PCP - General 12/06/18 documented as of this encounter
--- OUTSIDE RECORDS SUMMARY | 2024-06-07 16:44 | XMS_ITS | Encounter Summary ---
Author Organization [facility] Address [address] [place] [address] Care Team Providers Care Unit Nurse Name Role Phone Roro Mallory APRN Primary [...] on filedocumented in this encounter Care Teams Unit Nurse Relationship Specialty Start Date End Date Roro Mallory, PARTICIPANT ADMINISTRATOR [address] [place] [phone] PCP - General 12/06/18 documented as of this encounter
--- OUTSIDE RECORDS SUMMARY | 2024-06-07 16:44 | XMS_ITS | Encounter Summary ---
Author Organization [facility] Address [address] [place] [address] Care Team Providers Care Installment Agent Name Role Phone Roro Mallory APRN Primary Care Provider + Reason for Referral * Radiology Services (Routine/Next Available) - Closed Specialty Diagnoses / Procedures Referred By Brooke grant Referred To Contact Diagnoses Screening breast examination Procedures MA BREAST SCREENING DEMARIO BILATERAL MA BREAST SCREENING DEMARIO BILATERAL Roro Mallory APRN [address] [place] [address] Referral ID Status Reason Start Date Expiration Date Visits Re quested Visits Authorized [id number] Closed 01/09/2020 1 1 Reason for Visit * Radiology Services (Routine/Next Available) - Closed Specialty Diagnoses / Procedures Referred By Brooke grant Referred To Contact Diagnoses Screening breast examination Procedures MA BREAST SCREENING DEMARIO BILATERAL MA BREAST SCREENING DEMARIO BILATERAL Roro Mallory EMERGENCY ROOM DOCTOR [address] [place] [address] Referral ID Status Reason Start Date Expiration Date Visits Re quested Visits Authorized [id number] Closed 01/09/2020 1 1 Encounter Details Date Type Department Care Team (Latest Contact Info) Description 05/29/2021 15:25 EDT - 05/29/2021 23:59 EDT Hospital Encounter [facility] [address] [place] [address] Screening breast examination Discharge Disposition: Home or [...] we will contact yourpatient directly. Roro Mallory EMERGENCY ROOM DOCTOR IMG MAMMOGRAPHY ORDERABLES documented in this encounter Visit Diagnoses Diagnosis Screening breast examination Breast screening, unspecified documented in this encounter Care Teams Installment Agent Relationship Specialty Start Date End Date Roro Mallory, EMERGENCY ROOM DOCTOR [address] [place] [address] PCP - General 12/06/18 documented as of this encounter
--- OUTSIDE RECORDS SUMMARY | 2024-06-07 16:44 | XMS_ITS | Encounter Summary ---
Author Organization [facility] Address [address] [place] [address] Care Team Providers Care Derrick Operator Name Role Phone Luis Snider Primary Care Provi kellen Encounter Details Date Type Department Care Team (Late st Contact Info) Description 12/20/2017 Phlebotomy Only [facility] [address] [place] [address] Dough Mixing Machine Operator, Outpatient Social History Tobacco Use [...] on filedocumented in this encounter Care Teams Derrick Operator Relationship Specialty Start Date End Date Luis Snider FNP 8 [facility] [address] [place], [place] [address] PCP - General 04/23/16 11/10/18 documented as of this encounter
--- OUTSIDE RECORDS SUMMARY | 2024-06-07 16:44 | XMS_ITS | Encounter Summary ---
Author Organization [facility] Address [address] [place] [address] Care Team Providers Care Imaging Aide Name Role Phone MalloryRoro brown Jonelle GONZALEZ Primary Care Provider + Reason for Visit * Reason Onset Date Comments Results 04/10/2020 Pratibha A1C Encounter Details Date Type Department Care Team (Late st Contact Info) Description 04/10/2020 Telephone [facility] Endocrinology - [facility] [address] [place] [address] Stalin Naylor MD 62 [facility] [address] [place] [address] Results (Pratibha A1C) Social History [...] EDT Called and requested lab results from [facility] lab. Received verbal result of hgb A1C: 7.2 % Lab to fax paper result to office. Called and left message for pt relaying result of 7.2% for her Hgb A1C that was drawn at [facility]. Instructed pt to call back with any questions. * Telephone Encounter - Elham Guerrero - 04/10/2020 0901 EDT Patient calling for her April 04 [facility] A1C results. Please call documented in this encounter Plan of Treatment Not on file documented as of this encounter Visit Diagnoses Not on filedocumented in this encounter Care Teams Imaging Aide Relationship Specialty Start Date End Date Roro Mallory, MIRROR PAINTER [address] [place] [address] PCP - General 12/06/18 documented as of this encounter
--- OUTSIDE RECORDS SUMMARY | 2024-06-07 16:44 | XMS_ITS | Encounter Summary ---
Author Organization [facility] Address [address] [place] [address] Care Team Providers Care Senior Advocate Name Role Phone Luis Snider GAMBLING DEALER Primary Care Provi kellen Reason for Referral * Referral (Routine) - Specialty Report Received Specialty Diagnoses / Procedures Referred By Brooke grant Referred To Contact Diagnoses Adhesive capsulitis of left shoulder Mariangel Miranda PA-C [address] [address] Ivan Baires MD [address] [place] [address] [address] [place] [address] Referral ID Status Reason Start Date Expiration Date Visits Requested Visits Authorized [id number] Specialty Report Received Specialty Services Required 05/31/2018 [...] capsulitis of left shoulder Mariangel Miranda PA-C [address] [address] Referral ID Status Reason Start Date Expiration Date Visits Requested Visits Authorized [id number] New Request Specialty Services Required 05/31/2018 1 1 Question Answer Reason for Request: frozen shoulder Left SITE [facility] Comments Evaluate and treat Aquatherapy Stretch and strengthen Home exercise program instruction Capsular stretching, A, AAROM; gentle PROM, Joint Mobs; daily HEP program with emphasis on stretching; MFR and trigger point therapy Reason for Visit * Reason Comments Shoulder Pain Left shoulder pain * Consult (Routine) - Closed Specialty Diagnoses / Procedures Referred By Contcarolina t Referred To Contact Orthopedic Surgery Diagnoses Pain in left upper arm Luis Snider FNP 8 [facility] [address] [place] [address] [facility] [address] [address] Referral ID Status Reason Start Date Expiration Date Visits Re quested Visits Authorized [id number] Closed 1 1 Encounter Details Date Type Department Care Team (Late st Contact Info) Description 05/31/2018 14:15 EDT Office Visit [facility] Orthopedic Surgery - [address] [address] Mariangel Miranda PA-C [address] [place] [phone] Adhesive capsulitis of left shoulder (Primary Dx) [...] PT for 2 months. She went to [facility] in [place] for 2 months. 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 Diabetes mellitus ([facility]) No past surgical history on file. Outpatient [...] like to refer the patient to /[facility] for left shoulder - [place] cortisone injection [...] documented in this encounter Care Teams Senior Advocate Relationship Specialty Start Date End Date Luis Snider FNP [address] [address] PCP - General 04/23/16 11/10/18 documented as of this encounter
--- OUTSIDE RECORDS SUMMARY | 2024-06-07 16:44 | XMS_ITS | Encounter Summary ---
Author Organization [facility] Address [address] [place] [address] Care Team Providers Care Rvda Master Certified Rv Technician Name Role Phone Luis Snider Primary Care Provi kellen Reason for Visit * Reason Comments Diabetes Encounter Details Date Type Department Care Team (Late st Contact Info) Description 05/28/2017 9:00 EDT Nutrition [facility] Endocrinology - [address] [address] Mery Menendez Type 2 diabetes mellitus without complication, without long-term current use of insulin ([facility]) (Primary Dx) Social History Tobacco [...] * Mery Menendez - 05/28/2017 0900 EDT [facility] ENDOCRINOLOGY & DIABETES DIABETES NUTRITION VISIT NOTE Name:Mei Tang Date of visit: 05/28/2017 PATIENT ID: Mei Tang is a 46 y.o. female referred for medical nutrition therapy by Dr. Luis Snider for Diabetes - Type 2. SUBJECTIVE: Mei Tang was seen for a medical nutrition therapy visit, follow up, at the [facility] Endocrinology & Diabetes out-patient clinic on 05/28/2017 [...] long-term current use of insulin ([facility])- Primary documented in this encounter Care Teams Rvda Master Certified Rv Technician Relationship Specialty Start Date End Date Luis Snider FNP [address] [address] PCP - General 04/23/16 11/10/18 documented as of this encounter
--- OUTSIDE RECORDS SUMMARY | 2024-06-07 16:44 | XMS_ITS | Encounter Summary ---
Author Organization [facility] Address [address] [place] [address] Care Team Providers Care Insurance Service Representative Name Role Phone MalloryDonald brownmatthew Sal APRN Primary Care Provider + Reason for Visit * Reason Onset Date Comments Referral Request 11/07/2019 Encounter Details Date Type Department Care Team (Late st Contact Info) Description 11/07/2019 Telephone [facility] Endocrinology - [address] CDE 62 [facility] [address] [place] [address] Referral Request Social History Tobacco [...] send new referral, they will fax too [phone]. * Telephone Encounter - Obi Santana - 11/07/2019 1546 EST Patient has a recall appointment, will need a new referral to be seen this year. Please advise documented in this encounter Plan of Treatment Not on file documented as of this encounter Visit Diagnoses Not on filedocumented in this encounter Care Teams Insurance Service Representative Relationship Specialty Start Date End Date Roro Mallory APRN [address] [place] [phone] PCP - General 12/06/18 documented as of this encounter
--- OUTSIDE RECORDS SUMMARY | 2024-06-07 16:44 | XMS_ITS | Encounter Summary ---
Author Organization [facility] Address [address] [place] [address] Care Team Providers Care Foundation Assistant Name Role Phone Roro Mallory Jonelle GONZALEZ Primary Care Provider + Encounter Details Date Type Department Care Team (Latest Contact Info) Description 10/17/2020 7:00 EST Phlebotomy Only [facility] Laboratory Services - [facility] ([facility]) [address] [place] [address] [id number] Type 2 diabetes mellitus with hyperglycemia, without long-term current use of insulin ([facility]); Pure hypercholesterolemia ; Essential hypertension, benign [...] hyperglycemia, without long-term current use of insulin ([facility]) Essential hypertension, benign HEMOGLOBIN A1C Routine 10/17/2020 6:58 EST Type 2 diabetes mellitus with hyperglycemia, without long-term current use of insulin ([facility]) LIPID PROFILE (INCLUDES CHOLESTEROL, TRIGLYCERIDES, HDL, LDL) Routine 10/17/2020 6:58 EST Type 2 diabetes mellitus with hyperglycemia, without long-term current use of insulin ([facility]) Pure hypercholesterolemia COMPREHENSIVE METABOLIC PANEL (CMP) Routine 10/17/2020 6:58 EST Type 2 diabetes mellitus with hyperglycemia, without long-term current use of insulin ([facility]) documented in this encounter Results * (ABNORMAL) PROTEIN/CREATININE RATIO, URINE (10/17/2020 6:59 EST) Total Protein, Urine 13 See Note mg/dL 10/17/2020 8:35 EST [facility] Comment:Reference range not established. Creatinine, Urine 34.1 See Note mg/dL 10/17/2020 8:35 EST [facility] Comment:Reference range not established. UPRO mg/mg Cr, Ur 0.38(H) <0.16 mg/mg Creatinine 10/17/2020 8:35 EST [facility] Urine URINE SPECIMEN COLLECTION, CLEAN CATCH / Unknown Urine Collect / Unknown 10/17/2020 6:59 EST 10/17/2020 7:03 EST Stalin Naylor MD URINALYSIS ORDERAB LES [facility] [address] [place] [address] * COMPREHENSIVE METABOLIC PANEL (CMP) (10/17/2020 6:58 EST) Sodium 142 136 - 145 mEq/L 10/17/2020 8:49 [facility] Potassium 4.6 3.5 - 5.0 mEq/L 10/17/2020 8:49 [facility] Chloride 102 96 - 110 mEq/L 10/17/2020 8:49 [facility] CO2 Total 25 22 - 32 mEq/L 10/17/2020 8:49 [facility] Glucose 94 70 - 100 mg/dL 10/17/2020 8:49 [facility] BUN 12 10 - 26 mg/dL 10/17/2020 8:49 [facility] Creatinine 0.59 0.52 - 1.04 mg/dL 10/17/2020 8:49 [facility] eGFR 109 >60 mL/min/1.7 3m2 10/17/2020 8:49 [facility] Comment:eGFR calculated carmelita dumont CKD-EPI equation for non- Americans. Multiply eGFR by 1.16 for patients. Total Protein 7.3 6.3 - 8.2 g/dL 10/17/2020 8:49 [facility] Albumin 4.3 3.4 - 4.9 g/dL 10/17/2020 8:49 [facility] Alkaline Phosphatase 66 38 - 126 U/L 10/17/2020 8:49 [facility] AST 28 15 - 46 U/L 10/17/2020 8:49 [facility] ALT 23 <35 U/L 10/17/2020 8:49 [facility] Bilirubin, Total <0.5 <1.4 mg/dL 10/17/19 8:49 [facility] Calcium 9.6 8.5 - 10.5 mg/dL 10/17/2020 8:49 [facility] Calculated Calcium 9.4 8.5 - 10.5 mg/dL 10/17/2020 8:49 [facility] Blood VENOUS BLOOD / Unknown Venipuncture / Unknown 10/17/2020 6:58 EST 10/17/2020 7:03 EST Stalin Naylor MD CHEMISTRY & BLOOD GAS ORDERABLES [facility] [address] [place] [address] * LIPID PROFILE (INCLUDES CHOLESTEROL, TRIGLYCERIDES, HDL, LDL) (10/17/2020 6:58 EST) Cholesterol 161 See Note mg/dL 10/17/2020 8:49 [facility] Comment: Acceptable: ?<200 mg/dL Borderline High: 200-239 mg/dL High: ?> or = 240 mg/dL HDL 56 See Note mg/dL 10/17/2020 8:49 [facility] Comment: Low: ? <40 mg/dL Normal: ??40-60 mg/dL High: ?>60 mg/dL LDL, Calculated 80 See Note mg/dL 10/17/2020 8:49 [facility] Comment: Optimal: ? <100 mg/dL Near Optimal: ?100-129 mg/dL Borderline High: 130-159 mg/dL High: ?160-189 mg/dL Very High: ? > or = 190 mg/dL Triglyceride 125 See Note mg/dL 10/17/2020 8:49 [facility] Comment: Normal: ? <150 mg/dL Borderline High: ??150 - 199 mg/dL High: ? 200 - 499 mg/dL Very High: ?> or = 500 mg/dL Chol/HDL Ratio 2.9 See Note 10/17/2020 8:49 [facility] Comment:No reference range h as been established for CHOL/HDL ratio. Non HDL Cholesterol 105 See Note mg/dL 10/17/2020 8:49 EST [facility] Comment: Desirable: ?<130 mg/dL Borderline High: ??130-159 mg/dL High: ? 160-189 mg/dL Very High: ?> or = 190 mg/dL Blood VENOUS BLOOD / Unknown Venipuncture / Unknown 10/17/2020 6:58 EST 10/17/2020 7:03 EST Stalin Naylor MD CHEMISTRY & BLOOD GAS ORDERABLES [facility] [address] [place] [address] * (ABNORMAL) HEMOGLOBIN A1C (10/17/2020 6:58 EST) Hemoglobin A1c 6.3(H) <5.7 % 10/17/2020 9:59 EST [facility] Comment: Glycemic Status References: Normal: [...] Est Avg Glucose 134 mg/dL 9:59 EST [facility] Comment:The eAG represents t he A1c result expressed as average glucose in mg/dL. Blood VENOUS BLOOD / Unknown Venipuncture / Unknown 10/17/2020 6:58 EST 10/17/2020 7:03 EST Stalin Naylor MD CHEMISTRY & BLOOD GAS ORDERABLES [facility] [address] [place] [address] documented in this encounter Visit Diagnoses Diagnosis Type 2 diabetes mellitus with hyperglycemia, without long-term current use of insulin ([facility]) Pure hypercholesterolemia Essential hypertension, benign documented in this encounter Care Teams Foundation Assistant Relationship Specialty Start Date End Date Roro Mallory, HAND HEEL SEAT FITTER [address] [facility] [place] [address] PCP - General 12/06/18 documented as of this encounter
--- OUTSIDE RECORDS SUMMARY | 2024-06-07 16:44 | XMS_ITS | Encounter Summary ---
Author Organization [facility] Address [address] [place] [address] Care Team Providers Care Car Escort Name Role Phone MalloryDonald brownmatthew Sal APRN Primary Care Provider + Reason for Visit * Reason Onset Date Comments Appointment Related 12/04/2019 3.19 Encounter Details Date Type Department Care Team (Late st Contact Info) Description 12/04/2019 Telephone [facility] Endocrinology - [address] [address] [address] Koth[address], RD [address] [place] [address] Appointment Related (3.19) Social History [...] on filedocumented in this encounter Care Teams Car Escort Relationship Specialty Start Date End Date Roro Mallory, PROFESSOR OF THEATER [address] [place] [address] PCP - General 12/06/18 documented as of this encounter
--- OUTSIDE RECORDS SUMMARY | 2024-06-07 16:44 | XMS_ITS | Encounter Summary ---
Author Organization [facility] Address [address] [place] [address] Care Team Providers Care Community Service Director Name Role Phone MalloryDonald brownmatthew Sal APRN Primary Care Provider + Reason for Visit * Reason Onset Date Comments Other 11/23/2019 Encounter Details Date Type Department Care Team (Late st Contact Info) Description 11/23/2019 Telephone [facility] Interventional Pain [address] [place], [place] [id number] Test, [address] [place], [place] [address] Other Social History Tobacco Use Types Packs/Day [...] Telephone Encounter - Jeanna Nails - 06/04/2021 9694 EDT Error documented in this encounter Plan of Treatment Not on file documented as of this encounter Visit Diagnoses Not on filedocumented in this encounter Care Teams Community Service Director Relationship Specialty Start Date End Date Roro Mallory APRN [address] [place] [phone] PCP - General 12/06/18 documented as of this encounter
--- OUTSIDE RECORDS SUMMARY | 2024-06-07 16:44 | XMS_ITS | Encounter Summary ---
Author Organization [facility] Address [address] [place] [address] Care Team Providers Care Traffic Or System Dispatcher Name Role Phone Roro Mallory Jonelle GONZALEZ Primary Care Provider + Encounter Details Date Type Department Care Team (Latest Contact Info) Description 11/23/2019 9:15 EST Phlebotomy Only [facility] Endocrinology - [address] [phone] Phlebotomy, [facility] Endo Type 2 diabetes mellitus with hyperglycemia, without long-term current use of insulin ([facility]) (Primary Dx) Social History Tobacco Use [...] charged for at time of collection at [facility]): Albumin urine I was supervised by [...] Name Priority Date/Time Associated Diagnosis Comments URINE [id number] RATIO (ACR) Routine 11/23/2019 9:45 EST Type 2 diabetes mellitus with hyperglycemia, without long-term current use of insulin ([facility]) TSH Routine 11/23/2019 9:45 EST Type 2 diabetes mellitus with hyperglycemia, without long-term current use of insulin ([facility]) T4 FREE Routine 11/23/2019 9:45 EST Type 2 diabetes mellitus with hyperglycemia, without long-term current use of insulin ([facility]) LIPID PROFILE (INCLUDES CHOLESTEROL, TRIGLYCERIDES, HDL, LDL) Routine 11/23/2019 9:45 EST Type 2 diabetes mellitus with hyperglycemia, without long-term current use of insulin ([facility]) COMPREHENSIVE METABOLIC PANEL (CMP) Routine 11/23/2019 9:45 EST Type 2 diabetes mellitus with hyperglycemia, without long-term current use of insulin ([facility]) documented in this encounter Results * (ABNORMAL) COMPREHENSIVE METABOLIC PANEL (CMP) (11/23/2019 9:45 EST) Sodium 136 136 - 145 mEq/L 11/23/2019 12:13 EST [facility] Potassium 4.3 3.5 - 5.0 mEq/L 11/23/2019 12:13 [facility] Chloride 102 96 - 110 mEq/L 11/23/2019 12:13 [facility] CO2 Total 26 22 - 32 mEq/L 11/23/2019 12:13 [facility] Glucose 173(H) 70 - 100 mg/dL 11/23/2019 12:13 [facility] BUN 12 10 - 26 mg/dL 11/23/2019 12:13 [facility] Creatinine 0.67 0.52 - 1.04 mg/dL 11/23/2019 12:13 [facility] eGFR 105 >60 mL/min/1.7 3m2 11/23/2019 12:13 [facility] Comment:eGFR calculated carmelita dumont CKD-EPI equation for non- Americans. Multiply eGFR by 1.16 for patients. Total Protein 6.9 6.3 - 8.2 g/dL 11/23/2019 12:13 [facility] Albumin 4.2 3.4 - 4.9 g/dL 11/23/2019 12:13 [facility] Alkaline Phosphatase 68 38 - 126 U/L 11/23/2019 12:13 [facility] AST 31 15 - 46 U/L 11/23/2019 12:13 [facility] ALT 34 <35 U/L 11/23/2019 12:13 [facility] Bilirubin, Total <0.5 <1.4 mg/dL 11/23/19 20 12:13 [facility] Calcium 9.0 8.5 - 10.5 mg/dL 11/23/2019 12:13 [facility] Calculated Calcium 8.8 8.5 - 10.5 mg/dL 11/23/2019 12:13 [facility] Blood VENOUS BLOOD / Unknown Venipuncture / Unknown 11/23/2019 9:45 EST 11/23/2019 9:45 [facility] - 11/23/2019 12:13 EST 2 Stalin Naylor MD CHEMISTRY & BLOOD GAS ORDERABLES [facility] [address] [place] [address] * ALBUMIN, URINE (11/23/2019 9:45 EST) Albumin, Urine 1.3 See Note mg/dL 2019 12:40 [facility] Comment: NOTE: Reference range not established Creatinine, Urine 86.0 See Note mg/dL 11/23/2019 12:40 [facility] Comment: NOTE: Reference range not established Lab Urine Albumin to Creatinine Ratio 15 <30 ug/mg Creatinine 11/23/2019 12:40 [facility] Comment: Urine Albumin/Creatinine Ratio: Normal: <30 ug/mg Creatinine Moderately increased albuminuria: 30-30 ug/mg Creatinine Severley increased albuminuria: >300 ug/mg Creatinine Urine URINE SPECIMEN OBTAINED BY CLEAN CATCH PROCEDURE / Unknown Urine Collect / Unknown 11/23/2019 9:45 EST 11/23/2019 9:45 EST Stalin Naylor MD CHEMISTRY & BLOOD GAS ORDERABLES Performing Organization Address [facility] Co de Phone Number [facility] [address] [place] [address] * LIPID PROFILE (INCLUDES CHOLESTEROL, TRIGLYCERIDES, HDL, LDL) (11/23/2019 9:45 EST) Cholesterol 168 See Note mg/dL 11/23/2019 12:13 [facility] Comment: Acceptable: ?<200 mg/dL Borderline High: 200-239 mg/dL High: ?> or = 240 mg/dL HDL 52 See Note mg/dL 11/23/2019 12:13 [facility] Comment: Low: ? <40 mg/dL Normal: ??40-60 mg/dL High: ?>60 mg/dL LDL, Calculated 75 See Note mg/dL 11/23/2019 12:13 [facility] Comment: Optimal: ? <100 mg/dL Near Optimal: ?100-129 mg/dL Borderline High: 130-159 mg/dL High: ?160-189 mg/dL Very High: ? > or = 190 mg/dL Triglyceride 207 See Note mg/dL 11/23/2019 12:13 [facility] Comment: Normal: ? <150 mg/dL Borderline High: ??150 - 199 mg/dL High: ? 200 - 499 mg/dL Very High: ?> or = 500 mg/dL Chol/HDL Ratio 3.2 See Note 11/23/2019 12:13 [facility] Comment: No reference range has been established for CHOL/HDL ratio. Non HDL Cholesterol 116 See Note mg/dL 11/23/2019 12:13 [facility] Comment: Desirable: ?<130 mg/dL Borderline High: ??130-159 mg/dL High: ? 160-189 mg/dL Very High: ?> or = 190 mg/dL Blood VENOUS BLOOD / Unknown Venipuncture / Unknown 11/23/2019 9:45 EST 11/23/2019 9:45 EST Narrative [facility] - 11/23/2019 12:13 EST 2 Stalin Naylor MD CHEMISTRY & BLOOD GAS ORDERABLES Performing Organization Address City/State/[facility] Co de Phone Number [facility] [address] [place] [address] * TSH (11/23/2019 9:45 EST) TSH 2.62 0.47 - 4.68 uIU/mL 11/23/2019 12:45 EST [facility] Blood VENOUS BLOOD / Unknown Venipuncture / Unknown 11/23/2019 9:45 EST 11/23/2019 9:45 EST Narrative [facility] - 11/23/2019 12:45 EST The results of this assay can be falsely lowered due to the consumption of Biotin. Stalin Naylor MD CHEMISTRY & BLOOD GAS ORDERABLES [facility] [address] [place] [address] * T4 FREE (11/23/2019 9:45 EST) T4, Free 1.1 0.8 - 2.2 ng/dL 11/23/2019 12:31 EST [facility] Blood VENOUS BLOOD / Unknown Venipuncture / Unknown 11/23/2019 9:45 EST 11/23/2019 9:45 EST Stalin Naylor MD CHEMISTRY & BLOOD GAS ORDERABLES Performing Organization Address City/[facility] Co de Phone Number [facility] [address] [place] [address] documented in this encounter Visit Diagnoses Diagnosis Type 2 diabetes mellitus with hyperglycemia, without long-term current use of insulin ([facility])- Primary documented in this encounter Care Teams Traffic Or System Dispatcher Relationship Specialty Start Date End Date Roro Mallory, PATIENT ACCESS REGISTRAR [address] [place] [phone] PCP - General 12/06/18 documented as of this encounter
--- OUTSIDE RECORDS SUMMARY | 2024-06-07 16:44 | XMS_ITS | Encounter Summary ---
Author Organization [facility] Address [address] [place] [address] Care Team Providers Care Fios Line Installer Name Role Phone Luis Snider Primary Care Provi kellen Encounter Details Date Type Department Care Team (Late st Contact Info) Description 11/24/2017 Results Only Imaging [facility] [phone] Luis Snider FNP [address] [facility] [address] [place] [address] Social History Tobacco Use Types Packs/Day Years [...] on filedocumented in this encounter Care Teams Fios Line Installer Relationship Specialty Start Date End Date Luis Snider FNP [address] [address] PCP - General 04/23/16 11/10/18 documented as of this encounter
--- OUTSIDE RECORDS SUMMARY | 2024-06-07 16:44 | XMS_ITS | Encounter Summary ---
Author Organization [facility] Address [address] [place] [address] Care Team Providers Care Defensive Line Coach Name Role Phone Roro Mallory Jonelle GONZALEZ Primary Care Provider + Reason for Visit * Reason Onset Date Comments Medication Management 11/24/2019 Encounter Details Date Type Department Care Team (Late st Contact Info) Description 11/24/2019 Telephone [facility] Endocrinology - [facility] [address] [place] [address] Stalin Naylor MD [address] [facility] [address] [place] [address] Medication Management Social History Tobacco [...] documented as of this encounter Care Teams Defensive Line Coach Relationship Specialty Start Date End Date Roro Mallory APRN [address] [place] [phone] PCP - General 12/06/18 documented as of this encounter
--- OUTSIDE RECORDS SUMMARY | 2024-06-07 16:45 | XMS_ITS | Encounter Summary ---
Author Organization [facility] Address [address] [place] [address] Care Team Providers Care Wrapper Cashier Name Role Phone Unavailable Primary Care Provider Unavailabl e Encounter Details Date Type Department Care Team (Latest Contact Info) Description 01/21/2009 22:07 EDT - 01/21/2009 22:[address] [facility] - Other [address] [place] [address] Sita Salamanca MD [address] [place] [phone] Discharge Disposition: Home or Self Care Social [...] Name Priority Date/Time Associated Diagnosis Comments URINE [id number] RATIO (ACR) Routine 05/29/2009 12:00 EDT HPV DETECTION, HIGH RISK TYPES Routine 05/29/2009 7:41 EDT CYTOPATHOLOGY Routine 05/29/2009 0:00 EDT documented in this encounter Results * (ABNORMAL) MICROALBUMIN (05/29/2009 12:00 EDT) Creatinine, Urn Mona 275.7 mg/dl [facility] Ur Albumin mg/dl 2.7(H) <1.9 mg/dl [facility] Ur Alb ug/mg Crea 9.8 ug/mg Crea [facility] Comment: Normal: ??<30 ug/mg Creat Microalbuminuria: ??30-300 ug/mg Creat Clinical albuminuria: ??>300 ug/mg Creat 05/29/2009 12:0 0 EDT 05/29/2009 20:16 EDT Sita Salamanca MD CHEMISTRY & BLOOD GAS ORDERABLES Performing Organization Address [facility] Co de Phone Number [facility] [address] [place] [address] * HUMAN PAPILLOMA VIRUS DNA TEST (05/29/2009 7:41 EDT) Pathologist [facility] Specimen Description Cervix, ThinPrep vial [facility] Result Negative for HPV types 16, 18, 31, 33, 35, 39, 45, 51, 52, 56, 58, 59, and 68. [facility] Report Status Final 06/12/2009 [facility] 05/29/2009 7:41 EDT 06/06/2009 7:41 EDT Sita Salamanca MD MICROBIOLOGY - GEN ERAL ORDERABLES Performing Organization Address [facility] Co de Phone Number [facility] [address] [place] [address] * CYTOPATHOLOGY (05/29/2009 0:00 EDT) Pathologist [facility] Pathology Report: CYTOPATHOLOGY REPORT ? Reports generated via electronic interface contain original data; ? however they are lacking the format of the original report. ? Caution should be taken when reading/interpreti ng unformatted reports. ? Name: ? MAURICIO BRITO ? Accession #: ? [id number] ? : ? 1970 (Age: 38) ??F [...] reviewed and electronically signed by: ? Renetta [place], [place](ASCP) ? Report Date: ??06/05/2009 09:54 ? End of Report ? [facility] 05/29/2009 05/30/2009 Sita Salamanca MD PATHOLOGY ORDERABL ES [facility] [address] [place] [address] documented in this encounter Visit Diagnoses Not on filedocumented in this encounter
--- OUTSIDE RECORDS SUMMARY | 2024-06-07 16:45 | XMS_ITS | Encounter Summary ---
Author Organization [facility] Address [address] [place] [address] Care Team Providers Care Plate Corrector Name Role Phone Amisha Beth MD Primary Care Provider [phone]- [phone] Encounter Details Date Type Department Care Team (Late st Contact Info) Description 11/02/2012 7:11 EST - 11/02/2012 23:59 EST Hospital Encounter [facility] [address] [place] [address] Amisha Beth MD [address] [place] [address], [address] [place], [place] [address] Discharge Disposition: Home or Self Care Social [...] & BLOOD GAS ORDERABLES Performing Organization Address [facility] de Phone Number [facility] [address] [place] [address] * (ABNORMAL) HEMAGRAM (11/02/2012 7:22 EST) WBC [...] & PF4 O RDERABLES Performing Organization Address [facility] Co de Phone Number [facility] [address] [place] [address] * HEPATITIS B SURFACE ANTIBODY (11/02/2012 7:22 [...] BLOOD GAS ORDERABLES Performing Organization Address City/State/[facility] Co de Phone Number [facility] [address] [place] [address] documented in this encounter Visit Diagnoses Not on filedocumented in this encounter Care Teams Plate Corrector Relationship Specialty Start Date End Date Amisha Beth MD [address] [place] [address], [address] [place] [address] PCP - General 08/21/11 04/22/16 documented as of this encounter
--- OUTSIDE RECORDS SUMMARY | 2024-06-07 16:45 | XMS_ITS | Encounter Summary ---
Author Organization [facility] Address [address] [place] [address] Care Team Providers Care Resource Engineer Name Role Phone Unavailable Primary Care Provider Unavailabl e Encounter Details Date Type Department Care Team (Latest Contact Info) Description 05/28/2008 18:29 EDT Hospital Encounter [facility] - Other [address] [place] [address] Sita Yanez MD [address] [place] [address] Discharge Disposition: Home or Self [...] de Phone Number [facility] [address] [place] [address] documented in this encounter Visit Diagnoses Not on filedocumented in this encounter
--- OUTSIDE RECORDS SUMMARY | 2024-06-07 16:45 | XMS_ITS | Encounter Summary ---
Author Organization [facility] Address [address] [place] [address] Care Team Providers Care Department Administrator Name Role Phone Amisha Beth MD Primary Care Provider +1- [phone] Encounter Details Date Type Department Care Team (Latest Contact Info) Description 09/22/2011 7:57 EST - 09/22/2011 12:45 EST Hospital Encounter [facility] Perioperative Services - [facility] [address] [place] [address] Cory Ortiz MD [address] [place] [address] Discharge Disposition: Home or Self [...] documented in this encounter Progress Notes * Manager Floor, Vicenta - 09/25/20112107 EST * Mehnaz Johns [...] documented in this encounter H&P Notes * Manager Floor, Vicenta - 09/25/20112107 EST * Cory Ortiz [...] documented in this encounter Procedure Notes * Manager Floor, Scan - 09/25/2011 2108 ESTAssociated Order(s): ECG REPORT - SCANNED documented in this encounter OR Notes * Anesthesia Preprocedure Evaluation - Manager Floor, Scan - 09/28/2011 0955 EST * OR PreOp - Manager Floor, Scan - 09/25/2011 2100 EST * OR Surgeon - Cory Ortiz MD - 09/22/2011 6662 EST OPERATIVE REPORT SERVICE DATE: 09/22/2011 PREOPERATIVE [...] PM / Cory Ortiz MD css Confirmation: [id number] Dictation ID: [id number] * Anesthesia Procedure Notes - Manager Floor, Scan - 09/22/2011 1108 EST * OR PreOp - Manager Floor, Scan - 09/22/2011 1058 EST documented in this encounter Miscellaneous Notes * Scanned Note-Null - Manager Floor, Scan - 09/25/2011 2108 EST * Anesthesia [...] EST) 09/25/2011 21:0 8 EST Narrative Transcriptions Manager Floor, Scan - 09/25/2011 21:08 EST Scan Manager Floor PROCEDURE/MINOR SURG ICAL ORDERABLES * ANAEROBE CULTURE/SMEAR(INC. [...] - GE NERAL ORDERABLES Performing Organization Address [facility] Co de Phone Number [facility] [address] [place] [address] * (ABNORMAL) GLUCOSE, GLUCOMETER (09/22/2011 8:36 EST) [facility] Signature Glucose, Fingerstick 126(H) 70 - 100 mg/dl [facility] [place] [id number] [facility] Comment:Test Performed by [facility] Services 09/22/2011 8:36 EST 09/22/2011 8:37 EST Cory Ortiz MD CHEMISTRY & BLOOD GAS ORDERABLES Performing Organization Address [facility] de Phone Number [facility] [address] [place] [address] documented in this encounter Visit Diagnoses Not [...] 09/22/2011 documented in this encounter Care Teams Department Administrator Relationship Specialty Start Date End Date Amisha Beth MD [address] [facility], [address] [place] [address] PCP - General 08/21/11 04/22/16 documented as of this encounter
--- OUTSIDE RECORDS SUMMARY | 2024-06-07 16:45 | XMS_ITS | Encounter Summary ---
Author Organization [facility] Address [address] [place] [address] Care Team Providers Care Waste Transportation Technician Name Role Phone Amisha Beth MD Primary Care Provider +1- [phone] Encounter Details Date Type Department Care Team (Late st Contact Info) Description 03/01/2014 6:40 EDT - 03/01/2014 23:59 EDT Hospital Encounter [facility] [address] [place] [address] Amisha Beth MD [address] [place] [address], [address] [place] [address] Discharge Disposition: Home or Self [...] Code Departure Means Destination Home or Self Alf documented in this encounter Plan of Treatment [...] [facility] Comment: Desirable:<200 Borderline High:200-239 High:>on=141 Triglycerides 113 mg/dl [facility] Comment: Normal:<150 Borderline High:150-199 High:200-499 Very High:>lp=706 HDL 49 mg/dl [facility] Comment: Low:<40 Normal:40-60 Desirable: >60 LDL, Calculated 91 mg/dl [facility] Comment: Optimal:<100 Near Optimal:100-129 Borderline High:130-159 High:160-189 Very High:>rw=819 Chol/HDL Ratio 3.3 [facility] Fasting? YES [facility] Non HDL Cholesterol 114 mg/dl [facility] Comment: Desirable:<130 Borderline:130-159 High: 160-189 Very High: >ev=258 03/01/2014 6:46 EDT 03/01/2014 7:52 EDT Amisha Beth MD CHEMISTRY & BLOOD GAS ORDERABLES Performing Organization Address [facility] Phone Number [facility] [address] [place] [address] * HEMOGLOBIN A1C (03/01/2014 6:46 EDT) Hemoglobin A1C 7.0 % [facility] Comment: Reference Range: <5.7% Normal 5.7-6.4% Increased risk for diabetes =>6.5% Diagnostic for diabetes (if confirmed) The A1c goal for non adults in general is <7%. The A1c goal for selected patients may be significantly lower than 7% if this can be achieved without significant hypoglycemia or other adverse effects of treatment. Est Avg Glucose 154 mg/dl [facility] Comment: eAG represents the A1c result expressed as average glucose in mg/dl. 03/01/2014 6:46 EDT 03/01/2014 7:52 EDT Amisha Beth MD CHEMISTRY & BLOOD GAS ORDERABLES Performing Organization Address [facility] Phone Number [facility] [address] [place] [address] * FERRITIN (03/01/2014 6:46 EDT) Ferritin 17 10 - 291 ng/mL [facility] 03/01/2014 6:46 EDT 03/01/2014 7:52 EDT Amisha Beth MD CHEMISTRY & BLOOD GAS ORDERABLES Performing Organization Address [facility] de Phone Number [facility] [address] [place] [address] * HEMAGRAM (03/01/2014 6:46 EDT) WBC 5.88 [...] & PF4 O RDERABLES Performing Organization Address City/State/[facility] Co de Phone Number [facility] [address] [place] [address] * (ABNORMAL) BASIC METABOLIC PANEL (03/01/2014 6:46 [...] BLOOD GAS ORDERABLES Performing Organization Address City/[facility]/ZIP Co de Phone Number [facility] [address] [place] [address] * AST (03/01/2014 6:46 EDT) AST 25 15 - 46 U/L [facility] 03/01/2014 6:46 EDT 03/01/2014 7:52 EDT Amisha Beth MD CHEMISTRY & BLOOD GAS ORDERABLES Performing Organization Address City/[facility] Co de Phone Number [facility] [address] [place] [address] * ALT (03/01/2014 6:46 EDT) ALT 28 9 - 52 U/L [facility] 03/01/2014 6:46 EDT 03/01/2014 7:52 EDT Amisha Beth MD CHEMISTRY & BLOOD GAS ORDERABLES Performing Organization Address City/[facility] Co de Phone Number [facility] [address] [place] [address] documented in this encounter Visit Diagnoses Not on filedocumented in this encounter Care Teams Waste Transportation Technician Relationship Specialty Start Date End Date Amisha Beth MD [address] [facility], [address] [place] [address] PCP - General 08/21/11 04/22/16 documented as of this encounter
--- OUTSIDE RECORDS SUMMARY | 2024-06-07 16:45 | XMS_ITS | Encounter Summary ---
Author Organization [facility] Address [address] [place] [address] Care Team Providers Care Apprentice Lineman Third Step Name Role Phone Sita Yanez MD Primary Care Provider +1- [phone] Encounter Details Date Type Department Care Team (Latest Contact Info) Description 06/02/2010 6:24 EDT - 06/02/2010 6:25 EDT Hospital Encounter [facility] - Other [address] [place] [address] Sita Yanez MD [address] [place] [address] Discharge Disposition: Home or Self [...] on filedocumented in this encounter Care Teams Apprentice Lineman Third Step Relationship Specialty Start Date End Date Sita Yanez MD [address] [place] [address] PCP - General 01/23/09 08/20/11 documented as of this encounter
--- OUTSIDE RECORDS SUMMARY | 2024-06-07 16:45 | XMS_ITS | Encounter Summary ---
Author Organization [facility] Address [address] [place] [address] Care Team Providers Care Framing Consultant Name Role Phone Amisah Beth MD Primary Care Provider +1- [phone] Encounter Details Date Type Department Care Team (Late st Contact Info) Description 08/21/2011 7:50 EST - 08/21/2011 23:59 EST Hospital Encounter [facility] [address] [place] [address] Amisha Beth MD [address], [address] [place], [place] [address] Discharge Disposition: Home or Self Care Social History Tobacco Use Types Packs/Day Years Used Date Smoking Tobacco: Never Assessed Sex and Gender Information Value Date Recorded Sex Assigned at Not on file Gender Identity Female 11/22/2019 12:18 EST Sexual Orientation Not on file documented as of this encounter Discharge Disposition Disposition Code Departure Means Destination Home or Self Detention documented in this encounter Plan of Treatment Not on file documented as of this encounter Visit Diagnoses Not on filedocumented in this encounter Care Teams Framing Consultant Relationship Specialty Start Date End Date Amisha Beth MD [address], [address] [place], [place] [address] PCP - General 08/21/11 04/22/16 documented as of this encounter
--- OUTSIDE RECORDS SUMMARY | 2024-06-07 16:45 | XMS_ITS | Encounter Summary ---
Author Organization [facility] Address [address] [place] [address] Care Team Providers Care Field Operations Supervisor Name Role Phone Amisha Beth MD Primary Care Provider +1- [phone] Encounter Details Date Type Department Care Team (Late st Contact Info) Description 08/21/2011 Results Only [facility] Laboratory Services - [facility] ([facility]) [address] [place], [place] [address] Amisha Beth MD [address] [facility], [address] [place], [place] [id number] Social History Tobacco Use Types Packs/Day Years Used Date Smoking Tobacco: Never Assessed Sex and Gender Information Value Date Recorded Sex Assigned at Not on file Gender Identity Female 11/22/2019 12:18 EST Sexual Orientation Not on file documented as of this encounter Plan of Treatment Not on file documented as of this encounter Procedures Procedure Name Priority Date/Time Associated Diagnosis Comments URINE [id number] E RATIO (ACR) Routine 08/21/2011 8:04 EST ALT Routine 08/21/2011 8:04 EST AST Routine 08/21/2011 8:04 EST HEMOGLOBIN A1C Routine 08/21/2011 8:04 EST LIPID PROFILE (INCLUDES CHOLESTEROL, TRIGLYCERIDES, HDL, LDL) Routine 08/21/2011 8:04 EST BASIC METABOLIC PANEL (BMP) Routine 08/21/2011 8:04 EST documented in this encounter Results * ALBUMIN, URINE (08/21/2011 8:04 EST) Creatinine, Urn [place] 19.0 mg/dl [facility] Albumin mg/dl <0.2 <1.9 mg/dl [facility] Ur Alb ug/mg Crea Unable to calculate ug/mg Crea result. ug/mg Crea [facility] Comment: Normal: <30 ug/mg creat High: 30-300 ug/mg creat Very high and nephrotic: >300 ug/mg creat 08/21/2011 8:04 EST 08/21/2011 8:41 EST Amisha Beth MD CHEMISTRY & BLOOD GAS ORDERABLES Performing Organization Address [facility] de Phone Number [facility] [address] [place] [address] * LIPID PROFILE (INCLUDES CHOLESTEROL, TRIGLYCERIDES, HDL, LDL) (08/21/2011 8:04 EST) Cholesterol 171 mg/dl [facility] Comment: Desirable:<200 Borderline High:200-239 High:>ca=375 Triglycerides 66 35 - 160 mg/dl [facility] HDL 69 mg/dl [facility] Comment: Low:<40 High(Desirable):>or=60 LDL, Calculated 89 mg/dl [facility] Comment: Optimal:<100 Above optimal:100-129 Borderline High:130-159 High:160-189 Very High:>hy=537 Chol/HDL Ratio 2.5 [facility] Fasting? Yes [facility] 08/21/2011 8:04 EST 08/21/2011 8:44 EST Amisha Beth MD CHEMISTRY & BLOOD GAS ORDERABLES Performing Organization Address [facility] de Phone Number [facility] [address] [place] [address] * AST (08/21/2011 8:04 EST) AST 32 15 - 46 U/L [facility] 08/21/2011 8:04 EST 08/21/2011 8:44 EST Amisha Beth MD CHEMISTRY & BLOOD GAS ORDERABLES Performing Organization Address [facility] Co de Phone Number [facility] [address] [place] [address] * ALT (08/21/2011 8:04 EST) ALT 48 9 - 52 U/L [facility] 08/21/2011 8:04 EST 08/21/2011 8:44 EST Amisha Beth MD CHEMISTRY & BLOOD GAS ORDERABLES Performing Organization Address [facility] de Phone Number [facility] [address] [place] [address] * BASIC METABOLIC PANEL (08/21/2011 8:04 EST) [...] & BLOOD GAS ORDERABLES Performing Organization Address [facility] Co de Phone Number [facility] [address] [place] [address] * HEMOGLOBIN A1C (08/21/2011 8:04 EST) Hemoglobin [...] & BLOOD GAS ORDERABLES Performing Organization Address City/State/[facility] Co de Phone Number [facility] [address] [place] [address] documented in this encounter Visit Diagnoses Not on filedocumented in this encounter Care Teams Field Operations Supervisor Relationship Specialty Start Date End Date Amisha Beth MD [address] [facility], [address] [place], [place] [address] PCP - General 08/21/11 04/22/16 documented as of this encounter
--- OUTSIDE RECORDS SUMMARY | 2024-06-07 16:45 | XMS_ITS | Encounter Summary ---
Author Organization [facility] Address [address] [place] [address] Care Team Providers Care Tab Builder Name Role Phone Sita Yanez MD Primary Care Provider +1- [phone] Encounter Details Date Type Department Care Team (Late st Contact Info) Description 09/08/2010 Results Only [facility] Laboratory Services - [facility] ([facility]) [address] [place], [place] [address] Sita Yanez MD [address] [place] [address] Social History Tobacco Use Types [...] Result No Chlamydia trachomatis DNA detected by single corner cutter mediated amplification. [facility] GC Result No Neisseria gonorrhoeae DNA detected by single corner cutter mediated amplification. [facility] 09/08/2010 12:5 3 EST 09/08/2010 12:53 EST Sita Yanez MD MICROBIOLOGY - GEN ERAL ORDERABLES Performing Organization Address [facility] de Phone Number [facility] [address] [place] [address] * HIV ANTIBODY (09/08/2010 8:30 EST) HIV 1/2 Antibody Negative Reference Range: Negative [facility] 09/08/2010 8:30 EST 09/08/2010 12:33 EST Sita Yanez MD IMMUNOLOGY AND SER OLOGY ORDERABLES Performing Organization Address [facility] de Phone Number [facility] [address] [place] [address] * HEPATITIS B SURFACE ANTIGEN (09/08/2010 8:30 EST) Hepatitis B Surface Ag Negative Reference Range: Negative [facility] 09/08/2010 8:30 EST 09/08/2010 12:33 EST Sita Yanez MD CHEMISTRY & BLOOD GAS ORDERABLES Performing Organization Address [facility] de Phone Number [facility] [address] [place] [address] documented in this encounter Visit Diagnoses Not on filedocumented in this encounter Care Teams Tab Builder Relationship Specialty Start Date End Date Sita Yanez MD [address] [place] [phone] PCP - General 01/23/09 08/20/11 documented as of this encounter
--- OUTSIDE RECORDS SUMMARY | 2024-06-07 16:45 | XMS_ITS | Encounter Summary ---
Author Organization [facility] Address [address] [place] [address] Care Team Providers Care Sole Ruffer Name Role Phone Luis Snider Primary Care Provi kellen Encounter Details Date Type Department Care Team (Latest Contact Info) Description 09/15/2016 9:36 EST - 09/15/2016 23:59 EST Hospital Encounter [facility] [address] [place] [address] Luis Snider FNP [address] [facility] [address] [place] [address] Discharge Disposition: Auto Discharge Social [...] on filedocumented in this encounter Care Teams Sole Ruffer Relationship Specialty Start Date End Date Luis Snider FNP [address] [address] PCP - General 04/23/16 11/10/18 documented as of this encounter
--- OUTSIDE RECORDS SUMMARY | 2024-06-07 16:45 | XMS_ITS | Encounter Summary ---
Author Organization [facility] Address [address] [place] [address] Care Team Providers Care Cordwood Cutter Helper Name Role Phone Amisha Beth MD Primary Care Provider +1- [phone] Encounter Details Date Type Department Care Team (Latest Contact Info) Description 01/29/2015 7:10 EDT - 01/29/2015 23:59 EDT Hospital Encounter [facility] [address] [place] [address] Criselda Kovacs MD [address] [facility] [address] [place] [address] Discharge Disposition: Home or Self [...] Code Departure Means Destination Home or Self Fpc documented in this encounter Plan of Treatment [...] 7:18 EDT) Cholesterol 168 mg/dl 01/29/2015 9:05 [facility] Comment: Desirable:<200 Borderline High:200-239 High:>om=770 Triglycerides 91 mg/dl 01/29/2015 9:05 [facility] Comment: Normal:<150 Borderline High:150-199 High:200-499 Very High:>um=165 HDL 49 mg/dl 01/29/2015 9:05 [facility] Comment: Low:<40 Normal:40-60 Desirable: >60 LDL, Calculated 101 mg/dl 5 9:05 [facility] Comment: Optimal:<100 Near Optimal:100-129 Borderline High:130-159 High:160-189 Very High:>at=882 Chol/HDL Ratio 3.4 01/29/2015 9:[address] [facility] Fasting? YES 01/29/2015 7:[address] [facility] Non HDL Cholesterol 119 mg/dl 01/29/2015 9:[address] [facility] Comment: Desirable:<130 Borderline:130-159 High: 160-189 Very High: >ve=063 BLOOD SPECIMEN / Unknown 01/29/2015 7:18 EDT 01/29/2015 8:32 EDT Criselda Kovacs MD CHEMISTRY & BLOOD GA S ORDERABLES Performing Organization Address [facility] Co de Phone Number [facility] [address] [place] [address] * HEMOGLOBIN A1C (01/29/2015 7:18 EDT) Hemoglobin A1C 8.1 % 01/29/2015 11:[address] [facility] Comment: Reference Range: <5.7% Normal 5.7-6.4% Increased risk for diabetes =>6.5% Diagnostic for diabetes (if confirmed) The A1c goal for non adults in general is <7%. The A1c goal for selected patients may be significantly lower than 7% if this can be achieved without significant hypoglycemia or other adverse effects of treatment. Est Avg Glucose 186 mg/dl 5 11:[address] [facility] Comment: eAG represents the A1c result expressed as average glucose in mg/dl. BLOOD SPECIMEN / Unknown 01/29/2015 7:18 EDT 01/29/2015 8:32 EDT Criselda Kovacs MD CHEMISTRY & BLOOD GA S ORDERABLES Performing Organization Address [facility] Co de Phone Number [facility] [address] [place] [address] * HEMAGRAM (01/29/2015 7:18 EDT) WBC 6.36 4.0 - 12.4 K/cmm 01/29/2015 8:[address] [facility] RBC 4.52 3.86 - 5.04 M/cmm 01/29/2015 8:[address] [facility] Hemoglobin 14.3 11.6 - 15.2 gm/dl 01/29/2015 8:50 [facility] HCT 40.8 34.9 - 44.4 % 01/29/2015 8:50 [facility] MCV 90 81 - 98 fl 01/29/2015 8:50 [facility] MCH 31.6 26.7 - 33.3 pg 01/29/2015 8:50 [facility] MCHC 35.0 32.1 - 35.9 gm/dl 01/29/2015 8:50 [facility] RDW-CV 12.1 11.7 - 14.6 % 01/29/2015 8:50 [facility] RDW-SD 38.1 37.6 - 50.3 fl 01/29/2015 8:50 [facility] PLT 320 141 - 320 K/cmm 01/29/2015 8:50 [facility] MPV 8.5 7.5 - 11.2 fl 01/29/2015 8:50 [facility] BLOOD SPECIMEN / Unknown 01/29/2015 7:18 EDT 01/29/2015 8:32 EDT Criselda Kovacs MD HEMATOLOGY & PF4 ORD ERABLES [facility] [address] [place] [address] * (ABNORMAL) BASIC METABOLIC PANEL (01/29/2015 7:18 EDT) Sodium 139 136 - 145 mEq/L 01/29/2015 9:05 [facility] Potassium 4.4 3.5 - 5.0 mEq/L 01/29/2015 9:05 [facility] Chloride 102 96 - 110 mEq/L 01/29/2015 9:05 [facility] CO2 25 24 - 32 mEq/L 01/29/2015 9:05 [facility] BUN 11 10 - 26 mg/dl 01/29/2015 9:05 [facility] Creatinine 0.56 0.52 - 1.04 mg/dl 01/29/2015 9:05 [facility] GFR, Calculated >60 >60 ml/min/1.7 3m2 01/29/2015 9:05 [facility] Calcium 9.5 8.5 - 10.5 mg/dl 01/29/2015 9:05 [facility] Calculated Calcium 9.5 8.5 - 10.5 mg/dl 01/29/2015 9:05 [facility] Glucose, Serum 169(H) 70 - 100 mg/dl 01/29/2015 9:05 [facility] Fasting? YES 01/29/2015 7:16 [facility] BLOOD SPECIMEN / Unknown 01/29/2015 7:18 EDT 01/29/2015 8:32 EDT Criselda Kovacs MD CHEMISTRY & BLOOD GA S ORDERABLES Performing Organization Address City/[facility]/ZIP Co de Phone Number [facility] [address] [place] [address] * AST (01/29/2015 7:18 EDT) AST 44 15 - 46 U/L 01/29/2015 9:[address] [facility] BLOOD SPECIMEN / Unknown 01/29/2015 7:18 EDT 01/29/2015 8:32 EDT Criselda Kovacs MD CHEMISTRY & BLOOD GA S ORDERABLES [facility] [address] [place] [address] * (ABNORMAL) ALT (01/29/2015 7:18 EDT) ALT 63(H) <53 U/L 01/29/2015 9:[address] [facility] BLOOD SPECIMEN / Unknown 01/29/2015 7:18 EDT 01/29/2015 8:32 EDT Criselda Kovacs MD CHEMISTRY & BLOOD GA S ORDERABLES [facility] [address] [place] [address] documented in this encounter Visit Diagnoses Not on filedocumented in this encounter Care Teams Cordwood Cutter Helper Relationship Specialty Start Date End Date Amisha Beth MD [address] [place] [address], [address] [place] [address] PCP - General 08/21/11 04/22/16 documented as of this encounter
--- OUTSIDE RECORDS SUMMARY | 2024-06-07 16:45 | XMS_ITS | Encounter Summary ---
Author Organization [facility] Address [address] [place] [address] Care Team Providers Care Buggy Driver Name Role Phone Amisha Beth MD Primary Care Provider +1- [phone] Encounter Details Date Type Department Care Team (Late st Contact Info) Description 03/10/2013 Results Only [facility] [phone] Amisha Beth MD [address], [address] [place], [place] [address] Social History Tobacco Use Types Packs/Day Years [...] on filedocumented in this encounter Care Teams Buggy Driver Relationship Specialty Start Date End Date Amisha Beth MD [address] [facility], [address] [place] [address] PCP - General 08/21/11 04/22/16 documented as of this encounter
--- OUTSIDE RECORDS SUMMARY | 2024-06-07 16:45 | XMS_ITS | Encounter Summary ---
Author Organization [facility] Address [address] [place] [address] Care Team Providers Care Research Chef Name Role Phone Amisha Beth MD Primary Care Provider +1- [phone] Encounter Details Date Type Department Care Team (Late st Contact Info) Description 08/22/2012 7:25 EST - 08/22/2012 23:59 EST Hospital Encounter [facility] [address] [place] [address] Amisha Beth MD [address] [place] [address], [address] [place], [place] [address] Discharge Disposition: Home or Self Care Social [...] Code Departure Means Destination Home or Self Residential documented in this encounter Plan of Treatment Not on file documented as of this encounter Procedures Procedure Name Priority Date/Time Associated Diagnosis Comments TESTS ADDED BY PHONE Routine 08/22/2012 7:48 EST TESTS ADDED BY PHONE Routine 08/22/2012 7:48 EST IBC Routine 08/22/2012 7:48 EST URINE [id number] E RATIO (ACR) Routine 08/22/2012 7:48 EST [...] BLOOD GAS ORDERABLES Performing Organization Address [facility] Co de Phone Number [facility] [address] [place] [address] * IBC (08/22/2012 7:48 EST) Pathologist [facility] TIBC 422 265 - 497 ug/dl [facility] 08/22/2012 7:48 EST 08/22/2012 8:27 EST Amisha Beth MD CHEMISTRY & BLOOD GAS ORDERABLES Performing Organization Address [facility] de Phone Number [facility] [address] [place] [address] * FOLATE (08/22/2012 7:48 EST) Pathologist [facility] Folate 11.1 ng/mL [facility] Comment: Deficient: ??Less than 3.4 ng/mL Indeterminate: ??3.4-5.4 ng/mL Normal: ??Greater than 5.4 ng/mL 08/22/2012 7:48 EST 08/22/2012 8:27 EST Amisha Beth MD CHEMISTRY & BLOOD GAS ORDERABLES Performing Organization Address [facility] de Phone Number [facility] [address] [place] [address] * (ABNORMAL) FERRITIN (08/22/2012 7:48 EST) Pathologist [facility] Ferritin 4(L) 10 - 291 ng/mL [facility] 08/22/2012 7:48 EST 08/22/2012 8:27 EST Amisha Beth MD CHEMISTRY & BLOOD GAS ORDERABLES Performing Organization Address [facility] Co de Phone Number [facility] [address] [place] [address] * VITAMIN B12 (08/22/2012 7:48 EST) Pathologist [facility] Vitamin B-12 256 211 - 911 pg/ml [facility] 08/22/2012 7:48 EST 08/22/2012 8:27 EST Amisha Beth MD CHEMISTRY & BLOOD GAS ORDERABLES Performing Organization Address [facility] de Phone Number [facility] [address] [place] [address] * TESTS ADDED BY PHONE (08/22/2012 7:48 EST) Pathologist [facility] Tests to be added B12,FOL,LILIANE ,IRON,IBC [facility] Diagnosis Code ANEMIA RAFI HER [facility] Who Called DR DEEDEE [facility] Location Code DABF [facility]ISH [facility] Read Back/Confirmed ? Y [facility] 08/22/2012 7:48 EST 08/22/2012 8:27 EST Amisha Beth MD CHEMISTRY & BLOOD GAS ORDERABLES Performing Organization Address [facility] de Phone Number [facility] [address] [place] [address] * (ABNORMAL) HEMAGRAM (08/22/2012 7:48 EST) [facility] WBC 5.08 4.0 - 12.4 K/cmm [facility] [...] & PF4 O RDERABLES Performing Organization Address [facility] Co de Phone Number [facility] [address] [place] [address] * TESTS ADDED BY PHONE (08/22/2012 7:48 EST) Tests to be added cbc [facility] Diagnosis Code SAME [facility] Who Called DR AMISHA [facility] Location Code DABF DANISH [facility] Read Back/Confirme d? YES [facility] 08/22/2012 7:48 EST 08/22/2012 8:27 EST Amisha Beth MD HEMATOLOGY & PF4 O RDERABLES Performing Organization Address [facility] Co de Phone Number [facility] [address] [place] [address] * LIPID PROFILE (INCLUDES CHOLESTEROL, TRIGLYCERIDES, HDL, LDL) (08/22/2012 7:48 EST) Cholesterol 153 mg/dl [facility] Comment: Desirable:<200 Borderline High:200-239 High:>mf=773 Triglycerides 81 mg/dl [facility] Comment: Normal:<150 Borderline High:150-199 High:200-499 Very High:>dn=523 HDL 60 mg/dl [facility] Comment: Low:<40 Normal:40-60 Desirable: >60 LDL, Calculated 77 mg/dl [facility] Comment: Optimal:<100 Near Optimal:100-129 Borderline High:130-159 High:160-189 Very High:>fb=253 Chol/HDL Ratio 2.6 [facility] Fasting? Yes [facility] 08/22/2012 7:48 EST 08/22/2012 8:27 EST Amisha Beth MD CHEMISTRY & BLOOD GAS ORDERABLES Performing Organization Address [facility] Co de Phone Number [facility] [address] [place] [address] * (ABNORMAL) HGB (08/22/2012 7:48 EST) Pathologist [facility] Hemoglobin 10.8(L) 11.6 - 15.2 gm/dl [facility] 08/22/2012 7:48 EST 08/22/2012 8:27 EST Amisha Beth MD HEMATOLOGY & PF4 O RDERABLES Performing Organization Address [facility] de Phone Number [facility] [address] [place] [address] * HEMOGLOBIN A1C (08/22/2012 7:48 EST) Pathologist [facility] Hemoglobin A1C 6.4 % [facility] [...] & BLOOD GAS ORDERABLES Performing Organization Address [facility] de Phone Number [facility] [address] [place] [address] * CK (08/22/2012 7:48 EST) Pathologist [facility] CK 64 30 - 135 U/L [facility] 08/22/2012 7:48 EST 08/22/2012 8:27 EST Amisha Beth MD CHEMISTRY & BLOOD GAS ORDERABLES Performing Organization Address [facility] Co de Phone Number [facility] [address] [place] [address] * (ABNORMAL) BASIC METABOLIC PANEL (08/22/2012 7:48 EST) Pathologist [facility] Sodium 136 136 - 145 mEq/L [facility] [...] BLOOD GAS ORDERABLES Performing Organization Address [facility] de Phone Number [facility] [address] [place] [address] * AST (08/22/2012 7:48 EST) AST 19 15 - 46 U/L [facility] 08/22/2012 7:48 EST 08/22/2012 8:27 EST Amisha Beth MD CHEMISTRY & BLOOD GAS ORDERABLES Performing Organization Address [facility] de Phone Number [facility] [address] [place] [address] * ALT (08/22/2012 7:48 EST) ALT 30 9 - 52 U/L [facility] 08/22/2012 7:48 EST 08/22/2012 8:27 EST Amisha Beth MD CHEMISTRY & BLOOD GAS ORDERABLES Performing Organization Address [facility] Co de Phone Number [facility] [address] [place] [address] * ALBUMIN, URINE (08/22/2012 7:48 EST) Creatinine, Urn [place] 23.5 mg/dl [facility] Ur Albumin mg/dl <0.2 mg/dl [facility] Ur Alb ug/mg Crea Unable to calculate ug/mg Crea result. ug/mg Crea [facility] Comment: Normal: <30 ug/mg creat High: 30-300 ug/mg creat Very high and nephrotic: >300 ug/mg creat 08/22/2012 7:48 EST 08/22/2012 8:25 EST Amisha Beth MD CHEMISTRY & BLOOD GAS ORDERABLES [facility] [address] [place] [address] documented in this encounter Visit Diagnoses Not on filedocumented in this encounter Care Teams Research Chef Relationship Specialty Start Date End Date Amisha Beth MD [address] [place] [address], [address] [place] [address] PCP - General 08/21/11 04/22/16 documented as of this encounter
--- OUTSIDE RECORDS SUMMARY | 2024-06-07 16:45 | XMS_ITS | Encounter Summary ---
Author Organization [facility] Address [address] [place] [address] Care Team Providers Care Tube Bending Machine Operator Name Role Phone Amisha Beth MD Primary Care Provider +1- [phone] Encounter Details Date Type Department Care Team (Late st Contact Info) Description 12/03/2015 Results Only [facility] [phone] Marita Modi, CODE MACHINE OPERATOR CN [address] [facility], [facility] [address] [place] [address] Social History Tobacco Use Types Packs/Day Years [...] Result No Chlamydia trachomatis DNA detected by conciliation court judge mediated amplification. 12/04/2015 13:47 EDT [facility] GC Result No Neisseria gonorrhoeae DNA detected by conciliation court judge mediated amplification. 12/04/2015 13:47 EDT [facility] SPECIMEN FROM UTERINE CERVIX / Unknown 12/03/2015 10:20 EDT 12/03/2015 20:29 EDT Marita Modi CODE MACHINE OPERATOR [facility] MICROBIOLOGY - GENE RAL ORDERABLES [facility] [address] [place] [address] documented in this encounter Visit Diagnoses Not on filedocumented in this encounter Care Teams Tube Bending Machine Operator Relationship Specialty Start Date End Date Amisha Beth MD [address] [facility], [address] [place] [address] PCP - General 08/21/11 04/22/16 documented as of this encounter
--- OUTSIDE RECORDS SUMMARY | 2024-06-07 16:45 | XMS_ITS | Encounter Summary ---
Author Organization [facility] Address [address] [place] [address] Care Team Providers Care Band Splitter Name Role Phone Unavailable Primary Care Provider Unavailabl e Encounter Details Date Type Department Care Team (Latest Contact Info) Description 07/25/2008 18:33 EST Hospital Encounter [facility] - Other [address] [place] [address] Sita Yanez MD [address] [place] [phone] Discharge Disposition: Home or Self Care [...] Name Priority Date/Time Associated Diagnosis Comments URINE [id number] NE RATIO (ACR) Routine 01/21/2009 8:25 EDT documented in this encounter Results * MICROALBUMIN (01/21/2009 8:25 EDT) Creatinine, Urn [place] 20.9 mg/dl [facility] Ur Albumin mg/dl <0.2 <1.9 mg/dl [facility] Ur Alb ug/mg Crea Unable to calculate ug/mg Crea result. Normal: ??<30 ug/mg Creat Microalbuminu naye: ??30-300 ug/mg Creat Clinical albuminuria: ??>300 ug/mg Creat ug/mg Crea [facility] 01/21/2009 8:25 EDT 01/21/2009 13:45 EDT Sita Yanez MD CHEMISTRY & BLOOD GAS ORDERABLES [facility] [address] [place] [address] documented in this encounter Visit Diagnoses Not on filedocumented in this encounter
--- OUTSIDE RECORDS SUMMARY | 2024-06-07 16:45 | XMS_ITS | Encounter Summary ---
Author Organization [facility] Address [address] [place] [address] Care Team Providers Care Ware Cleaner Name Role Phone Amisha Beth MD Primary Care Provider +1- [phone] Encounter Details Date Type Department Care Team (Late st Contact Info) Description 08/21/2013 7:03 EST - 08/21/2013 23:59 [facility] Hospital Encounter [facility] [address] [place] [address] Amisha Beth MD [address] [place] [address], [address] [place], [place] [phone] Discharge Disposition: Home or Self Care Social [...] Name Priority Date/Time Associated Diagnosis Comments URINE [id number] E RATIO (ACR) Routine 08/21/2013 7:11 EST [...] ALBUMIN, URINE (08/21/2013 7:11 EST) Creatinine, Urn [place] 221.1 mg/dl [facility] Ur Albumin mg/dl 1.8 mg/dl [facility] Ur Alb ug/mg Crea 8.1 ug/mg Crea [facility] Comment: Normal: <30 ug/mg creat High: 30-300 ug/mg creat Very high and nephrotic: >300 ug/mg creat 08/21/2013 7:11 EST 08/21/2013 8:35 EST Amisha Beth MD CHEMISTRY & BLOOD GAS ORDERABLES Performing Organization Address [facility] de Phone Number [facility] [address] [place] [address] * LIPID PROFILE (INCLUDES CHOLESTEROL, TRIGLYCERIDES, HDL, LDL) (08/21/2013 7:11 EST) Cholesterol 188 mg/dl [facility] Comment: Desirable:<200 Borderline High:200-239 High:>ns=423 Triglycerides 135 mg/dl [facility] Comment: Normal:<150 Borderline High:150-199 High:200-499 Very High:>lk=619 HDL 49 mg/dl [facility] Comment: Low:<40 Normal:40-60 Desirable: >60 LDL, Calculated 112 mg/dl [facility] [place] [facility] Comment: Optimal:<100 Near Optimal:100-129 Borderline High:130-159 High:160-189 Very High:>ip=377 Chol/HDL Ratio 3.8 [facility] Fasting? YES [facility] Non HDL Cholesterol 139 mg/dl [facility] Comment: Desirable:<130 Borderline:130-159 High: 160-189 Very High: >xh=640 08/21/2013 7:11 EST 08/21/2013 7:47 EST Amisha Beth MD CHEMISTRY & BLOOD GAS ORDERABLES Performing Organization Address [facility] de Phone Number [facility] [address] [place] [address] * HEMOGLOBIN A1C (08/21/2013 7:11 EST) Hemoglobin A1C 6.7 % [facility] Comment: Reference Range: <5.7% Normal 5.7-6.4% Increased risk for diabetes =>6.5% Diagnostic for diabetes (if confirmed) The A1c goal for non adults in general is <7%. The A1c goal for selected patients may be significantly lower than 7% if this can be achieved without significant hypoglycemia or other adverse effects of treatment. Est Avg Glucose 146 mg/dl [facility] Comment: eAG represents the A1c result expressed as average glucose in mg/dl. 08/21/2013 7:11 EST 08/21/2013 7:47 EST Amisha Beth MD CHEMISTRY & BLOOD GAS ORDERABLES Performing Organization Address [facility] Co de Phone Number [facility] [address] [place] [address] * (ABNORMAL) FERRITIN (08/21/2013 7:11 EST) Pathologist [facility] Ferritin 8(L) 10 - 291 ng/mL [facility] 08/21/2013 7:11 EST 08/21/2013 7:47 EST Amisha Beth MD CHEMISTRY & BLOOD GAS ORDERABLES Performing Organization Address [facility] Co de Phone Number [facility] [address] [place] [address] * CK (08/21/2013 7:11 EST) Pathologist [facility] CK 48 30 - 135 U/L [facility] 08/21/2013 7:11 EST 08/21/2013 7:47 EST Amisha Beth MD CHEMISTRY & BLOOD GAS ORDERABLES Performing Organization Address [facility] de Phone Number [facility] [address] [place] [address] * HEMAGRAM (08/21/2013 7:11 EST) Pathologist [facility] WBC 5.98 4.0 - 12.4 K/cmm [facility] [...] & PF4 O RDERABLES Performing Organization Address [facility] Co de Phone Number [facility] [address] [place] [address] * (ABNORMAL) BASIC METABOLIC PANEL (08/21/2013 7:11 [...] & BLOOD GAS ORDERABLES Performing Organization Address [facility] de Phone Number [facility] [address] [place] [address] * AST (08/21/2013 7:11 EST) AST 20 15 - 46 U/L [facility] 08/21/2013 7:11 EST 08/21/2013 7:47 EST Amisha Beth MD CHEMISTRY & BLOOD GAS ORDERABLES Performing Organization Address [facility] Co de Phone Number [facility] [address] [place] [address] * ALT (08/21/2013 7:11 EST) ALT 33 9 - 52 U/L [facility] 08/21/2013 7:11 EST 08/21/2013 7:47 EST Amisha Beth MD CHEMISTRY & BLOOD GAS ORDERABLES Performing Organization Address City/State/[facility] Co de Phone Number [facility] [address] [place] [address] documented in this encounter Visit Diagnoses Not on filedocumented in this encounter Care Teams Ware Cleaner Relationship Specialty Start Date End Date Amisha Beth MD [address] [place] [address], [address] [place] [address] PCP - General 08/21/11 04/22/16 documented as of this encounter
--- OUTSIDE RECORDS SUMMARY | 2024-06-07 16:45 | XMS_ITS | Encounter Summary ---
Author Organization [facility] Address [address] [place] [address] Care Team Providers Care Sales Operations Director Name Role Phone Amisha Beth MD Primary Care Provider +1- [phone] Encounter Details Date Type Department Care Team (Late st Contact Info) Description 03/01/2014 Phlebotomy Only [facility] [address] [place] [address] Hvac Residential Service Technician, Outpatient Social History Tobacco Use Types Packs/Day [...] on filedocumented in this encounter Care Teams Sales Operations Director Relationship Specialty Start Date End Date Amisha Beth MD [address] [place] [address], [address] [place] [address] PCP - General 08/21/11 04/22/16 documented as of this encounter
--- OUTSIDE RECORDS SUMMARY | 2024-06-07 16:45 | XMS_ITS | Encounter Summary ---
Author Organization [facility] Address [address] [place] [address] Care Team Providers Care Patient Clerical Assistant Name Role Phone Sita Yanez MD Primary Care Provider +1- [phone] Encounter Details Date Type Department Care Team (Late st Contact Info) Description 06/02/2010 Results Only [facility] - [facility] [address] [place], [place] [phone] Sita Yanez MD [address] [place] [address] Social History Tobacco Use Types [...] Name Priority Date/Time Associated Diagnosis Comments URINE [id number] NE RATIO (ACR) Routine 06/02/2010 14:17 EDT documented in this encounter Results * MICROALBUMIN (06/02/2010 14:17 EDT) Creatinine, Urn [place] 91.2 mg/dl [facility] Ur Albumin mg/dl 0.5 <1.9 mg/dl [facility] Ur Alb ug/mg Crea 5.5 ug/mg Crea [facility] Comment: Normal: ??<30 ug/mg Creat Microalbuminuria: ??30-300 ug/mg Creat Clinical albuminuria: ??>300 ug/mg Creat 06/02/2010 14:1 7 EDT 06/02/2010 14:17 EDT Sita Yanez MD CHEMISTRY & BLOOD GAS ORDERABLES Performing Organization Address City/State/[facility] Co de Phone Number [facility] [address] [place] [address] documented in this encounter Visit Diagnoses Not on filedocumented in this encounter Care Teams Patient Clerical Assistant Relationship Specialty Start Date End Date Sita Yanez MD [address] [place] [id number] PCP - General 01/23/09 08/20/11 documented as of this encounter
--- OUTSIDE RECORDS SUMMARY | 2024-06-07 16:45 | XMS_ITS | Encounter Summary ---
Author Organization [facility] Address [address] [place] [address] Care Team Providers Care Writing Manager Name Role Phone Amisha Beth MD Primary Care Provider +1- [phone] Encounter Details Date Type Department Care Team (Late st Contact Info) Description 01/29/2015 Phlebotomy Only [facility] [address] [place] [address] Recruiting And Selection Consultant, Outpatient Social History Tobacco Use Types [...] on filedocumented in this encounter Care Teams Writing Manager Relationship Specialty Start Date End Date Amisha Beth MD [address] [place] [address], [address] [place] [address] PCP - General 08/21/11 04/22/16 documented as of this encounter
--- OUTSIDE RECORDS SUMMARY | 2024-06-07 16:45 | XMS_ITS | Encounter Summary ---
Author Organization [facility] Address [address] [place] [address] Care Team Providers Care Stewarding Supervisor Name Role Phone Amisha Beth MD Primary Care Provider +1- [phone] Encounter Details Date Type Department Care Team (Late st Contact Info) Description 08/21/2011 Results Only [facility] - [facility] [address] [place], [place] [address] Amisha Beth MD [address], [address] [place], [place] [phone] Social History Tobacco Use Types Packs/Day Years [...] on filedocumented in this encounter Care Teams Stewarding Supervisor Relationship Specialty Start Date End Date Amisha Beth MD [address], [address] [place], [place] [phone] PCP - General 08/21/11 04/22/16 documented as of this encounter
--- OUTSIDE RECORDS SUMMARY | 2024-06-07 16:45 | XMS_ITS | Encounter Summary ---
Author Organization [facility] Address [address] [place] [address] Care Team Providers Care Face Painter Name Role Phone Luis Snider Primary Care Provi kellen Encounter Details Date Type Department Care Team (Latest Contact Info) Description 04/23/2016 7:16 EDT - 04/23/2016 23:59 EDT Hospital Encounter [facility] [address] [place] [address] Luis Snider FNP 8 [facility] [address] [place], [place] [address] Discharge Disposition: Home or Self Care Social [...] EDT) Cholesterol 158 mg/dl 04/23/2016 9:21 EDT [facility] Comment: Desirable:<200 Borderline High:200-239 High:>ck=366 Triglycerides 97 mg/dl 04/23/2016 9:21 T [facility] Comment: Normal:<150 Borderline High:150-199 High:200-499 Very High:>xb=927 HDL 48 mg/dl 04/23/2016 9:21 [facility] Comment: Low:<40 Normal:40-60 Desirable: >60 LDL, Calculated 91 mg/dl 6 9:21 [facility] Comment: Optimal:<100 Near Optimal:100-129 Borderline High:130-159 High:160-189 Very High:>zl=811 Chol/HDL Ratio 3.3 04/23/2016 9:21 [facility] Fasting? YES 04/23/2016 7:27 [facility] Non HDL Cholesterol 110 mg/dl 04/23/2016 9:21 [facility] Comment: Desirable:<130 Borderline:130-159 High: 160-189 Very High: >at=551 BLOOD SPECIMEN / Unknown 04/23/2016 7:39 EDT 04/23/2016 8:43 EDT Luis GARCIA CHEMISTRY & BLOOD GAS ORDERABLES [facility] [address] [place] [address] * HEPATIC FUNCTION PANEL (ALB,ALK PHOS,ALT,AST,DBIL,TOT CHRISTINA,TOT PROT) (04/23/2016 7:39 EDT) Albumin 4.0 3.4 - 4.9 g/dl 04/23/2016 9:21 [facility] Total Protein 6.9 6.3 - 8.2 g/dl 04/23/2016 9:21 [facility] Total Alkaline Phosphatase 76 38 - 126 U/L 04/23/2016 9:21 [facility] ALT 33 <53 U/L 04/23/2016 9:21 [facility] AST 24 15 - 46 U/L 04/23/2016 9:21 [facility] Unconjugated Bilirubin 0.0 0.0 - 1.1 mg/dl 04/23/2016 9:21 [facility] Conjugated Bilirubin 0.0 0.0 - 0.3 mg/dl 04/23/2016 9:21 [facility] Bilirubin, Total <0.5 <1.4 mg/dl 04/23/20 16 9:21 [facility] BLOOD SPECIMEN / Unknown 04/23/2016 7:39 EDT 04/23/2016 8:43 EDT Luis Snider [facility] CHEMISTRY & BLOOD GAS ORDERABLES Performing Organization Address [facility] Co de Phone Number [facility] [address] [place] [address] * HEMOGLOBIN A1C (04/23/2016 7:39 EDT) Hemoglobin A1C 6.8 % 04/23/2016 10:44 EDT [facility] Comment: Reference Range: <5.7% Normal 5.7-6.4% Increased risk for diabetes =>6.5% Diagnostic for diabetes (if confirmed) The A1c goal for non adults in general is <7%. The A1c goal for selected patients may be significantly lower than 7% if this can be achieved without significant hypoglycemia or other adverse effects of treatment. Est Avg Glucose 148 mg/dl 6 10:44 EDT [facility] Comment: eAG represents the A1c result expressed as average glucose in mg/dl. BLOOD SPECIMEN / Unknown 04/23/2016 7:39 EDT 04/23/2016 8:43 EDT Luis Snider [facility] CHEMISTRY & BLOOD GAS ORDERABLES Performing Organization Address [facility] de Phone Number [facility] [address] [place] [address] * HEMAGRAM (04/23/2016 7:39 EDT) WBC 6.15 4.0 - 12.4 K/cmm 04/23/2016 9:11 T [facility] RBC 4.26 3.86 - 5.04 M/cmm 04/23/2016 9:11 [facility] Hemoglobin 13.3 11.6 - 15.2 gm/dl 04/23/2016 9:11 [facility] HCT 38.3 34.9 - 44.4 % 04/23/2016 9:11 [facility] MCV 90 81 - 98 fl 04/23/2016 9:11 [facility] MCH 31.2 26.7 - 33.3 pg 04/23/2016 9:11 [facility] MCHC 34.7 32.1 - 35.9 gm/dl 04/23/2016 9:11 [facility] RDW-CV 11.9 11.7 - 14.6 % 04/23/2016 9:11 [facility] RDW-SD 38.6 37.6 - 50.3 fl 04/23/2016 9:11 [facility] PLT 270 141 - 377 K/cmm 04/23/2016 9:11 [facility] MPV 10.1 9.5 - 12.7 fl 04/23/2016 9:11 [facility] BLOOD SPECIMEN / Unknown 04/23/2016 7:39 EDT 04/23/2016 8:43 EDT Luis PETERSONP HEMATOLOGY & PF4 ORDERABLES [facility] [address] [place] [address] * (ABNORMAL) BASIC METABOLIC PANEL (04/23/2016 7:39 EDT) Sodium 141 136 - 145 mEq/L 04/23/2016 9:21 [facility] Potassium 4.6 3.5 - 5.0 mEq/L 04/23/2016 9:21 [facility] Chloride 100 96 - 110 mEq/L 04/23/2016 9:21 [facility] CO2 26 24 - 32 mEq/L 04/23/2016 9:21 [facility] BUN 9(L) 10 - 26 mg/dl 04/23/2016 9:21 [facility] Creatinine 0.62 0.52 - 1.04 mg/dl 04/23/2016 9:21 [facility] GFR, Calculated 111 >60 ml/min/1.7 3m2 04/23/2016 9:21 [facility] Comment: eGFR calculated using CKD-EPI equation for non Americans. Multiply eGFR by 1.16 for Americans. Calcium 9.6 8.5 - 10.5 mg/dl 04/23/2016 9:21 EDT [facility] Calculated Calcium 10.0 8.5 - 10.5 mg/dl 04/23/2016 9:21 EDT [facility] Glucose, Serum 127(H) 70 - 100 mg/dl 04/23/2016 9:21 EDT [facility] Fasting? YES 04/23/2016 7:27 EDT [facility] BLOOD SPECIMEN / Unknown 04/23/2016 7:39 EDT 04/23/2016 8:43 EDT Luis GARCIA CHEMISTRY & BLOOD GAS ORDERABLES [facility] [address] [place] [address] documented in this encounter Visit Diagnoses Not on filedocumented in this encounter Care Teams Face Painter Relationship Specialty Start Date End Date Luis Snider FNP 8 [facility] [address] [place] [address] PCP - General 04/23/16 11/10/18 documented as of this encounter
--- OUTSIDE RECORDS SUMMARY | 2024-06-07 16:45 | XMS_ITS | Encounter Summary ---
Author Organization [facility] Address [address] [place] [address] Care Team Providers Care Gate Operator Name Role Phone Amisha Beth MD Primary Care Provider +1- [phone] Encounter Details Date Type Department Care Team (Late st Contact Info) Description 08/21/2011 Phlebotomy Only [facility] [address] [place] [address] Wiping Cloth Cutter, Outpatient Social History Tobacco Use Types Packs/Day [...] on filedocumented in this encounter Care Teams Gate Operator Relationship Specialty Start Date End Date Amisha Beth MD [address] [place] [address], [address] [place], [place] [address] PCP - General 08/21/11 04/22/16 documented as of this encounter
--- OUTSIDE RECORDS SUMMARY | 2024-06-07 16:45 | XMS_ITS | Encounter Summary ---
Author Organization [facility] Address [address] [place] [address] Care Team Providers Care Brake Repairer Name Role Phone Amisha Beth MD Primary Care Provider +1- [phone] Encounter Details Date Type Department Care Team (Late st Contact Info) Description 12/03/2015 13:32 EDT - 12/03/2015 13:34 EDT Hospital Encounter [address] [address] Marita Modi, [facility] 111 [facility] [address] [place] [address] Discharge Disposition: Home or Self Care Social [...] on filedocumented in this encounter Care Teams Brake Repairer Relationship Specialty Start Date End Date Amisha Beth MD 6 [facility], [address] [place] [address] PCP - General 08/21/11 04/22/16 documented as of this encounter
--- OUTSIDE RECORDS SUMMARY | 2024-06-07 16:45 | XMS_ITS | Encounter Summary ---
Author Organization [facility] Address [address] [place] [address] Care Team Providers Care Primer And Powder Canning Leader Name Role Phone Amisha Beth MD Primary Care Provider +1- [phone] Encounter Details Date Type Department Care Team (Late st Contact Info) Description 08/21/2013 Phlebotomy Only [facility] [address] [place] [address] Manager Diabetes, Outpatient Social History Tobacco Use Types Packs/Day [...] on filedocumented in this encounter Care Teams Primer And Powder Canning Leader Relationship Specialty Start Date End Date Amisha Beth MD [address] [place] [address], [address] [place] [address] PCP - General 08/21/11 04/22/16 documented as of this encounter
--- OUTSIDE RECORDS SUMMARY | 2024-06-07 16:45 | XMS_ITS | Encounter Summary ---
Author Organization [facility] Address [address] [place] [address] Care Team Providers Care Operations Systems Specialist Name Role Phone Luis Snider Primary Care Provi kellen Encounter Details Date Type Department Care Team (Late st Contact Info) Description 04/23/2016 Phlebotomy Only [facility] [address] [place] [address] Enrober Tender, Outpatient Social History Tobacco Use Types Packs/Day [...] on filedocumented in this encounter Care Teams Operations Systems Specialist Relationship Specialty Start Date End Date Luis Snider FNP [address] [address] PCP - General 04/23/16 11/10/18 documented as of this encounter
--- OUTSIDE RECORDS SUMMARY | 2024-06-07 16:45 | XMS_ITS | Encounter Summary ---
Author Organization [facility] Address [address] [place] [address] Care Team Providers Care Rn Transitional Care Name Role Phone Amisha Beth MD Primary Care Provider +1- [phone] Encounter Details Date Type Department Care Team (Late st Contact Info) Description 08/21/2014 Results Only [facility] - [facility] [address] [place], [place] [id number] Amisha Beth MD 6 [facility], [address] [place], [place] [id number] Social History Tobacco Use Types Packs/Day Years [...] Name Priority Date/Time Associated Diagnosis Comments URINE [id number] NE RATIO (ACR) Routine 08/21/2014 10:28 EST documented in this encounter Results * ALBUMIN, URINE (08/21/2014 10:28 EST) Creatinine, Urn Childs 102.4 mg/dl 08/22/2014 9:50 EST [facility] Ur Albumin mg/dl 0.5 mg/dl 08/22/2014 13:31 EST [facility] Ur Alb ug/mg Crea 4.9 ug/mg Crea 08/22/2014 13:31 EST [facility] Comment: Normal: <30 ug/mg creat High albuminuria: 30-300 ug/mg creat Very high albuminuria: >300 ug/mg creat URINE / Unknown 08/21/2014 1 0:28 EST 08/21/2014 16:15 EST Amisha Beth MD CHEMISTRY & BLOOD GAS ORDERABLES [facility] [address] [place] [address] documented in this encounter Visit Diagnoses Not on filedocumented in this encounter Care Teams Rn Transitional Care Relationship Specialty Start Date End Date Amisha Beth MD [address] [facility], [address] [place] [address] PCP - General 08/21/11 04/22/16 documented as of this encounter
--- OUTSIDE RECORDS SUMMARY | 2024-06-07 16:45 | XMS_ITS | Encounter Summary ---
Author Organization [facility] Address [address] [place] [address] Care Team Providers Care Employee Service Officer Name Role Phone Luis Snider Primary Care Provi kellen Encounter Details Date Type Department Care Team (Late st Contact Info) Description 09/15/2016 Results Only Imaging [facility] [phone] Luis Snider FNP 8 [facility] [address] [place] [address] Social History Tobacco Use Types Packs/Day Years [...] on filedocumented in this encounter Care Teams Employee Service Officer Relationship Specialty Start Date End Date Luis Snider FNP [address] [address] PCP - General 04/23/16 11/10/18 documented as of this encounter
--- OUTSIDE RECORDS SUMMARY | 2024-06-07 16:45 | XMS_ITS | Encounter Summary ---
Author Organization [facility] Address [address] [place] [address] Care Team Providers Care Cable Wirer Name Role Phone Amisha Beth MD Primary Care Provider +1- [phone] Encounter Details Date Type Department Care Team (Late st Contact Info) Description 08/22/2012 Phlebotomy Only [facility] [address] [place] [address] Weir Fisher, Outpatient Social History Tobacco Use Types Packs/Day [...] on filedocumented in this encounter Care Teams Cable Wirer Relationship Specialty Start Date End Date Amisha Beth MD [address] [place] [address], [address] [place], [place] [address] PCP - General 08/21/11 04/22/16 documented as of this encounter
--- OUTSIDE RECORDS SUMMARY | 2024-06-07 16:45 | XMS_ITS | Encounter Summary ---
Author Organization [facility] Address [address] [place] [address] Care Team Providers Care Pattern Duplicator Name Role Phone Amisha Beth MD Primary Care Provider +1- [phone] Encounter Details Date Type Department Care Team (Late st Contact Info) Description 03/24/2013 14:29 EDT - 03/24/2013 23:59 EDT Hospital Encounter [facility] [address] [place] [address] Amisha Beth MD [address] [place] [address], [address] [place] [address] Discharge Disposition: Home or Self [...] Code Departure Means Destination Home or Self Group Home documented in this encounter Plan of Treatment Not on file documented as of this encounter Visit Diagnoses Not on filedocumented in this encounter Care Teams Pattern Duplicator Relationship Specialty Start Date End Date Amisha Beth MD 6 [facility], [address] [place] [address] PCP - General 08/21/11 04/22/16 documented as of this encounter
--- OUTSIDE RECORDS SUMMARY | 2024-06-07 16:45 | XMS_ITS | Encounter Summary ---
Author Organization [facility] Address [address] [place] [address] Care Team Providers Care Wedding Cake Designer Name Role Phone Amisha Beth MD Primary Care Provider +1- [phone] Reason for Visit * Reason Comments Diabetes f/u Encounter Details Date Type Department Care Team (Late st Contact Info) Description 03/13/2013 8:30 EDT Nutrition [facility] Endocrinology - [address] [address] Mery Menendez Type II or unspecified type [...] * Mery Menendez - 03/13/2013 1222 EDT [facility] ENDOCRINOLOGY & DIABETES DIABETES NUTRITION FOLLOW UP VISIT NOTE Mei Tang [id number] 03/13/2013 PATIENT ID: Mei Tang is a 42 y.o. female referred for medical nutrition therapy by Dr. Beth for Diabetes - Type 2. SUBJECTIVE: Mei Tang was seen for a medical nutrition therapy visit on 03/13/2013 accompanied by: alone. She reports that after our last appt she started tracking her foods on [employer] and did very well for 1 month; she was watching food intake closely, eating more fruit and having Eng muffin withpb for breakfast almost every morning. She found that the calorie range of 2288-8814 kcal daily wasenough to satisfy hunger. Then [...] documented as of this encounter Care Teams Wedding Cake Designer Relationship Specialty Start Date End Date Amisha Beth MD [address] [facility], [address] [place] [address] PCP - General 08/21/11 04/22/16 documented as of this encounter
--- OUTSIDE RECORDS SUMMARY | 2024-06-07 16:45 | XMS_ITS | Encounter Summary ---
Author Organization [facility] Address [address] [place] [address] Care Team Providers Care Pit Tanner Name Role Phone Sita Yanez MD Primary Care Provider +1- [phone] Encounter Details Date Type Department Care Team (Latest Contact Info) Description 05/29/2009 14:03 EDT - 05/29/2009 14:04 EDT Hospital Encounter [facility] - Other [address] [place] [address] Sita Yanez MD [address] [place] [address] Discharge Disposition: Home-Health Care Svc [...] on filedocumented in this encounter Care Teams Pit Tanner Relationship Specialty Start Date End Date Sita Yanez MD [address] [place] [id number] PCP - General 01/23/09 08/20/11 documented as of this encounter
--- OUTSIDE RECORDS SUMMARY | 2024-06-07 16:45 | XMS_ITS | Encounter Summary ---
Author Organization [facility] Address [address] [place] [address] Care Team Providers Care [employer] Executive Director Name Role Phone Amisha Beth MD Primary Care Provider +1- [phone] Encounter Details Date Type Department Care Team (Latest Contact Info) Description 04/29/2015 14:14 EDT - 04/29/2015 14:15 EDT Hospital Encounter [address] [address] Luis Snider FNP 8 [facility] [address] [place] [address] Discharge Disposition: Home or Self Care Social [...] on filedocumented in this encounter Care Teams [employer] Executive Director Relationship Specialty Start Date End Date Amisha Beth MD 6 [facility], [address] [place] [address] PCP - General 08/21/11 04/22/16 documented as of this encounter
--- OUTSIDE RECORDS SUMMARY | 2024-06-07 16:45 | XMS_ITS | Encounter Summary ---
Author Organization [facility] Address [address] [place] [address] Care Team Providers Care Obgyn Hospitalist Physician Name Role Phone Amisha Beth MD Primary Care Provider +1- [phone] Reason for Visit * Reason Comments Diabetes Encounter Details Date Type Department Care Team (Late st Contact Info) Description 12/06/2012 13:00 EDT Nutrition [facility] Endocrinology - [address] [address] Mery Menendez Social History Tobacco Use Types [...] 13:43 EDT 1). Calorie Counting Meal Plan 3453-1304 calories (150-160 grams of carbohydrate) Mini Breakfast #1 250 calories Mini Breakfast #2 250 calories Lunch 400 calories Snack 150 calories, 15-20 grams Dinner 500 calories Snack 100 calories, 15-20 grams 2). Make sure you have breakfast 3). Vegetables: 2 servings minimum daily 4). Track calories 5). Track exercise documented in this encounter Progress Notes * Mery Menendez - 12/25/2012 2143 EDT [facility] ENDOCRINOLOGY & DIABETES DIABETES NUTRITION INITIAL VISIT NOTE Mei Tang [id number] 12/06/12 PATIENT ID: Mei Tang is a [...] eating habits:skips breakfast. Breakfast:9am break rice cakes, Maltese muffin Lunch:leftovers, chicken tenders from grocery store [...] calorie counts 1). Calorie Counting Meal Plan 9114-8594 calories (150-160 grams of carbohydrate) Mini Breakfast #1 250 calories Mini Breakfast #2 250 calories Lunch 400 calories Snack 150 calories, 15-20 grams Dinner 500 calories Snack 100 calories, 15-20 grams 2). Make sure you have breakfast 3). Vegetables: 2 servings minimum daily 4). Track calories 5). Track exercise Food logs to reinforce meal plan and encourage portion control -[employer] Encouraged regular physical activity for weight management [...] monthly added in this encounter Care Teams Obgyn Hospitalist Physician Relationship Specialty Start Date End Date Amisha Beth MD 6 [facility], [address] [place] [address] PCP - General 08/21/11 04/22/16 documented as of this encounter
--- OUTSIDE RECORDS SUMMARY | 2024-06-07 16:45 | XMS_ITS | Encounter Summary ---
Author Organization [facility] Address [address] [place] [address] Care Team Providers Care Medical Manager Name Role Phone Amisha Beth MD Primary Care Provider +1- [phone] Encounter Details Date Type Department Care Team (Late st Contact Info) Description 04/29/2015 Results Only [facility]- PRISM [phone] Luis Snider FNP [address] [facility] [address] [place] [address] Social History Tobacco Use Types Packs/Day Years [...] PANEL (BMP) Routine 04/29/2015 10:28 EDT URINE [id number] NE RATIO (ACR) Routine 04/29/2015 10:26 EDT documented in this encounter Results * LIPID PROFILE (INCLUDES CHOLESTEROL, TRIGLYCERIDES, HDL, LDL) (04/29/2015 10:28 EDT) Cholesterol 148 mg/dl 04/29/2015 16:36 T [facility] Comment: Desirable:<200 Borderline High:200-239 High:>sa=742 Triglycerides 104 mg/dl 04/29/2015 16:36 [facility] Comment: Normal:<150 Borderline High:150-199 High:200-499 Very High:>zd=182 HDL 44 mg/dl 04/29/2015 16:36 [facility] Comment: Low:<40 Normal:40-60 Desirable: >60 LDL, Calculated 83 mg/dl 5 16:36 [facility] Comment: Optimal:<100 Near Optimal:100-129 Borderline High:130-159 High:160-189 Very High:>fi=575 Chol/HDL Ratio 3.4 04/29/2015 16:36 [facility] Fasting? YES 04/29/2015 15:05 [facility] Non HDL Cholesterol 104 mg/dl 04/29/2015 16:36 [facility] Comment: Desirable:<130 Borderline:130-159 High: 160-189 Very High: >yq=997 BLOOD SPECIMEN / Unknown 04/29/2015 10:28 EDT 04/29/2015 15:04 EDT Luis GARCIA CHEMISTRY & BLOOD GAS ORDERABLES [facility] [address] [place] [address] * HEPATIC FUNCTION PANEL (ALB,ALK PHOS,ALT,AST,DBIL,TOT CHRISTINA,TOT PROT) (04/29/2015 10:28 EDT) Albumin 4.1 3.4 - 4.9 g/dl 04/29/2015 16:36 [facility] Total Protein 7.0 6.5 - 8.3 g/dl 04/29/2015 16:36 [facility] Total Alkaline Phosphatase 72 38 - 126 U/L 04/29/2015 16:36 [facility] ALT 29 <53 U/L 04/29/2015 16:36 [facility] AST 20 15 - 46 U/L 04/29/2015 16:36 [facility] Unconjugated Bilirubin 0.1 0.0 - 1.1 mg/dl 04/29/2015 16:36 [facility] Conjugated Bilirubin 0.0 0.0 - 0.3 mg/dl 04/29/2015 16:36 [facility] Bilirubin, Total 0.5 <1.4 mg/dl 04/29/20 15 16:36 [facility] BLOOD SPECIMEN / Unknown 04/29/2015 10:28 EDT 04/29/2015 15:04 EDT Luis GARCIA CHEMISTRY & BLOOD GAS ORDERABLES Performing Organization Address City/State/[place] Co de Phone Number [facility] [address] [place] [address] * HEMAGRAM (04/29/2015 10:28 EDT) WBC 6.96 4.0 - 12.4 K/cmm 04/29/2015 15:40 [facility] RBC 4.44 3.86 - 5.04 M/cmm 04/29/2015 15:40 [facility] Hemoglobin 13.8 11.6 - 15.2 gm/dl 04/29/2015 15:40 [facility] HCT 40.8 34.9 - 44.4 % 04/29/2015 15:40 [facility] MCV 92 81 - 98 fl 04/29/2015 15:40 [facility] MCH 31.2 26.7 - 33.3 pg 04/29/2015 15:40 [facility] MCHC 33.9 32.1 - 35.9 gm/dl 04/29/2015 15:40 [facility] RDW-CV 12.1 11.7 - 14.6 % 04/29/2015 15:40 [facility] RDW-SD 38.9 37.6 - 50.3 fl 04/29/2015 15:40 [facility] PLT 317 141 - 320 K/cmm 04/29/2015 15:40 [facility] MPV 8.7 7.5 - 11.2 fl 04/29/2015 15:40 [facility] BLOOD SPECIMEN / Unknown 04/29/2015 10:28 EDT 04/29/2015 15:04 EDT Luis GARCIA HEMATOLOGY & PF4 ORDERABLES Performing Organization Address City/State/[place] Co de Phone Number [facility] [address] [place] [address] * (ABNORMAL) BASIC METABOLIC PANEL (04/29/2015 10:28 EDT) Sodium 142 136 - 145 mEq/L 04/29/2015 16:36 [facility] Potassium 4.4 3.5 - 5.0 mEq/L 04/29/2015 16:36 [facility] Chloride 104 96 - 110 mEq/L 04/29/2015 16:36 [facility] CO2 26 24 - 32 mEq/L 04/29/2015 16:36 [facility] BUN 7(L) 10 - 26 mg/dl 04/29/2015 16:36 [facility] Creatinine 0.66 0.52 - 1.04 mg/dl 04/29/2015 16:36 [facility] GFR, Calculated 109 >60 ml/min/1.7 3m2 04/29/2015 16:36 [facility] Comment: eGFR calculated using CKD-EPI equation for non Americans. Multiply eGFR by 1.16 for Americans. Calcium 9.7 8.5 - 10.5 mg/dl 04/29/2015 16:36 EDT [facility] Calculated Calcium 10.0 8.5 - 10.5 mg/dl 04/29/2015 16:36 EDT [facility] Glucose, Serum 102(H) 70 - 100 mg/dl 04/29/2015 16:36 EDT [facility] Fasting? YES 04/29/2015 10:30 EDT [facility] BLOOD SPECIMEN / Unknown 04/29/2015 10:28 EDT 04/29/2015 15:04 EDT Luis Snider [facility] CHEMISTRY & BLOOD GAS ORDERABLES Performing Organization Address City/[facility]/[place] Co de Phone Number [facility] [address] [place] [address] * ALBUMIN, URINE (04/29/2015 10:26 EDT) Creatinine, Urn [place] 61.3 mg/dl 04/30/2015 9:15 EDT [facility] Ur Albumin mg/dl <0.2 mg/dl 04/30/2015 13:57 EDT [facility] Ur Alb ug/mg Crea Unable to calculate ug/mg Crea result. ug/mg Crea 04/30/2015 13:57 EDT [facility] Comment: Normal: <30 ug/mg creat High albuminuria: 30-300 ug/mg creat Very high albuminuria: >300 ug/mg creat URINE / Unknown 04/29/2015 1 0:26 EDT 04/29/2015 15:04 EDT Luis Snider [facility] CHEMISTRY & BLOOD GAS ORDERABLES Performing Organization Address City/[facility]/ZIP Co de Phone Number [facility] [address] [place] [address] documented in this encounter Visit Diagnoses Not on filedocumented in this encounter Care Teams Medical Manager Relationship Specialty Start Date End Date Amisha Beth MD [address] [place] [address], [address] [place] [address] PCP - General 08/21/11 04/22/16 documented as of this encounter
--- OUTSIDE RECORDS SUMMARY | 2024-06-07 16:45 | XMS_ITS | Encounter Summary ---
Author Organization [facility] Address [address] [place] [address] Care Team Providers Care Tubular Splitting Machine Tender Name Role Phone Amisha Beth MD Primary Care Provider +1- [phone] Encounter Details Date Type Department Care Team (Late st Contact Info) Description 08/21/2014 13:37 EST - 08/21/2014 13:38 [facility] Hospital Encounter [address] [address] Amisha Beth MD [address] [facility], [address] [place], [place] [id number] Discharge Disposition: Home or Self Care Social [...] on filedocumented in this encounter Care Teams Tubular Splitting Machine Tender Relationship Specialty Start Date End Date Amisha Beth MD [address] [facility], [address] [place] [address] PCP - General 08/21/11 04/22/16 documented as of this encounter
--- OUTSIDE RECORDS SUMMARY | 2024-06-07 16:45 | XMS_ITS | Encounter Summary ---
Author Organization [facility] Address [address] [place] [address] Care Team Providers Care Restorative Rehab Aide Name Role Phone Amisha Mark MD Primary Care Provider +1- [phone] Encounter Details Date Type Department Care Team (Late st Contact Info) Description 08/31/2012 Results Only [facility] Services - [facility] ([facility]) [address] [place], [place] [address] Amisha Mark MD [address] [facility], [address] [place], [place] [id number] Social History Tobacco Use Types Packs/Day Years [...] ? MAURICIO BRITO ? Accession #: ? [id number] : ? 1970 (Age: 42) ??F ?Collect [...] types 16,18,31,33,35, 39,45,51,52,56,58, 59,66, and 68 by qa reviewer mediated amplification. Comments Document reviewed and electronically signed by: ? System Interface ? Report date: 09/08/2012 By the signature above, the attending physician certifies that he/she has personally conducted a gross and/or microscopic examination of the described specimens and rendered or confirmed the above diagnosis. End of Report [facility] 08/31/2012 08/31/2012 Amisha Mark MD PATHOLOGY ORDERABL ES [facility] [address] [place] [address] documented in this encounter Visit Diagnoses Not on filedocumented in this encounter Care Teams Restorative Rehab Aide Relationship Specialty Start Date End Date Amisha Mark MD [address] [facility], [address] [place] [address] PCP - General 08/21/11 04/22/16 documented as of this encounter
--- OUTSIDE RECORDS SUMMARY | 2024-06-07 16:45 | XMS_ITS | Encounter Summary ---
Author Organization [facility] Address [address] [place] [address] Care Team Providers Care Radiophone Operator Name Role Phone Amisha Beth MD Primary Care Provider +1- [phone] Reason for Visit * Reason Comments Diabetes Encounter Details Date Type Department Care Team (Late st Contact Info) Description 02/28/2015 15:00 EDT Nutrition [facility] Endocrinology - [address] [address] Mery Menendez Type II or unspecified type [...] * Mery Menendez - 02/28/2015 1656 EDT [facility] ENDOCRINOLOGY & DIABETES DIABETES NUTRITION VISIT NOTE Name:Mei Tang Date of visit: 02/28/2015 PATIENT ID: Mei Tang is a 44 y.o. female referred for medical nutrition therapy by Luis Snider NP for Diabetes - Type 2. SUBJECTIVE: Mei Tang was seen for a medical nutrition therapy visit, follow up, at the [facility] Endocrinology & Diabetes out-patient [...] eating habits:eats 3 meals plus snacks. Breakfast: Burkinan muffin with margarine or egg and cheese [...] 10/07/2020 added in this encounter Care Teams Radiophone Operator Relationship Specialty Start Date End Date Amisha Beth MD [address] [facility], [address] [place] [address] PCP - General 08/21/11 04/22/16 documented as of this encounter
--- OUTSIDE RECORDS SUMMARY | 2024-06-07 16:45 | XMS_ITS | Encounter Summary ---
Author Organization [facility] Address [address] [place] [address] Care Team Providers Care Guest Laundry Attendant Name Role Phone Amisha Beth MD Primary Care Provider +1- [phone] Encounter Details Date Type Department Care Team (Late st Contact Info) Description 08/31/2012 12:48 EST - 08/31/2012 12:49 [facility] Hospital Encounter [facility] - [address] [address] Amisha Beth MD [address] [facility], [address] [place], [place] [address] Discharge Disposition: Home or Self Care Social [...] on filedocumented in this encounter Care Teams Guest Laundry Attendant Relationship Specialty Start Date End Date Amisha Beth MD [address] [facility], [address] [place] [address] PCP - General 08/21/11 04/22/16 documented as of this encounter
--- OUTSIDE RECORDS SUMMARY | 2024-06-07 16:45 | XMS_ITS | Encounter Summary ---
Author Organization [facility] Address [address] [place] [address] Care Team Providers Care Transmission Assembler Name Role Phone Luis Snider Primary Care Provi kellen Reason for Visit * Reason Onset Date Comments Appointment Related 11/11/2016 schedule CDE visit Flory Encounter Details Date Type Department Care Team (Late st Contact Info) Description 11/11/[address] [facility] Endocrinology - [address] [address] Mery Menendez Appointment Related (schedule CDE visit [...] on filedocumented in this encounter Care Teams Transmission Assembler Relationship Specialty Start Date End Date Luis Snider FNP [address] [address] PCP - General 04/23/16 11/10/18 documented as of this encounter
--- OUTSIDE RECORDS SUMMARY | 2024-06-07 16:45 | XMS_ITS | Encounter Summary ---
Author Organization [facility] Address [address] [place] [address] Care Team Providers Care Smoking Tobacco Packing Machine Hand Name Role Phone Amisha Beth MD Primary Care Provider +1- [phone] Encounter Details Date Type Department Care Team (Late st Contact Info) Description 11/02/2012 Phlebotomy Only [facility] [address] [place] [address] Copy Clerk, Outpatient Social History Tobacco Use Types Packs/Day [...] on filedocumented in this encounter Care Teams Smoking Tobacco Packing Machine Hand Relationship Specialty Start Date End Date Amisha Beth MD [address] [place] [address], [address] [place], [place] [address] PCP - General 08/21/11 04/22/16 documented as of this encounter
--- OUTSIDE RECORDS SUMMARY | 2024-06-07 16:45 | XMS_ITS | Encounter Summary ---
Author Organization [facility] Address [address] [place] [address] Care Team Providers Care Geospatial Technician Name Role Phone Amisha Beth MD Primary Care Provider +1- [phone] Reason for Visit * Reason Onset Date Comments Appointment Related 01/30/2015 with Juanis Encounter Details Date Type Department Care Team (Late st Contact Info) Description 01/30/2015 Telephone [facility] Endocrinology - [address] [phone] None, Provider Appointment Related (with Juanis) Social [...] on filedocumented in this encounter Care Teams Geospatial Technician Relationship Specialty Start Date End Date Amisha Beht MD [address] [facility], [address] [place] [address] PCP - General 08/21/11 04/22/16 documented as of this encounter
--- OUTSIDE RECORDS SUMMARY | 2024-06-07 16:45 | XMS_ITS | Encounter Summary ---
Author Organization [facility] Address [address] [place] [address] Care Team Providers Care Help Desk Engineer Name Role Phone Sita Yanez MD Primary Care Provider +1- [phone] Encounter Details Date Type Department Care Team (Latest Contact Info) Description 09/08/2010 1:04 EST - 09/08/2010 23:59 EST Hospital Encounter [facility] - Other [address] [place] [address] Sita Yanez MD [address] [place] [address] Discharge Disposition: Home or Self [...] on filedocumented in this encounter Care Teams Help Desk Engineer Relationship Specialty Start Date End Date Sita Yanez MD [address] [place] [address] PCP - General 01/23/09 08/20/11 documented as of this encounter
--- OUTSIDE RECORDS SUMMARY | 2024-06-07 16:46 | XMS_ITS | Encounter Summary ---
Author Organization [facility] Address [address] [place] [address] Care Team Providers Care Sports Teacher Name Role Phone Sita Yanez MD Primary Care Provider +1- [phone] Encounter Details Date Type Department Care Team (Late st Contact Info) Description 01/20/2002 Results Only [facility] Obstetrics & Midwifery - [facility] [address] [place] [address] Cinda Ocampo MD Social History Tobacco Use [...] ? DARYLMAURICIO GUZMAN ? Accession #: ? [id number] : ? 1970 (Age: 31) ??F ?Collect [...] and electronically signed by: ? Trena Clark [facility](ASCP) ? Report Date: ??01/26/2002 08:11 End of Report [facility] 01/20/2002 01/23/2002 Cinda Ocampo MD PATHOLOGY ORDERABLES Performing Organization Address City/State/[facility] Co de Phone Number [facility] [address] [place] [address] documented in this encounter Visit Diagnoses Not on filedocumented in this encounter Care Teams Sports Teacher Relationship Specialty Start Date End Date Sita Yanez MD [address] [place] [phone] PCP - General 01/23/09 08/20/11 documented as of this encounter
--- OUTSIDE RECORDS SUMMARY | 2024-06-07 16:46 | XMS_ITS | Encounter Summary ---
Author Organization [facility] Address [address] [place] [address] Care Team Providers Care Travel Pta Name Role Phone Unavailable Primary Care Provider Unavailabl e Encounter Details Date Type Department Care Team (Latest Contact Info) Description 09/07/2006 11:06 EST - 09/07/2006 11:59 EST Hospital Encounter [facility] - Other [address] [place] [address] Sita Yanez MD [address] [place] [phone] Discharge Disposition: Home or Self Care Social [...]
--- OUTSIDE RECORDS SUMMARY | 2024-06-07 16:46 | XMS_ITS | Encounter Summary ---
Author Organization [facility] Address [address] [place] [address] Care Team Providers Care Manager Welding Name Role Phone Unavailable Primary Care Provider Unavailabl e Encounter Details Date Type Department Care Team (Latest Contact Info) Description 11/09/2007 11:17 EST - 11/09/2007 11:59 EST Hospital Encounter [facility] conversion [address] [place] [address] Mery Menendez Discharge Disposition: Auto Discharge Social [...]
--- OUTSIDE RECORDS SUMMARY | 2024-06-07 16:46 | XMS_ITS | Encounter Summary ---
Author Organization [facility] Address [address] [place] [address] Care Team Providers Care Steam And Gas Turbines Assembler Name Role Phone Unavailable Primary Care Provider Unavailabl e Encounter Details Date Type Department Care Team (Latest Contact Info) Description 01/20/2002 9:25 EDT - 01/20/2002 11:59 EDT Hospital Encounter [address] [address] Masoud Ocampo MD Discharge Disposition: Auto Discharge [...]
--- OUTSIDE RECORDS SUMMARY | 2024-06-07 16:46 | XMS_ITS | Encounter Summary ---
Author Organization [facility] Address [address] [place] [address] Care Team Providers Care Mineral Mixer Name Role Phone Unavailable Primary Care Provider Unavailabl e Encounter Details Date Type Department Care Team (Latest Contact Info) Description 07/13/2001 20:55 EDT Hospital Encounter [facility] - Other [address] [place] [address] Julieta Barker CNM Unknown, Provider, Discharge Disposition: [...] LAB Ref Lab SPOKE WITH [facility] AT [facility]. [facility] 07/13/2001 16:2 9 EDT 07/13/2001 16:37 EDT Julieta Georgearabellaer CN CHEMISTRY & BLOOD G ORDERABLES Performing Organization Address [facility] de Phone Number [facility] [address] [place] [address] * IGM (07/13/2001 16:29 EDT) IgM 70 46 - 304 mg/dl [facility] 07/13/2001 16:2 9 EDT 07/13/2001 16:37 EDT Julieta Mj CN CHEMISTRY & BLOOD G ORDERABLES Performing Organization Address [facility] de Phone Number [facility] [address] [place] [address] * IGG (07/13/2001 16:29 EDT) IgG 1160 751 - 1560 mg/dl [facility] 07/13/2001 16:2 9 EDT 07/13/2001 16:37 EDT Julieta Kelarabellaer CN CHEMISTRY & BLOOD G ORDERABLES Performing Organization Address [facility] de Phone Number [facility] [address] [place] [address] documented in this encounter Visit Diagnoses Not on filedocumented in this encounter
--- OUTSIDE RECORDS SUMMARY | 2024-06-07 16:46 | XMS_ITS | Encounter Summary ---
Author Organization [facility] Address [address] [place] [address] Care Team Providers Care System Admin Name Role Phone Unavailable Primary Care Provider Unavailabl e Encounter Details Date Type Department Care Team (Late st Contact Info) Description 02/15/2003 10:46 EDT Hospital Encounter [facility] - Other [address] [place] [address] Sita Salamanca MD [address] [place] [phone] Social History Tobacco Use Types Packs/Day Years [...] ? MAURICIO BRITO ? Accession #: ? [id number] : ? 1970 (Age: 32) ??F ?Collect [...] MD PATHOLOGY ORDERABL ES [facility] [address] [place] [address] documented in this encounter Visit Diagnoses Not on filedocumented in this encounter
--- OUTSIDE RECORDS SUMMARY | 2024-06-07 16:46 | XMS_ITS | Encounter Summary ---
Author Organization [facility] Address [address] [place] [address] Care Team Providers Care Boiler Maker Name Role Phone Unavailable Primary Care Provider Unavailabl e Encounter Details Date Type Department Care Team (Latest Contact Info) Description 12/15/2001 8:33 EST - 12/19/2001 11:59 EST Hospital Encounter [facility] Mother/Baby Unit [address] [place], [place] [address] Masoud Ocampo MD Capeless, Eleanor, MD Discharge [...] & PF4 ORD ERABLES Performing Organization Address [facility] Co de Phone Number [facility] [address] [place] [address] * (ABNORMAL) BLOOD GASES, CORD (12/17/2001 22:36 [...] LAB UNIT COLLECT ORDERABLES Performing Organization Address [facility] Co de Phone Number [facility] [address] [place] [address] * (ABNORMAL) URINE MICROSCOPIC (12/17/2001 14:47 EST) [...] MD URINALYSIS ORDERABLE S Performing Organization Address [facility] de Phone Number [facility] [address] [place] [address] * (ABNORMAL) URINALYSIS (12/17/2001 14:47 EST) Color, UA Yellow [facility] Clarity, UA Clear [facility] Glucose, UA Norm NORM [facility] Bilirubin, UA Neg NEG [facility] Ketones, UA Neg NEG [facility] Specific [place], Urine <1.005(L) 1.005 - 1.02 [facility] [...] MD URINALYSIS ORDERABLE S Performing Organization Address [facility] de Phone Number [facility] [address] [place] [address] * URIC ACID (12/17/2001 6:12 EST) Uric Acid 5.2 2.2 - 7.7 mg/dl [facility] 12/17/2001 6:12 EST 12/17/2001 6:17 EST Gabriel Velazquez MD CHEMISTRY & BLOOD GA S ORDERABLES Performing Organization Address [facility] Co de Phone Number [facility] [address] [place] [address] * (ABNORMAL) FIBRINOGEN (12/17/2001 6:12 EST) Fibrinogen 752(H) 180 - 433 mg/dl [facility] 12/17/2001 6:12 EST 12/17/2001 6:17 EST Gabriel Velazquez MD HEMATOLOGY & PF4 ORD ERABLES Performing Organization Address [facility] de Phone Number [facility] [address] [place] [address] * CREATININE (12/17/2001 6:12 EST) Creatinine 0.8 0.7 - 1.5 mg/dl [facility] 12/17/2001 6:12 EST 12/17/2001 6:17 EST Gabriel Velazquez MD HISTORICAL LAB FOR S Q LOAD Performing Organization Address [facility] de Phone Number [facility] [address] [place] [address] * (ABNORMAL) HEMAGRAM & DIFF (12/17/2001 6:12 [...] % Basophils 0.7 0.2 - 1.4 % [facility] ABS Neutrophils 7.57 2.20 - [...] FOR S Q LOAD Performing Organization Address [facility] de Phone Number [facility] [address] [place] [address] * (ABNORMAL) BUN (12/17/2001 6:12 EST) BUN 6(L) 10 - 26 mg/dl [facility] 12/17/2001 6:12 EST 12/17/2001 6:17 EST Gabriel Velazquez MD CHEMISTRY & BLOOD GA S ORDERABLES Performing Organization Address [facility] de Phone Number [facility] [address] [place] [address] * AST (12/17/2001 6:12 EST) AST 18 8 - 50 U/L [facility] 12/17/2001 6:12 EST 12/17/2001 6:17 EST Gabriel Velazquez MD CHEMISTRY & BLOOD GA S ORDERABLES Performing Organization Address [facility] Co de Phone Number [facility] [address] [place] [address] * ALT (12/17/2001 6:12 EST) ALT 23 15 - 75 U/L [facility] 12/17/2001 6:12 EST 12/17/2001 6:17 EST Gabriel Velazquez MD CHEMISTRY & BLOOD GA S ORDERABLES [facility] [address] [place] [address] * (ABNORMAL) HEMAGRAM & DIFF (12/16/2001 6:40 [...] LAB MCHC 34.9 32.1 - 35.9 gm/dl [facility] [...] ABS Eosinophils 0.08 0.03 - 0.61 K/cmm [facility] ABS Basophils 0.02 0.01 - 0.11 K/cmm [facility] Type of Diff: Automated [facility] 12/16/2001 6:40 EST 12/16/2001 6:54 EST Gabriel Velazquez MD HISTORICAL LAB FOR S Q LOAD Performing Organization Address [facility] Co de Phone Number [facility] [address] [place] [address] * BACTERIAL CULTURE, URINE (12/15/2001 18:40 EST) Specimen Description Urine [facility] Result Less than 10,000 CFU/ml Mixed gram positive growth [facility] Report Status Final [id number] [facility] 12/15/2001 18:4 0 EST 12/15/2001 19:05 EST Gabriel Velazquez MD MICROBIOLOGY - GENER AL ORDERABLES Performing Organization Address [facility] Phone Number [facility] [address] [place] [address] * (ABNORMAL) URINE MICROSCOPIC (12/15/2001 18:40 EST) [...] MD URINALYSIS ORDERABLE S Performing Organization Address [facility] Co de Phone Number [facility] [address] [place] [address] * (ABNORMAL) URINALYSIS (12/15/2001 18:40 EST) Color, UA Yellow [facility] Clarity, UA Hazy [facility] Glucose, UA Norm NORM [facility] Bilirubin, UA Neg NEG [facility] Ketones, UA Neg NEG [facility] Specific [place], Urine 1.010 1.005 - 1.02 [facility] [...] MD URINALYSIS ORDERABLE S Performing Organization Address [facility] de Phone Number [facility] [address] [place] [address] * URIC ACID (12/15/2001 11:06 EST) Uric Acid 5.1 2.2 - 7.7 mg/dl [facility] 12/15/2001 11:0 6 EST 12/15/2001 11:10 EST Masoud Ocampo MD CHEMISTRY & BLOOD GA S ORDERABLES Performing Organization Address [facility] de Phone Number [facility] [address] [place] [address] * (ABNORMAL) FIBRINOGEN (12/15/2001 11:06 EST) Fibrinogen 760(H) 180 - 433 mg/dl [facility] 12/15/2001 11:0 6 EST 12/15/2001 11:10 EST Masoud Ocampo MD HEMATOLOGY & PF4 ORD ERABLES Performing Organization Address [facility] Co de Phone Number [facility] [address] [place] [address] * CREATININE (12/15/2001 11:06 EST) Creatinine 1.0 0.7 - 1.5 mg/dl [facility] 12/15/2001 11:0 6 EST 12/15/2001 11:10 EST Masoud Ocampo MD HISTORICAL LAB FOR S Q LOAD Performing Organization Address [facility] Co de Phone Number [facility] [address] [place] [address] * HEMAGRAM (12/15/2001 11:06 EST) WBC 9.70 [...] & PF4 ORD ERABLES Performing Organization Address [facility] Co de Phone Number [facility] [address] [place] [address] * BUN (12/15/2001 11:06 EST) BUN 12 10 - 26 mg/dl [facility] 12/15/2001 11:0 6 EST 12/15/2001 11:10 EST Masoud Ocampo MD CHEMISTRY & BLOOD GA S ORDERABLES Performing Organization Address [facility]/ZIP Co de Phone Number [facility] [address] [place] [address] * AST (12/15/2001 11:06 EST) AST 18 8 - 50 U/L [facility] 12/15/2001 11:0 6 EST 12/15/2001 11:10 EST Masoud Ocampo MD CHEMISTRY & BLOOD GA S ORDERABLES Performing Organization Address [facility] de Phone Number [facility] [address] [place] [address] * ALT (12/15/2001 11:06 EST) ALT 19 15 - 75 U/L [facility] 12/15/2001 11:0 6 EST 12/15/2001 11:10 EST Masoud Ocampo MD CHEMISTRY & BLOOD GA S ORDERABLES Performing Organization Address [facility] Co de Phone Number [facility] [address] [place] [address] documented in this encounter Visit Diagnoses Not on filedocumented in this encounter
--- OUTSIDE RECORDS SUMMARY | 2024-06-07 16:46 | XMS_ITS | Encounter Summary ---
Author Organization [facility] Address [address] [place] [address] Care Team Providers Care Paper Steamer Name Role Phone Unavailable Primary Care Provider Unavailabl e Encounter Details Date Type Department Care Team (Latest Contact Info) Description 08/31/2006 15:38 EST Hospital Encounter [facility] - Other [address] [place] [address] Sita Yanez MD [address] [place] [phone] Discharge Disposition: Home or Self Care [...] Name Priority Date/Time Associated Diagnosis Comments URINE [id number] NE RATIO (ACR) Routine 08/31/2006 8:15 EST documented in this encounter Results * MICROALBUMIN (08/31/2006 8:15 EST) Creatinine, Urn [place] 203.6 mg/dl [facility] Ur Albumin mg/dl 1.2 <1.9 mg/dl [facility] Ur Alb ug/mg Crea 5.9 ug/mg Crea [facility] Comment: Normal: ??<30 ug/mg Creat Microalbuminuria: ??30-300 ug/mg Creat Clinical albuminuria: ??>300 ug/mg Creat 08/31/2006 8:15 EST 08/31/2006 13:23 EST Sita Yanez MD CHEMISTRY & BLOOD GAS ORDERABLES Performing Organization Address City/State/[facility] Co de Phone Number [facility] [address] [place] [address] documented in this encounter Visit Diagnoses Not on filedocumented in this encounter
--- OUTSIDE RECORDS SUMMARY | 2024-06-07 16:46 | XMS_ITS | Encounter Summary ---
Author Organization [facility] Address [address] [place] [address] Care Team Providers Care Geographic Analyst Name Role Phone Sita Yanez MD Primary Care Provider +1- [phone] Encounter Details Date Type Department Care Team (Late st Contact Info) Description 09/07/2006 Results Only [facility] - Maple conversion [address] [place] [address] Sita Yanez MD [address] [place] [phone] Social History Tobacco Use Types Packs/Day Years [...] Bilirubin 0.5 0.1 - 1.1 mg/dl [facility] Comment:Slight hemolysis Conjugated Bilirubin 0.0 0.0 - 0.3 mg/dl [facility] Comment:Slight hemolysis Bilirubin, Total <0.5 0.2 - 1.3 mg/dl [facility] Comment:Slight hemolysis 09/07/2006 12:5 5 EST 09/07/2006 19:53 EST Sita Yanez MD CHEMISTRY & BLOOD GAS ORDERABLES Performing Organization Address [facility] de Phone Number [facility] [address] [place] [address] * HEPATITIS C ANTIBODY (09/07/2006 12:55 EST) Hepatitis C Ab Neg TRUDY [facility]VA[facility]AL [facility] 09/07/2006 12:5 5 EST 09/07/2006 19:53 EST Sita Yanez MD CHEMISTRY & BLOOD GAS ORDERABLES Performing Organization Address [facility] Co de Phone Number [facility] [address] [place] [address] * HEPATITIS B CORE ANTIBODY (09/07/2006 12:55 EST) Hep B Core Ab Neg DANISH EPSTEIN [facility] 09/07/2006 12:5 5 EST 09/07/2006 19:53 EST Sita Yanez MD CHEMISTRY & BLOOD GAS ORDERABLES Performing Organization Address [facility] Phone Number [facility] [address] [place] [address] * HEPATITIS B SURFACE ANTIGEN (09/07/2006 12:55 EST) Hepatitis B Surface Ag Neg [facility] 09/07/2006 12:5 5 EST 09/07/2006 19:53 EST Sita Yanez MD CHEMISTRY & BLOOD GAS ORDERABLES Performing Organization Address [facility] de Phone Number [facility] [address] [place] [address] * HEPATITIS B SURFACE ANTIBODY (09/07/2006 12:55 EST) Hepatitis B Surface Ab Neg [facility] 09/07/2006 12:5 5 EST 09/07/2006 19:53 EST Sita Yanez MD CHEMISTRY & BLOOD GAS ORDERABLES Performing Organization Address [facility] Phone Number [facility] [address] [place] [address] * HEPATITIS A TOTAL ANTIBODY (09/07/2006 12:55 EST) Hep A Antibody Neg [facility] 09/07/2006 12:5 5 EST 09/07/2006 19:53 EST Sita Yanez MD CHEMISTRY & BLOOD GAS ORDERABLES Performing Organization Address [facility] de Phone Number [facility] [address] [place] [address] documented in this encounter Visit Diagnoses Not on filedocumented in this encounter Care Teams Geographic Analyst Relationship Specialty Start Date End Date Sita Yanez MD [address] [place] [phone] PCP - General 01/23/09 08/20/11 documented as of this encounter
--- OUTSIDE RECORDS SUMMARY | 2024-06-07 16:46 | XMS_ITS | Encounter Summary ---
Author Organization [facility] Address [address] [place] [address] Care Team Providers Care Tube Building Machine Operator Name Role Phone Unavailable Primary Care Provider Unavailabl e Encounter Details Date Type Department Care Team (Late st Contact Info) Description 10/20/2004 20:25 EST Hospital Encounter [facility] - Other [address] [place] [address] Sita Yanez MD [address] [place] [phone] Social History Tobacco Use Types Packs/Day Years [...]
--- OUTSIDE RECORDS SUMMARY | 2024-06-07 16:46 | XMS_ITS | Encounter Summary ---
Author Organization [facility] Address [address] [place] [address] Care Team Providers Care Kitchen And Bath Designer Name Role Phone Unavailable Primary Care Provider Unavailabl e Encounter Details Date Type Department Care Team (Late st Contact Info) Description 01/21/2007 9:51 EDT Hospital Encounter [facility] - Maple conversion [address] [place] [address] Mery Menendez Social History Tobacco Use Types [...]
--- OUTSIDE RECORDS SUMMARY | 2024-06-07 16:46 | XMS_ITS | Encounter Summary ---
Author Organization [facility] Address [address] [place] [address] Care Team Providers Care Splitter Tender Name Role Phone Unavailable Primary Care Provider Unavailabl e Encounter Details Date Type Department Care Team (Late st Contact Info) Description 10/10/2001 15:36 EST Hospital Encounter [address] [address] Tiffany Ruiz MD [address] [place] [address], [address] [place] [phone] Social History Tobacco Use Types Packs/Day Years [...]
--- OUTSIDE RECORDS SUMMARY | 2024-06-07 16:46 | XMS_ITS | Encounter Summary ---
Author Organization [facility] Address [address] [place] [address] Care Team Providers Care Manager Presentation Name Role Phone Unavailable Primary Care Provider Unavailabl e Encounter Details Date Type Department Care Team (Late st Contact Info) Description 05/22/2008 13:50 EDT Hospital Encounter [facility] - Maple conversion [address] [place] [address] Mery Menendez Social History Tobacco Use Types [...] Name Priority Date/Time Associated Diagnosis Comments URINE [id number] NE RATIO (ACR) Routine 05/28/2008 10:30 EDT documented in this encounter Results * MICROALBUMIN (05/28/2008 10:30 EDT) Creatinine, Urn [place] 50.7 mg/dl [facility] Ur Albumin mg/dl 0.2 <1.9 mg/dl [facility] Ur Alb ug/mg Crea 3.9 ug/mg Crea [facility] Comment: Normal: ??<30 ug/mg Creat Microalbuminuria: ??30-300 ug/mg Creat Clinical albuminuria: ??>300 ug/mg Creat 05/28/2008 10:3 0 EDT 05/28/2008 20:16 EDT Sita Yanez MD CHEMISTRY & BLOOD GAS ORDERABLES [facility] [address] [place] [address] documented in this encounter Visit Diagnoses Not on filedocumented in this encounter
--- OUTSIDE RECORDS SUMMARY | 2024-06-07 16:46 | XMS_ITS | Encounter Summary ---
Author Organization [facility] Address [address] [place] [address] Care Team Providers Care Revising Clerk Name Role Phone Unavailable Primary Care Provider Unavailabl e Encounter Details Date Type Department Care Team (Late st Contact Info) Description 12/12/2001 11:00 EST - 12/12/2001 11:59 EST Hospital Encounter [facility] [address] [place] [address] Carolee Avila MD [address] [facility], [address] [place] [phone] Discharge Disposition: Auto Discharge Social History Tobacco [...]
--- OUTSIDE RECORDS SUMMARY | 2024-06-07 16:46 | XMS_ITS | Encounter Summary ---
Author Organization [facility] Address [address] [place] [address] Care Team Providers Care Plastics Technician Name Role Phone Sita Yanez MD Primary Care Provider +1- [phone] Encounter Details Date Type Department Care Team (Late st Contact Info) Description 02/19/2004 Results Only [facility] - Maple conversion [address] [place] [address] Sita Yanez MD [address] [place] [phone] Social History Tobacco Use Types Packs/Day Years [...] Creatinine 0.7 0.7 - 1.5 mg/dl [facility] Calcium 8.8 8.5 - 10.5 mg/dl [facility] Calculated Calcium 9.1 8.5 - 10.5 mg/dl [facility] Glucose, Serum 122(H) 70 - 110 mg/dl [facility] 02/19/2004 10:0 5 EDT 02/19/2004 13:59 EDT Sita Yanez MD CHEMISTRY & BLOOD GAS ORDERABLES [facility] [address] [place] [address] documented in this encounter Visit Diagnoses Not on filedocumented in this encounter Care Teams Plastics Technician Relationship Specialty Start Date End Date Sita Yanez MD [address] [place] [phone] PCP - General 01/23/09 08/20/11 documented as of this encounter
--- OUTSIDE RECORDS SUMMARY | 2024-06-07 16:46 | XMS_ITS | Encounter Summary ---
Author Organization [facility] Address [address] [place] [address] Care Team Providers Care Shale Processing Technician Name Role Phone Unavailable Primary Care Provider Unavailabl e Encounter Details Date Type Department Care Team (Latest Contact Info) Description 12/16/2007 15:38 EDT Hospital Encounter [facility] - Other [address] [place] [address] David Toscano MD [address] [place] [phone] Discharge Disposition: Home or Self Care Social [...]
--- OUTSIDE RECORDS SUMMARY | 2024-06-07 16:46 | XMS_ITS | Encounter Summary ---
Author Organization [facility] Address [address] [place] [address] Care Team Providers Care Invas Tech Name Role Phone Unavailable Primary Care Provider Unavailabl e Encounter Details Date Type Department Care Team (Latest Contact Info) Description 05/19/2007 10:12 EDT - 05/19/2007 11:59 EDT Hospital Encounter [facility] - Other [address] [place] [address] Sita Yanez MD [address] [place] [phone] Discharge Disposition: Home or Self Care Social [...]
--- OUTSIDE RECORDS SUMMARY | 2024-06-07 16:46 | XMS_ITS | Encounter Summary ---
Author Organization [facility] Address [address] [place] [address] Care Team Providers Care Charge Histotechnologist Name Role Phone Unavailable Primary Care Provider Unavailabl e Encounter Details Date Type Department Care Team (Latest Contact Info) Description 12/10/2001 9:10 EST - 12/10/2001 11:59 EST Hospital Encounter [facility] Mother/Baby Unit [address] [place], [place] [address] Gabriel Velazquez MD [address] [place] [phone] Bree Albert MD Discharge Disposition: Home or [...] 70 - 110 MG/DL [facility] Sales Agent ID [id number] Test Performed by Nursing Services [facility] 12/17/2001 14:2 7 EST 12/21/2001 12:16 EST Gabriel Velazquez MD CHEMISTRY & BLOOD GA S ORDERABLES Performing Organization Address City/State/[facility] Co de Phone Number [facility] [address] documented in this encounter Visit Diagnoses Not on filedocumented in this encounter
--- OUTSIDE RECORDS SUMMARY | 2024-06-07 16:46 | XMS_ITS | Encounter Summary ---
Author Organization [facility] Address [address] [place] [address] Care Team Providers Care Waste Reclaimer Name Role Phone Sita Yanez MD Primary Care Provider +1- [phone] Encounter Details Date Type Department Care Team (Late st Contact Info) Description 07/04/2007 Results Only [facility] - Maple conversion [address] [place] [address] Sita Yanez MD [address] [place] [phone] Social History Tobacco Use Types Packs/Day Years [...] Unit: ug/24 h Performed or Referred by: [facility] Dpt of Lab Med and Path, [address] ?? [place] [id number], Lab Dir: MD [facility] 07/04/2007 9:23 EDT 07/04/2007 18:49 EDT Sita Yanez MD URINALYSIS ORDERAB LES Performing Organization Address City/[facility] Co de Phone Number [facility] [address] [place] [address] * VANILLYLMANDELIC ACID (VMA), URINE (07/04/2007 9:23 EDT) VMA, Adult (over 14) 3.9Reference range: <8.0 Unit: mg/24 h Performed or Referred by: [facility] Dpt of Lab Med and Path, [address] ?? [place] [id number], Lab Dir: MD [facility] Collection Duration 24 hours [facility] Urine Volume 1400 mL [facility] 07/04/2007 9:23 EDT 07/04/2007 18:49 EDT Sita Yanez MD URINALYSIS ORDERAB LES Performing Organization Address City/[facility]/ZIP Co de Phone Number [facility] [address] [place] [address] documented in this encounter Visit Diagnoses Not on filedocumented in this encounter Care Teams Waste Reclaimer Relationship Specialty Start Date End Date Sita Yanez MD [address] [place] [phone] PCP - General 01/23/09 08/20/11 documented as of this encounter
--- OUTSIDE RECORDS SUMMARY | 2024-06-07 16:46 | XMS_ITS | Encounter Summary ---
Author Organization [facility] Address [address] [place] [address] Care Team Providers Care Body Mechanic Apprentice Name Role Phone Sita Yanez MD Primary Care Provider +1- [phone] Encounter Details Date Type Department Care Team (Late st Contact Info) Description 01/30/2004 Results Only [facility] - Maple conversion [address] [place] [address] Sita Yanez MD [address] [place] [phone] Social History Tobacco Use Types Packs/Day Years [...] BLOOD GAS ORDERABLES [facility] [address] [place] [address] documented in this encounter Visit Diagnoses Not on filedocumented in this encounter Care Teams Body Mechanic Apprentice Relationship Specialty Start Date End Date Sita Yanez MD [address] [place] [phone] PCP - General 01/23/09 08/20/11 documented as of this encounter
--- OUTSIDE RECORDS SUMMARY | 2024-06-07 16:46 | XMS_ITS | Encounter Summary ---
Author Organization [facility] Address [address] [place] [address] Care Team Providers Care Small Piece Cutter Name Role Phone Unavailable Primary Care Provider Unavailabl e Encounter Details Date Type Department Care Team (Latest Contact Info) Description 06/21/2001 19:18 EDT Hospital Encounter [facility] - Other [address] [place] [address] Sita Yanez MD [address] [place] [phone] Unknown, Provider, Discharge Disposition: Auto Discharge Social [...] growth [facility] Report Status Final [id number] [facility] 06/21/2001 16:0 0 EDT 06/21/2001 18:02 EDT Sita Yanez MD MICROBIOLOGY - GEN ERAL ORDERABLES Performing Organization Address City/State/[facility] Co de Phone Number [facility] [address] documented in this encounter Visit Diagnoses Not on filedocumented in this encounter
--- OUTSIDE RECORDS SUMMARY | 2024-06-07 16:46 | XMS_ITS | Encounter Summary ---
Author Organization [facility] Address [address] [place] [address] Care Team Providers Care Waste Salvager Name Role Phone Unavailable Primary Care Provider Unavailabl e Encounter Details Date Type Department Care Team (Late st Contact Info) Description 05/03/2001 19:49 EDT Hospital Encounter [facility] - Other [address] [place] [address] Eriberto Carrera MD PhD Unknown, Provider, Social [...] D GAS ORDERABLES [facility] [address] [place] [address] documented in this encounter Visit Diagnoses Not on filedocumented in this encounter
--- OUTSIDE RECORDS SUMMARY | 2024-06-07 16:46 | XMS_ITS | Encounter Summary ---
Author Organization [facility] Address [address] [place] [address] Care Team Providers Care Extract Wringer Name Role Phone Unavailable Primary Care Provider Unavailabl e Encounter Details Date Type Department Care Team (Latest Contact Info) Description 04/15/2007 10:21 EDT - 04/15/2007 11:59 EDT Hospital Encounter [facility] - Map conversion [address] [place] [address] Mery Menendez Discharge Disposition: Auto Discharge Social [...]
--- OUTSIDE RECORDS SUMMARY | 2024-06-07 16:46 | XMS_ITS | Encounter Summary ---
Author Organization [facility] Address [address] [place] [address] Care Team Providers Care Stapler Machine Name Role Phone Unavailable Primary Care Provider Unavailabl e Encounter Details Date Type Department Care Team (Latest Contact Info) Description 09/22/2000 18:44 EST Hospital Encounter [facility] - Other [address] [place] [address] Jerrell Terry PA [address] [place] [phone] Unknown, Provider, Discharge Disposition: Auto Discharge Social [...] ISOLATED [facility] Report Status Final [id number] [facility] 09/22/2000 16:0 0 EST 09/23/2000 7:51 EST Jerrell SERRANO MICROBIOLOGY - GENER AL ORDERABLES Performing Organization Address City/State/[facility] Co de Phone Number [facility] [address] [place] [address] documented in this encounter Visit Diagnoses Not on filedocumented in this encounter
--- OUTSIDE RECORDS SUMMARY | 2024-06-07 16:46 | XMS_ITS | Encounter Summary ---
Author Organization [facility] Address [address] [place] [address] Care Team Providers Care Business Travel Consultant Name Role Phone Unavailable Primary Care Provider Unavailabl e Encounter Details Date Type Department Care Team (Late st Contact Info) Description 11/24/2000 7:54 EST Hospital Encounter [facility] - Other [address] [place] [address] Sita Yanez MD [address] [place] [phone] Unknown, Provider, Social History Tobacco Use Types [...]
--- OUTSIDE RECORDS SUMMARY | 2024-06-07 16:46 | XMS_ITS | Encounter Summary ---
Author Organization [facility] Address [address] [place] [address] Care Team Providers Care Station Mechanic Apprentice Name Role Phone Unavailable Primary Care Provider Unavailabl e Encounter Details Date Type Department Care Team (Latest Contact Info) Description 05/20/2001 10:42 EDT - 05/20/2001 11:[address] [facility] - Other [address] [place] [address] Sita Salamanca MD [address] [place] [phone] Unknown, ProviderMD Discharge Disposition: Auto Discharge Social [...] AND SER OLOGY ORDERABLES Performing Organization Address City/State/[facility] Co de Phone Number [facility] [address] [place] [address] * (ABNORMAL) PROFILE (05/20/2001 11:35 EDT) ABO [...] DNA PRO BE ORDERABLES Performing Organization Address [facility] Co de Phone Number [facility] [address] [place] [address] * N.GONORRHOEAE PROBE (05/20/2001 11:15 EDT) Specimen Description Cervix [facility] Result No Neisseria gonorrhoeae DNA detected by fur matcher mediated amplification. [facility] Report Status Final [id number] [facility] 05/20/2001 11:1 5 EDT 05/20/2001 19:10 EDT Sita Salamanca MD HISTORICAL LAB FOR SQ LOAD Performing Organization Address [facility] Co de Phone Number [facility] [address] [place] [address] * CHLAMYDIA TRACHOMATIS PROBE (05/20/2001 11:15 EDT) Specimen Description Cervix [facility] Result No Chlamydia trachomatis DNA detected by fur matcher mediated amplification. [facility] Report Status Final [id number] [facility] 05/20/2001 11:1 5 EDT 05/20/2001 19:10 EDT Sita Salamanca MD HISTORICAL LAB FOR SQ LOAD Performing Organization Address [facility] Co de Phone Number [facility] [address] [place] [address] * BACTERIAL CULTURE, URINE (05/20/2001 10:35 EDT) Specimen Description Urine [facility] Result 10,000 to 100,000 CFU/ml STAPHYLOCOCCU S COAGULASE POSITIVE (STAPHYLOCOCC US AUREUS) Greater than 100,000 CFU/ml LACTOBACILLUS SPECIES [facility] Report Status Final [id number] [facility] 05/20/2001 10:3 5 EDT [...] - GEN ERAL ORDERABLES Performing Organization Address [facility]/ZIP Co de Phone Number [facility] [address] [place] [address] * CYTOPATHOLOGY (05/20/2001 0:00 EDT) Pathology Report: CYTOPATHOLOGY REPORT Reports generated via electronic interface contain original data; however they are lacking the format of the original report. Caution should be taken when reading/interpreti ng unformatted reports. Name: ? MAURICIO BRITO ? Accession #: ? [id number] : ? 1970 (Age: 30) ??F ?Collect [...] MD PATHOLOGY ORDERABL ES [facility] [address] [place] [address] documented in this encounter Visit Diagnoses Not on filedocumented in this encounter
--- OUTSIDE RECORDS SUMMARY | 2024-06-07 16:46 | XMS_ITS | Encounter Summary ---
Author Organization [facility] Address [address] [place] [address] Care Team Providers Care Hay Buckler Name Role Phone Unavailable Primary Care Provider Unavailabl e Encounter Details Date Type Department Care Team (Latest Contact Info) Description 12/06/2001 8:53 EST - 12/06/2001 11:59 EST Hospital Encounter [facility] [address] [place] [address] Bree Albert MD Discharge Disposition: Auto Discharge [...]
--- OUTSIDE RECORDS SUMMARY | 2024-06-07 16:46 | XMS_ITS | Encounter Summary ---
Author Organization [facility] Address [address] [place] [address] Care Team Providers Care Manager Infusion Name Role Phone Unavailable Primary Care Provider Unavailabl e Encounter Details Date Type Department Care Team (Latest Contact Info) Description 11/22/2000 15:31 EST Hospital Encounter [facility] - Other [address] [place] [address] Sita Salamanca MD [address] [place] [phone] Unknown, ProviderMD Discharge Disposition: Auto Discharge Social [...] ? MAURICIO BRITO ? Accession #: ? [id number] : ? 1970 (Age: 30) ??F ?Collect [...] PATHOLOGY ORDERABL ES [facility] [address] [place] [address] documented in this encounter Visit Diagnoses Not on filedocumented in this encounter
--- OUTSIDE RECORDS SUMMARY | 2024-06-07 16:46 | XMS_ITS | Encounter Summary ---
Author Organization [facility] Address [address] [place] [address] Care Team Providers Care Spooling Machine Operator Name Role Phone Unavailable Primary Care Provider Unavailabl e Encounter Details Date Type Department Care Team (Late st Contact Info) Description 02/19/2004 8:46 EDT Hospital Encounter [facility] - Other [address] [place] [address] Sita Salamanca MD [address] [place] [phone] Social History Tobacco Use Types Packs/Day Years [...] & BLOOD GAS ORDERABLES Performing Organization Address [facility] de Phone Number [facility] [address] [place] [address] * LIPID PROFILE (INCLUDES CHOLESTEROL, TRIGLYCERIDES, HDL, LDL) (10/20/2004 10:55 EST) Cholesterol 193 mg/dl [facility] Comment: Desirable:<200 Borderline:200-239 High Risk:>[id number] Triglycerides 119 35 - 160 mg/dl [facility] HDL 50 mg/dl [facility] Comment: Highly Desirable:>60 Desirable:35-60 High Risk:<35 LDL, Calculated 119 mg/dl [facility] Comment: Desirable:<130 Borderline:130-159 High Risk:>ja=819 Chol/HDL Ratio 3.9 [facility] Fasting? Unknown [facility] 10/20/2004 10:5 5 EST 10/20/2004 18:39 EST Sita Salamanca MD CHEMISTRY & BLOOD GAS ORDERABLES Performing Organization Address [facility] de Phone Number [facility] [address] [place] [address] * BASIC METABOLIC PANEL (10/20/2004 10:55 EST) [...] & BLOOD GAS ORDERABLES Performing Organization Address [facility] de Phone Number [facility] [address] [place] [address] * ALT (10/20/2004 10:55 EST) ALT 33 9 - 52 U/L [facility] 10/20/2004 10:5 5 EST 10/20/2004 18:39 EST Sita Salamanca MD CHEMISTRY & BLOOD GAS ORDERABLES Performing Organization Address [facility] Co de Phone Number [facility] [address] [place] [address] * CYTOPATHOLOGY (02/19/2004 0:00 EDT) Pathologist [facility] Pathology Report: CYTOPATHOLOGY REPORT Reports generated via electronic interface contain original data; however they are lacking the format of the original report. Caution should be taken when reading/interpreti ng unformatted reports. Name: ? MAURICIO BRITO ? Accession #: ? [id number] : ? 1970 (Age: 33) ??F ?Collect [...] MD PATHOLOGY ORDERABL ES [facility] [address] [place] [address] documented in this encounter Visit Diagnoses Not on filedocumented in this encounter
--- OUTSIDE RECORDS SUMMARY | 2024-06-07 16:46 | XMS_ITS | Encounter Summary ---
Author Organization [facility] Address [address] [place] [address] Care Team Providers Care Merry Go Round Attendant Name Role Phone Unavailable Primary Care Provider Unavailabl e Encounter Details Date Type Department Care Team (Latest Contact Info) Description 07/03/2007 10:15 EDT - 07/03/2007 11:59 EDT Hospital Encounter [facility] - Other [address] [place] [address] Sita Yanez MD [address] [place] [phone] Discharge Disposition: Home or Self Care Social [...]
--- OUTSIDE RECORDS SUMMARY | 2024-06-07 16:46 | XMS_ITS | Encounter Summary ---
Author Organization [facility] Address [address] [place] [address] Care Team Providers Care Automatic Glove Former Name Role Phone Unavailable Primary Care Provider Unavailabl e Encounter Details Date Type Department Care Team (Latest Contact Info) Description 01/07/2007 23:12 EDT Hospital Encounter [facility] - Other [address] [place] [address] Sita Yanez MD [address] [place] [phone] Discharge Disposition: Home or Self Care [...] LAB 01/07/2007 8:20 EDT 01/07/2007 12:55 EDT Sita Yanez MD CHEMISTRY & BLOOD GAS ORDERABLES [facility] [address] [place] [id number] documented in this encounter Visit Diagnoses Not on filedocumented in this encounter
--- OUTSIDE RECORDS SUMMARY | 2024-06-07 16:46 | XMS_ITS | Encounter Summary ---
Author Organization [facility] Address [address] [place] [address] Care Team Providers Care Senior Staff Psychologist Name Role Phone Unavailable Primary Care Provider Unavailabl e Encounter Details Date Type Department Care Team (Late st Contact Info) Description 12/02/2001 11:13 EST Hospital Encounter [facility] - Other [address] [place] [address] Bree Albert MD Unknown, Provider, Social History [...] ISOLATED [facility] Report Status Final [id number] [facility] 12/02/2001 10:1 6 EST 12/03/2001 10:16 EST Bree Albert MD HISTORICAL LAB FOR S Q LOAD [facility] [address] [place] [address] documented in this encounter Visit Diagnoses Not on filedocumented in this encounter
--- OUTSIDE RECORDS SUMMARY | 2024-06-07 16:46 | XMS_ITS | Encounter Summary ---
Author Organization [facility] Address [address] [place] [address] Care Team Providers Care Air Quality Technician Name Role Phone Unavailable Primary Care Provider Unavailabl e Encounter Details Date Type Department Care Team (Latest Contact Info) Description 10/24/1999 14:33 EST Hospital Encounter [facility] - Other [address] [place] [address] Santos Moses MD [address] [place] [phone] Unknown, ProviderMD Discharge Disposition: Auto Discharge Social [...] ? MAURICIO BRITO ? Accession #: ? [id number] : ? 1970 (Age: 29) ??F ?Collect Date: ? 10/24/1999 Location: ?Receive Date: ? 10/24/1999 Provider: ?SANTOS MOSES MD Copy to: ?SANTOS MOSES MD ? Specimen/Source: ?Occupational Health Physiotherapist ThinPrep Last Menstrual Period: ? GYNECOLOGIC ??CYTOPATHOLOGY ??REPORT Name: TINA,MAURICIO ? [facility] : 1970 ?? 29Y F ?Client ID: ?? #: [id number] ? Clinician: SANTOS MOSES MD Location: [facility] ??Copy to: ?? Specimen: ?Occupational Health Physiotherapist ThinPrep ? Source: ?Collected: 10/22/99 ? Received: [...] Sal, CT(ASCP) ? Report Date: ?? 10/24/1999 [employer] Archived Tests - Final Diagnosis Text Field: Clinical History : ? Document reviewed and electronically signed by: ? Conversion ? Report Date: ??10/24/1999 00:00 End of Report [facility] 10/24/1999 11:3 2 EST 10/24/1999 11:33 EST Santos Moses MD PATHOLOGY ORDERABLES Performing Organization Address City/State/[facility] Co de Phone Number [facility] [address] [place] [address] documented in this encounter Visit Diagnoses Not on filedocumented in this encounter
--- OUTSIDE RECORDS SUMMARY | 2024-06-07 16:46 | XMS_ITS | Encounter Summary ---
Author Organization [facility] Address [address] [place] [address] Care Team Providers Care Community Relations Police Lieutenant Name Role Phone Unavailable Primary Care Provider Unavailabl e Encounter Details Date Type Department Care Team (Late st Contact Info) Description 09/30/2001 21:52 EST Hospital Encounter [facility] - Other [address] [place] [address] Carolee Avila MD [address] [facility], [address] [place] [phone] Unknown, Provider, Discharge Disposition: Auto Discharge Social [...]
--- OUTSIDE RECORDS SUMMARY | 2024-06-07 16:46 | XMS_ITS | Encounter Summary ---
Author Organization [facility] Address [address] [place] [address] Care Team Providers Care Nuclear Auxiliary Operator Name Role Phone Sita Yanez MD Primary Care Provider [phone]- [phone] Encounter Details Date Type Department Care Team (Late st Contact Info) Description 12/16/2007 Results Only [facility] - [facility] conversion [address] [place] [address] David Toscano MD [address] [place] [phone] Social History Tobacco Use Types Packs/Day Years [...] ISOLATED [facility] Report Status Final [id number] [facility] 12/16/2007 17:1 5 EDT 12/16/2007 19:29 EDT David Toscano MD MICROBIOLOGY - GEN ERAL ORDERABLES [facility] [address] [place] [address] documented in this encounter Visit Diagnoses Not on filedocumented in this encounter Care Teams Nuclear Auxiliary Operator Relationship Specialty Start Date End Date Sita Yanez MD [address] [place] [phone] PCP - General 01/23/09 08/20/11 documented as of this encounter
--- OUTSIDE RECORDS SUMMARY | 2024-06-07 16:46 | XMS_ITS | Encounter Summary ---
Author Organization [facility] Address [address] [place] [address] Care Team Providers Care Carnallite Plant Operator Name Role Phone Unavailable Primary Care Provider Unavailabl e Encounter Details Date Type Department Care Team ([facility] st Contact Info) Description 12/23/2000 8:47 EDT Hospital Encounter [address] [address] Eriberto Carrera MD PhD Social History Tobacco [...] Rubella IgG Scr Antibody detected [facility] 12/23/2000 9:22 EDT 12/23/2000 9:24 EDT Eriberto Carrera MD PhD HISTORICAL LAB F OR SQ LOAD Performing Organization Address [facility] de Phone Number [facility] [address] [place] [address] * PROLACTIN (12/23/2000 9:22 EDT) Prolactin 9.9 ng/ml [facility] Comment: Non-: 2.8-29.2 : 9.7-208.5 Post Menopausal: 1.8-20.3 12/23/2000 9:22 EDT 12/23/2000 9:24 EDT Eriberto Carrera MD PhD CHEMISTRY & BLOO D GAS ORDERABLES Performing Organization Address [facility] de Phone Number [facility] [address] [place] [address] documented in this encounter Visit Diagnoses Not on filedocumented in this encounter
--- OUTSIDE RECORDS SUMMARY | 2024-06-07 16:46 | XMS_ITS | Encounter Summary ---
Author Organization [facility] Address [address] [place] [address] Care Team Providers Care Concert Or Lecture Hall Manager Name Role Phone Sita Saalmanca MD Primary Care Provider +1- [phone] Encounter Details Date Type Department Care Team (Late st Contact Info) Description 03/09/2005 Results Only [facility] - [facility] conversion [address] [place] [address] Sita Salamanca MD [address] [place] [phone] Social History Tobacco Use Types Packs/Day Years [...] ? MAURICIO BRITO ? Accession #: ? [id number] : ? 1970 (Age: 34) ??F ?Collect [...] PATHOLOGY ORDERABL ES [facility] [address] [place] [address] documented in this encounter Visit Diagnoses Not on filedocumented in this encounter Care Teams Concert Or Lecture Hall Manager Relationship Specialty Start Date End Date Sita Salamanca MD [address] [place] [phone] PCP - General 01/23/09 08/20/11 documented as of this encounter
--- OUTSIDE RECORDS SUMMARY | 2024-06-07 16:46 | XMS_ITS | Encounter Summary ---
Author Organization [facility] Address [address] [place] [address] Care Team Providers Care Collar Fuser Name Role Phone Unavailable Primary Care Provider Unavailabl e Encounter Details Date Type Department Care Team (Latest Contact Info) Description 06/22/2006 11:11 EDT - 06/22/2006 11:59 EDT Hospital Encounter [address] [address] Mery Menendez Discharge Disposition: Auto Discharge Social [...]
--- OUTSIDE RECORDS SUMMARY | 2024-06-07 16:46 | XMS_ITS | Encounter Summary ---
Author Organization [facility] Address [address] [place] [address] Care Team Providers Care Retail Operations Specialist Name Role Phone Unavailable Primary Care Provider Unavailabl e Encounter Details Date Type Department Care Team (Late st Contact Info) Description 09/27/2001 7:19 EST - 09/27/2001 11:59 EST Hospital Encounter [facility] - Other [address] [place] [address] Carolee Avila MD [address] [facility], [address] [place] [phone] Unknown, Provider, Discharge Disposition: Auto Discharge Social [...] 3hr 180(H) 50 - 140 mg/dl [facility] Comment: The diagnosis of diabetes is made if two or more of the glucose values exceed the reference range listed. Glucose Dose 100 g [facility] 09/30/2001 10:5 4 EST 09/30/2001 10:59 EST Carolee Avila MD PACKAGES & DNA PRO BE ORDERABLES Performing Organization Address [facility] de Phone Number [facility] [address] [place] [address] * VARICELLA IGG ANTIBODY (09/27/2001 8:59 EST) Varicella IgG Ab Antibody detected [facility] 09/27/2001 8:59 EST 09/27/2001 10:17 EST Carolee Avila MD IMMUNOLOGY AND SER OLOGY ORDERABLES Performing Organization Address [facility] Phone Number [facility] [address] [place] [address] * (ABNORMAL) GLUCOSE-1HR GESTATIONAL SCREEN (09/27/2001 8:59 EST) Glucose-1hr Gest Scn 181(H) 50 - 135 mg/dl [facility] Glucose Dose 50 g [facility] 09/27/2001 8:59 EST 09/27/2001 10:17 EST Carolee Avila MD PACKAGES & DNA PRO BE ORDERABLES Performing Organization Address [facility] de Phone Number [facility] [address] [place] [address] * (ABNORMAL) HEMAGRAM (09/27/2001 8:59 EST) WBC [...] PF4 O RDERABLES [facility] [address] [place] [address] documented in this encounter Visit Diagnoses Not on filedocumented in this encounter
--- OUTSIDE RECORDS SUMMARY | 2024-06-07 16:46 | XMS_ITS | Encounter Summary ---
Author Organization [facility] Address [address] [place] [address] Care Team Providers Care Package Yarns Drying Machine Operator Name Role Phone Unavailable Primary Care Provider Unavailabl e Encounter Details Date Type Department Care Team (Latest Contact Info) Description 12/09/2001 10:35 EST - 12/09/2001 11:59 EST Hospital Encounter [facility] [address] [place] [address] Bree Albert MD Discharge Disposition: Auto Discharge [...]
--- OUTSIDE RECORDS SUMMARY | 2024-06-07 16:46 | XMS_ITS | Encounter Summary ---
Author Organization [facility] Address [address] [place] [address] Care Team Providers Care Social Services Designee Name Role Phone Unavailable Primary Care Provider Unavailabl e Encounter Details Date Type Department Care Team (Latest Contact Info) Description 10/03/2001 15:33 EST Hospital Encounter [facility] [address] [place] [address] Bree Albert MD Discharge Disposition: Auto Discharge [...]
--- OUTSIDE RECORDS SUMMARY | 2024-06-07 16:46 | XMS_ITS | Encounter Summary ---
Author Organization [facility] Address [address] [place] [address] Care Team Providers Care Pull Out Operator Name Role Phone Unavailable Primary Care Provider Unavailabl e Encounter Details Date Type Department Care Team (Latest Contact Info) Description 01/30/2004 12:58 EDT Hospital Encounter [facility] - Other [address] [place] [address] Sita Yanez MD [address] [place] [phone] Discharge Disposition: Auto Discharge Social History Tobacco [...]
--- OUTSIDE RECORDS SUMMARY | 2024-06-07 16:46 | XMS_ITS | Encounter Summary ---
Author Organization [facility] Address [address] [place] [address] Care Team Providers Care Continuous Vulcanizing Machine Operator Name Role Phone Unavailable Primary Care Provider Unavailabl e Encounter Details Date Type Department Care Team (Latest Contact Info) Description 06/01/2001 12:46 EDT Hospital Encounter [facility] [address] [place] [address] Bree Albert MD Discharge Disposition: Auto Discharge [...]
--- OUTSIDE RECORDS SUMMARY | 2024-06-07 16:46 | XMS_ITS | Encounter Summary ---
Author Organization [facility] Address [address] [place] [address] Care Team Providers Care Highway Engineering Teacher Name Role Phone Sita Salamanca MD Primary Care Provider [phone]- [phone] Encounter Details Date Type Department Care Team (Late st Contact Info) Description 05/19/[address] [facility] [address] [place] [address] Sita Salamanca MD [address] [place] [phone] Social History Tobacco Use Types Packs/Day Years Used Date Smoking Tobacco: Never Assessed Sex and Gender Information Value Date Recorded Sex Assigned at Not on file Gender Identity Female 11/22/2019 12:18 EST Sexual Orientation Not on file documented as of this encounter Plan of Treatment Not on file documented as of this encounter Procedures Procedure Name Priority Date/Time Associated Diagnosis Comments URINE [id number] RATIO (ACR) Routine 05/19/2007 10:44 EDT HPV DETECTION, HIGH RISK TYPES Routine 05/19/2007 10:05 EDT CYTOPATHOLOGY Routine 05/19/2007 0:00 EDT documented in this encounter Results * MICROALBUMIN (05/19/2007 10:44 EDT) Creatinine, Urn [place] 62.8 mg/dl [facility] Ur Albumin mg/dl <0.2 <1.9 mg/dl [facility] Ur Alb ug/mg Crea Unable to calculate ug/mg Crea result. Normal: ??<30 ug/mg Creat Microalbuminu naye: ??30-300 ug/mg Creat Clinical albuminuria: ??>300 ug/mg Creat ug/mg Crea [facility] 05/19/2007 10:4 4 EDT 05/19/2007 20:11 EDT Sita Salamanca MD CHEMISTRY & BLOOD GAS ORDERABLES Performing Organization Address [facility] de Phone Number [facility] [address] [place] [address] * HUMAN PAPILLOMA VIRUS DNA TEST (05/19/2007 10:05 EDT) Specimen Description Cervix, ThinPrep vial [facility] Result Negative for HPV types 16, 18, 31, 33, 35, 39, 45, 51, 52, 56, 58, 59, and 68. [facility] Report Status Final [id number] [facility] 05/19/2007 10:0 5 EDT 05/26/2007 10:05 EDT Sita Salamanca MD MICROBIOLOGY - GEN ERAL ORDERABLES Performing Organization Address [facility] de Phone Number [facility] [address] [place] [address] * CYTOPATHOLOGY (05/19/2007 0:00 EDT) Pathology Report: CYTOPATHOLOGY REPORT Reports generated via electronic interface contain original data; however they are lacking the format of the original report. Caution should be taken when reading/interpreti ng unformatted reports. Name: ? MAURICIO BRITO ? Accession #: ? [id number] : ? 1970 (Age: 36) ??F ?Collect Date: ? 05/19/2007 Location: ? [facility] ? Receive Date: ? 05/20/2007 Provider: ?SITA SALAMANCA MD Copy to: ? Specimen/Source: ?ThinPrep Pap Test, Cervix/Endocervix, processed on [employer] ThinPrep Imaging System, with manual evaluation Last [...] MD PATHOLOGY ORDERABL ES Performing Organization Address City/State/[facility] Co de Phone Number [facility] [address] [place] [address] documented in this encounter Visit Diagnoses Not on filedocumented in this encounter Care Teams Highway Engineering Teacher Relationship Specialty Start Date End Date Sita Salamanca MD [address] [place] [phone] PCP - General 01/23/09 08/20/11 documented as of this encounter
--- OUTSIDE RECORDS SUMMARY | 2024-06-07 16:46 | XMS_ITS | Encounter Summary ---
Author Organization [facility] Address [address] [place] [address] Care Team Providers Care Primary Care Coordinator Name Role Phone Unavailable Primary Care Provider Unavailabl e Encounter Details Date Type Department Care Team (Late st Contact Info) Description 03/09/2005 9:44 EDT Hospital Encounter [facility] - Other [address] [place] [address] Sita Yanez MD [address] [place] [phone] Social History Tobacco Use Types Packs/Day Years [...]
--- OUTSIDE RECORDS SUMMARY | 2024-06-07 16:46 | XMS_ITS | Encounter Summary ---
Author Organization [facility] Address [address] [place] [address] Care Team Providers Care Machine Scallop Cutter Name Role Phone Sita Yanez MD Primary Care Provider +1- [phone] Encounter Details Date Type Department Care Team (Late st Contact Info) Description 11/24/[address] [facility] [address] [place] [address] Sita Yanez MD [address] [place] [phone] Social History Tobacco Use Types Packs/Day Years [...] & BLOOD GAS ORDERABLES Performing Organization Address [facility] de Phone Number [facility] [address] [place] [address] * GLUCOSE, SERUM (11/24/2000 8:40 EST) Pathologist [facility] Glucose, Serum 101 70 - 110 mg/dl [facility] 11/24/2000 8:40 EST 11/24/2000 13:23 EST Sita Yanez MD CHEMISTRY & BLOOD GAS ORDERABLES Performing Organization Address [facility] Phone Number [facility] [address] [place] [address] * (ABNORMAL) LIPID PROFILE (INCLUDES CHOLESTEROL, TRIGLYCERIDES, HDL, LDL) (11/24/2000 8:40 EST) Pathologist [facility] Cholesterol 236 mg/dl [facility] Comment: Desirable:<200 Borderline:200-239 High Risk:>zc=[id number] Triglycerides 216(H) 35 - 160 mg/dl [facility] HDL 47 mg/dl [facility] Comment: Highly Desirable:>60 Desirable:35-60 High Risk:<35 LDL, Calculated 146 mg/dl [facility] Comment: Desirable:<130 Borderline:130-159 High Risk:>ge=793 Chol/HDL Ratio 5.0 [facility] 11/24/2000 8:40 EST 11/24/2000 13:23 EST Sita Yanez MD CHEMISTRY & BLOOD GAS ORDERABLES Performing Organization Address [facility] de Phone Number [facility] [address] [place] [address] * LH (11/24/2000 8:40 EST) LH 16.0 mIU/ml [facility] Comment: Follicular: 1-18 Mid-Cycle Peak: 15-80 Luteal: 0.5-18 Postmenopausal: 12-55 Note new reference range. 11/24/2000 8:40 EST 11/24/2000 13:23 EST Sita Yanez MD CHEMISTRY & BLOOD GAS ORDERABLES Performing Organization Address City/[facility] Co de Phone Number [facility] [address] [place] [address] * FSH (11/24/2000 8:40 EST) FSH 3.9 mIU/ml [facility] Comment: Follicular: 2-11 Mid-Cycle Peak: 3.4-35 Luteal: 1-9 Postmenopausal: 25-120 Note new reference range. 11/24/2000 8:40 EST 11/24/2000 13:23 EST Sita Yanez MD CHEMISTRY & BLOOD GAS ORDERABLES Performing Organization Address [facility] de Phone Number [facility] [address] [place] [address] documented in this encounter Visit Diagnoses Not on filedocumented in this encounter Care Teams Machine Scallop Cutter Relationship Specialty Start Date End Date Sita Yanez MD [address] [place] [phone] PCP - General 01/23/09 08/20/11 documented as of this encounter
--- OUTSIDE RECORDS SUMMARY | 2024-06-07 16:46 | XMS_ITS | Encounter Summary ---
Author Organization [facility] Address [address] [place] [address] Care Team Providers Care Career Counselor Name Role Phone Unavailable Primary Care Provider Unavailabl e Encounter Details Date Type Department Care Team (Late st Contact Info) Description 01/18/2002 8:47 EDT Hospital Encounter [facility] - Other [address] [place] [address] Bree Albert MD Unknown, Provider, Social History [...] Albert MD PACKAGES & DNA PROBE ORDERABLES [facility] [address] [place] [address] documented in this encounter Visit Diagnoses Not on filedocumented in this encounter
--- OUTSIDE RECORDS SUMMARY | 2024-06-07 16:46 | XMS_ITS | Encounter Summary ---
Author Organization [facility] Address [address] [place] [address] Care Team Providers Care Kennel Manager Dog Track Name Role Phone Unavailable Primary Care Provider Unavailabl e Encounter Details Date Type Department Care Team (Latest Contact Info) Description 05/18/2006 18:18 EDT Hospital Encounter [facility] - Other [address] [place] [address] Sita Yanez MD [address] [place] [phone] Discharge Disposition: Home or Self Care [...] BLOOD GAS ORDERABLES [facility] [address] [place] [address] documented in this encounter Visit Diagnoses Not on filedocumented in this encounter
--- OUTSIDE RECORDS SUMMARY | 2024-06-07 16:46 | XMS_ITS | Encounter Summary ---
Author Organization [facility] Address [address] [place] [address] Care Team Providers Care Lead Caster Name Role Phone Unavailable Primary Care Provider Unavailabl e Encounter Details Date Type Department Care Team (Late st Contact Info) Description 09/24/2006 10:20 EST Hospital Encounter [address] [address] Mery Menendez Social History Tobacco Use Types [...]
== END 2024-06-07 16:32 | disposition home or self-care (01) ==
LOC: LBN 16:31
PROVIDERS: PCP Registered Nurse; Visit Provider Otolaryngology
DX: H61.91 Disorder of right external ear, unspecified (principal); L98.9 Disorder of the skin and subcutaneous tissue, unspecified
CPT/HCPCS: 88305

== ENCOUNTER 2025-01-05 12:10 | Outpatient (REF) | payer BC, SELFPAY ==
[2025-01-05 14:31] LABS: Hemoglobin A1C 5.9 % (<5.7)
[2025-01-05 14:51] LABS: Anion Gap 6.4 mmol/L (3-11); BUN 20 mg/dL (7-18); CO2 29.6 mmol/L (21.0-32.0); CREATININE 0.8 mg/dL (0.55-1.02); Calcium 9.7 mg/dL (8.5-10.1); Calculated LDL 109 mg/dL (<100); Chloride 106 mmol/L (98-107); Cholesterol 204 mg/dL (<200); Glucose 99 mg/dL (74-106); HDL Cholesterol 73 mg/dL (>or=50); Potassium 4.2 mmol/L (3.5-5.1); Sodium 142 mmol/L (136-145); Triglyceride 114 mg/dL (<150)
== END 2025-01-05 12:11 | disposition home or self-care (01) ==
LOC: NCHCN 12:10
PROVIDERS: PCP Registered Nurse; Visit Provider Family Medicine
DX: I10 Essential (primary) hypertension (principal); E78.5 Hyperlipidemia, unspecified; E11.319 Type 2 diabetes mellitus with unspecified diabetic retinopathy without macular edema
CPT/HCPCS: 80048; 80061; 83036

== ENCOUNTER 2025-07-06 15:34 | Outpatient (REF) | payer BC, SELFPAY ==
[2025-07-06 17:13] LABS: COMMENT (LAB VIEW ONLY) 117.54 mg/dL; Microalb ug/mg Crea 4.7 ug/mg Cr
== END 2025-07-06 15:35 | disposition home or self-care (01) ==
LOC: NCHCN 15:34
PROVIDERS: PCP Registered Nurse; Visit Provider Family Medicine
DX: E11.9 Type 2 diabetes mellitus without complications (principal); Z79.4 Long term (current) use of insulin
CPT/HCPCS: 82043; 82570